=== PATIENT | female | born 1945 | race Caucasian/White ===

== ENCOUNTER → 2017-09-07 | Outpatient (CLI) | payer MEDICARE, OTHER ==
--- NOTE | 2017-09-08 14:26 | Diagnostic Imaging Report ---
Bilateral screening mammogram 2D views with tomosynthesis The current study was also evaluated with a Computer Aided Detection (CAD) system. INDICATION: Screening. No current complaints stated on the questionnaire. COMPARISON: 11/21/2015. FINDINGS: The breasts are composed of heterogeneously dense parenchyma which may decrease mammographic sensitivity. Allowing for technique and positional differences, no suspicious change is seen. IMPRESSION: Dense breasts with no definite change. ACR BI-RADS Category 2: Benign findings. Result letter will be mailed to the patient. Note: At least 10% of breast cancer is not imaged by mammography. Dictated by: Dictated on workstation # [id number]
== END ==
LOC: RAD 09:49
PROVIDERS: ATTEND Nurse Practitioner
DX: Z12.31 Encounter for screening mammogram for malignant neoplasm of breast (principal)
CPT/HCPCS: 77067

== ENCOUNTER 2018-03-25 19:20 | Emergency (ER) | payer MEDICARE, OTHER ==
[~2018-03-25] VITALS: Ht 152.4 cm; Wt 54.4 kg
[2018-03-25 20:20] LABS: BILIRUBIN,URINE NEGATIVE (NEGATIVE); CLARITY,URINE SLIGHTLY CLOUDY; COLOR,URINE YELLOW; GLUCOSE, URINE (UA) NEGATIVE (NEGATIVE); KETONES,URINE NEGATIVE (NEGATIVE); LEUKOCYTE ESTERASE ,URINE 3+ (NEGATIVE); NITRITE,URINE NEGATIVE (NEGATIVE); PH,URINE 7 (5-9); PROTEIN,URINE NEGATIVE (NEGATIVE); UROBILINOGEN,URINE NORMAL (NORMAL)
[2018-03-25 20:20] LABS: BASOPHILS % (AUTO) 0 % (0-10); EOSINOPHILS % (AUTO) 1 % (0-10); HEMATOCRIT 41 % (35-52); HEMOGLOBIN 13.9 G/DL (11.5-16.0); LYMPHOCYTES # (AUTO) 0.8 X 10^3 (1.0-4.0); LYMPHOCYTES % (AUTO) 16 % (12-44); MEAN CORPUSCULAR HEMOGLOBIN 32 PG (25-34); MEAN CORPUSCULAR HGB CONC 34 G/DL (32-36); MEAN CORPUSCULAR VOLUME 95 FL (80-99); MEAN PLATELET VOLUME 11.3 FL (7.4-10.4); MONOCYTES # (AUTO) 0.8 X 10^3 (0.0-1.0); MONOCYTES % (AUTO) 15 % (0-12); NEUTROPHILS # (AUTO) 3.5 X 10^3 (1.8-7.8); NEUTROPHILS % (AUTO) 68 % (42-75); PLATELET COUNT 167 10^3/uL (130-400); RED BLOOD COUNT 4.31 10^6/uL (4.35-5.85); RED CELL DISTRIBUTION WIDTH 12.9 % (10.0-14.5); WHITE BLOOD COUNT 5.2 10^3/uL (4.3-11.0)
--- NOTE | 2018-03-25 20:23 | ED General ---
General Chief Complaint: General Problems/Pain Stated Complaint: UTI,DIZZY,DISORIENTED Source of Information: Patient, Family Exam Limitations: No Limitations History of Present Illness Date Seen by Provider: Mar 25, 2018 Time Seen by Provider: 20:18 Initial Comments Patient is a 72-year-old female who presents to emergency room with complaints of UTI, head pressure, and confusion. She is alert and oriented on exam but feels like she is having episodes that are "foggy". She states that on 03/19/18 she was seen in emergency room in [facility] with similar symptoms and was treated for urinary tract infection and given Bactrim which she took her last dose this evening. She reports that on 03/22/13 she became dizzy and fell which caused her to hit her head. She states that she went to [place] emergency room for this and they did a CT of her head and stitches in her head. Today she reports that she is having a lot of pressure in her head and still think she has a urinary tract infection. Timing/Duration: 1 Week Associated Systoms: No Cough, No Diaphoresis, No Fever/Chills; Headaches; No Nausea/Vomiting, No Weakness Allergies and Home Medications Allergies Coded Allergies: No Known Drug Allergies (Unverified , 06/04/13) Patient Home Medication List Home Medication List Reviewed: Yes Review of Systems Constitutional: see HPI; No chills, No diaphoresis EENTM: see HPI; No no symptoms reported, No ear discharge, No hearing loss Respiratory: see HPI; No cough, No dyspnea on exertion, No hemoptysis Cardiovascular: see HPI; No chest pain, No edema Gastrointestinal: see HPI; No abdominal pain, No constipation, No diarrhea, No nausea, No vomiting Genitourinary: see HPI; No decreased output, No discharge, No dysuria Musculoskeletal: see HPI; No back pain, No gout, No joint pain Skin: see HPI; No change in color, No change in hair/nails, No dryness; other ( sutures in her scalp) Psychiatric/Neurological: See HPI; Denies Depressed, Denies Emotional Problems ; Headache Hematologic/Lymphatic: See HPI; Denies Anemia, Denies Blood Clots Immunological/Allergic: see HPI; denies food allergy, denies grass allergy All Other Systems Reviewed Negative Unless Noted: Yes Past Jxokmkx-Kghtrc-Lsumma Hx Patient Social History Alcohol Use: Denies Use Recreational Drug Use: No Smoking Status: Never a Smoker Recent Foreign Travel: No Contact w/Someone Who Travel: No Recent Hopitalizations: No Immunizations Up To Date Tetanus Booster (TDap): Unknown PED Vaccines UTD: Yes Seasonal Allergies Seasonal Allergies: No Past Medical History Surgeries: No Respiratory: No Cardiac: No Neurological: No Genitourinary: Yes Gastrointestinal: No Musculoskeletal: No Endocrine: No HEENT: No Cancer: No Psychosocial: No Integumentary: No Blood Disorders: No Physical Exam Vital Signs Vital Signs - First Documented 03/25/18 20:00 Temp 100.5 Pulse 75 Resp 20 B/P (MAP) 133/71 (91) Pulse Ox 98 O2 Delivery Room Air Capillary Refill : Height, Weight, BMI Height: '" Weight: 127lbs. oz. 57.393622hz; BMI Method: General Appearance: No Apparent Distress, WD/WN HEENT: PERRL/EOMI, TMs Normal, Normal ENT Inspection, Pharynx Normal Neck: Full Range of Motion, Normal Inspection, Non Tender, Supple Respiratory: Chest Non Tender, Lungs Clear, Normal Breath Sounds, No Accessory Muscle Use, No Respiratory Distress Cardiovascular: Regular Rate, Rhythm, No Edema, No Gallop, No JVD, No Murmur, Normal Peripheral Pulses Gastrointestinal: Normal Bowel Sounds, No Organomegaly, No Pulsatile Mass, Non Tender, Soft Back: Normal Inspection, No CVA Tenderness, No Vertebral Tenderness Extremity: Normal Capillary Refill, Normal Inspection, Normal Range of Motion, Non Tender, No Calf Tenderness Neurologic/Psychiatric: Alert, Oriented x3, No Motor/Sensory Deficits, Normal Mood/Affect Skin: Warm/Dry, Other (the patient does have 5 christopher that are intact on the left posterior aspect of the head.) Focused Exam Lactate Level Lactic Acid Level Progress/Results/Core Measures Suspected Sepsis SIRS Temperature: Pulse: Respiratory Rate: Blood Pressure / Mean: Results/Orders Lab Results My Orders Orders - JASWINDEROTSHERON Iv Infusion <= First Hr Ed (03/25/18 ) Medications Given in ED Vital Signs/I&O Capillary Refill : Progress Note : Time: 21:03 Progress Note Patient informed me that she has a pessary in place gets changed every [address] Alston. She reports that she is not due to have a change until the beginning of May. She states that she would like her bladder completely drained by a Shields catheter. I I'm going to have the patient void into a hat and then we will drain her bladder with a catheter. 2215: Patient had 300 mL of urine postvoid. Diagnostic Imaging Diagonstic Imaging: CT Plain Films/CT/US/NM/MRI: c-spine, head Comments VIA [facility]. [place], [place] NAME: YANICK CRUZ [facility] REC#: [id number] PT STATUS: REG ER : 1945 PHYSICIAN: SHERON RIOS ADMIT DATE: 03/25/18/ER Draft Date of Exam:03/25/18 CT HEAD/CERVICAL SPINE WO Clinical indication: Patient fell four days ago and has stitches in left side and is dizzy and has head pressure. Exam: Head CT without IV contrast. Axial CT scan of the cervical spine with sagittal and coronal reformations. Comparison: None. Findings: Head CT: Motion artifact obscures portions of this exam. There is no evidence of acute cerebral infarct, intracranial hemorrhage, or gross mass effect. The brain parenchymal volume appears appropriate for patient's age. There is normal bishop-white matter distinction. There is no significant midline shift or herniation. There is no evidence of hydrocephalus. The basal cisterns are unremarkable. There is a small area of extracranial soft tissue swelling involving the left posterior aspect of the head with scalp sutures seen. There is no skull fracture. Otherwise, the skull, extracranial soft tissue and orbits are unremarkable. The paranasal sinuses are unremarkable. Temporal bones show no significant abnormality. CT cervical spine: Motion artifact obscures portions of this exam. There is no gross evidence of acute cervical spine fracture or dislocation. There are multiple chronic appearing compression deformities with loss of vertebral body height involving the C3 through visualized T1 vertebra. There are hypertrophic anterior spurs with partially flowing osteophytes seen from the C3-C4 levels. There is no significant bony central canal or neural foramen narrowing. There is slight excessive lordosis of the cervical spine posture. The neck soft tissue structures show no significant abnormality. Visualized upper lung alva are clear. Impression: 1: There is no evidence of acute intracranial process. There is no intracranial hemorrhage. 2: There is a small area of extracranial soft tissue swelling involving the left posterior aspect of the head with no skull fracture seen. 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 4: There is chronic compression deformities involving multiple cervical vertebra. Dictated on workstation # [id number] Dict: 03/25/182103 Trans: 03/25/182115 [facility] [id number] Interpreted by: LEXII TREJO MD Electronically signed by: Reviewed: Reviewed by Me Departure Impression Primary Impression: Urinary tract infection Additional Impression: Urinary retention Disposition: HOME, SELF-CARE Condition: Stable/Unchanged Departure-Patient Inst. Decision time for Depature: 22:37 Referrals: CHRIS DUPONT MD (PCP/Family) Primary Care Physician SANDRA KNAPP MD Patient Instructions: Urinary Retention (DC), Urinary Tract Infection, Adult ( DC) Add. Discharge Instructions: Take medications as directed. Follow up with your doctor within 1 week for recheck. Also follow-up with Dr. Knapp the urologist in regards to the urinary retention. Call first thing Tuesday morning for appointment times . Return back to the emergency room for any change in mental status, fevers, increased pain, or any other concerns as needed. All discharge instructions reviewed with patient and/or family. Voiced understanding. SHERON RIOS Mar 25, 2018 20:23
[2018-03-25 20:27] LABS: BACTERIA,URINE FEW /HPF; SQUAMOUS EPITHELIAL CELL,UR 5+10 /HPF; WBC,URINE 25-50 /HPF
[2018-03-25 20:35] LABS: PROTHROMBIN TIME PATIENT 13.2 SEC (12.2-14.7)
[2018-03-25] MEDS ORDERED: NS IV 500 ML 500 ML IV ONE (20:41)
[2018-03-25 20:44] LABS: BILIRUBIN,TOTAL 0.5 MG/DL (0.1-1.0); CALCIUM 9.5 MG/DL (8.5-10.1); CREATININE SERUM 1.14 MG/DL (0.60-1.30); POTASSIUM 4.3 MMOL/L (3.6-5.0); TOTAL PROTEIN 7.2 GM/DL (6.4-8.2)
[2018-03-25] MEDS ORDERED: cefTRIAXone INJECTION 1,000 MG in NS (IVPB) 50 ML IV ONE (20:45)
--- NOTE | 2018-03-25 21:17 | Diagnostic Imaging Report ---
Clinical indication: Patient fell four days ago and has stitches in left side and is dizzy and has head pressure. Exam: Head CT without IV contrast. Axial CT scan of the cervical spine with sagittal and coronal reformations. Comparison: None. Findings: Head CT: Motion artifact obscures portions of this exam. There is no evidence of acute cerebral infarct, intracranial hemorrhage, or gross mass effect. The brain parenchymal volume appears appropriate for patient's age. There is normal bishop-white matter distinction. There is no significant midline shift or herniation. There is no evidence of hydrocephalus. The basal cisterns are unremarkable. There is a small area of extracranial soft tissue swelling involving the left posterior aspect of the head with scalp sutures seen. There is no skull fracture. Otherwise, the skull, extracranial soft tissue and orbits are unremarkable. The paranasal sinuses are unremarkable. Temporal bones show no significant abnormality. CT cervical spine: Motion artifact obscures portions of this exam. There is no gross evidence of acute cervical spine fracture or dislocation. There are multiple chronic appearing compression deformities with loss of vertebral body height involving the C3 through visualized T1 vertebra. There are hypertrophic anterior spurs with partially flowing osteophytes seen from the C3-C4 levels. There is no significant bony central canal or neural foramen narrowing. There is slight excessive lordosis of the cervical spine posture. The neck soft tissue structures show no significant abnormality. Visualized upper lung alva are clear. Impression: 1: There is no evidence of acute intracranial process. There is no intracranial hemorrhage. 2: There is a small area of extracranial soft tissue swelling involving the left posterior aspect of the head with no skull fracture seen. 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 4: There is chronic compression deformities involving multiple cervical vertebra. Dictated by: Dictated on workstation # [id number]
[2018-03-25 22:25] VITALS: BP 133/71
== END 2018-03-25 22:50 | disposition home or self-care (01) ==
LOC: EDUNIT# 19:20 → ER 19:22
DX: N39.0 Urinary tract infection, site not specified (principal)
CPT/HCPCS: 36415; 70450; 72125; 80053; 81000; 83605; 85025; 85610; 85730; 87040; 87088; 96361; 96365

== ENCOUNTER 2018-03-28 21:10 | Emergency (ER) | payer MEDICARE, OTHER ==
[~2018-03-28] VITALS: Ht 152.4 cm; Wt 54.4 kg
--- OUTSIDE RECORDS SUMMARY | 2018-03-28 21:13 | XMS REPORT | Continuity of Care Document ---
Author Author [facility] Organization [facility] Address Unknown Phone Unavailable Allergies Active Description Code Type Severity Reaction Onset Reported/Identified Relationship to Patient Clinical Status Yes NO KNOWN DRUG ALLERGIES UNKNOWN NO KNOWN DRUG ALLERG Yes No Known Drug Allergies [id number] Drug Allergy Unknown N/A 06/04/2013 Medications There is no data. Problems Date Dx Coded Attending Type Code Diagnosis Diagnosed By 05/29/2013 TYSHAWN SCHAFFER Ot 327.23 OBSTRUCTIVE SLEEP APNEA (ADULT) (PEDIATR 05/29/2013 TYSHAWN SCHAFFERP Ot 327.51 PERIODIC LIMB MOVEMENT DISORDER 12/12/2014 Ot V76.12 12/18/2015 LEANNE MENDOZA [facility] Ot Z12.31 06/13/2017 Farooq, Brenda-William W 280.9 IRON DEFICIENCY ANEMIA, UNSPECIFIED 06/13/2017 Farooq, Brenda-William W 780.79 OTHER MALAISE AND FATIGUE 06/13/2017 Farooq, Brenda-William W D50.9 IRON DEFICIENCY ANEMIA, UNSPECIFIED 06/13/2017 Farooq, Brenda-William W R53.83 OTHER FATIGUE 06/13/2017 Farooq, Brenda-William W 280.9 IRON DEFICIENCY ANEMIA, UNSPECIFIED 06/13/2017 Farooq, Brenda-William W 780.79 OTHER MALAISE AND FATIGUE 06/13/2017 Farooq, Brenda-William W D50.9 IRON DEFICIENCY ANEMIA, UNSPECIFIED 06/13/2017 Farooq, Brenda-William W R53.83 OTHER FATIGUE 06/13/2017 Farooq, Brenda-William W 280.9 IRON DEFICIENCY ANEMIA, UNSPECIFIED 06/13/2017 Farooq, Brenda-William W 780.79 OTHER MALAISE AND FATIGUE 06/13/2017 Farooq, Brenda-William W D50.9 IRON DEFICIENCY ANEMIA, UNSPECIFIED 06/13/2017 Farooq, Brenda-William W R53.83 OTHER FATIGUE 06/13/2017 Farooq, Brenda-William W 280.9 IRON DEFICIENCY ANEMIA, UNSPECIFIED 06/13/2017 Farooq, Maxxu W 780.79 OTHER MALAISE AND FATIGUE 06/13/2017 Farooq, Maxxu W D50.9 IRON DEFICIENCY ANEMIA, UNSPECIFIED 06/13/2017 Farooq, Maxxu W R53.83 OTHER FATIGUE 08/30/2017 QUICK, LEANNE W MARBLE CUTTER OPERATOR Ot Z12.31 ENCNTR SCREEN MAMMOGRAM FOR MALIGNANT NE 08/31/2017 QUICK, LEANNE W MARBLE CUTTER OPERATOR Ot Z12.31 ENCNTR SCREEN MAMMOGRAM FOR MALIGNANT NE 09/08/2017 QUICK, LEANNE W MARBLE CUTTER OPERATOR Ot Z12.31 ENCNTR SCREEN MAMMOGRAM FOR MALIGNANT NE 09/29/2017 QUICK, LEANNE W MARBLE CUTTER OPERATOR Ot Z12.31 ENCNTR SCREEN MAMMOGRAM FOR MALIGNANT NE 12/20/2017 Farooq, Maxxu W 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 12/20/2017 Farooq, Maxxu W 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, NOT ELSEWHERE CLASSIFIED 12/20/2017 Farooq, Maxxu W 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 12/20/2017 Farooq, Brenda-William W 783.5 POLYDIPSIA 12/20/2017 Farooq, Brenda-William W 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, NOT ELSEWHERE CLASSIFIED 12/20/2017 Farooq, Maxxu W M19.9 OSTEOARTHRITIS, UNSPECIFIED SITE 12/20/2017 Farooq, Brenda-William W R63.1 POLYDIPSIA 12/20/2017 Farooq, Brenda-William W 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 12/20/2017 Farooq, Brenda-William W 783.5 POLYDIPSIA 12/20/2017 Farooq, Brenda-William W 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, NOT ELSEWHERE CLASSIFIED 12/20/2017 Farooq, Brenda-William W M19.9 OSTEOARTHRITIS, UNSPECIFIED SITE 12/20/2017 Farooq, Brenda-William W R63.1 POLYDIPSIA 01/03/2018 Farooq, Brenda-William W 785.1 PALPITATIONS 01/03/2018 Farooq, Brenda-William W R00.2 PALPITATIONS 01/03/2018 Farooq, Brenda-William W 785.1 PALPITATIONS 01/03/2018 Farooq, Brenda-William W R00.2 PALPITATIONS 03/21/2018 Farooq, Brenda-William W 599.0 URINARY TRACT INFECTION, SITE NOT SPECIFIED 03/21/2018 Farooq, Brenda-William W N39.0 URINARY TRACT INFECTION, SITE NOT SPECIFIED 03/21/2018 Farooq, Brenda-William W 599.0 URINARY TRACT INFECTION, SITE NOT SPECIFIED 03/21/2018 Farooq, Brenda-William W N39.0 URINARY TRACT INFECTION, SITE NOT SPECIFIED 03/21/2018 Farooq, Brenda-William W 599.0 URINARY TRACT INFECTION, SITE NOT SPECIFIED 03/21/2018 Farooq, Brenda-William W N39.0 URINARY TRACT INFECTION, SITE NOT SPECIFIED 03/22/2018 Marleen Johnson A 873.0 OPEN WOUND OF SCALP, WITHOUT MENTION OF COMPLICATION 03/22/2018 Marleen Johnson S01.01XA LACERATION WITHOUT FOREIGN BODY OF SCALP, INITIAL ENCOUNTER 03/25/2018 Ot 793.82 INCONCLUSIVE MAMMOGRAM 03/25/2018 Ot V76.12 OTH SCREEN MAMMO-MALIGN NEOPLASM OF MARY 03/25/2018 GIO HERNANDEZ FACC, ALI FACP CCDS Ot 427.89 CARDIAC DYSRHYTHMIAS NEC 03/25/2018 GIO HERNANDEZ FACC, ALI FACP CCDS Ot 780.79 OTH MALAISE FATIGUE 03/25/2018 GIO HERNANDEZ FACC, ALI FACP CCDS Ot 427.89 CARDIAC DYSRHYTHMIAS NEC 03/25/2018 GIO HERNANDEZ FACC, ALI FACP CCDS Ot 780.79 OTH MALAISE FATIGUE 03/25/2018 ALICE CORONEL MD Ot V76.12 OTH SCREEN MAMMO-MALIGN NEOPLASM OF MARY 03/25/2018 Ot V76.12 OTH SCREEN MAMMO-MALIGN NEOPLASM OF MARY 03/25/2018 LEANNE MENDOZA MARBLE CUTTER OPERATOR Ot Z12.31 ENCNTR SCREEN MAMMOGRAM FOR MALIGNANT NE 03/25/2018 LEANNE MENDOZA Ot Z12.31 ENCNTR SCREEN MAMMOGRAM FOR MALIGNANT NE 03/25/2018 SHERON RIOS Ot N39.0 URINARY TRACT INFECTION, SITE NOT SPECIF 03/25/2018 SHERON RIOS Ot R42 DIZZINESS AND GIDDINESS 03/27/2018 Regina Martinez W 599.0 URINARY TRACT INFECTION, SITE NOT SPECIFIED 03/27/2018 Michelle, Regina W N39.0 URINARY TRACT INFECTION, SITE NOT SPECIFIED 03/27/2018 Michelle, Regina W 599.0 URINARY TRACT INFECTION, SITE NOT SPECIFIED 03/27/2018 Michelle, Regina Mann N39.0 URINARY TRACT INFECTION, SITE NOT SPECIFIED Procedures There is no data. Results Test Result Range CBC with Auto Diff - 06/13/17 08:10 Baso% 0.20 % 0.00-2.50 Eos 0.1 K/uL 0.0-0.7 Eos% 2.6 % 0.0-7.0 Hct 47.2 % 36.0-46.0 Hgb 14.9 g/dL 13.0-15.0 Lym 2.29 K/uL 0.60-3.40 Lym% 45.1 % 10.0-50.0 MCH 31.3 pg 27.0-31.0 MCHC 31.6 g/dL 32.0-36.0 MCV 99.2 fL 80.0-97.0 Cascade% 13.2 % 0.0-12.0 MPV 12.7 fL 7.4-10.0 Omi% 38.9 % 37.0-80.0 Plt 188 K/uL 150-400 RBC 4.76 M/uL 3.60-5.00 RDW 13.7 % 11.6-14.8 WBC 5.08 K/uL 5.00-10.00 Omi 1.98 K/uL 2.00-6.90 Cascade 0.7 K/uL 0.0-0.9 Baso 0.0 K/uL 0.0-0.2 VIT B-12 - 06/13/17 08:10 Vitamin B12 781.00 pg/mL 213.00-816.00 IFOBT Occult Blood - 06/15/17 11:44 IFOBT Occult Blood NEGATIVE Negative Hemoglobin A1C - 12/20/17 08:15 % A1C 5.10 % 5.40-6.60 AvGlu 103 mg/dL 70-110 Holter Montor 24 Hour - 01/03/18 11:30 Holter Monitor 24 Hour Complete Urine Culture - 03/21/18 13:10 PRELIM CULTURE RESULTS No Growth 24 hours MEDIA PLATED Setup at 15:09 on 03/21/2018 CULTURE SOURCE clean catch Urine Culture - 03/21/18 13:10 PRELIM CULTURE RESULTS No Growth 24 hours FINAL CULTURE RESULTS 20,000-50,000 Dipthroids Probable Skin Contaminant No Further Workup done MEDIA PLATED Setup at 15:09 on 03/21/2018 CULTURE SOURCE clean catch Complete urinalysis with reflex to culture - 03/25/18 19:28 Urine color determination YELLOW NRG Urine clarity determination SLIGHTLY CLOUDY NRG Urine pH measurement by test strip 7 5-9 Specific gravity of urine by test strip 1.005 1.016- 1.022 Urine protein assay by test strip, semi-quantitative NEGATIVE NEGATIVE Urine glucose detection by automated test strip NEGATIVE NEGATIVE Erythrocytes detection in urine sediment by light microscopy 2+ NEGATIVE Urine ketones detection by automated test strip NEGATIVE NEGATIVE Urine nitrite detection by test strip NEGATIVE NEGATIVE Urine total bilirubin detection by test strip NEGATIVE NEGATIVE Urine urobilinogen measurement by automated test strip (mass/volume) NORMAL NORMAL Urine leukocyte esterase detection by dipstick 3+ NEGATIVE Automated urine sediment erythrocyte count by microscopy (number/high power field) [HPF] NRG Automated urine sediment leukocyte count by microscopy (number/high power field ) [HPF] NRG Bacteria detection in urine sediment by light microscopy FEW NRG Squamous epithelial cells detection in urine sediment by light microscopy 5+10 NRG Crystals detection in urine sediment by light microscopy NONE NRG Casts detection in urine sediment by light microscopy NONE NRG Mucus detection in urine sediment by light microscopy NEGATIVE NRG Complete urinalysis with reflex to culture YES NRG Bacterial urine culture - 03/25/18 19:28 Bacterial urine culture SEE COMMEN NRG COLONY COUNT . NRG Complete blood count (CBC) with automated white blood cell (WBC) differential - 03/25/18 20:14 Blood leukocytes automated count (number/volume) 5.2 10*3/uL 4.3-11.0 Blood erythrocytes automated count (number/volume) 4.31 10*6/uL 4.35-5.85 Venous blood hemoglobin measurement (mass/volume) 13.9 g/dL 11.5-16.0 Blood hematocrit (volume fraction) 41 % 35-52 Automated erythrocyte mean corpuscular volume 95 [foz_us] 80-99 Automated erythrocyte mean corpuscular hemoglobin (mass per erythrocyte) 32 pg 25-34 Automated erythrocyte mean corpuscular hemoglobin concentration measurement ( mass/volume) 34 g/dL 32-36 Automated erythrocyte distribution width ratio 12.9 % 10.0-14.5 Automated blood platelet count (count/volume) 167 10*3/uL 130-400 Automated blood platelet mean volume measurement 11.3 [foz_us] 7.4-10.4 Automated blood neutrophils/100 leukocytes 68 % 42-75 Automated blood lymphocytes/100 leukocytes 16 % 12-44 Blood monocytes/100 leukocytes 15 % 0-12 Automated blood eosinophils/100 leukocytes 1 % 0-10 Automated blood basophils/100 leukocytes 0 % 0-10 Blood neutrophils automated count (number/volume) 3.5 10*3 1.8-7.8 Blood lymphocytes automated count (number/volume) 0.8 10*3 1.0-4.0 Blood monocytes automated count (number/volume) 0.8 10*3 0.0-1.0 Automated eosinophil count 0.0 10*3/uL 0.0-0.3 Automated blood basophil count (count/volume) 0.0 10*3/uL 0.0-0.1 PT panel in platelet poor plasma by coagulation assay - 03/25/18 20:14 Prothrombin time (PT) in platelet poor plasma by coagulation assay 13.2 s 12.2-14.7 INR in platelet poor plasma or blood by coagulation assay 1.0 0.8-1.4 Activated partial thromboplastin time (aPTT) in platelet poor plasma bycoagulation assay - 03/25/18 20:14 Activated partial thromboplastin time (aPTT) in platelet poor plasma bycoagulation assay 26 s 24-35 Comprehensive metabolic panel - 03/25/18 20:14 Serum or plasma sodium measurement (moles/volume) 131 mmol/L 135-145 Serum or plasma potassium measurement (moles/volume) 4.3 mmol/L 3.6-5.0 Serum or plasma chloride measurement (moles/volume) 98 mmol/L 98-107 Carbon dioxide 24 mmol/L 21-32 Serum or plasma anion gap determination (moles/volume) 9 mmol/L 5-14 Serum or plasma urea nitrogen measurement (mass/volume) 16 mg/dL 7-18 Serum or plasma creatinine measurement (mass/volume) 1.14 mg/dL 0.60-1.30 Serum or plasma urea nitrogen/creatinine mass ratio 14 NRG Serum or plasma creatinine measurement with calculation of estimated glomerular filtration rate 47 NRG Serum or plasma glucose measurement (mass/volume) 97 mg/dL 70-105 Serum or plasma calcium measurement (mass/volume) 9.5 mg/dL 8.5-10.1 Serum or plasma total bilirubin measurement (mass/volume) 0.5 mg/dL 0.1-1.0 Serum or plasma alkaline phosphatase measurement (enzymatic activity/volume) 96 U/L 40-136 Serum or plasma aspartate aminotransferase measurement (enzymatic activity/ volume) 29 U/L 5-34 Serum or plasma alanine aminotransferase measurement (enzymatic activity/volume ) 17 U/L 0-55 Serum or plasma protein measurement (mass/volume) 7.2 g/dL 6.4-8.2 Serum or plasma albumin measurement (mass/volume) 4.0 g/dL 3.2-4.5 Blood lactic acid measurement (moles/volume) - 03/25/18 20:22 Blood lactic acid measurement (moles/volume) 1.02 mmol/L 0.50-2.00 Bacterial blood culture - 03/25/18 20:22 Bacterial blood culture NG NRG Bacterial blood culture - 03/25/18 20:40 Bacterial blood culture NG NRG Encounters ACCT No. Visit Date/Time Discharge Status Pt. Type Provider Facility Loc./Unit Complaint [id number] 03/25/2018 19:22:00 03/25/2018 22:50:00 DIS Emergency SHERON RIOS [facility] ER UTI,DIZZY,DISORIENTED [id number] 09/07/2017 09:49:00 09/07/2017 23:59:59 CLS Outpatient LEANNE MENDOZA [facility] RAD Z12.31 SCREENING MAMMO [id number] 11/21/2015 11:42:00 11/21/2015 23:59:59 CLS Outpatient LEANNE MENDOZA [facility] RAD SCREENING [id number] 10/30/2013 14:52:00 10/30/2013 23:59:59 CLS Outpatient ALICE CORONEL MD [facility] RAD SCREENING [id number] 06/04/2013 11:52:00 06/04/2013 23:59:59 CLS Outpatient GIO HERNANDEZ FACC, CLAUDIA HANSON CCDS [facility] RAD ALETHA VAN [id number] 05/28/2013 20:28:00 05/29/2013 07:00:00 DIS Outpatient TYSHAWN SCHAFFER 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 [facility] SLEEP SNORING,DAYTIME SLEEPINESS [id number] 05/17/2013 13:39:00 05/17/2013 23:59:59 CLS Outpatient GIO HERNANDEZ FACC, CLAUDIA FACP CCDS [facility] CARD WEAKNESS, BRADYCARDIA [id number] 03/28/2018 21:10:00 ACT Emergency GIUSEPPE ALVAREZ MD [facility] ER UTI;LIGHT HEADED [id number] 12/12/2014 13:45:00 Document Registration [id number] 10/19/2012 09:24:00 Document Registration [id number] 03/27/2018 15:34:00 03/27/2018 23:59:00 DIS Outpatient Michelle, Regina [id number] 03/22/2018 18:58:00 03/22/2018 23:00:00 DIS Outpatient [facility] ER [id number] 03/21/2018 15:01:00 03/21/2018 23:59:00 DIS Outpatient Farooq, Brenda-William [id number] 03/20/2018 14:37:00 03/20/2018 23:59:00 DIS Outpatient Michelle, Regina [id number] 03/20/2018 14:23:00 03/20/2018 23:59:00 DIS Outpatient Michelle, Regina [id number] 01/03/2018 10:57:00 01/03/2018 23:59:00 DIS Outpatient Farooq, Brenda-William [id number] 12/20/2017 08:58:00 12/20/2017 23:59:00 DIS Outpatient Farooq, Brenda-William [id number] 06/15/2017 11:43:00 06/15/2017 23:59:00 DIS Outpatient Michelle, Regina [id number] 06/13/2017 09:13:00 06/13/2017 23:59:00 DIS Outpatient Farooq, Brenda-William [id number] 03/21/2018 15:01:00 Document Registration [id number] 06/13/2017 09:13:00 Document Registration
[2018-03-28 21:42] LABS: BILIRUBIN,URINE NEGATIVE (NEGATIVE); CLARITY,URINE CLEAR; COLOR,URINE YELLOW; GLUCOSE, URINE (UA) NEGATIVE (NEGATIVE); KETONES,URINE NEGATIVE (NEGATIVE); LEUKOCYTE ESTERASE ,URINE 3+ (NEGATIVE); NITRITE,URINE NEGATIVE (NEGATIVE); PH,URINE 7 (5-9); PROTEIN,URINE NEGATIVE (NEGATIVE); UROBILINOGEN,URINE NORMAL (NORMAL)
[2018-03-28 21:50] LABS: BACTERIA,URINE FEW /HPF; RBC,URINE 0-2 /HPF
--- NOTE | 2018-03-28 22:18 | ED General ---
General Chief Complaint: General Problems/Pain Stated Complaint: UTI;LIGHT HEADED Nursing Triage Note: PT AMBULATED TO RM 5 W/O DIFFICULTY. PT STATES SHE WAS RECENTLY TREATED FOR A UTI AND IS CURRENTLY TAKING CEFDINIR. PT DENIES URINARY SYMPTOMS AT THIS TIME. PT STATES SHE HAS HAD DIZZINESS, FEVER, CHILLS, AND DIARRHEA FOR 4 DAYS. Nursing Sepsis Screen: No Definite Risk Source of Information: Patient Exam Limitations: No Limitations History of Present Illness Date Seen by Provider: Mar 28, 2018 Time Seen by Provider: 22:13 Initial Comments Patient is a 72-year-old female who presents to the emergency room with complaints of fever, dizziness, diarrhea for 4 days. She reports that she's been seen by [facility] emergency room and treated for urinary tract infection and was seen at [facility] emergency room for a fall which she hit her head required 5 christopher to the left occipital area. They are still intact. She was also seen in this emergency room on 03/25/18 and treated for urinary tract infection with IV antibiotics and cefdinir. Timing/Duration: 1 Week, Changing Over Time Associated Systoms: Fever/Chills, Other (diarrhea) Allergies and Home Medications Allergies Coded Allergies: No Known Drug Allergies (Unverified , 06/04/13) Patient Home Medication List Home Medication List Reviewed: Yes Review of Systems Constitutional: see HPI, chills, dizziness, fever, weakness EENTM: no symptoms reported Respiratory: see HPI; No cough, No short of breath, No wheezing Cardiovascular: see HPI; No palpitations, No syncope Gastrointestinal: see HPI; No abdominal pain, No constipation; diarrhea; No nausea, No vomiting Genitourinary: see HPI; No decreased output, No discharge, No dysuria Musculoskeletal: see HPI; No back pain, No gout, No joint pain Skin: see HPI; No change in color, No change in hair/nails, No dryness; other ( 5 christopher in the head.) Psychiatric/Neurological: See HPI; Denies Anxiety, Denies Depressed Hematologic/Lymphatic: See HPI; Denies Anemia Immunological/Allergic: see HPI; denies food allergy Past Liabixi-Nrydgn-Izyvle Hx Past Med/Social Hx: Reviewed Nursing Past Med/Soc Hx Patient Social History Alcohol Use: Denies Use Recreational Drug Use: No 2nd Hand Smoke Exposure: No Recent Foreign Travel: No Contact w/Someone Who Travel: No Recent Infectious Disease Expo: No Recent Hopitalizations: No Physical Abuse: No Sexual Abuse: No Immunizations Up To Date Tetanus Booster (TDap): Unknown PED Vaccines UTD: Yes Seasonal Allergies Seasonal Allergies: No Past Medical History Surgeries: No Respiratory: No Cardiac: No Neurological: No Genitourinary: Yes Gastrointestinal: No Musculoskeletal: No Endocrine: No HEENT: No Cancer: No Psychosocial: No Nursing Suicide Risk Score: 0 Integumentary: No Blood Disorders: No Family Medical History Reviewed Nursing Family Hx Physical Exam Vital Signs Vital Signs - First Documented 03/28/18 03/28/18 21:28 23:36 Temp 97.8 Pulse 71 Resp 12 B/P (MAP) 106/62 (77) Pulse Ox 97 O2 Delivery Room Air Capillary Refill : Less Than 3 Seconds Height, Weight, BMI Height: 5'0" Weight: 120lbs. oz. 54.727863cw; BMI Method:Stated General Appearance: No Apparent Distress, WD/WN HEENT: PERRL/EOMI, TMs Normal, Normal ENT Inspection, Pharynx Normal Neck: Full Range of Motion, Normal Inspection, Non Tender, Supple Respiratory: Chest Non Tender, Lungs Clear, Normal Breath Sounds, No Accessory Muscle Use, No Respiratory Distress Cardiovascular: Regular Rate, Rhythm, No Edema, No Gallop, No JVD, No Murmur, Normal Peripheral Pulses Gastrointestinal: Normal Bowel Sounds, No Organomegaly, No Pulsatile Mass, Non Tender, Soft Back: Normal Inspection, No CVA Tenderness, No Vertebral Tenderness Extremity: Normal Capillary Refill, Normal Inspection, Normal Range of Motion, Non Tender, No Calf Tenderness Neurologic/Psychiatric: Alert, Oriented x3, Normal Mood/Affect Skin: Normal Color, Warm/Dry Lymphatic: No Adenopathy Progress/Results/Core Measures Suspected Sepsis Recent Fever Within 48 Hours: No Infection Criteria Present: None New/Unexplained Altered Menta: No Sepsis Screen: No Definite Risk SIRS Temperature:97.8 Pulse: 71 Respiratory Rate: 12 Blood Pressure 106 /62 Mean: 77 Results/Orders Lab Results My Orders Vital Signs/I&O Capillary Refill : Less Than 3 Seconds Blood Pressure Mean: 77 Progress Note : Time: 22:15 Progress Note Given the patient's microbiology report from her urine I'm going to have her stop the Cefdinir. I believe that these are the causes some of her symptoms. She is refusing the EKG at this time because she has recently had one in the [place] emergency room. She does not have an elevated white count at this visit. 1117 She was unable to provide a stool sample for us at this visit but is feeling much better and is ready to go home. She stated that she misinformed me and she has not ran a fever for 2 days. [facility]. [address] [facility] [place] [address] [address] DEPT. OF LABORATORY MEDICINE CHARLENE TOMPKINS M.D.,DIRECTOR BRITTNEY# [id number] Laboratory Inquiry Report Patient: YANICK CRUZ Birthdate: 1945 FEMALE Financial #: [id number] Loc: ER - Service: Admit Date: 03/25/18 Status: ARMANI DE LA TORRE Physician: SHERON RIOS SPEC #: [id number] JACOB: 03/25/18 STATUS: COMP REQ #: [id number] RECD: 03/25/[address]: SHERON RIOS Order Location: ER SOURCE: URINE DESCRIPTION: CLEAN CATC Procedure Result Verified URINE CULTURE Final Verified 03/27/18- 829Final [facility] Source: URINE / CLEAN CATCH Order Location: EMERGENCY ROOM Organism 1 Lactobacillus species >100,000/ML Organism 2 SEE COMMENTS . [facility] final report 03/27/18 08:05 >100,000 cfu/ml of Lactobacillus species Susceptibility testing not routinely done on Lactobacillus because it is most likely a collection contaminant rather than a true pathogen. If treated, drugs of choice may include penicillin G or ampicillin. (Clindamycin and erythromycin are alternative choices. May be resistant to vancomycin.) (Eyad Guide to Anitmicrobial Therapy, 2014) @ [facility] - [facility]FOR[facility] [place] [address] Printed: 03/27/18 0830 END OF REPORT Patient: YANICK CRUZ Laboratory Inquriy Report Departure Impression Primary Impression: Medication side effect Disposition: 01 HOME, SELF-CARE Condition: Stable/Unchanged Departure-Patient Inst. Decision time for Depature: 23:26 Referrals: CHRIS DUPONT MD (PCP/Family) Primary Care Physician Patient Instructions: MEDICATION REACTION Add. Discharge Instructions: Stop taking the Cefdinir. Keep your appointment with Dr. Dupont on 03/30/18. Return back to the emergency room for any fevers, nausea, vomiting, increased diarrhea, or dizziness. All discharge instructions reviewed with patient and/or family. Voiced understanding. SHERON RIOS Mar 28, 2018 22:18
[2018-03-28 22:26] LABS: BASOPHILS % (AUTO) 0 % (0-10); EOSINOPHILS # (AUTO) 0.1 10^3/uL (0.0-0.3); EOSINOPHILS % (AUTO) 2 % (0-10); HEMATOCRIT 39 % (35-52); HEMOGLOBIN 13.2 G/DL (11.5-16.0); LYMPHOCYTES # (AUTO) 1.1 X 10^3 (1.0-4.0); LYMPHOCYTES % (AUTO) 19 % (12-44); MEAN CORPUSCULAR HEMOGLOBIN 32 PG (25-34); MEAN CORPUSCULAR HGB CONC 34 G/DL (32-36); MEAN CORPUSCULAR VOLUME 94 FL (80-99); MEAN PLATELET VOLUME 11.5 FL (7.4-10.4); MONOCYTES # (AUTO) 0.6 X 10^3 (0.0-1.0); MONOCYTES % (AUTO) 11 % (0-12); NEUTROPHILS # (AUTO) 4.1 X 10^3 (1.8-7.8); NEUTROPHILS % (AUTO) 68 % (42-75); PLATELET COUNT 148 10^3/uL (130-400); RED BLOOD COUNT 4.18 10^6/uL (4.35-5.85); RED CELL DISTRIBUTION WIDTH 12.9 % (10.0-14.5)
[2018-03-28 22:38] LABS: ALANINE AMINOTRANSFERASE 17 U/L (0-55); ALBUMIN 3.7 GM/DL (3.2-4.5); ALKALINE PHOSPHATASE 78 U/L (40-136); BILIRUBIN,TOTAL 0.4 MG/DL (0.1-1.0); BUN/CREATININE RATIO 12; CALCIUM 9.4 MG/DL (8.5-10.1); CARBON DIOXIDE 26 MMOL/L (21-32); CHLORIDE 99 MMOL/L (98-107); CREATININE SERUM 0.69 MG/DL (0.60-1.30); GFR ESTIMATED > 60; GLUCOSE 113 MG/DL (70-105); POTASSIUM 3.7 MMOL/L (3.6-5.0); SODIUM 131 MMOL/L (135-145)
[2018-03-28] MEDS ORDERED: NS IV 1000 ML 1,000 ML IV SCH (23:00)
[2018-03-28 23:36] VITALS: BP 123/67
== END 2018-03-28 23:36 | disposition home or self-care (01) ==
LOC: ER 21:10 → EDUNIT# 21:10 → ER 23:36
DX: R42 Dizziness and giddiness (principal); T36.1X5A Adverse effect of cephalosporins and other beta-lactam antibiotics, initial encounter; Z87.440 Personal history of urinary (tract) infections
CPT/HCPCS: 36415; 80053; 81000; 85025; 96360

== ENCOUNTER 2018-05-30 20:15 | Emergency (ER) | payer MEDICARE, OTHER ==
[~2018-05-30] VITALS: Ht 149.9 cm; Wt 54.0 kg
--- OUTSIDE RECORDS SUMMARY | 2018-05-30 21:13 | XMS REPORT | Continuity of Care Document ---
Author Author [facility] Organization [facility] Address Unknown Phone Unavailable Allergies Active Description Code Type Severity Reaction Onset Reported/Identified Relationship to Patient Clinical Status Yes NO KNOWN DRUG ALLERGIES UNKNOWN NO KNOWN DRUG ALLERG Yes No Known Drug Allergies [id number] Drug Allergy Unknown N/A 06/04/2013 Medications There is no data. Problems Date Dx Coded Attending Type Code Diagnosis Diagnosed By 05/29/2013 TYSHAWN SCHAFFER Ot 327.23 OBSTRUCTIVE SLEEP APNEA (ADULT) (PEDIATR 05/29/2013 TYSHAWN SCHAFFERP Ot 327.51 PERIODIC LIMB MOVEMENT DISORDER 12/12/2014 Ot V76.12 12/18/2015 LEANNE MENDOZA [facility] Ot Z12.31 06/13/2017 Farooq, Brenda-William W [...] R53.83 OTHER FATIGUE 08/30/2017 QUICK, LEANNE W DAIRY NUTRITION CONSULTANT Ot Z12.31 ENCNTR SCREEN MAMMOGRAM FOR MALIGNANT NE 08/31/2017 QUICK, LEANNE W DAIRY NUTRITION CONSULTANT Ot Z12.31 ENCNTR SCREEN MAMMOGRAM FOR MALIGNANT NE 09/08/2017 QUICK, LEANNE W DAIRY NUTRITION CONSULTANT Ot Z12.31 ENCNTR SCREEN MAMMOGRAM FOR MALIGNANT NE 09/29/2017 QUICK, LEANNE W DAIRY NUTRITION CONSULTANT Ot Z12.31 ENCNTR SCREEN MAMMOGRAM FOR MALIGNANT [...] Farooq, Brenda-William W R63.1 POLYDIPSIA 12/20/2017 Farooq, Brenda-Willaim W 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 12/20/2017 Farooq, Brenda-William W 783.5 POLYDIPSIA 12/20/2017 Farooq, Brenda-William W 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, NOT ELSEWHERE CLASSIFIED 12/20/2017 Farooq, Brenda-William W M19.9 OSTEOARTHRITIS, UNSPECIFIED SITE 12/20/2017 Farooq, Bredna-William W R63.1 POLYDIPSIA 01/03/2018 Farooq, Brenda-William W [...] MAMMO-MALIGN NEOPLASM OF MARY 03/25/2018 LEANNE MENDOZA DAIRY NUTRITION CONSULTANT Ot Z12.31 ENCNTR SCREEN MAMMOGRAM FOR MALIGNANT [...] N39.0 URINARY TRACT INFECTION, SITE NOT SPECIFIED 03/30/2018 SHERON RIOS Ot R42 DIZZINESS AND GIDDINESS 03/30/2018 SHERON RIOS Ot T36.1X5A ADVERSE EFFECT OF CEPHALOSPOR/OTH BETA-L 03/30/2018 BLANCA SHERON Ot Z87.440 PERSONAL HISTORY OF URINARY (TRACT) INFE Procedures There is no data. Results Test Result Range CBC with Auto Diff - 06/13/17 08:10 Baso% 0.20 % 0.00-2.50 Eos 0.1 K/uL 0.0-0.7 Eos% 2.6 % 0.0-7.0 Hct 47.2 % 36.0-46.0 Hgb 14.9 g/dL 13.0-15.0 Lym 2.29 K/uL 0.60-3.40 Lym% 45.1 % 10.0-50.0 MCH 31.3 pg 27.0-31.0 MCHC 31.6 g/dL 32.0-36.0 MCV 99.2 fL 80.0-97.0 [place]% 13.2 % 0.0-12.0 MPV 12.7 fL 7.4-10.0 Omi% 38.9 % 37.0-80.0 Plt 188 K/uL 150-400 RBC 4.76 M/uL 3.60-5.00 RDW 13.7 % 11.6-14.8 WBC 5.08 K/uL 5.00-10.00 Omi 1.98 K/uL 2.00-6.90 [place] 0.7 K/uL 0.0-0.9 Baso 0.0 K/uL 0.0-0.2 [...] plasma urea nitrogen measurement (mass/volume) 16 mg/dL 18 Serum or plasma creatinine measurement (mass/volume) 1.14 [...] 03/25/18 20:40 Bacterial blood culture NG NRG Urine Culture - 03/27/18 15:35 PRELIM CULTURE RESULTS No Growth 24 hours FINAL CULTURE RESULTS No Growth 48 hours MEDIA PLATED Setup at 17:30 on 03/27/2018 CULTURE SOURCE clean [id number]\ Complete urinalysis with reflex to culture - 03/28/18 21:30 Urine color determination YELLOW NRG Urine clarity determination CLEAR NRG Urine pH measurement by test strip 7 5-9 Specific gravity of urine by test strip 1.005 1.016- 1.022 Urine protein assay by test strip, semi-quantitative NEGATIVE NEGATIVE Urine glucose detection by automated test strip NEGATIVE NEGATIVE Erythrocytes detection in urine sediment by light microscopy 3+ NEGATIVE Urine ketones detection by automated test [...] detection in urine sediment by light microscopy 2-5 NRG Crystals detection in urine sediment by light microscopy NONE NRG Casts detection in urine sediment by light microscopy NONE NRG Mucus detection in urine sediment by light microscopy NEGATIVE NRG Complete urinalysis with reflex to culture NO NRG Complete blood count (CBC) with automated white blood cell (WBC) differential - 03/28/18 22:08 Blood leukocytes automated count (number/volume) 6.0 10*3/uL 4.3-11.0 Blood erythrocytes automated count (number/volume) 4.18 10*6/uL 4.35-5.85 Venous blood hemoglobin measurement (mass/volume) 13.2 g/dL 11.5-16.0 Blood hematocrit (volume fraction) 39 % 35-52 Automated erythrocyte mean corpuscular volume 94 [foz_us] 80-99 Automated erythrocyte mean corpuscular hemoglobin (mass per erythrocyte) 32 pg 25-34 Automated erythrocyte mean corpuscular hemoglobin concentration measurement ( mass/volume) 34 g/dL 32-36 Automated erythrocyte distribution width ratio 12.9 % 10.0-14.5 Automated blood platelet count (count/volume) 148 10*3/uL 130-400 Automated blood platelet mean volume measurement 11.5 [foz_us] 7.4-10.4 Automated blood neutrophils/100 leukocytes 68 % 42-75 Automated blood lymphocytes/100 leukocytes 19 % 12-44 Blood monocytes/100 leukocytes 11 % 0-12 Automated blood eosinophils/100 leukocytes 2 % 0-10 Automated blood basophils/100 leukocytes 0 % 0-10 Blood neutrophils automated count (number/volume) 4.1 10*3 1.8-7.8 Blood lymphocytes automated count (number/volume) 1.1 10*3 1.0-4.0 Blood monocytes automated count (number/volume) 0.6 10*3 0.0-1.0 Automated eosinophil count 0.1 10*3/uL 0.0-0.3 Automated blood basophil count (count/volume) 0.0 10*3/uL 0.0-0.1 Comprehensive metabolic panel - 07/17/18 22:08 Serum or plasma sodium measurement (moles/volume) 131 mmol/L 135-145 Serum or plasma potassium measurement (moles/volume) 3.7 mmol/L 3.6-5.0 Serum or plasma chloride measurement (moles/volume) 99 mmol/L 98-107 Carbon dioxide 26 mmol/L 21-32 Serum or plasma anion gap determination (moles/volume) 6 mmol/L 5-14 Serum or plasma urea nitrogen measurement (mass/volume) 8 mg/dL 7-18 Serum or plasma creatinine measurement (mass/volume) 0.69 mg/dL 0.60-1.30 Serum or plasma urea nitrogen/creatinine mass ratio 12 NRG Serum or plasma creatinine measurement with calculation of estimated glomerular filtration rate > NRG Serum or plasma glucose measurement (mass/volume) 113 mg/dL 70-105 Serum or plasma calcium measurement (mass/volume) 9.4 mg/dL 8.5-10.1 Serum or plasma total bilirubin measurement (mass/volume) 0.4 mg/dL 0.1-1.0 Serum or plasma alkaline phosphatase measurement (enzymatic activity/volume) 78 U/L 40-136 Serum or plasma aspartate aminotransferase measurement (enzymatic activity/ volume) 23 U/L 5-34 Serum or plasma alanine aminotransferase measurement (enzymatic activity/volume ) 17 U/L 0-55 Serum or plasma protein measurement (mass/volume) 7.0 g/dL 6.4-8.2 Serum or plasma albumin measurement (mass/volume) 3.7 g/dL 3.2-4.5 Encounters ACCT No. Visit Date/Time Discharge Status Pt. Type Provider Facility Loc./Unit Complaint [id number] 03/28/2018 21:10:00 03/28/2018 23:36:00 DIS Outpatient SHERON RIOS [facility] ER UTI;LIGHT HEADED [id number] 03/25/2018 19:22:00 03/25/2018 22:50:00 DIS Emergency SHERON RIOS [facility] ER UTI,DIZZY,DISORIENTED [id number] 09/07/2017 09:49:00 09/07/2017 23:59:59 CLS Outpatient LEANNE MENDOZA [facility] RAD Z12.31 SCREENING MAMMO [id number] 11/21/2015 11:42:00 11/21/2015 23:59:59 CLS Outpatient LEANNE MENDOZA [facility] RAD SCREENING [id number] 10/30/2013 14:52:00 10/30/2013 23:59:59 CLS Outpatient ALICE CORONEL MD [facility] RAD SCREENING [id number] 06/04/2013 11:52:00 06/04/2013 23:59:59 CLS Outpatient GIO HERNANDEZ FACC, ALI FACP CCDS [facility] RAD BRAYDCARDIA, WEAKNESS [id number] 05/28/2013 20:28:00 05/29/2013 07:00:00 DIS Outpatient TYSHAWN SCHAFFER STAFFING COORDINATOR [facility] SLEEP SNORING,DAYTIME SLEEPINESS [id number] 05/17/2013 13:39:00 05/17/2013 23:59:59 CLS Outpatient GIO HERNANDEZ FACC, ALI FACP CCDS [facility] CARD WEAKNESS, BRADYCARDIA [id number] 12/12/2014 13:45:00 Document Registration [id number] 10/19/2012 09:24:00 Document Registration [id number] 03/27/2018 15:34:00 03/27/2018 23:59:00 DIS Outpatient Regina Martinez [id number] 03/22/2018 18:58:00 03/22/2018 23:00:00 [id number] 03/21/2018 15:01:00 03/21/2018 23:59:00 DIS Outpatient Seema Farooq [id number] 03/20/2018 14:37:00 03/20/2018 23:59:00 DIS Outpatient Regina Martinez [id number] 03/20/2018 14:23:00 03/20/2018 23:59:00 DIS Outpatient Regina Martinez [id number] 01/03/2018 10:57:00 01/03/2018 23:59:00 DIS Outpatient Seema Farooq [id number] 12/20/2017 08:58:00 12/20/2017 23:59:00 DIS Outpatient Seema Farooq [id number] 06/15/2017 11:43:00 06/15/2017 23:59:00 DIS Outpatient Regina Martinez [id number] 06/13/2017 09:13:00 06/13/2017 23:59:00 DIS Outpatient Seema Farooq [id number] 03/21/2018 15:01:00 Document Registration [id number] 06/13/2017 09:13:00 Document Registration
[2018-05-30 21:46] LABS: BILIRUBIN,URINE NEGATIVE (NEGATIVE); CLARITY,URINE CLEAR; COLOR,URINE YELLOW; GLUCOSE, URINE (UA) NEGATIVE (NEGATIVE); KETONES,URINE NEGATIVE (NEGATIVE); LEUKOCYTE ESTERASE ,URINE 3+ (NEGATIVE); NITRITE,URINE NEGATIVE (NEGATIVE); PH,URINE 6 (5-9); PROTEIN,URINE NEGATIVE (NEGATIVE); UROBILINOGEN,URINE NORMAL (NORMAL)
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
[2018-05-30 21:56] LABS: BACTERIA,URINE FEW /HPF; WBC,URINE 25-50 /HPF
[2018-05-30] MEDS ORDERED: ACETAMINOPHEN 500 MG TAB (TYLENOL) PO STA (22:10)
[2018-05-30] MEDS ORDERED: TETANUS,DIPTH,PERTUSS P/F (BOOSTRIX) 0.5 ML VIAL IM STA (22:49)
[2018-05-30 23:09] VITALS: BP 138/75
--- NOTE | 2018-05-31 06:58 | Diagnostic Imaging Report ---
INDICATION: Fall. PA and lateral chest. FINDINGS: The lungs are well-aerated and clear. No pneumothorax or pleural effusion. No lung contusion. There are no infiltrates. Heart is not enlarged. There is no pulmonary edema. No hilar adenopathy. Left clavicular midshaft fracture noted. No rib fractures demonstrated. IMPRESSION: Left clavicular fracture otherwise negative PA and lateral chest. Dictated by: Dictated on workstation # [id number]
--- NOTE | 2018-05-31 07:04 | Diagnostic Imaging Report ---
INDICATION: Fall with left clavicle pain. Findings: There is transverse fracture of the midshaft left clavicle. There is a mild overriding at the fracture site. The sternal clavicular joint and the AC joint appear in good alignment. Glenohumeral joint is in good alignment. IMPRESSION: Midshaft fracture left clavicle with mild overriding at the fracture site. AC joint appears normal. Dictated by: Dictated on workstation # [id number]
== END 2018-05-30 23:14 | disposition home or self-care (01) ==
LOC: EDUNIT# 20:15 → ER 20:16
DX: S09.90XA Unspecified injury of head, initial encounter (principal); S42.022A Displaced fracture of shaft of left clavicle, initial encounter for closed fracture; Z91.81 History of falling; Z87.820 Personal history of traumatic brain injury; W01.0XXA Fall on same level from slipping, tripping and stumbling without subsequent striking against object, initial encounter; Y92.22 Religious institution as the place of occurrence of the external cause
CPT/HCPCS: 70450; 71046; 72125; 73000; 81000; 82962; 87088; 90471; 90715

== ENCOUNTER 2018-11-25 03:23 | Emergency (ER) | payer MEDICARE, OTHER ==
[~2018-11-25] VITALS: Ht 149.9 cm; Wt 54.0 kg
[2018-11-25] MEDS ORDERED: ACETAMINOPHEN 500 MG TAB (TYLENOL) ONE (03:57)
[2018-11-25 03:58] LABS: BILIRUBIN,URINE NEGATIVE (NEGATIVE); CLARITY,URINE CLEAR; COLOR,URINE YELLOW; GLUCOSE, URINE (UA) NEGATIVE (NEGATIVE); KETONES,URINE NEGATIVE (NEGATIVE); LEUKOCYTE ESTERASE ,URINE 3+ (NEGATIVE); NITRITE,URINE NEGATIVE (NEGATIVE); PH,URINE 7 (5-9); PROTEIN,URINE NEGATIVE (NEGATIVE); UROBILINOGEN,URINE NORMAL (NORMAL)
--- NOTE | 2018-11-25 03:58 | ED GU-Female ---
General Chief Complaint: Fever-Adult/Adol Stated Complaint: POSS UTI Nursing Triage Note: PT REPORTS HAVING SLIGHT PAIN WITH URINATION AND CHILLS AT HOME. PT FOUND TO BE FEBRILE UPON PRESENTATION. PT REPORTS BEING SEEN IN HER PCP OFFICE FOR UTI, WAS NOT PLACED ON ANTIBIOTICS. Nursing Sepsis Screen: No Definite Risk Source: patient Exam Limitations: no limitations History of Present Illness Date Seen by Provider: Nov 25, 2018 Time Seen by Provider: 03:42 Initial Comments The patient presents to ER by private conveyance with chief complaint that for the past couple weeks she's been having some discomfort in her suprapubic region. She says she went to her doctor Dr. Farooq and he checked her urine and told her she had a bladder infection and prescribed her antibiotics. She did not pick these up. For the past 2 weeks and stated she's been using a over-the- counter detox cleanse and some probiotics as well as some sugar-free flavor Crystal packets. She says that they've not worked it but it's only been 2 weeks. She sees a practitioner in [place] who apparently peddles in these supplements. She denies that she's having any distention but she is having some chills tonight. She's not having any weakness nausea vomiting diarrhea. She denies vaginal discharge. She states she does not take any medications nor have any significant medical history. She says she has a distrust of anything that's not natural. She has the bottle of ciprofloxacin that Dr. Farooq started her on but she has not started taking any of it. Allergies and Home Medications Allergies Coded Allergies: No Known Drug Allergies (Unverified , 06/04/13) Patient Home Medication List Home Medication List Reviewed: Yes Review of Systems Review of Systems Constitutional: chills, fever; No malaise EENTM: No ear discharge, No hearing loss, No ear pain Respiratory: No cough, No short of breath Cardiovascular: No chest pain, No edema Gastrointestinal: No abdominal pain, No constipation Past Ofqqaxs-Hdpuxc-Wdcrek Hx Patient Social History Alcohol Use: Denies Use Recreational Drug Use: No Smoking Status: Never a Smoker 2nd Hand Smoke Exposure: No Recent Foreign Travel: No Contact w/Someone Who Travel: No Recent Infectious Disease Expo: No Recent Hopitalizations: No Immunizations Up To Date Tetanus Booster (TDap): Unknown PED Vaccines UTD: Yes Seasonal Allergies Seasonal Allergies: No Past Medical History Surgeries: No Respiratory: No Cardiac: No Neurological: No Traumatic Brain Injury : 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 oz. 53.918777my; 23.23 BMI Method:Stated General Appearance: WD/WN, no apparent distress HEENT: PERRL/EOMI, normal ENT inspection Neck: non-tender, full range of motion, supple, normal inspection Cardiovascular: normal peripheral pulses, regular rate, rhythm Respiratory: lungs clear, normal breath sounds, no respiratory distress, no accessory muscle use Gastrointestinal: normal bowel sounds, non tender, soft Neurologic/Psychiatric: alert, normal mood/affect, oriented x 3 Skin: normal color, warm/dry Progress/Results/Core Measures Suspected Sepsis Recent Fever Within 48 Hours: Yes Infection Criteria Present: Suspected New Infection New/Unexplained Altered Menta: No Sepsis Screen: No Definite Risk SIRS Temperature:101.2 Pulse: 79 Respiratory Rate: 20 Blood Pressure 130 /72 Mean: 91 Results/Orders Lab Results Laboratory Tests Test 11/25/18 03:40 Range/Units Urine Color YELLOW Urine Clarity CLEAR Urine pH 7 5-9 Urine Specific [place] 1.010 L 1.016-1.022 Urine Protein NEGATIVE NEGATIVE Urine Glucose (UA) NEGATIVE NEGATIVE Urine Ketones NEGATIVE NEGATIVE Urine Nitrite NEGATIVE NEGATIVE Urine Bilirubin NEGATIVE NEGATIVE Urine Urobilinogen NORMAL NORMAL MG/DL Urine Leukocyte Esterase 3+ H NEGATIVE Urine RBC (Auto) 2+ H NEGATIVE Urine RBC RARE /HPF Urine WBC 5-10 H /HPF Urine Squamous Epithelial Cells 0-2 /HPF Urine Crystals NONE /LPF Urine Bacteria FEW H /HPF Urine Casts NONE /LPF Urine Mucus NEGATIVE /LPF Urine Culture Indicated YES Micro Results Microbiology 11/25/18 Influenza Types A,B Antigen (GINETTE) - Final, Complete My Orders Orders - JENNIFER ARVIZU Ua Culture If Indicated (11/25/18 03:37) Influenza A And B Antigens (11/25/18 03:37) Acetaminophen Tablet (Tylenol Tablet) (11/25/18 04:00) Acetaminophen Tablet (Tylenol Tablet) (11/25/18 03:57) Urine Culture (11/25/18 03:40) Ceftriaxone For Im Use (Rocephin For Im (11/25/18 04:30) Lidocaine 1% Inj 20 Ml (Xylocaine 1% Inj (11/25/18 04:30) Medications Given in ED Current Medications Medications Dose Ordered Sig/Nehemias Route Start Time Stop Time Status Last Admin Dose Admin Acetaminophen 1,000 mg ONCE ONCE PO 11/25/18 04:00 11/25/18 04:01 DC 11/25/18 04:00 1,000 MG Vital Signs/I&O 11/25/18 11/25/18 11/25/18 03:31 04:00 04:13 Temp 101.2 101.2 101.2 Pulse 79 Resp 20 B/P (MAP) 130/72 (91) Pulse Ox 97 O2 Delivery Room Air Capillary Refill : Less Than 3 Seconds Blood Pressure Mean: 91 Progress Note : Time: 03:57 Progress Note Gram of Tylenol for her fever 101.2. She does not have any other evidence of sepsis. Her heart rate is in the 70s she has describing what sounds a UTI for the past 2 weeks but she has refused antibiotics. We will check her urine and again tried to impress upon her to take antibiotics if there is evidence of a UTI. We will get a nasal swab for influenza. If there is no evidence of infection in her bladder we can offer her a larger workup of her abdominal discomfort. She does not have a surgical abdomen and her vital signs remain aseptic except for the fever. Departure Impression Primary Impression: UTI (urinary tract infection) Qualified Codes: N30.00 - Acute cystitis without hematuria Disposition: HOME, SELF-CARE Condition: Stable Departure-Patient Inst. Decision time for Depature: 04:31 Referrals: CHRIS FAROOQ MD (PCP/Family) Primary Care Physician Patient Instructions: Urinary Tract Infection, Adult (DC) Add. Discharge Instructions: Drink plenty of fluids. Start your antibiotics twice a day with food. You may continue the probiotics. Follow-up with primary care next week if you're not seeing improvement. Continue use Tylenol and/or a Profen as necessary for fever or chills. All discharge instructions reviewed with patient and/or family. Voiced understanding. JENNIFER ARVIZU Nov 25, 2018 03:58
[2018-11-25] MEDS ORDERED: ACETAMINOPHEN 500 MG TAB (TYLENOL) PO ONE (04:00)
[2018-11-25 04:09] LABS: BACTERIA,URINE FEW /HPF; RBC,URINE RARE /HPF; SQUAMOUS EPITHELIAL CELL,UR 0-2 /HPF
[2018-11-25] MEDS ORDERED: LIDOCAINE 1% INJ 20 ML 20 ML VIAL INJ ONE (04:30)
[2018-11-25] MEDS ORDERED: cefTRIAXone 500 MG/1.43 ML vial (IM ONLY) IM ONE (04:30)
[2018-11-25 05:00] VITALS: BP 117/80
== END 2018-11-25 05:08 | disposition home or self-care (01) ==
LOC: EDUNIT# 03:23 → ER 03:27
DX: N39.0 Urinary tract infection, site not specified (principal); Z87.820 Personal history of traumatic brain injury; Z87.448 Personal history of other diseases of urinary system
CPT/HCPCS: 81000; 87088; 87804

== ENCOUNTER 2018-11-27 00:02 | Emergency (ER) | payer MEDICARE, OTHER ==
[~2018-11-27] VITALS: Ht 149.9 cm; Wt 54.0 kg
--- NOTE | 2018-11-27 00:42 | ED Abdominal Pain ---
General Chief Complaint: -Female Stated Complaint: UTI Source of Information: Patient Exam Limitations: No Limitations History of Present Illness Date Seen by Provider: Nov 27, 2018 Time Seen by Provider: 00:25 Initial Comments Patient resents to ER by EMS with chief complaint of sharp suprapubic abdominal pain. She started taking her ciprofloxacin yesterday that was prescribed by Dr. Farooq, Tuesday for UTI. She was seen 2 days ago in the ER and at that time she had a urinalysis consistent with UTI given half gram or Rocephin IM and encourage to take her ciprofloxacin. She says that she just feels intermittently unwell with a feeling like the entire infection is taking over and then it goes away. She said at the time she did not feel safe to drive and so she called EMS. EMS reports she had normal vital signs. She denies nausea, fever, chills, pain beyond what was happening before. She denies taking any Tylenol, ibuprofen, Naprosyn for her pain. She did take some [id number] herbal supplements for sleep, nervous and melatonin. Allergies and Home Medications Allergies Coded Allergies: No Known Drug Allergies (Unverified , 06/04/13) Patient Home Medication List Home Medication List Reviewed: Yes Review of Systems Review of Systems Constitutional: No chills, No fever; malaise EENTM: No Blurred Vision, No Double Vision Respiratory: Denies Cough, Denies Shortness of Air Cardiovascular: Denies Chest Pain, Denies Edema Gastrointestinal: See HPI; Denies Abdomen Distended; Abdominal Pain; Denies Constipated, Denies Diarrhea, Denies Nausea Genitourinary: Burning; Denies Discharge Musculoskeletal: No back pain, No joint pain Skin: No pruritus, No rash Psychiatric/Neurological: Denies Headache, Denies Numbness Past Amqouoz-Bhfwrc-Jyntvh Hx Patient Social History Alcohol Use: Denies Use Recreational Drug Use: No Smoking Status: Never a Smoker 2nd Hand Smoke Exposure: No Recent Foreign Travel: No Contact w/Someone Who Travel: No Recent Hopitalizations: No Immunizations Up To Date Tetanus Booster (TDap): Unknown PED Vaccines UTD: Yes Seasonal Allergies Seasonal Allergies: No Past Medical History Surgeries: No Respiratory: No Cardiac: No Neurological: No 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 oz. 53.873526in; 23.23 BMI Method:Stated General Appearance: WD/WN, no apparent distress HEENT: PERRL/EOMI, normal ENT inspection, TMs normal, pharynx normal Neck: non-tender, full range of motion, supple, normal inspection Respiratory: no respiratory distress, no accessory muscle use Cardiovascular: normal peripheral pulses, regular rate, rhythm Peripheral Pulses: 2+ Radial Pulses (R), 2+ Radial Pulses (L) Gastrointestinal: normal bowel sounds, soft; No rebound (negative for McBurney point tenderness or or rebound tenderness. Negative for Rovsing sign.); tenderness (suprapubic region mildly tender to palpation.), other (negative for psoas sign or mesenteric signs.) Progress/Results/Core Measures Results/Orders Lab Results Laboratory Tests Test 11/27/18 00:35 11/27/18 01:00 Range/Units Urine Color GREEN H Urine Clarity CLEAR Urine pH 6.5 5-9 Urine Specific [place] 1.005 L 1.016-1.022 Urine Protein NEGATIVE NEGATIVE Urine Glucose (UA) NEGATIVE NEGATIVE Urine Ketones NEGATIVE NEGATIVE Urine Nitrite NEGATIVE NEGATIVE Urine Bilirubin NEGATIVE NEGATIVE Urine Urobilinogen NORMAL NORMAL MG/DL Urine Leukocyte Esterase 3+ H NEGATIVE Urine RBC (Auto) 1+ H NEGATIVE Urine RBC NONE /HPF Urine WBC 5-10 H /HPF Urine Squamous Epithelial Cells 0-2 /HPF Urine Crystals NONE /LPF Urine Bacteria FEW H /HPF Urine Casts NONE /LPF Urine Mucus NEGATIVE /LPF Urine Culture Indicated YES White Blood Count 5.5 4.3-11.0 10^3/uL Red Blood Count 4.22 L 4.35-5.85 10^6/uL Hemoglobin 13.6 11.5-16.0 G/DL Hematocrit 42 35-52 % Mean Corpuscular Volume 98 80-99 FL Mean Corpuscular Hemoglobin 32 25-34 PG Mean Corpuscular Hemoglobin Concent 33 32-36 G/DL Red Cell Distribution Width 13.0 10.0-14.5 % Platelet Count 169 130-400 10^3/uL Mean Platelet Volume 11.8 H 7.4-10.4 FL Neutrophils (%) (Auto) 57 42-75 % Lymphocytes (%) (Auto) 27 12-44 % Monocytes (%) (Auto) 15 H 0-12 % Eosinophils (%) (Auto) 1 0-10 % Basophils (%) (Auto) 0 0-10 % Neutrophils # (Auto) 3.2 1.8-7.8 X 10^3 Lymphocytes # (Auto) 1.5 1.0-4.0 X 10^3 Monocytes # (Auto) 0.8 0.0-1.0 X 10^3 Eosinophils # (Auto) 0.1 0.0-0.3 10^3/uL Basophils # (Auto) 0.0 0.0-0.1 10^3/uL Sodium Level 134 L 135-145 MMOL/L Potassium Level 3.9 3.6-5.0 MMOL/L Chloride Level 99 98-107 MMOL/L Carbon Dioxide Level 25 21-32 MMOL/L Anion Gap 10 5-14 MMOL/L Blood Urea Nitrogen 7 7-18 MG/DL Creatinine 0.72 0.60-1.30 MG/DL Estimat Glomerular Filtration Rate > 60 BUN/Creatinine Ratio 10 Glucose Level 95 70-105 MG/DL Calcium Level 9.6 8.5-10.1 MG/DL Corrected Calcium 9.8 8.5-10.1 MG/DL Total Bilirubin 0.5 0.1-1.0 MG/DL Aspartate Amino Transf (AST/SGOT) 25 5-34 U/L Alanine Aminotransferase (ALT/SGPT) 15 0-55 U/L Alkaline Phosphatase 74 40-136 U/L Total Protein 6.7 6.4-8.2 GM/DL Albumin 3.8 3.2-4.5 GM/DL My Orders Orders - JENNIFER ARVIZU Ua Culture If Indicated (11/27/18 00:33) Cbc With Automated Diff (11/27/18 00:33) Comprehensive Metabolic Panel (11/27/18 00:33) Urine Culture (11/27/18 00:35) Ceftriaxone For Im Use (Rocephin For Im (11/27/18 01:53) Lidocaine 1% Inj 20 Ml (Xylocaine 1% Inj (11/27/18 02:00) Vital Signs/I&O 11/27/18 00:04 Temp 97.2 Pulse 60 Resp 16 B/P (MAP) 141/71 (94) Progress Progress Note #1: Time: 00:40 Progress Note Vital signs are aseptic but she says she feels worse. She is afebrile so we'll discuss some basic labs looking for evidence of sepsis, SIRS. She's declining anything for pain right now. Progress Note #2: Time: 01:48 Progress Note The patient is asymptomatic, afebrile and has aseptic vitals. We'll allow her to go home with a dose of Rocephin. Departure Impression Primary Impression: Urinary tract infection Qualified Codes: N30.00 - Acute cystitis without hematuria Disposition: HOME, SELF-CARE Condition: Stable Departure-Patient Inst. Decision time for Depature: 01:55 Referrals: CHRIS FAROOQ MD (PCP/Family) Primary Care Physician Patient Instructions: Urinary Tract Infection, Adult (DC) Add. Discharge Instructions: Drink plenty of fluids. Use Tylenol 1000 mg every 8 hours as necessary for pain. Continue to take the antibiotics. If we need to change antibiotics we will call you in the next 2 days and send out a prescription for the new antibiotic. All discharge instructions reviewed with patient and/or family. Voiced understanding. Copy Copies To 1: CHRIS FAROOQ MD, TITUS J Nov 27, 2018 00:42
[2018-11-27 00:44] LABS: BILIRUBIN,URINE NEGATIVE (NEGATIVE); CLARITY,URINE CLEAR; COLOR,URINE GREEN; GLUCOSE, URINE (UA) NEGATIVE (NEGATIVE); KETONES,URINE NEGATIVE (NEGATIVE); LEUKOCYTE ESTERASE ,URINE 3+ (NEGATIVE); NITRITE,URINE NEGATIVE (NEGATIVE); PH,URINE 6.5 (5-9); PROTEIN,URINE NEGATIVE (NEGATIVE); UROBILINOGEN,URINE NORMAL (NORMAL)
[2018-11-27 00:54] LABS: BACTERIA,URINE FEW /HPF; SQUAMOUS EPITHELIAL CELL,UR 0-2 /HPF
[2018-11-27 01:05] LABS: BASOPHILS % (AUTO) 0 % (0-10); EOSINOPHILS # (AUTO) 0.1 10^3/uL (0.0-0.3); EOSINOPHILS % (AUTO) 1 % (0-10); HEMATOCRIT 42 % (35-52); HEMOGLOBIN 13.6 G/DL (11.5-16.0); LYMPHOCYTES # (AUTO) 1.5 X 10^3 (1.0-4.0); LYMPHOCYTES % (AUTO) 27 % (12-44); MEAN CORPUSCULAR HEMOGLOBIN 32 PG (25-34); MEAN CORPUSCULAR HGB CONC 33 G/DL (32-36); MEAN CORPUSCULAR VOLUME 98 FL (80-99); MEAN PLATELET VOLUME 11.8 FL (7.4-10.4); MONOCYTES # (AUTO) 0.8 X 10^3 (0.0-1.0); MONOCYTES % (AUTO) 15 % (0-12); NEUTROPHILS # (AUTO) 3.2 X 10^3 (1.8-7.8); NEUTROPHILS % (AUTO) 57 % (42-75); PLATELET COUNT 169 10^3/uL (130-400); WHITE BLOOD COUNT 5.5 10^3/uL (4.3-11.0)
[2018-11-27 01:25] LABS: ALANINE AMINOTRANSFERASE 15 U/L (0-55); ALBUMIN 3.8 GM/DL (3.2-4.5); ALKALINE PHOSPHATASE 74 U/L (40-136); BILIRUBIN,TOTAL 0.5 MG/DL (0.1-1.0); BUN/CREATININE RATIO 10; CALCIUM 9.6 MG/DL (8.5-10.1); CARBON DIOXIDE 25 MMOL/L (21-32); CHLORIDE 99 MMOL/L (98-107); CREATININE SERUM 0.72 MG/DL (0.60-1.30); GFR ESTIMATED > 60; GLUCOSE 95 MG/DL (70-105); POTASSIUM 3.9 MMOL/L (3.6-5.0); SODIUM 134 MMOL/L (135-145); TOTAL PROTEIN 6.7 GM/DL (6.4-8.2)
[2018-11-27] MEDS ORDERED: cefTRIAXone 1,000 MG/2.86 ml vial (IM ONLY) IM STA (01:53)
[2018-11-27] MEDS ORDERED: cefTRIAXone 1,000 MG/2.86 ml vial (IM ONLY) ONE (01:53)
[2018-11-27] MEDS ORDERED: LIDOCAINE 1% INJ 20 ML 20 ML VIAL INJ ONE (02:00)
[2018-11-27 02:22] VITALS: BP 141/71
== END 2018-11-27 02:22 | disposition home or self-care (01) ==
LOC: EDUNIT# 00:02 → ER 00:03
DX: N39.0 Urinary tract infection, site not specified (principal); Z87.820 Personal history of traumatic brain injury; Z87.448 Personal history of other diseases of urinary system
CPT/HCPCS: 36415; 80053; 81000; 85025; 87088; 99284

== ENCOUNTER 2018-12-27 05:55 | Outpatient (CLI) | payer MEDICARE, OTHER ==
[~2018-12-27] VITALS: Ht 149.9 cm; Wt 49.4 kg
[2018-12-27] MEDS ORDERED: LACT1CAP72 PO (09:30)
[2018-12-29] MEDS ORDERED: PANT40TA2 PO (10:24)
== END 2018-12-27 09:33 | disposition home or self-care (01) ==
LOC: PREOP 05:55
PROVIDERS: ATTEND Surgery
DX: Z01.818 Encounter for other preprocedural examination (principal)

== ENCOUNTER 2018-12-29 08:43 | Day surgery (SDC) | payer MEDICARE, OTHER ==
[~2018-12-29] VITALS: Ht 149.9 cm; Wt 49.4 kg
[~2018-12-29 08:43] MED LIST: LACT1CAP72 PO
--- NOTE | 2018-12-29 10:22 | Conscious Sedation/ASA ---
Conscious Sedation Pre-Proced Time 10:00 ASA Score 2 For ASA 3 and 4: Consider anesthesia and medical clearance. Also, for patients with a history of failed moderate sedation consider anesthesia. Airway Lungs Heart ASA score ASA 1: a normal healthy patient ASA 2: a patient with a mild systemic disease (mid diabetes, controlled hypertension, obesity ASA 3: a patient with a severe systemic disease that limits activity (angina , COPD, prior Myocardial infarction) ASA 4: a patient with an incapacitating disease that is a constant threat to life (CHF, renal failure) ASA 5: a moribund patient not expected to survive 24 hrs. (ruptured aneurysm) ASA 6: a declared brain- patient whose organs are being harvested. For emergent operations, add the letter E after the classification Mallampati Classification Grade 2 Sedation Plan Analgesia, Amnesia, Plan communicated to team members, Discussed options with patient/fam, Discussed risks with patient/fam The patient is an appropriate candidate to undergo the planned procedure, sedation, and anesthesia. The patient immediately re-assessed prior to indication. CRISTINA REGAN MD Dec 29, 2018 10:22
--- NOTE | 2018-12-29 10:23 | Progress Note-Pre Operative ---
Pre-Operative Progress Note H&P Reviewed The H&P was reviewed, patient examined and no changes noted. Date Seen by Provider: Dec 29, 2018 Time Seen by Provider: 10:00 Date H&P Reviewed: Dec 29, 2018 Time H&P Reviewed: 10:00 Pre-Operative Diagnosis: GERD, screening CRISTINA REGAN MD Dec 29, 2018 10:23
[2018-12-29] MEDS ORDERED: PANT40TA2 PO (10:24)
--- NOTE | 2018-12-29 10:28 | Discharge Inst-Surgical ---
D/C Lap Instructions-KIDO New, Converted, or Re-Newed RX: RX on Chart Follow Up Activity as tolerated High Fiber Diet 25g or more per day Avoid Alcohol, Caffeine, Spicy Turney and Acid foods. Drink 64 fluid oz or more of fluids per day. Symptoms to Report: Fever over 101 degree F, Nausea/Vomiting If any problems/questions: Contact your physician or go to Emergency Room CRISTINA REGAN MD Dec 29, 2018 10:28
[2018-12-29] MEDS ORDERED: ACETAMINOPHEN 325 MG TABLET PO PRN (10:30)
[2018-12-29] MEDS ORDERED: morphine INJ 10 MG/ML 1ML (SYR OR VIAL) IV PRN (10:30)
[2018-12-29] MEDS ORDERED: HYDROcodone/APAP 5 MG/325 MG (LORTAB) TAB PO PRN (10:30)
[2018-12-29] MEDS ORDERED: ONDANSETRON 4 MG/2 ML (SDV) Z0FRAN IV PRN (10:30)
[2018-12-29 11:00] VITALS: BP 139/84
[2018-12-29] MEDS ORDERED: NS IV 500 ML 500 ML ONE (11:08)
[2018-12-29] MEDS ORDERED: MIDAZOLAM 2 MG/2 ML (VERSED) VIAL ONE ×3 (11:11)
[2018-12-29] MEDS ORDERED: HURRICAINE EXT TUBE (BENZOCAINE) ONE (11:11)
[2018-12-29] MEDS ORDERED: fentaNYL INJECTION 100 MCG/2 ML AMP ONE (11:11)
[2018-12-29] MEDS ORDERED: LIDOCAINE JELLY 2% 6 ML SYRINGE ONE (11:12)
[2018-12-29] MEDS ORDERED: NS IV 500 ML 500 ML IV PRN (11:26)
[2018-12-29] MEDS ORDERED: LIDOCAINE JELLY 2% 6 ML SYRINGE MM PRN (11:30)
[2018-12-29] MEDS ORDERED: MIDAZOLAM 2 MG/2 ML (VERSED) VIAL IVP ONE (11:30)
[2018-12-29] MEDS ORDERED: fentaNYL INJECTION 100 MCG/2 ML AMP IVP ONE (11:30)
[2018-12-29 12:15] VITALS: BP 82/51
[2018-12-29] MEDS ORDERED: HURRICAINE EXT TUBE (BENZOCAINE) XX ONE (12:15)
--- NOTE | 2018-12-29 12:19 | Progress Note-Post Operative ---
Post-Operative Progess Note Surgeon (s)/Aoc Plans Intelligence Officer (s) Surgeon CRISTINA REGAN MD Aoc Plans Intelligence Officer: none Pre-Operative Diagnosis GERD, screening Post-Operative Diagnosis reflux esophagitis(stage 2), small-moderate HH(2cm), mild gastritis. chronic stage 2 ext and int hemorrhoids, mild sigmoid diverticulosis. Procedure & Operative Findings Date of Procedure 12/29/18 Procedure Performed/Findings EGD with bx. Colonoscopy. Anesthesia Type cs Estimated Blood Loss Estimated blood loss (mL): minimal Specimens/Packing Specimens Removed ge jxn, antrum CRISTINA REGAN MD Dec 29, 2018 12:19
[2018-12-29 12:45] VITALS: BP 97/68
[2018-12-29 13:15] VITALS: BP 118/78
[2018-12-29 13:30] VITALS: BP 118/78
--- NOTE | 2018-12-29 23:30 | OPERATIVE REPORT ---
DATE OF SERVICE: 12/29/2018 ATTENDING PRIMARY CARE PHYSICIAN: Dr. Farooq. PREOPERATIVE DIAGNOSES: Gastroesophageal reflux disease, family history of colon cancer. POSTOPERATIVE DIAGNOSES: Gastroesophageal reflux disease, family history of colon cancer. PROCEDURE: EGD with biopsy, colonoscopy. SURGEON: Cristina Regan MD ANESTHESIA: Conscious sedation. ESTIMATED BLOOD LOSS: Minimal. FINDINGS: Reflux esophagitis stage II. There was a small to moderate size hiatal hernia approximately 2 cm in size, mild gastritis. Chronic stage II external and internal hemorrhoids, mild sigmoid diverticulosis. DISPOSITION: The patient tolerated the procedure well. INDICATIONS: The patient is a 73-year-old female in need of a screening colonoscopy. She has not had a colonoscopy up to this point in her life and she does have a family history of colon cancer with her father being diagnosed with the disease at age 41. She also has had issues with heartburn and reflux as well as a bloating sensation in the epigastric region after meals. DESCRIPTION OF PROCEDURE: The patient was brought to the endoscopy suite, laid in the left lateral decubitus position with the head slightly elevated. After adequate IV pain and sedative medications and conscious sedation anesthesia, the mouthpiece was applied. Endoscope was placed in the mouth, visualizing the pharynx and hypopharyngeal region. Vocal cords, epiglottis and vallecula identified and appeared to be normal. The endoscope was then gently intubated in the esophageal opening. Esophagus was insufflated. The endoscope was then advanced to the first, second and third portion of the esophagus. At the level of the GE junction, a reflux esophagitis stage II identified. There were no ulcers or strictures identified in this region. A biopsy was taken with forceps with visualization of good hemostasis. The endoscope was then advanced in the stomach and endoscope retroflexed, visualizing a small to moderate size hiatal hernia approximately 2 cm in size. There was a mild gastritis. No formal ulcerations, polyps or any neoplasms. A biopsy was taken of the antrum with forceps to rule out H. pylori with visualization of good hemostasis. Endoscope was then advanced to the pylorus and the first and second portion of the duodenum, which appeared normal with no distal obstructions. The endoscope was then slowly withdrawn while taking a second look and suctioning residual air with no additional findings. The patient tolerated this portion of the procedure well. We will recommend the necessary lifestyle and diet accommodation including small frequent meals, avoidance of eating at night as well as head elevation while lying supine. She also needs to avoid caffeinated beverages, spicy, greasy and acidic foods. We will also proceed with a trial of Protonix 40 mg daily. With this, we will recommend a calcium supplementation as well. The etiology of her symptoms may also be gallbladder related and if she does have a recurrence of symptoms despite medical therapy, we will proceed with ultrasound as well as HIDA scan to look for gallstones versus a biliary dyskinesia. Under the same anesthesia, we then proceeded with the colonoscopy portion of the procedure. A digital rectal examination was performed, which revealed chronic stage II external and internal hemorrhoids, not actively edematous nor inflamed and no bleeding. Normal sphincter tone was felt and there were no palpable masses. The endoscope was then intubated into the anus and rectum gently insufflated. The endoscope was then advanced through the valves of [place] of the rectum with no polyps or any neoplasms identified. Endoscope was then advanced to the sigmoid colon where a mild sigmoid diverticulosis identified. There were no mucosal inflammatory changes to indicate any active diverticulitis. The endoscope was then advanced to the remainder of the descending, transverse, ascending colon and the cecum. These segments were normal. There were no polyps or any neoplasms identified throughout the colon or rectum. The endoscope was then slowly withdrawn while taking a second look and suctioning of residual air with no additional findings. The patient tolerated the procedure well. We will recommend continued medical management with a high fiber diet with at least 25 grams of fiber per day as well as significant amount of water daily to promote soft stools on a daily basis. Due to her family history of colon cancer, we will recommend a followup colonoscopy in 5 years. Job ID: [id number] DocumentID: [id number] Dictated Date: 12/29/2018 12:02:23 Personnel Consultant Date: 12/29/2018 23:30:40 Dictated By: CRISTINA REGAN MD
== END 2018-12-29 13:30 | disposition home or self-care (01) ==
LOC: ENDO 08:43
PROVIDERS: ATTEND Surgery
DX: Z12.11 Encounter for screening for malignant neoplasm of colon (principal); K57.30 Diverticulosis of large intestine without perforation or abscess without bleeding; K64.1 Second degree hemorrhoids; K21.0 Gastro-esophageal reflux disease with esophagitis; K44.9 Diaphragmatic hernia without obstruction or gangrene; K29.70 Gastritis, unspecified, without bleeding; Z80.0 Family history of malignant neoplasm of digestive organs; M79.7 Fibromyalgia
CPT/HCPCS: 43239; G0105; 88305

== ENCOUNTER 2019-05-25 08:40 | Observation (INO) | payer MEDICARE, OTHER ==
[~2019-05-25] VITALS: Ht 149.9 cm; Wt 49.2 kg
[~2019-05-25 08:40] MED LIST changes: +PANT40TA2 PO
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
--- NOTE | 2019-05-25 09:29 | Diagnostic Imaging Report ---
PROCEDURE: CT head, face, and cervical spine without contrast. TECHNIQUE: Multiple contiguous axial images were obtained through the head, neck, and facial bones without the use of intravenous contrast. Sagittal and coronal reformations through the cervical spine and facial bones were also performed. Auto Exposure Controls were utilized during the CT exam to meet ALARA standards for radiation dose reduction. INDICATION: Fall, hitting left side of the face. Correlation is made with prior CT from 05/30/2018. CT head: The ventricles and sulci are within normal limits. No sulcal effacement, midline shift or hemorrhage is detected. The cisterns are patent. Visualized paranasal sinuses demonstrate a small amount of fluid in the left maxillary sinus. IMPRESSION: 1. No acute intracranial process detected. 2. Left maxillary sinus fluid. CT cervical spine: There is hyperlordotic curvature to the cervical spine. There is anterior bridging osteophyte at the C3-4 level. Prominent anterior osteophyte C4-5 level is also noted. No fractures are identified. Prevertebral tissues are within normal limits. Odontoid is intact. Minimal soft tissue gas in the right supraclavicular region is noted, indeterminate. Lung apices are clear. No pneumothorax is seen. IMPRESSION: 1. Cervical spondylosis. No acute bony abnormalities detected. 2. Minimal right supraclavicular neck soft tissue gas, indeterminate. CT face: Mandible is intact. Zygomatic arches are intact. There is a fracture involving the anterior wall of the left maxillary sinus. This appears to extend to the orbital floor. No entrapment of intraocular fat or musculature is seen. There is also probable fracture involving the lateral wall of the left maxillary sinus. Right maxillary sinus durham are intact. Nasal bones appear to be intact. Medial and lateral orbital durham are intact. Both globes appear unremarkable. IMPRESSION: Anterior and lateral wall left maxillary sinus fractures with extension to the orbital floor. There is no evidence of entrapment. There is some fluid within the left maxillary sinus, likely blood. No other significant abnormality is seen. Dictated by: Dictated on workstation # [id number]
--- NOTE | 2019-05-25 09:36 | Diagnostic Imaging Report ---
INDICATION: Fall. Time of exam: 9:18 AM Femoral acetabular alignment is normal bilaterally. Both femoral heads and necks appear to be intact. The rami appear intact. SI joints and symphysis are not widened. No fractures are seen. Pessary overlies midline of the lower pelvis. IMPRESSION: No acute bony abnormality is detected. Dictated by: Dictated on workstation # [id number]
--- NOTE | 2019-05-25 09:38 | Diagnostic Imaging Report ---
INDICATION: Fall. Time of exam: 9:17 AM Comparison is made with prior chest from 05/30/2018. The heart size is stable. There is some linear scarring or atelectasis in the left lung base. Lungs appear to be clear. No infiltrates are seen. No effusion or pneumothorax is identified. There does appear to be a fracture of the proximal left humerus. IMPRESSION: 1. Left humerus fracture. No acute cardiopulmonary process is detected. Dictated by: Dictated on workstation # [id number]
--- NOTE | 2019-05-25 09:38 | Diagnostic Imaging Report ---
Indication: Injury to left arm. AP and lateral views of the left humerus obtained at 9:20 hours a.m. There is a comminuted fracture of the left humeral head and neck and proximal shaft with mild displacement. There is no dislocation. There are calcifications at the rotator cuff insertion which may represent calcific tendinitis. The mid and distal humeral shaft are intact. Impression: Comminuted fracture of the left humeral head and neck and proximal shaft as described above. Dictated by: Dictated on workstation # [id number]
--- NOTE | 2019-05-25 09:39 | Diagnostic Imaging Report ---
Indication: Fall with left shoulder injury. Time of exam: 9:23 AM 3 views of the left shoulder were obtained. There is a fracture through the proximal left humerus in the region of the humeral neck. No significant displacement or angulation is seen. There also appears to be a fracture involving the greater tuberosity. Glenohumeral alignment is maintained. Acromioclavicular alignment is maintained. Amorphous calcific densities adjacent to the greater tuberosity are noted consistent with calcifications within the rotator cuff from calcific tendinitis. Impression: Proximal left humerus fracture. Dictated by: Dictated on workstation # [id number]
--- NOTE | 2019-05-25 09:44 | NUR ---
CALLED TRYING TO CALL PT SON, UNABLE TO CONTACT, PT FRIEND CONTACTED AND WILL COME TO SEE PT
[2019-05-25] MEDS ORDERED: fentaNYL INJECTION 100 MCG/2 ML AMP IVP STA (10:00)
--- NOTE | 2019-05-25 11:35 | NUR ---
IRF Evaluation Dr. Navas requested evaluation be completed for direct admission to ARU. Chart review completed prior to assessment in ER. Met with patient and friend to discuss details specific to rehabilitation program. Patient states she does not feel safe returning home, at this time. Patient agreeable to required therapy regimen and admission. Dr. Snyder notified of referral and findings discussed - patient accepted for admission. Anticipate admission, 05/26. Thank you for this referral.
[2019-05-25] MEDS ORDERED: fentaNYL INJECTION 100 MCG/2 ML AMP IVP ONE (12:45)
--- NOTE | 2019-05-25 13:05 | NUR ---
Pt admitted to room 429 OBS from ED with a fx to L) humerus and L) maxilla/orbit after a fall at [facility]. Pt is alert and orient, transferred to bed by standing with SBA, SL to R) AC, bruise to L) eye noted.
[2019-05-25] MEDS ORDERED: CATHETER FLUSH 10 ML SYR IV PRN (13:15)
[2019-05-25] MEDS ORDERED: fentaNYL INJECTION 100 MCG/2 ML AMP IV PRN (13:15)
[2019-05-25 13:33] VITALS: BP 123/69
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
[2019-05-25] MEDS ORDERED: ONDANSETRON 4 MG/2 ML (SDV) Z0FRAN IVP PRN (13:45)
[2019-05-25] MEDS ORDERED: CYANOCOBALAMIN INJ 1000 MCG/ML IM NR (13:45)
[2019-05-25] MEDS ORDERED: diphenhydrAMINE 25 MG TAB (BENADRYL) PO PRN (13:45)
[2019-05-25] MEDS ORDERED: ALPRAZolam 0.25 MG (XANAX) TAB PO PRN (13:45)
[2019-05-25] MEDS ORDERED: LOPERAMIDE 2 MG (IMODIUM) TABLET PO PRN (13:45)
[2019-05-25] MEDS ORDERED: RX-TRAMADOL 50 MG (ULTRAM) TAB PPK#4 PO PRN (13:45)
[2019-05-25] MEDS ORDERED: IBUPROFEN TABLET 200 MG TAB PO PRN (13:45)
[2019-05-25] MEDS ORDERED: MELATONIN 3 MG TABLET PO PRN (13:45)
[2019-05-25] MEDS ORDERED: CALCIUM CARBONATE 500 MG (TUMS) TAB.CHEW PO PRN (13:45)
[2019-05-25] MEDS ORDERED: ONDANSETRON 4 MG (ZOFRAN) ORAL DISSOLVE TAB PO PRN (13:45)
[2019-05-25] MEDS ORDERED: ACETAMINOPHEN 500 MG TAB (TYLENOL) PO PRN (13:45)
--- NOTE | 2019-05-25 14:00 | NUR ---
Talked with Dr. Lizarraga about consultation, he will be in to see her soon.
[2019-05-25] MEDS: CATHETER FLUSH 10 ML SYR IV SCH ×2 (14:03→22:00)
--- NOTE | 2019-05-25 14:23 | Physical Therapy Evaluation ---
PT Evaluation-General Medical Diagnosis Admission Date May 25, 2019 at 11:45 Medical Diagnosis: s/p fall/left humerus fracture/facial fracture Onset Date: May 25, 2019 Therapy Diagnosis Therapy Diagnosis: debility/weakness Height/Weight Height (Feet): 4 Height (Inches): 11.00 Weight (Pounds): 109 Weight (Ounces): 0.0 Precautions Precautions/Isolations: Fall Prevention, Standard Precautions Weight Bear Status Right Lower Extremity: Right Full Weight Bearing Left Lower Extremity: Left Full Weight Bearing need therapy for L upper extremity Referral Physician: Claudio Reason for Referral: Evaluation/Treatment Medical History Pertinent Medical History: GERD Additional Medical History TBI/multiple falls secondary to equilibrium issues from prior trauma Current History EMS from [facility] secondary to stubbed toe and fell. Reviewed History: Yes Social History Home: Single Level Current Living Status: Alone Entry Into Home: Stairs With Railing Prior/Core FIM Prior Level of Function Therapy Code Descriptions/Definitions Functional [place] Measure: 0=Not Assessed/NA 4=Minimal Assistance 1=Total Assistance 5=Supervision or Setup 2=Maximal Assistance 6=Modified [place] 3=Moderate Assistance 7=Complete [place] Therapy Quality Codes: 6 Independent with activity with or without an assistive device 5 Patient requires set up or clean up by helper. Patient completes activity by themselves 4 Supervision or touching assist (CGA). [place] provide cues , steadying assist 3 The helper provides less than half the effort to complete the activity 2 The helper provides more than half the effort to complete the activity 1 Dependent. The helper does all the effort to complete an activity 7 Patient refused to complete or attempt activity 9 The patient did not perform the activity before the current illness or injury 88 Not attempted due to Medical conditions or safety concerns Functional Abilities and Goals: Independent: Patient completed the activities by him/herself, with or without an assistive device, with no assistance from a helper. Needed Some Help: Patient needed partial assistance from another person to complete activities. Dependent: A helper completed the activities for the patient. Unknown: Not Applicable: Bed Mobility: 7 Transfers (B,C,W/C) (FIM): 7 Gait: 7 Stairs: 7 Indoor Mobility (Ambulation): Independent Stairs: Independent Prior Devices Use: None PT Evaluation-Current Subjective Patient agrees to PT. Pain Numeric Pain Scale: 5-Moderate Pain Location: Left Location Body Site: Shoulder Pain Description: Acute Objective Patient Orientation: Normal For Age Problem Solving: Fair ROM/Strength ROM Lower Extremities bilateral LE WFL Strength Lower Extremities 4/5 grossly bilateral LE Integumentary/Posture Integumentary facial contusions Bowel Incontinence: No Bladder Incontinence: No Posture WFL Neuromuscular (Tone, Coordination, Reflexes) grossly intact Sensory Vision: Wears Glasses Hearing: Functional Sensation Right Lower Extremit: Intact Sensation Left Lower Extremity: Intact Transfers Therapy Code Descriptions/Definitions Functional [place] Measure: 0=Not Assessed/NA 4=Minimal Assistance 1=Total Assistance 5=Supervision or Setup 2=Maximal Assistance 6=Modified [place] 3=Moderate Assistance 7=Complete [place] Transfers (B, C, W/C) (FIM): 4 Scootin Rollin Supine to/from Sit: 5 Sit to/from Stand: 4 Gait Mode of Locomotion: Walk Anticipated Mode of Locomotion: Walk Gait (FIM): 1 Distance (FIM): 1=up to 49 ft Distance: 15' Gait Level of Assist: 4 Gait Persons Needed: 1 Gait Assistive Device: None Comments/Gait Description SLOOP CAPTAIN for safety. (patient ceased ambulation due to fatigue and left shoulder pa in.) Balance Sitting Static: Normal Sitting Dynamic: Normal Standing Static: Fair Standing Dynamic: Fair Treatment Attempted to fit patient with shoulder immobilizer, however, did not have appropriate fit. PT donned shoulder sling immobilizer with waist strap . Assessment/Needs 74 y.o. female, will benefit from skilled PT to address functional strength and mobility to improve current LOF to safely return to home or AL at maximum LOF. Rehab Potential: Fair PT Fpc Goals Brass Buffer Goals PT Brass Buffer Goals Time Frame: Jun 09, 2019 Transfers (B,C,W/C) (FIM): 7 Gait (FIM): 7 Gait distance (FIM): 3=150 ft Distance: 250' Gait Level of Assist: 7 Gait Assistive Device: None Stairs (FIM): 6 # of Steps: 12 Stairs Level Of Assist: 6 PT Plan Problem List Problem List: Activity Tolerance, Functional Strength, Safety, Balance, Gait, Transfer, Bed Mobility Treatment/Plan Treatment Plan: Continue Plan of Care Treatment Plan: Bed Mobility, Education, Functional Activity Ayden, Functional Strength, Gait, Safety, Therapeutic Exercise, Transfers Treatment Duration: Jun 09, 2019 Frequency: 6 times per week Estimated Hrs Per Day: .25 hour per day Patient and/or Family Agrees t: Yes Safety Risks/Education Patient Education: Safety Issues Teaching Recipient: Patient Teaching Methods: Discussion Response to Teaching: Verbalize Understanding Time/GCodes Time In: 1335 Time Out: 1400 Total Billed Treatment Time: 25 Total Billed Treatment 1 visit [facility] 25 min CHARLENE ESPINO PT May 25, 2019 14:23
[2019-05-25] MEDS ORDERED: LACT1CAP62 PO (14:39)
--- NOTE | 2019-05-25 14:40 | NUR ---
PATIENT STATES SHE TAKES PROBIOTICS OTC, SHE TAKES 2 AT HS. SHE HAS BEEN TAKING VITAMIN D UP UNTIL THIS MORNING WHEN HER TOLD HER TO STOP. SHE STATES SHE WAS TOLD TO START GETTING VITAMIN B12 INJECTIONS BUT HAS NOT GOTTEN A SCRIPT YET.
[2019-05-25 14:41] LABS: BASOPHILS % (AUTO) 0 % (0-10); EOSINOPHILS % (AUTO) 0 % (0-10); HEMATOCRIT 45 % (35-52); HEMOGLOBIN 14.4 G/DL (11.5-16.0); LYMPHOCYTES # (AUTO) 1.2 X 10^3 (1.0-4.0); LYMPHOCYTES % (AUTO) 11 % (12-44); MEAN CORPUSCULAR HEMOGLOBIN 31 PG (25-34); MEAN CORPUSCULAR HGB CONC 32 G/DL (32-36); MEAN CORPUSCULAR VOLUME 97 FL (80-99); MEAN PLATELET VOLUME 12.1 FL (7.4-10.4); MONOCYTES # (AUTO) 0.9 X 10^3 (0.0-1.0); MONOCYTES % (AUTO) 9 % (0-12); NEUTROPHILS # (AUTO) 8.6 X 10^3 (1.8-7.8); NEUTROPHILS % (AUTO) 80 % (42-75); PLATELET COUNT 147 10^3/uL (130-400); WHITE BLOOD COUNT 10.8 10^3/uL (4.3-11.0)
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
[2019-05-25 15:00] LABS: ALANINE AMINOTRANSFERASE 18 U/L (0-55); ALBUMIN 3.9 GM/DL (3.2-4.5); ALKALINE PHOSPHATASE 75 U/L (40-136); BILIRUBIN,TOTAL 0.7 MG/DL (0.1-1.0); BUN/CREATININE RATIO 20; CALCIUM 9.6 MG/DL (8.5-10.1); CARBON DIOXIDE 23 MMOL/L (21-32); CHLORIDE 103 MMOL/L (98-107); CREATININE SERUM 0.74 MG/DL (0.60-1.30); GFR ESTIMATED > 60; GLUCOSE 98 MG/DL (70-105); POTASSIUM 4.8 MMOL/L (3.6-5.0); SODIUM 138 MMOL/L (135-145); TOTAL PROTEIN 7.3 GM/DL (6.4-8.2)
--- NOTE | 2019-05-25 15:10 | NUR ---
Dr. Lizarraga in to see patient, patient to follow up in 10 days
[2019-05-25 16:00] VITALS: BP 118/71
[2019-05-25] MEDS: HYDROcodone/APAP 5 MG/325 MG (LORTAB) TAB PO PRN ×2 (16:09→20:27)
[2019-05-25 17:39] LABS: BILIRUBIN,URINE NEGATIVE (NEGATIVE); CLARITY,URINE CLEAR; COLOR,URINE YELLOW; GLUCOSE, URINE (UA) 1+ (NEGATIVE); KETONES,URINE 1+ (NEGATIVE); LEUKOCYTE ESTERASE ,URINE 3+ (NEGATIVE); NITRITE,URINE NEGATIVE (NEGATIVE); PH,URINE 6.5 (5-9); PROTEIN,URINE NEGATIVE (NEGATIVE); UROBILINOGEN,URINE NORMAL (NORMAL)
[2019-05-25 17:51] LABS: RBC,URINE 0-2 /HPF; WBC,URINE 25-50 /HPF
[2019-05-25 17:53] LABS: BACTERIA,URINE MODERATE /HPF
[2019-05-25 20:00] VITALS: BP 116/71
[2019-05-25] MEDS: SENNA W/DOCUSATE (SENOKOT S) TABLET PO SCH (20:27)
[2019-05-25] MEDS: DOCUSATE SODIUM 100 MG (COLACE) CAP PO SCH (20:27)
[2019-05-26] VITALS: BP 102/59
[2019-05-26 04:00] VITALS: BP 108/70
[2019-05-26] MEDS: CATHETER FLUSH 10 ML SYR IV SCH (05:18)
[2019-05-26 07:43] LABS: BASOPHILS % (AUTO) 0 % (0-10); EOSINOPHILS # (AUTO) 0.1 10^3/uL (0.0-0.3); EOSINOPHILS % (AUTO) 2 % (0-10); HEMATOCRIT 41 % (35-52); LYMPHOCYTES # (AUTO) 2.4 X 10^3 (1.0-4.0); LYMPHOCYTES % (AUTO) 31 % (12-44); MEAN CORPUSCULAR HEMOGLOBIN 31 PG (25-34); MEAN CORPUSCULAR HGB CONC 32 G/DL (32-36); MEAN CORPUSCULAR VOLUME 98 FL (80-99); MEAN PLATELET VOLUME 12.5 FL (7.4-10.4); MONOCYTES # (AUTO) 1.1 X 10^3 (0.0-1.0); MONOCYTES % (AUTO) 15 % (0-12); NEUTROPHILS # (AUTO) 4.1 X 10^3 (1.8-7.8); NEUTROPHILS % (AUTO) 53 % (42-75); PLATELET COUNT 139 10^3/uL (130-400); RED CELL DISTRIBUTION WIDTH 14.2 % (10.0-14.5); WHITE BLOOD COUNT 7.8 10^3/uL (4.3-11.0)
[2019-05-26 08:00] VITALS: BP 112/63
[2019-05-26 08:02] LABS: ALANINE AMINOTRANSFERASE 13 U/L (0-55); ALBUMIN 3.5 GM/DL (3.2-4.5); ALKALINE PHOSPHATASE 82 U/L (40-136); BILIRUBIN,TOTAL 0.9 MG/DL (0.1-1.0); BUN/CREATININE RATIO 20; CALCIUM 9.2 MG/DL (8.5-10.1); CARBON DIOXIDE 23 MMOL/L (21-32); CHLORIDE 102 MMOL/L (98-107); CREATININE SERUM 0.65 MG/DL (0.60-1.30); GFR ESTIMATED > 60; GLUCOSE 82 MG/DL (70-105); POTASSIUM 4.4 MMOL/L (3.6-5.0); SODIUM 134 MMOL/L (135-145); TOTAL PROTEIN 6.2 GM/DL (6.4-8.2)
[2019-05-26] MEDS: HYDROcodone/APAP 5 MG/325 MG (LORTAB) TAB PO PRN ×3 (08:12→12:20)
[2019-05-26] MEDS: SENNA W/DOCUSATE (SENOKOT S) TABLET PO SCH (08:13)
[2019-05-26] MEDS: DOCUSATE SODIUM 100 MG (COLACE) CAP PO SCH (08:13)
--- NOTE | 2019-05-26 10:45 | NUR ---
Report called to Kavya PARKINSON on ARU, pt to go to unit with in the hour.
--- NOTE | 2019-05-26 12:28 | Discharge Summary ---
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 Faviola Sanchez, DNP Dementia? Plan: Vitamin B-12 injection Supportive care Rehabilitation today Pain control today Appreciate orthopedic surgery consult Discharge Summary Discharge Physical Examination Allergies: Coded Allergies: cefuroxime (Verified Allergy, Unknown, Hives, 12/27/18) Vitals & I&Os Vital Signs Date Time Temp Pulse Resp B/P (MAP) Pulse Ox O2 Delivery O2 Flow Rate FiO2 05/26/19 08:00 Room Air 05/26/19 08:00 36.9 64 18 112/63 98 General Appearance: Alert, Oriented X3, Cooperative Respiratory: Clear to Auscultation Cardiovascular: Regular Rate Hospital Course Was the Problem List Reviewed?: Yes Hospital course: Patient had an uneventful and short hospital course in observation after she was admitted sustained a fall at [facility] suffering facial fractures and left humeral fracture. Patient was deemed a nonsurgical injury status so she was placed in a sling provided pain medication bowel regimen and monitor closely and was sent to inpatient rehab for further evaluation and management in order to return back home versus assisted living. Labs (last 24 hrs) Laboratory Tests 05/25/19 14:35: White Blood Count 10.8, Red Blood Count 4.60, Hemoglobin 14.4, Hematocrit 45, Mean Corpuscular Volume 97, Mean Corpuscular Hemoglobin 31, Mean Corpuscular Hemoglobin Concent 32, Red Cell Distribution Width 14.0, Platelet Count 147, Mean Platelet Volume 12.1H, Neutrophils (%) (Auto) 80H, Lymphocytes (%) (Auto) 11L, Monocytes (%) (Auto) 9, Eosinophils (%) (Auto) 0, Basophils (%) (Auto) 0, Neutrophils # (Auto) 8.6H, Lymphocytes # (Auto) 1.2, Monocytes # (Auto) 0.9, Eosinophils # (Auto) 0.0, Basophils # (Auto) 0.0, Sodium Level 138, Potassium Level 4.8, Chloride Level 103, Carbon Dioxide Level 23, Anion Gap 12, Blood Urea Nitrogen 15, Creatinine 0.74, Estimat Glomerular Filtration Rate > 60, BUN/Cre atinine Ratio 20, Glucose Level 98, Calcium Level 9.6, Corrected Calcium 9.7, Total Bilirubin 0.7, Aspartate Amino Transf (AST/SGOT) 40H, Alanine Aminotransferase (ALT/SGPT) 18, Alkaline Phosphatase 75, Total Protein 7.3, Albumin 3.9 05/25/19 16:30: Urine Color YELLOW, Urine Clarity CLEAR, Urine pH 6.5, Urine Specific [place] 1.015L, Urine Protein NEGATIVE, Urine Glucose (UA) 1+H, Urine Ketones 1+H, Urine Nitrite NEGATIVE, Urine Bilirubin NEGATIVE, Urine Urobilinogen NORMAL, Urine Leukocyte Esterase 3+H, Urine RBC (Auto) 1+H, Urine RBC 0-2, Urine WBC 25-50H, Urine Crystals NONE, Urine Bacteria MODERATEH, Urine Casts NONE, Urine Mucus NEGATIVE, Urine Culture Indicated YES 05/26/19 06:28: White Blood Count 7.8, Red Blood Count 4.18L, Hemoglobin 13.0, Hematocrit 41, Mean Corpuscular Volume 98, Mean Corpuscular Hemoglobin 31, Mean Corpuscular Hemoglobin Concent 32, Red Cell Distribution Width 14.2, Platelet Count 139, Mean Platelet Volume 12.5H, Neutrophils (%) (Auto) 53, Lymphocytes (%) (Auto) 31, Monocytes (%) (Auto) 15H, Eosinophils (%) (Auto) 2, Basophils (%) (Auto) 0, Neutrophils # (Auto) 4.1, Lymphocytes # (Auto) 2.4, Monocytes # (Auto) 1.1H, Eosinophils # (Auto) 0.1, Basophils # (Auto) 0.0, Sodium Level 134L, Potassium Level 4.4, Chloride Level 102, Carbon Dioxide Level 23, Anion Gap 9, Blood Urea Nitrogen 13, Creatinine 0.65, Estimat Glomerular Filtration Rate > 60, BUN/Creatinine Ratio 20, Glucose Level 82, Calcium Level 9.2, Corrected Calcium 9.6, Total Bilirubin 0.9, Aspartate Amino Transf (AST/SGOT) 23, Alanine Aminotransferase (ALT/SGPT) 13, Alkaline Phosphatase 82, Total Protein 6.2L, Albumin 3.5 Pending Labs Laboratory Tests 05/25/19 14:35: White Blood Count 10.8, Red Blood Count 4.60, Hemoglobin 14.4, Hematocrit 45, Mean Corpuscular Volume 97, Mean Corpuscular Hemoglobin 31, Mean Corpuscular Hemoglobin Concent 32, Red Cell Distribution Width 14.0, Platelet Count 147, Mean Platelet Volume 12.1, Neutrophils (%) (Auto) 80, Lymphocytes (%) (Auto) 11, Monocytes (%) (Auto) 9, Eosinophils (%) (Auto) 0, Basophils (%) (Auto) 0, Neutrophils # (Auto) 8.6, Lymphocytes # (Auto) 1.2, Monocytes # (Auto) 0.9, Eosinophils # (Auto) 0.0, Basophils # (Auto) 0.0, Sodium Level 138, Potassium Level 4.8, Chloride Level 103, Carbon Dioxide Level 23, Anion Gap 12, Blood Urea Nitrogen 15, Creatinine 0.74, Estimat Glomerular Filtration Rate > 60, BUN/Creatinine Ratio 20, Glucose Level 98, Calcium Level 9.6, Corrected Calcium 9.7, Total Bilirubin 0.7, Aspartate Amino Transf (AST/SGOT) 40, Alanine Aminotransferase (ALT/SGPT) 18, Alkaline Phosphatase 75, Total Protein 7.3, Albumin 3.9 05/25/19 16:30: Urine Color YELLOW, Urine Clarity CLEAR, Urine pH 6.5, Urine Specific [place] 1.015, Urine Protein NEGATIVE, Urine Glucose (UA) 1+, Urine Ketones 1+, Urine Nitrite NEGATIVE, Urine Bilirubin NEGATIVE, Urine Urobilinogen NORMAL, Urine Leukocyte Esterase 3+, Urine RBC (Auto) 1+, Urine RBC 0-2, Urine WBC 25-50, Urine Crystals NONE, Urine Bacteria MODERATE, Urine Casts NONE, Urine Mucus NEGATIVE, Urine Culture Indicated YES 05/26/19 06:28: White Blood Count 7.8, Red Blood Count 4.18, Hemoglobin 13.0, Hematocrit 41, Mean Corpuscular Volume 98, Mean Corpuscular Hemoglobin 31, Mean Corpuscular Hemoglobin Concent 32, Red Cell Distribution Width 14.2, Platelet Count 139, Mean Platelet Volume 12.5, Neutrophils (%) (Auto) 53, Lymphocytes (%) (Auto) 31, Monocytes (%) (Auto) 15, Eosinophils (%) (Auto) 2, Basophils (%) (Auto) 0, Neutrophils # (Auto) 4.1, Lymphocytes # (Auto) 2.4, Monocytes # (Auto) 1.1, Eosinophils # (Auto) 0.1, Basophils # (Auto) 0.0, Sodium Level 134, Potassium Level 4.4, Chloride Level 102, Carbon Dioxide Level 23, Anion Gap 9, Blood Urea Nitrogen 13, Creatinine 0.65, Estimat Glomerular Filtration Rate > 60, BUN/Creatinine Ratio 20, Glucose Level 82, Calcium Level 9.2, Corrected Calcium 9.6, Total Bilirubin 0.9, Aspartate Amino Transf (AST/SGOT) 23, Alanine Aminotransferase (ALT/SGPT) 13, Alkaline Phosphatase 82, Total Protein 6.2, Albumin 3.5 Discharge Home Medications: Active Scripts Active Reported Probiotic (Lactobacillus Acidophilus) 1 Each Capsule 2 Cap PO HS Instructions to patient/family Please see electronic discharge instructions given to patient. Diagnosis/Problems Diagnosis/Problems (1) Left humeral fracture Status: Acute Qualifiers: (2) Fibromyalgia Status: Chronic (3) Vitamin B 12 deficiency Status: Chronic (4) Depression Status: Chronic Qualifiers: Qualified Codes: F32.9 - Major depressive disorder, single episode, unspecified (5) Chronic vertigo Status: Chronic (6) Falls frequently Status: Chronic Clinical Quality Measures DVT/VTE Risk/Contraindication: Risk Factor Score Per Nursin RFS Level Per Nursing on Admit: 4+=Very High MARLO GALAVIZ DO May 26, 2019 12:28
== END 2019-05-26 07:23 ==
LOC: EDUNIT# 08:40 → ER 08:41 → UNDOADMOB 11:45 → 4TH 11:45 → UNDODISOB 05-26 12:35
PROVIDERS: ADMIT Internal Medicine; ATTEND Internal Medicine
DX: S42.202A Unspecified fracture of upper end of left humerus, initial encounter for closed fracture (principal); S02.92XA Unspecified fracture of facial bones, initial encounter for closed fracture; K21.9 Gastro-esophageal reflux disease without esophagitis; M79.7 Fibromyalgia; E53.8 Deficiency of other specified B group vitamins; F32.9 Major depressive disorder, single episode, unspecified; R42 Dizziness and giddiness; R29.6 Repeated falls; Z88.1 Allergy status to other antibiotic agents; Z87.820 Personal history of traumatic brain injury; Z86.39 Personal history of other endocrine, nutritional and metabolic disease
CPT/HCPCS: 36415; 70450; 70486; 71045; 72125; 72170; 73030; 73060; 80053; 81000; 85025; 87088; 96374; G0378

== ENCOUNTER 2019-05-26 12:52 | Inpatient (IN) | payer MEDICARE, OTHER ==
[~2019-05-26] VITALS: Ht 149 cm; Wt 48.2 kg
[~2019-05-26 12:52] MED LIST changes: +LACT1CAP62 PO
--- NOTE | 2019-05-26 12:52 | Physical Therapy Evaluation ---
PT Evaluation-General Medical Diagnosis Admission Date 05/26/19 Medical Diagnosis: (L) humerus fracture Onset Date: May 25, 2019 Therapy Diagnosis Therapy Diagnosis: weakness/difficulty walking Height/Weight Height (Feet): 4 Height (Inches): 11.00 Weight (Pounds): 109 Weight (Ounces): 0.0 Weight Bear Status Full Weight Bearing Full Weight Bearing Unknown weightbearing status on (L) UE secondary to humerus fracture Referral Physician: Claudio Reason for Referral: Evaluation/Treatment Medical History Pertinent Medical History: GERD Social History Home: Single Level Current Living Status: Alone Prior/Core FIM Prior Level of Function Therapy Code Descriptions/Definitions Functional [place] Measure: 0=Not Assessed/NA 4=Minimal Assistance 1=Total Assistance 5=Supervision or Setup 2=Maximal Assistance 6=Modified [place] 3=Moderate Assistance 7=Complete [place] Therapy Quality Codes: 6 Independent with activity with or without an assistive device 5 Patient requires set up or clean up by helper. Patient completes activity by themselves 4 Supervision or touching assist (CGA). [place] provide cues , steadying assist 3 The helper provides less than half the effort to complete the activity 2 The helper provides more than half the effort to complete the activity 1 Dependent. The helper does all the effort to complete an activity 7 Patient refused to complete or attempt activity 9 The patient did not perform the activity before the current illness or injury 88 Not attempted due to Medical conditions or safety concerns Functional Abilities and Goals: Independent: Patient completed the activities by him/herself, with or without an assistive device, with no assistance from a helper. Needed Some Help: Patient needed partial assistance from another person to complete activities. Dependent: A helper completed the activities for the patient. Unknown: Not Applicable: Bed Mobility: 7 Transfers (B,C,W/C) (FIM): 7 Gait: 6 Stairs: 6 Indoor Mobility (Ambulation): Independent Stairs: Independent PT Evaluation-Current Subjective States that she is doing okay. Pain Numeric Pain Scale: 1 Location: Left Location Body Site: Shoulder Objective Patient Orientation: Person, Place, Time, Situation ROM/Strength ROM Lower Extremities WFL Strenght Lower Extremities 4/5 strength in (B) hips, 5/5 in (B) knees, 4+/5 in (B) ankles Neuromuscular (Tone, Coordination, Reflexes) intact Sensory Vision: Wears Glasses Hearing: Functional Hand Dominance: Right Sensation Left Upper Extremity: Intact Sensation Right Lower Extremit: Intact Transfers Therapy Code Descriptions/Definitions Functional [place] Measure: 0=Not Assessed/NA 4=Minimal Assistance 1=Total Assistance 5=Supervision or Setup 2=Maximal Assistance 6=Modified [place] 3=Moderate Assistance 7=Complete [place] Therapy Quality Codes: 6 Independent with activity with or without an assistive device 5 Patient requires set up or clean up by helper. Patient completes activity by themselves 4 Supervision or touching assist (CGA). [place] provide cues , steadying assist 3 The helper provides less than half the effort to complete the activity 2 The helper provides more than half the effort to complete the activity 1 Dependent. The helper does all the effort to complete an activity 7 Patient refused to complete or attempt activity 9 The patient did not perform the activity before the current illness or injury 88 Not attempted due to Medical conditions or safety concerns Transfers (B, C, W/C) (FIM): 4 Scootin Rollin Roll Left to Right (QC): 3 Supine to/from Sit: 4 Sit to/from Stand: 4 Sit to Lying (QC): 3 Lying to Sitting/Side of Bed(Q: 3 Sit to Stand (QC): 3 Chair/[id number]-[id number] Xfer(QC): 3 Car Transfer (QC): 4 Gait Does the Patient Walk?: Yes Mode of Locomotion: Walk Anticipated Mode of Locomotion: Walk Gait (FIM): 300 Distance (FIM): 3=150 ft (3) Walk 10 feet (QC): 4 Walk 50 ft with 2 Turns(QC): 4 Walk 150 ft (QC): 4 Walking 10ft/uneven surface-QC: 88 Distance: 300 Gait Level of Assist: 5 Gait Persons Needed: 1 Gait Assistive Device: None Wheelchair Training Does the Pt Use a Wheelchair?: No Wheelchair Distance (FIM): 0=does not occure Distance: not assessed Wheelchair Level of Assist: 1 Wheel 50 ft with 2 turns (QC): 88 Wheel 150 ft (QC): 88 Type of Wheelchair: Manual not assessed secondary to not knowing WB status of (L) UE Stairs Stairs (FIM): 6 #of Steps: 12 Level of Assist: 5 1 Step (curb) (QC): 4 4 Steps (QC): 4 12 Steps (QC): 4 Balance Sitting Static: Normal Sitting Dynamic: Good Standing Static: Fair Standing Dynamic: Fair Picking up an Object (QC): 88 Assessment/Needs 74 y.o. female s/p (L) humerus fracture with weakness and gait/balance limitations. She should do well with skilled therapy to address her limitations and be able to return to her PLOF. Rehab Potential: Good PT Short Term Goals Short Term Goals Time Frame: Jun 02, 2019 Transfers (B,C,W/C) (FIM): 5 Gait (FIM): 6 Distance (FIM): 3=150 ft Gait Distance Comment: 500' Gait Level of Assist: 6 Gait Assistive Device: Cane Single Point, Handheld Assist, Cane Small Base Quad PT Wellness Program Coordinator Goals Wellness Program Coordinator Goals PT Usp Goals Time Frame: Jun 09, 2019 Transfers (B,C,W/C) (FIM): 7 Sit to Lying (QC): 6 Lying-Sitting on Side/Bed(QC): 6 Sit to Stand (QC): 6 Rollin Roll Left to Right (QC): 6 Chair/[id number]-fw-Ngnsu Xfer(QC): 6 Car Transfer (QC): 6 Does the Patient Walk: Yes Gait (FIM): 7 Gait distance (FIM): 3=150 ft Distance: 500 Walk 10 feet (QC): 6 Walk 10ft-Uneven Surface(QC): 6 Walk 50ft with 2 Turns (QC): 6 Walk 150 ft (QC): 6 Gait Level of Assist: 7 Gait Assistive Device: Cane Single Point Does the Pt use WC or Scooter?: No Stairs (FIM): 7 # of Steps: 12 1 Step (curb) (QC): 6 4 Steps (QC): 6 12 Steps (QC): 6 Stairs Level Of Assist: 7 Picking up an Object (QC): 6 PT Plan Problem List Problem List: Activity Tolerance, Functional Strength, Safety, Balance, Gait, Transfer, Bed Mobility, ROM Treatment/Plan Treatment Plan: Continue Plan of Care Treatment Plan: Bed Mobility, Functional Activity [place], Functional Strength, Gait, Therapeutic Exercise, Transfers Frequency: 11 times per week Safety Risks/Education Patient Education: Gait Training, Transfer Techniques Teaching Methods: Discussion Discharge Recommendations Therapy Discharge Recommendati: Post Acute PT Time/GCodes Time In: 1240 Time Out: 1310 Total Billed Treatment Time: 30 Total Billed Treatment 1, EV low complexity ANDRE MICHAEL PT May 26, 2019 12:52
[2019-05-26 14:20] VITALS: BP 95/60
[2019-05-26] MEDS ORDERED: ONDANSETRON 4 MG/2 ML (SDV) Z0FRAN IVP PRN (14:45)
[2019-05-26] MEDS ORDERED: CATHETER FLUSH 10 ML SYR IV PRN (14:45)
[2019-05-26] MEDS ORDERED: fentaNYL INJECTION 100 MCG/2 ML AMP IVP PRN (14:45)
[2019-05-26] MEDS ORDERED: diphenhydrAMINE 25 MG TAB (BENADRYL) PO PRN (14:45)
[2019-05-26] MEDS ORDERED: CALCIUM CARBONATE 500 MG (TUMS) TAB.CHEW PO PRN (14:45)
[2019-05-26] MEDS ORDERED: LOPERAMIDE 2 MG (IMODIUM) TABLET PO PRN (14:45)
[2019-05-26] MEDS ORDERED: ONDANSETRON 4 MG (ZOFRAN) ORAL DISSOLVE TAB PO PRN (15:00)
[2019-05-26] MEDS ORDERED: ACETAMINOPHEN 500 MG TAB (TYLENOL) PO PRN (15:00)
[2019-05-26 16:03] VITALS: BP 103/68
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
[2019-05-26] MEDS ORDERED: LACTULOSE SYRUP 10GM/15ML (ENULOSE) 30ML UDC PO PRN (17:30)
[2019-05-26] MEDS ORDERED: LACTULOSE SYRUP 10GM/15ML (ENULOSE) 30ML UDC PO ONE (17:30)
[2019-05-26] MEDS ORDERED: POLYETHYLENE GLYCOL 17 GM (MIRALAX) PACK PO ONE (17:30)
[2019-05-26] MEDS ORDERED: POLYETHYLENE GLYCOL 17 GM (MIRALAX) PACK ONE (18:17)
[2019-05-26] MEDS ORDERED: LACTULOSE SYRUP 10GM/15ML (ENULOSE) 30ML UDC ONE (18:17)
[2019-05-26] MEDS: HYDROcodone/APAP 5 MG/325 MG (LORTAB) TAB PO PRN ×2 (18:28→22:22)
[2019-05-26] MEDS: POLYETHYLENE GLYCOL 17 GM (MIRALAX) PACK PO SCH (18:31)
--- NOTE | 2019-05-26 19:10 | NUR ---
bedside report received from NAWAF PARKINSON, assume care of pt
--- NOTE | 2019-05-26 21:00 | NUR ---
pt took shower with assist of nursing staff
[2019-05-26] MEDS: SENNA W/DOCUSATE (SENOKOT S) TABLET PO SCH (21:40)
[2019-05-26] MEDS: DOCUSATE SODIUM 100 MG (COLACE) CAP PO SCH (21:40)
--- NOTE | 2019-05-26 21:42 | NUR ---
pt took Colace & Senokot 1 tab po
--- NOTE | 2019-05-26 21:45 | NUR ---
assessments & interventions completed, see assessments & interventions
[2019-05-26] MEDS: CATHETER FLUSH 10 ML SYR IV SCH (22:22)
--- NOTE | 2019-05-26 22:22 | NUR ---
c/o pain level 9/10 on numeric scale. Lortab 5 1 tab po given
[2019-05-26] MEDS ORDERED: CYCLOBENZAPRINE 10 MG (FLEXERIL) TAB ONE (23:00)
--- NOTE | 2019-05-26 23:00 | NUR ---
pt states having muscle spasms & was taking home med cyclobenapr 10mg 1/2 tab at hs notified of pt request to take this med, orders received for med
--- NOTE | 2019-05-26 23:11 | NUR ---
cyclobenzaprine 5mg po given
[2019-05-26] MEDS: IBUPROFEN TABLET 200 MG TAB PO PRN (23:16)
--- NOTE | 2019-05-26 23:16 | NUR ---
pt states still hurt pain level 10/10 on numeric scale, Motrin 400mg po given
--- NOTE | 2019-05-27 | NUR ---
rates pain level 8/10 on numeric scale, given warm blanket to shoulder
[2019-05-27] MEDS: HYDROcodone/APAP 5 MG/325 MG (LORTAB) TAB PO PRN ×6 (02:09→22:07)
--- NOTE | 2019-05-27 02:09 | NUR ---
c/o pain level 7/10 on numeric scale, lortab 5 1 tab po given & another warm blanket for shoulder
--- NOTE | 2019-05-27 02:40 | NUR ---
resting quietly in bed, pain level 0/10 on flacc scale
[2019-05-27 05:37] VITALS: BP 121/68
[2019-05-27] MEDS: CATHETER FLUSH 10 ML SYR IV SCH ×3 (06:20→22:00)
--- NOTE | 2019-05-27 06:58 | NUR ---
resting quietly in bed, pain level 0/10 on flacc scale
--- NOTE | 2019-05-27 07:10 | NUR ---
bedside report given to NAWAF PARKINSON
[2019-05-27] MEDS: DOCUSATE SODIUM 100 MG (COLACE) CAP PO SCH ×2 (07:54→21:06)
[2019-05-27] MEDS: SENNA W/DOCUSATE (SENOKOT S) TABLET PO SCH ×2 (07:54→21:08)
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
[2019-05-27] MEDS: IBUPROFEN TABLET 200 MG TAB PO PRN ×2 (15:05→21:06)
[2019-05-27 16:14] VITALS: BP 94/58
--- NOTE | 2019-05-27 19:04 | NUR ---
bedside report received from NAWAF PARKINSON, assume care of pt
--- NOTE | 2019-05-27 20:40 | NUR ---
found pt on knees in bathroom stated i tried to get back to bed on own and went down to my knees, states no injury, this nurse examined pt & found no injuries v/s [id number]%-111/67 0/10 on numeric scale, advised pt must wait until nursing staff can get pt out of bathroom & not attempt on own, test desk supervisor notified & no new orders, bed alarm on side rails up x4.
[2019-05-27 20:45] VITALS: BP 111/67
[2019-05-27] MEDS: CYCLOBENZAPRINE 10 MG (FLEXERIL) TAB PO SCH (21:06)
--- NOTE | 2019-05-27 21:06 | NUR ---
pt took colace & only 1 senoskot, c/o shoulder pain level 7/10 on numeric scale, Motrin 400mg po given
[2019-05-27] MEDS: POLYETHYLENE GLYCOL 17 GM (MIRALAX) PACK PO SCH (21:08)
--- NOTE | 2019-05-27 21:08 | NUR ---
assessments & interventions completed, see assessments & interventions
--- NOTE | 2019-05-27 21:40 | NUR ---
rates pain at 2/10 on numeric scale
--- NOTE | 2019-05-27 22:07 | NUR ---
requesting lortab pain level 2/10 on numeric scale, lortab 5 1 tab po given
--- NOTE | 2019-05-27 22:42 | NUR ---
resting quietly in bed, pain level 0/10 on flacc scale
[2019-05-28] MEDS: HYDROcodone/APAP 5 MG/325 MG (LORTAB) TAB PO PRN ×6 (02:11→22:24)
--- NOTE | 2019-05-28 02:11 | NUR ---
c/o pain level 2/10 on numeric scale, Lortab 5 1 tab po given
--- NOTE | 2019-05-28 02:50 | NUR ---
resting quietly in bed, pain level 0/10 on flacc scale
[2019-05-28 05:25] VITALS: BP 115/75
[2019-05-28 05:36] LABS: BASOPHILS % (AUTO) 0 % (0-10); EOSINOPHILS # (AUTO) 0.1 10^3/uL (0.0-0.3); EOSINOPHILS % (AUTO) 2 % (0-10); HEMATOCRIT 35 % (35-52); HEMOGLOBIN 10.9 G/DL (11.5-16.0); LYMPHOCYTES # (AUTO) 2.1 X 10^3 (1.0-4.0); LYMPHOCYTES % (AUTO) 36 % (12-44); MEAN CORPUSCULAR HEMOGLOBIN 31 PG (25-34); MEAN CORPUSCULAR HGB CONC 31 G/DL (32-36); MEAN CORPUSCULAR VOLUME 99 FL (80-99); MEAN PLATELET VOLUME 12.4 FL (7.4-10.4); MONOCYTES % (AUTO) 18 % (0-12); NEUTROPHILS # (AUTO) 2.5 X 10^3 (1.8-7.8); NEUTROPHILS % (AUTO) 43 % (42-75); PLATELET COUNT 156 10^3/uL (130-400); RED CELL DISTRIBUTION WIDTH 13.9 % (10.0-14.5); WHITE BLOOD COUNT 5.8 10^3/uL (4.3-11.0)
[2019-05-28] MEDS: CATHETER FLUSH 10 ML SYR IV SCH ×2 (06:00→14:08)
[2019-05-28 06:10] LABS: ALANINE AMINOTRANSFERASE 12 U/L (0-55); ALBUMIN 3.1 GM/DL (3.2-4.5); ALKALINE PHOSPHATASE 64 U/L (40-136); BILIRUBIN,TOTAL 0.6 MG/DL (0.1-1.0); BUN/CREATININE RATIO 21; CALCIUM 8.8 MG/DL (8.5-10.1); CARBON DIOXIDE 26 MMOL/L (21-32); CHLORIDE 99 MMOL/L (98-107); CREATININE SERUM 0.71 MG/DL (0.60-1.30); GFR ESTIMATED > 60; GLUCOSE 85 MG/DL (70-105); SODIUM 134 MMOL/L (135-145); TOTAL PROTEIN 5.3 GM/DL (6.4-8.2)
--- NOTE | 2019-05-28 06:14 | NUR ---
c/o pain level 2/10 on numeric scale, lortab 5 1 tab po given
--- NOTE | 2019-05-28 06:55 | NUR ---
pain level 1/10 on numeric scale
--- NOTE | 2019-05-28 07:14 | NUR ---
bedside report given to NAWAF PARKINSON
[2019-05-28] MEDS: DOCUSATE SODIUM 100 MG (COLACE) CAP PO SCH ×2 (07:53→20:35)
[2019-05-28] MEDS: IBUPROFEN TABLET 200 MG TAB PO PRN ×3 (07:53→20:35)
[2019-05-28] MEDS: SENNA W/DOCUSATE (SENOKOT S) TABLET PO SCH ×2 (07:53→20:35)
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
--- NOTE | 2019-05-28 09:04 | ST Cognitive Linguistic Eval ---
Speech Evaluation-General Medical Diagnosis (L) humerus fracture Onset Date: May 25, 2019 Therapy Diagnosis Therapy Diagnosis: Cognitive-communication Precautions Precautions: Fall Precautions/Isolations: Fall Prevention, Standard Precautions Referral Referring Physician: Dr. Snyder Reason for Referral: Evaluation/Treatment Medical History Pertinent Medical History: GERD GERD Current History L humerus fracture Reviewed History: Yes Social History Home: Single Level Current Living Status: Alone Speech PLF-Current Status Prior Level of Function Patient lives alone in her own home where she was independent for her daily needs. Subjective The patient was pleasant and cooperative with the cognitive evaluation process. Language Eval: Auditory Comprehends Simple Yes/No Ques: Functional Indent/Objects Multiple Gomes: Functional Ident/Pics in Multiple Gomes: Functional Follows 1-Step Commands: Functional Follows Complex Directions: Functional Follows General Conversations: Functional Language Eval: Verbal Language Completes Spontaneous Greeting: Functional Produces Auto, Serial Info: Functional Imitates Simple Words/Phrases: Functional Word Finding: Functional Requests Basic Needs: Functional States Basic Personal Info: Functional Expresses Complex Ideas: Functional Objective Cognitive Domain Attention: WNL Memory: WNL Problem Solving: Functional Executive Functions: WNL Visuospatial Skills: WNL Composite Severity Rating: WNL Clock Drawing Severity Rating: WNL Objective Formal/Standardized Tests [facility] Mental Status ([facility]) Results 30/30, within normal range Oral Motor/Speech Production Within Functional Limits Impression Patient is a pleasant 74 year old woman who was admitted to the ARU s/p fall with injury. The patient was given the SLUMS at bedside with a perfect score of 30/30. Normal range of function based on the UMS. It was noted there is a question of dementia, however this is not indicated with the SLUMS. The patient does not require skilled ST intervention at this time. Communication/Social Cognition Comprehension: 7 Expression: 7 Social Interaction: 7 Problem Solvin Memory: 7 Speech Patient Assess Expression of Ideas/Wants: Expression (4) Understanding Verbal Content: Understands (4) Brief Interview-Mental Status: Yes Repetition of Three Words: Three (3) Temporal Orientation: Year: Correct (3) Temporal Orientation: Month: Accurate within 5 days(2) Temporal Orientation: Day: Correct (1) Recall : Wear to say "Sock": Yes, no cue required (2) Recall : Color: Yes, no cue required (2) Recall : Bed: Yes, no cue required (2) Memory/Recall Ability: Current season, That he or she is in a hsp/hsp unit Speech-Plan Patient/Family Goals Patient/Family Goals: The patient plans on returning home post rehab. Treatment Plan Speech Therapy Treatment Plan: Discontinue ST The patient does not require skilled ST services at this time. Treatment Duration: May 28, 2019 Frequency: 1 time per week Estimated Hrs Per Day: .25 hour per day Rehab Potential: Good Barriers to Learning: None identified Pt/Family Agrees to Plan: Yes Safety Risks/Education Teaching Recipient: Patient Teaching Methods: Discussion Response to Teaching: Verbalize Understanding Education Topics Provided: Safety within her room. Time Speech Therapy Time In: 08:15 Speech Therapy Time Out: 08:30 Total Billed Time: 15 Billed Treatment Time 1, ERIC Osuna May 28, 2019 09:04
--- NOTE | 2019-05-28 11:51 | Occupational Therapy Eval ---
OT Evaluation-General/PLF Medical Diagnosis Admission Date May 26, 2019 at 12:52 Medical Diagnosis: (L) humerus fracture Onset Date: May 25, 2019 Therapy Diagnosis Therapy Diagnosis: Weakness, Decreased ADL skills Height/Weight Height (Feet): 4 Height (Inches): 11.00 Weight (Pounds): 109 Weight (Ounces): 0.0 Precautions Precautions/Isolations: Fall Prevention, Standard Precautions Safety Interventions: Reorient-PRN Weight Bear Status Weight Bearing Restriction: Non Weight Bearing Location Restriction: L UE Referral Physician: Claudio Referral Reason: Activity Tolerance, Self Care, Evaluation/Treatment, Strengthening/ROM Medical History Pertinent Medical History: GERD Additional Medical History TBI Current History Pt. sustained a fall in [facility]. Reviewed History: Yes Social History Home: Single Level Current Living Status: Alone Entry Into Home: Level Entry ADL-Prior Level of Function Therapy Code Descriptions/Definitions Functional Faith Measure: 0=Not Assessed/NA 4=Minimal Assistance 1=Total Assistance 5=Supervision or Setup 2=Maximal Assistance 6=Modified Faith 3=Moderate Assistance 7=Complete Faith Therapy Quality Codes: 6 Independent with activity with or without an assistive device 5 Patient requires set up or clean up by helper. Patient completes activity by themselves 4 Supervision or touching assist (CGA). Clarence provide cues , steadying assist 3 The helper provides less than half the effort to complete the activity 2 The helper provides more than half the effort to complete the activity 1 Dependent. The helper does all the effort to complete an activity 7 Patient refused to complete or attempt activity 9 The patient did not perform the activity before the current illness or injury 88 Not attempted due to Medical conditions or safety concerns Functional Abilities and Goals: Independent: Patient completed the activities by him/herself, with or without an assistive device, with no assistance from a helper. Needed Some Help: Patient needed partial assistance from another person to c omplete activities. Dependent: A helper completed the activities for the patient. Unknown: Not Applicable: ADL PLOF Comments Pt. was independent with daily tasks. Self Care: Independent Functional Cognition: Unknown DME/Equipment: Bath Chair, Tub/Shower DME/Equipment Comments Pt. states that she has a walker but does not usually use it. Drive Self: Yes OT Current Status Subjective Pt. reports 5/10 pain in left UE. Nursing notified for pain meds. Appearance Pt. in bed when OT entered room. Agrees to treatment. Mental Status/Objective Patient Orientation: Person, Place Current Glasses/Contacts: Yes Hand Dominance: Right Upper Extremity ROM Right- WFL Left- impaired. ADL-Treatment Grooming (FIM): 5 (SBA with brushing teeth and hair seated at sink, as well as cues for processing how to do each task.) Oral Hygiene (QC): 4 Bathing (FIM): 4 (CGA in stance. Cues to sequence steps.) Shower/Bathe Self (QC): 4 Upper Body Dressing (FIM): 3 (Mod assist to don shirt and arm sling.) Upper Body Dressing (QC): 3 Lower Body Dressing (FIM): 3 (Assist to don shoes and socks. Min assist to don pants over feet. CGA to don over hips.) Lower Body Dressing (QC): 3 On/Off Footwear (QC): 2 Toileting (FIM): 4 Toileting Hygiene (QC): 4 Transfers (B, C, W/C) (FIM): 4 Toilet/Commode Transfer (FIM): 4 Toilet Transfer (QC): 4 Other Treatments Pt. requires encouraged to attempt tasks for self and to assist self. After ADLs, pt. ambulated with hand held assist to therapy gym. Sat down but would like to change shirt. Ambulated back to gym with assist and changed shirt. Education OT Patient Education: Correct positioning, Modified ADL techniques, Progress toward Goal/Update tx plan, Purpose of tx/functional activities, Reviewed precautions, Rehab process, Transfer techniques Teaching Recipient: Patient Teaching Methods: Demonstration, Discussion Response to Teaching: Verbalize Understanding, Return Demonstration OT Short Term Goals Short Term Goals Time Frame: Jun 04, 2019 Eating(FIM): 6 Grooming(FIM): 6 Bathing(FIM): 5 Upper Body Dressing(FIM): 4 Lower Body Dressing(FIM): 4 Toileting(FIM): 5 Transfers (B,C,W/C) (FIM): 5 Toilet/Commode Transfer(FIM): 5 Shower Transfer(FIM): 5 Additional Short Term Goals: 1-Demonstrate ADL Tasks, 2-Verbalize Understanding, 3-ImproveStrength/Ayden 1=Demonstrate adherence to instructed precautions during ADL tasks. 2=Patient will verbalize/demonstrate understanding of assistive devices/modifications for ADL. 3=Patient will improve strength/tolerance for activity to enable patient to perform ADL's. OT Chcf Goals Chcf Goals Time Frame: Jun 11, 2019 Eating (FIM): 6 Eating (QC): 6 Groomin Oral Hygiene (QC): 6 Bathing(FIM): 5 Shower/Bathe Self (QC): 5 Upper Body Dressing(FIM): 6 Upper Body Dressing (QC): 6 Lower Body Dressing(FIM): 6 Lower Body Dressing (QC): 6 On/Off Footwear (QC): 6 Toileting(FIM): 6 Toileting Hygiene (QC): 6 Transfers (B,C,W/C) (FIM): 6 Toilet/Commode Transfer(FIM): 6 Toilet/Commode Transfer (QC): 6 Shower Transfer(FIM): 5 Additional Goals: 1-Demonstrate ADL Tasks, 2-Verbalize Understanding, 3- ImproveStrength/Ayden 1=Demonstrate adherence to instructed precautions during ADL tasks. 2=Patient will verbalize/demonstrate understanding of assistive devices/modifications for ADL. 3=Patient will improve strength/tolerance for activity to enable patient to perform ADL's. OT Education/Plan Problem List/Assessment Assessment: Decreased Activ Tolerance, Decreased UE Strength, Dependent Transfers, Impaired Bed Mobility, Impaired Coordination, Impaired Funct Balance, Impaired I ADL's, Impaired Self-Care Skills, Restricted Funct UE ROM Discharge Recommendations Plan/Recommendations: Continue POC Therapy Discharge Recommendati: Post Acute OT Comment Equipment needs to be determined. Treatment Plan/Plan of Care Treatment,Training & Education: Yes Patient would benefit from OT for education, treatment and training to promote independence in ADL's, mobility, safety and/or upper extremity function for ADL's. Plan of Care: ADL Retraining, Functional Mobility, Group Exercise/Act as Ind, UE Funct Exercise/Act Treatment Duration: Jun 11, 2019 Frequency: At least 5 of 7 days/Wk (IRF) Estimated Hrs Per Day: 1.5 hours per day Agreement: Yes Rehab Potential: Good Time/GCodes Start Time: 09:15 Stop Time: 10:15 Total Time Billed (hr/min): 60 Billed Treatment Time 1, EVM x 15minutes, ADL x 45minutes ANNE MCCARTHY OT May 28, 2019 11:51
--- NOTE | 2019-05-28 12:15 | NUR ---
Met with patient to complete initial assessment. Patient admitted to ARU, 05/26 with L UE humerus fx and multiple facial fractures; these fractures are considered inoperable. Patient is NWB with her L UE and it is in a sling. Prior to hospitalization the patient was living alone in a handicapped accessible apartment in [place], [place]. This apartment is single level with no steps, interior nor exterior. Patient states she has a rolling walker and a bath chair; however, she states she rarely used her rolling walker, prior to hospitalization. Patient identifies her primary contact as her daughter, Rae Jamil ([phone]). Patient identified her primary physician as Faviola Sanchez DNP. Patient confirmed her primary insurance provider is [facility], with supplemental coverage provided by [employer]. Patient states her preferred pharmacy is [facility] in [place], [place]. The purpose of Weekly Team Conference was discussed and verbalized understanding. No concerns expressed at this time. Will continue to follow.
--- NOTE | 2019-05-28 12:29 | Physical Therapy Daily Note ---
PT Daily Note-Current Subjective Pt agreeable to PT session. States she really would like to walk more through the day and feels it would help her most. States right now she is most comfortable walking with staff holding their hand but is agreeable to eventually moving on to using a cane. States she didn't used to use an AD in her home but would use either a cane or walker outside of home. States she has had equilibrium problems for 50 years from an injury she sustained. Pt c/o's lightheadedness increasing with pain meds, but pain meds also are not working very well and that she doesn't really have pain in her injured shoulder, it is all over her back. States she has been diagnosed with fibromyalgia. Pain Numeric Pain Scale: 3 Location: Bone, Dorsal Location Body Site: Back Appearance Upon arrival, pt sitting up in recliner awake and alert. Assisted pt to adjust sling to decrease feeling of "pulling" and hanging. At end of session, pt in bed, per pt request, ordered lunch, call light, phone and bedside table within reach. Mental Status Patient Orientation: Person, Place, Time, Eyes Open, Situation Attachments: Other-See Comments (L shoulder sling) Transfers Therapy Code Descriptions/Definitions Functional Philipp Measure: 0=Not Assessed/NA 4=Minimal Assistance 1=Total Assistance 5=Supervision or Setup 2=Maximal Assistance 6=Modified Philipp 3=Moderate Assistance 7=Complete Philipp Therapy Quality Codes: 6 Independent with activity with or without an assistive device 5 Patient requires set up or clean up by helper. Patient completes activity by themselves 4 Supervision or touching assist (CGA). Sheldon provide cues , steadying assist 3 The helper provides less than half the effort to complete the activity 2 The helper provides more than half the effort to complete the activity 1 Dependent. The helper does all the effort to complete an activity 7 Patient refused to complete or attempt activity 9 The patient did not perform the activity before the current illness or injury 88 Not attempted due to Medical conditions or safety concerns Transfers (B, C, W/C) (FIM): 4 Scootin Rollin Supine to/from Sit: 4 Sit to/from Stand: 4 Bed to/from Chair: 4 CGA provided during most transitions due to pt c/o lightheadedness, safety, balance. Skilled verb inst provided for safety and hand placement during transitions Weight Bearing Full Weight Bearing Full Weight Bearing Unknown weightbearing status on (L) UE secondary to humerus fracture Gait Training Does the Patient Walk?: Yes Gait (FIM): 2 Distance (FIM): 3=357-08 ft Distance: 120 x4 Gait Level of Assist: 4 (INSTRUMENTATION CONTROLS ENGINEER to min A for unsteadiness/balnace, lightheaded) Gait Persons Needed: 1 Gait Assistive Device: Handheld Assist Pt relying on this LINE PREP COOK's INSTRUMENTATION CONTROLS ENGINEER for balance, unsteady gait, decreased step length and height, lightheadedness increases with gait but decreases some upon sitting, pt with some c/o fatigue Exercises Seated Reps: 5 (cervical rotation, flex/ext, lat bend L and R, eye rotations) Standing: Heel/toe raises, 3 way Ex=Flex, Abd, Ext, Marching, Mini squats, Sit to Stand Standing Reps: 10 ((+) static stance x3 in without UE support) RUE support during standing exercises unless otherwise reported NuStep Minutes: 15 NuStep Workload: 4 (LE's only, seat 7. Pt with report that she was feeling better the more she worked but did fatigue some by end) Treatments transfers, safety, gait, education, functional mobility, activity tolerance, balance, strength, bed mobility Assessment Current Status: Good Progress PT Short Term Goals Short Term Goals Time Frame: Jun 02, 2019 Transfers (B,C,W/C) (FIM): 5 Gait (FIM): 6 Distance (FIM): 3=150 ft Gait Distance Comment: 500' Gait Level of Assist: 6 Gait Assistive Device: Cane Single Point, Handheld Assist, Cane Small Base Quad Wheelchair Distance: not assessed PT Long-Term Goals Long-Term Goals PT Cyber Systems Operations Specialist Goals Time Frame: Jun 09, 2019 Transfers (B,C,W/C) (FIM): 7 Sit to Lying (QC): 6 Lying-Sitting on Side/Bed(QC): 6 Sit to Stand (QC): 6 Rollin Roll Left to Right (QC): 6 Chair/[id number] Xfer(QC): 6 Car Transfer (QC): 6 Does the Patient Walk: Yes Gait (FIM): 7 Gait distance (FIM): 3=150 ft Distance: 500 Walk 10 feet (QC): 6 Walk 10ft-Uneven Surface(QC): 6 Walk 50ft with 2 Turns (QC): 6 Walk 150 ft (QC): 6 Gait Level of Assist: 7 Gait Assistive Device: Cane Single Point Does the Pt use WC or Scooter?: No Stairs (FIM): 7 # of Steps: 12 1 Step (curb) (QC): 6 4 Steps (QC): 6 12 Steps (QC): 6 Stairs Level Of Assist: 7 Picking up an Object (QC): 6 PT Plan Treatment/Plan Treatment Plan: Continue Plan of Care Treatment Plan: Bed Mobility, Functional Activity Ayden, Functional Strength, Gait, Therapeutic Exercise, Transfers Frequency: 11 times per week Patient and/or Family Agrees t: Yes Safety Risks/Education Patient Education: Gait Training, Transfer Techniques, Safety Issues Teaching Recipient: Patient Teaching Methods: Demonstration, Discussion Response to Teaching: Verbalize Understanding, Return Demonstration, Reinforcement Needed Time/GCodes Time In: 1100 Time Out: 1210 Total Billed Treatment Time: 60 Total Billed Treatment 1 visit, GT x20min, EX x30min, FA x10min ILSA KIRKLAND LINE PREP COOK May 28, 2019 12:29
[2019-05-28 15:48] VITALS: BP 94/58
--- NOTE | 2019-05-28 15:49 | Therapy Group Daily Note ---
Therapy Daily Group Note Patient Education Topic Home Safety, Energy Cons, Exercises Exercises LE Seated Exercise, ROM, Stretching, Gross Motor, Fine Motor, UE Exercise Session Ratio (pt:therapist): 3:1 Goal of Session: Education on ARU Expectations, Energy Conservation Tech., UE/LE Strengthing, Safety with Transfers, Use of Adaptive Equipment Goal Met for this Session: Yes Pt Benefit of Group: Contributions to Others, F/U Use of Strategies @Home, Increased Functional Safety, Increased Functional Strength, Recognition of Peers, Socialization Other/Notes Pt ambulated with SBA to OT/PT group. Pt required assist adjusting sling and placing pillow under for support prior to session. Group consisted of introduction (name, place living, favorite school activity), socialization, ARU orientation, UE/LE seated exercises and transfer/bed mobility education. Pt introduced self appropriately and actively listened to peers. Pt contributed to conversations and initiated responses to educational topics. Pt demonstrated understanding of group educational topics with affirmative gestures and verbali zing understanding. Pt completed UE/LE seated exercises and tolerated well. Pt educated on bed mobility and safety during transfers. Pt taken back to room with SBA. All needs met in room, call light in reach. Start Time: 13:00 Stop Time: 14:10 Total Billed Treatment Time: 70 Total Billed Treatment 1 GRPx5 (70) HUGH PULIDO OTR May 28, 2019 15:49
[2019-05-28] MEDS: CYCLOBENZAPRINE 10 MG (FLEXERIL) TAB PO SCH (20:35)
--- NOTE | 2019-05-28 21:07 | Individualized Plan of Care ---
Individualized Plan of Care Rehab Nursing IPOC Order Admission Date May 26, 2019 at 12:52 Current Orders Orders Admission Order(Inpt,Obs,Sdc) (05/26/19 07:21) [facility]-Inpt Rehab Con (05/26/19 07:21) Rehab Nursing Orders-Ipoc (05/26/19 07:21) Physical Therapy Rehab Orders (05/26/19 07:21) Occupational Therapy Rehab Ord (05/26/19 07:21) Speech Therapy Rehab Orders (05/26/19 07:21) General/Regular (05/26/19 Lunch) Intake & Output 06,14,22 (05/26/19 07:21) Precautions (Aru) (05/26/19 07:21) Weekly Weight (Lbs) WEEK (05/26/19 07:21) Rehab-Intensity Of Therapy (05/26/19 07:21) Initiate Admission Nursing Pro .admission (05/26/19 07:21) Transfer - Bed/Room/Location (05/26/19 12:39) Hydrocodone/Apap 5/325 Tablet (Lortab 5 (05/26/19 14:45) Sodium Chloride Flush (Catheter Flush Sy (05/26/19 22:00) Ondansetron Injection (Zofran Injectio (05/26/19 14:45) Calcium Carbonate Chew Tablet (Antacid C (05/26/19 14:45) Diphenhydramine Tablet (Benadryl Tablet) (05/26/19 14:45) Docusate Sodium Capsule (Colace Capsule) (05/26/19 21:00) Loperamide Tablet (Imodium Tablet) (05/26/19 14:45) Melatonin Tablet (Melatonin Tablet) (05/26/19 14:45) Ibuprofen Tablet (Motrin Tablet) (05/26/19 15:00) Senna S Tablet (Senokot S Tablet) (05/26/19 21:00) Acetaminophen Tablet (Tylenol Tablet) (05/26/19 15:00) Alprazolam Tablet (Xanax Tablet) (05/26/19 15:00) Ondansetron Oral Dissolve Tab (Zofran (05/26/19 15:00) Polyethylene Glycol Powder Pkt (Miralax (05/26/19 17:30) Polyethylene Glycol Powder Pkt (Miralax (05/26/19 21:00) Lactulose Oral Solution (Enulose Oral So (05/26/19 17:30) Lactulose Oral Solution (Enulose Oral So (05/26/19 17:30) Ambulate 08,12,20 (05/26/19 18:11) Sequential Compression Device .once (05/26/19 18:11) Dvt/Vte Risk - Notifiy Physici .admit once (05/26/19 18:11) Polyethylene Glycol Powder Pkt (Miralax (05/26/19 18:17) Lactulose Oral Solution (Enulose Oral So (05/26/19 18:17) Cyclobenzaprine Tablet (Flexeril Tablet) (05/27/19 21:00) Cyclobenzaprine Tablet (Flexeril Tablet) (05/26/19 23:00) Cbc With Automated Diff (05/28/19 06:00) Comprehensive Metabolic Panel (05/28/19 06:00) Patient Visit (05/26/19 ) Pt Eval Low Complexity (05/26/19 ) Hydrocodone/Apap 5/325 Tablet (Lortab 5 (05/28/19 11:45) Patient Visit (05/28/19 ) Exercise Therap, Ea 15 Min (05/28/19 ) Gait Training, Ea 15 Min (05/28/19 ) Functional Activities, Ea 15 (05/28/19 ) Patient Visit (05/28/19 ) Patient Visit (05/28/19 ) Speech Sound Lang Comp (05/28/19 ) Rehab Nursing Orders: Ongoing Assess. of Cognitive Status, Ongoing Assess. of Function Status, Bladder Training, Bowel Management, Disease Management & Educaiton, DVT Prophylaxis, Fall Prevention, Fluid/Electrolyte/Nutrition Mgmt, Infection Prevention, Medication Management & Education, Management of Risks & Complications, Nutrition Management, Pain Management, Patient/Family Support, Safety Management Intensity of Therapy to be met Patient to be seen: Min.3h per day/5 of 7d PT IPOC Problem List: Activity Tolerance, Functional Strength, Safety, Balance, Gait, Transfer, Bed Mobility, ROM Treatment Plan: Continue Plan of Care Bed Mobility, Functional Activity Ayden, Functional Strength, Gait, Therapeutic Exercise, Transfers Treatment Duration: May 28, 2019 Frequency: 11 times per week Estimated Hrs Per Day: .5 hour per day OT IPOC Problems: Decreased Activ Tolerance, Decreased UE Strength, Dependent Transfers, Impaired Bed Mobility, Impaired Coordination, Impaired Funct Balance, Impaired I ADL's, Impaired Self-Care Skills, Restricted Funct UE ROM OT Treatment, Training and Edu: Yes Plan of Care: ADL Retraining, Functional Mobility, Group Exercise/Act as Ind, UE Funct Exercise/Act Treatment Duration: Jun 11, 2019 Frequency: At least 5 of 7 days/Wk (IRF) Estimated Hrs Per Day: 1.[address] IPOC Speech Therapy Treatment Plan: Discontinue ST Treatment Duration: May 28, 2019 Frequency: 1 time per week Estimated Hrs Per Day: .25 hour per day [employer] [facility] [facility]/Case Mgmt [employer]/Case Managemen: Discharge Planning Dietitian/Manager Care Dietitian/Manager Care to monitor nutritional status and make changes and/or recommendations as needed and work with speech pathology on dietary upgrades as the occur. Physician IPOC Medical Issues being managed closely and that require the 24 hour availability of a physician: Severe pain in left arm with multiple falls in the past will need close monitoring for delirium and decompensation Medical Issues: Bowel/Bladder Function, DVT Prophylaxis, Falls Precautions, Fluid/Electrolyte/Nutrition Balance, Pain Management Brief Synthesis of Preadmission Screen, Post-Admission Evaluation, and Therapy Evaluations: PT will focus on strengthening and fall risk prevention OT will focus on regaining ADL independence with 1 arm Medical Prognosis: Good Anticipated Length of Stay: 7 days MARLO AGLAVIZ DO May 28, 2019 21:07
[2019-05-28] MEDS: POLYETHYLENE GLYCOL 17 GM (MIRALAX) PACK PO SCH (21:32)
[2019-05-29] MEDS: IBUPROFEN TABLET 200 MG TAB PO PRN ×3 (03:17→22:11)
[2019-05-29] MEDS: HYDROcodone/APAP 5 MG/325 MG (LORTAB) TAB PO PRN ×3 (04:53→19:55)
[2019-05-29 05:48] VITALS: BP 133/58
[2019-05-29] MEDS: DOCUSATE SODIUM 100 MG (COLACE) CAP PO SCH ×2 (08:10→21:08)
[2019-05-29] MEDS: SENNA W/DOCUSATE (SENOKOT S) TABLET PO SCH ×2 (08:10→21:08)
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
--- NOTE | 2019-05-29 08:58 | ST Cognitive Linguistic Eval ---
Speech Evaluation-General Medical Diagnosis (L) humerus fracture Onset Date: May 25, 2019 Therapy Diagnosis Therapy Diagnosis: Cognitive-communication Precautions Precautions: Fall Precautions/Isolations: Fall Prevention, Standard Precautions Referral Referring Physician: Dr. Snyder Reason for Referral: Evaluation/Treatment Medical History Pertinent Medical History: GERD GERD Current History Left humerus fracture Reviewed History: Yes Social History Home: Single Level Current Living Status: Alone Speech PLF-Current Status Prior Level of Function Patient lives alone in her own home where she was independent for her daily needs. Subjective Patient was re-assessed per Dr. Snyder request. Physician states patient has demonstrated perseveration on the same health concerns. Patient has repeated the same story 6 times without deviation. Language Eval: Auditory Comprehends Simple Yes/No Ques: Functional Indent/Objects Multiple Gomes: Functional Ident/Pics in Multiple Gomes: Functional Follows 1-Step Commands: Functional Follows Complex Directions: Functional Follows General Conversations: Functional Language Eval: Verbal Language Completes Spontaneous Greeting: Functional Produces Auto, Serial Info: Functional Imitates Simple Words/Phrases: Functional Word Finding: Functional Requests Basic Needs: Functional States Basic Personal Info: Functional Expresses Complex Ideas: Functional Cognitive Patient Orientation Patient demonstrates orientation to all concepts. Objective Cognitive Domain Attention: WNL Memory: WNL Problem Solving: Functional Executive Functions: WNL Visuospatial Skills: WNL Composite Severity Rating: WNL ( b) Objective Formal/Standardized Tests Cognitive Screening Test Results Patient scored 100% for all presented areas including: Memory, Orientation and General Information, Counting by intervals by 3's to 40, Delayed Word Recall, Auditory Memory/Increasing Sustained Attention, Sequencing/Organization, General Reasoning Oral Motor/Speech Production Within Functional Limits Impression The patient is a pleasant 74 year old female who was admitted to the ARU for healing. The patient appears to have OCD tendencies as well as the expectation of staff waiting on her, rather than exhibit independence. The patient scored 100% on the SLUMS on 05/28. Per physician's request she was re-assessed today with the Cognitive Screening Test. Scores were at 100% as well. The patient does not require skilled cognitive therapy at this time. Communication/Social Cognition Comprehension: 7 Expression: 7 Social Interaction: 7 Problem Solvin Memory: 7 Speech Patient Assess Expression of Ideas/Wants: Expression (4) Understanding Verbal Content: Understands (4) Brief Interview-Mental Status: Yes Repetition of Three Words: Three (3) Temporal Orientation: Year: Correct (3) Temporal Orientation: Month: Accurate within 5 days(2) Temporal Orientation: Day: Correct (1) Recall : Wear to say "Sock": Yes, no cue required (2) Recall : Color: Yes, no cue required (2) Recall : Bed: Yes, no cue required (2) Memory/Recall Ability: Current season, That he or she is in a hsp/hsp unit Speech-Plan Patient/Family Goals Patient/Family Goals: The patient plans on returning home post rehab. Treatment Plan Speech Therapy Treatment Plan: Discontinue ST The patient's scores indicate she is at full functional level for all areas tested. Speech therapy is not appropriate due to no indication of dementia at this time. She is noted to have perseveration patterns related to her health concerns while speaking with Dr. Snyder. Treatment Duration: May 28, 2019 Frequency: 1 time per week Estimated Hrs Per Day: .25 hour per day Rehab Potential: Good Barriers to Learning: None identified Pt/Family Agrees to Plan: Yes Safety Risks/Education Teaching Recipient: Patient Teaching Methods: Discussion Response to Teaching: Verbalize Understanding Education Topics Provided: Safety within her room, performing tasks for herself Time Speech Therapy Time In: 08:15 Speech Therapy Time Out: 08:30 Total Billed Time: 15 Billed Treatment Time 1, ERCI [place] May 29, 2019 08:58
--- NOTE | 2019-05-29 11:40 | Physical Therapy Daily Note ---
PT Daily Note-Current Subjective Pt laying Supine in bed upon arrival. Pt agrees to PT. Pain Location: No Pain Reported Mental Status Patient Orientation: Person, Confused, Place Transfers Therapy Code Descriptions/Definitions Functional [place] Measure: 0=Not Assessed/NA 4=Minimal Assistance 1=Total Assistance 5=Supervision or Setup 2=Maximal Assistance 6=Modified [place] 3=Moderate Assistance 7=Complete [place] Therapy Quality Codes: 6 Independent with activity with or without an assistive device 5 Patient requires set up or clean up by helper. Patient completes activity by themselves 4 Supervision or touching assist (CGA). [place] provide cues , steadying assist 3 The helper provides less than half the effort to complete the activity 2 The helper provides more than half the effort to complete the activity 1 Dependent. The helper does all the effort to complete an activity 7 Patient refused to complete or attempt activity 9 The patient did not perform the activity before the current illness or injury 88 Not attempted due to Medical conditions or safety concerns Scootin Supine to/from Sit: 5 Sit to/from Stand: 5 Sit to Lying (QC): 5 Sit to Stand (QC): 5 Weight Bearing Full Weight Bearing Full Weight Bearing Unknown weightbearing status on (L) UE secondary to humerus fracture Gait Training Does the Patient Walk?: Yes Gait (FIM): 5 Distance (FIM): 3=150 ft Distance: 200' Walk 10 feet (QC): 5 Walk 50 ft with 2 Turns(QC): 5 Walk 150 ft (QC): 5 Gait Level of Assist: 5 Gait Persons Needed: 1 Gait Assistive Device: Cane Large Base Quad READING COACH gives instruction on proper way to hold and ambulate with LBQC. Pt needs VC to remind as pt will switch and hold it backwards. Wheelchair Training Does the Pt Use a Wheelchair?: No Exercises Standing: Hip Abduction, Hamstring curls, Heel/toe raises, 3 way Ex=Flex, Abd, Ext, Marching, Mini squats, Sit to Stand Standing Reps: 20 Treatments Pt transfers from bed to standing and uses restroom. Pt ambulates in hallway before completing Standing Ex at //bars. Pt works on balance activity with cones and ambulates in hallway. Pt returns to room to rest in bed and order lunch. Pt has all needs met at end of tx with call light in hand. Assessment Current Status: Good Progress Pt needs VC for safety of ambulation at times. PT Short Term Goals Short Term Goals Time Frame: Jun 02, 2019 Transfers (B,C,W/C) (FIM): 5 Gait (FIM): 6 Distance (FIM): 3=150 ft Gait Distance Comment: 500' Gait Level of Assist: 6 Gait Assistive Device: Cane Single Point, Handheld Assist, Cane Small Base Quad Wheelchair Distance: not assessed PT Chcf Goals Laundry Equipment Operator Goals PT Chcf Goals Time Frame: Jun 09, 2019 Transfers (B,C,W/C) (FIM): 7 Sit to Lying (QC): 6 Lying-Sitting on Side/Bed(QC): 6 Sit to Stand (QC): 6 Rollin Roll Left to Right (QC): 6 Chair/Drh-vs-Lzbdh Xfer(QC): 6 Car Transfer (QC): 6 Does the Patient Walk: Yes Gait (FIM): 7 Gait distance (FIM): 3=150 ft Distance: 500 Walk 10 feet (QC): 6 Walk 10ft-Uneven Surface(QC): 6 Walk 50ft with 2 Turns (QC): 6 Walk 150 ft (QC): 6 Gait Level of Assist: 7 Gait Assistive Device: Cane Single Point Does the Pt use WC or Scooter?: No Stairs (FIM): 7 # of Steps: 12 1 Step (curb) (QC): 6 4 Steps (QC): 6 12 Steps (QC): 6 Stairs Level Of Assist: 7 Picking up an Object (QC): 6 PT Plan Problem List Problem List: Activity Tolerance, Functional Strength, Safety, Gait Treatment/Plan Treatment Plan: Continue Plan of Care Treatment Plan: Bed Mobility, Functional Activity Ayden, Functional Strength, Gait, Therapeutic Exercise, Transfers Treatment Duration: May 28, 2019 Frequency: 11 times per week Estimated Hrs Per Day: .5 hour per day Patient and/or Family Agrees t: Yes Safety Risks/Education Patient Education: Gait Training, Correct Positioning, Safety Issues Teaching Recipient: Patient Teaching Methods: Discussion Response to Teaching: Verbalize Understanding Time/GCodes Time In: 1045 Time Out: 1130 Total Billed Treatment Time: 45 Total Billed Treatment 1, GT (15m), EX (20m) & FA (10m) WALKER CALDERON READING COACH May 29, 2019 11:40
--- NOTE | 2019-05-29 14:02 | Occupational Ther Daily Note ---
OT Current Status-Daily Note Subjective Pt. reports that her left UE hurts, but does not give a pain level. Pt. requests pain medication. Nursing is notified, but it is not time. OT provides gentle elbow PROM and gentle retrograde massage to comfort level. Appearance Pt. in bed. Declines showering, but agrees to work with OT. Mental Status/Objective Patient Orientation: Person, Place Therapy Code Descriptions/Definitions Functional [place] Measure: 0=Not Assessed/NA 4=Minimal Assistance 1=Total Assistance 5=Supervision or Setup 2=Maximal Assistance 6=Modified [place] 3=Moderate Assistance 7=Complete [place] ADL-Treatment Therapy Code Descriptions/Definitions Functional [place] Measure: 0=Not Assessed/NA 4=Minimal Assistance 1=Total Assistance 5=Supervision or Setup 2=Maximal Assistance 6=Modified [place] 3=Moderate Assistance 7=Complete [place] Therapy Quality Codes: 6 Independent with activity with or without an assistive device 5 Patient requires set up or clean up by helper. Patient completes activity by themselves 4 Supervision or touching assist (CGA). [place] provide cues , steadying assist 3 The helper provides less than half the effort to complete the activity 2 The helper provides more than half the effort to complete the activity 1 Dependent. The helper does all the effort to complete an activity 7 Patient refused to complete or attempt activity 9 The patient did not perform the activity before the current illness or injury 88 Not attempted due to Medical conditions or safety concerns Eating (FIM): 5 Eating (QC): 4 Grooming (FIM): 5 (SBA at sink seated and in stance to brush teeth, hair.) Oral Hygiene (QC): 4 Upper Body (FIM): 4 (Pt. is able to doff sling, don shirt, and then requires assistance to don sling.) Upper Body Dressing (QC): 4 Lower Body Dressing (FIM): 4 (Pt. requires assistance to don small socks, but is able to don slipper socks on her own. OT applies elastic laces to shoes and pt. is able to don them with SBA.) Lower Body Dressing (QC): 4 On/Off Footwear (QC): 4 Toileting (FIM): 4 (CGA) Toileting Hygiene (QC): 4 Transfers (B, C, W/C) (FIM): 4 Toilet/Commode Transfer (FIM): 4 Toilet Transfer (QC): 4 Other Treatment After ADLs in room, OT provided ema cane to assist with mobility. This was too heavy for pt., and so a quad cane is provided. She does well with this. Ambulated to dining area, and pt. practiced balancing self at sink and retrieving glass of water. Pt. then ambulated to therapy gym. Doffed sling and OT provided gentle PROM to left elbow, as well as gentle massage. OT issued therapy sponge to work on fine motor strength and edema of left hand. Tolerated this well. Ambulated back to room with CGA. Transferred to chair in room. All needs met. Education OT Patient Education: Correct positioning, Exercise program, Modified ADL techniques, Progress toward Goal/Update tx plan, Purpose of tx/functional activities, Reviewed precautions, Rehab process, Transfer techniques Teaching Recipient: Patient Teaching Methods: Demonstration, Discussion Response to Teaching: Verbalize Understanding, Return Demonstration OT Short Term Goals Short Term Goals Time Frame: Jun 04, 2019 Eating(FIM): 6 Grooming(FIM): 6 Bathing(FIM): 5 Upper Body Dressing(FIM): 4 Lower Body Dressing(FIM): 4 Toileting(FIM): 5 Transfers (B,C,W/C) (FIM): 5 Toilet/Commode Transfer(FIM): 5 Shower Transfer(FIM): 5 Additional Short Term Goals: 1-Demonstrate ADL Tasks, 2-Verbalize Understanding, 3-ImproveStrength/[place] 1=Demonstrate adherence to instructed precautions during ADL tasks. 2=Patient will verbalize/demonstrate understanding of assistive devices/modifications for ADL. 3=Patient will improve strength/tolerance for activity to enable patient to perform ADL's. OT Intermediate Goals Front Maker Goals Time Frame: Jun 11, 2019 Eating (FIM): 6 Eating (QC): 6 Groomin Oral Hygiene (QC): 6 Bathing(FIM): 5 Shower/Bathe Self (QC): 5 Upper Body Dressing(FIM): 6 Upper Body Dressing (QC): 6 Lower Body Dressing(FIM): 6 Lower Body Dressing (QC): 6 On/Off Footwear (QC): 6 Toileting(FIM): 6 Toileting Hygiene (QC): 6 Transfers (B,C,W/C) (FIM): 6 Toilet/Commode Transfer(FIM): 6 Toilet/Commode Transfer (QC): 6 Shower Transfer(FIM): 5 Additional Goals: 1-Demonstrate ADL Tasks, 2-Verbalize Understanding, 3- ImproveStrength/[place] 1=Demonstrate adherence to instructed precautions during ADL tasks. 2=Patient will verbalize/demonstrate understanding of assistive devices/modifications for ADL. 3=Patient will improve strength/tolerance for activity to enable patient to perform ADL's. OT Education/Plan Problem List/Assessment Assessment: Decreased Activ Tolerance, Decreased UE Strength, Dependent Transfers, Impaired Funct Balance, Impaired I ADL's, Impaired Self-Care Skills, Restricted Funct UE ROM Discharge Recommendations Plan/Recommendations: Continue POC Therapy Discharge Recommendati: Post Acute OT Treatment Plan/Plan of Care Treatment,Training & Education: Yes Patient would benefit from OT for education, treatment and training to promote independence in ADL's, mobility, safety and/or upper extremity function for ADL's. Plan of Care: ADL Retraining, Functional Mobility, Group Exercise/Act as Ind, UE Funct Exercise/Act Treatment Duration: Jun 11, 2019 Frequency: At least 5 of 7 days/Wk (IRF) Estimated Hrs Per Day: 1.5 hours per day Agreement: Yes Rehab Potential: Good Time/GCodes Start Time: 08:45 Stop Time: 10:15 Total Time Billed (hr/min): 90 Billed Treatment Time 1, ADL x 45minutes, Ex x 15minutes, FA x 30minutes ANNE MCCARTHY OT May 29, 2019 14:01
--- NOTE | 2019-05-29 14:04 | Physical Therapy Daily Note ---
PT Daily Note-Current Subjective Pt sitting in recliner upon arrival. Pt agrees to PT. Pain Numeric Pain Scale: 5-Moderate Pain Location: Left Location Body Site: Shoulder Pain Description: Ache Comment: Pt reports pain in L shoulder & back but does not rate. Mental Status Patient Orientation: Person, Confused, Place Transfers Therapy Code Descriptions/Definitions Functional [place] Measure: 0=Not Assessed/NA 4=Minimal Assistance 1=Total Assistance 5=Supervision or Setup 2=Maximal Assistance 6=Modified [place] 3=Moderate Assistance 7=Complete [place] Therapy Quality Codes: 6 Independent with activity with or without an assistive device 5 Patient requires set up or clean up by helper. Patient completes activity by themselves 4 Supervision or touching assist (CGA). [place] provide cues , steadying assist 3 The helper provides less than half the effort to complete the activity 2 The helper provides more than half the effort to complete the activity 1 Dependent. The helper does all the effort to complete an activity 7 Patient refused to complete or attempt activity 9 The patient did not perform the activity before the current illness or injury 88 Not attempted due to Medical conditions or safety concerns Weight Bearing Full Weight Bearing Full Weight Bearing Unknown weightbearing status on (L) UE secondary to humerus fracture Exercises Supine Ex: Ankle pumps, Quad Set, Glut sets, Heel Slides, Straight leg raise, Hip abd/add Supine Reps: 15 Treatments Pt transfers from recliner to EOB to Supine. Pt completes Supine Ex in bed with RB as needed. Pt resting in bed at end of tx with all needs met, call light in hand. Assessment Current Status: Good Progress Pt is fatigued by end of tx and wanting to rest. PT Short Term Goals Short Term Goals Time Frame: Jun 02, 2019 Transfers (B,C,W/C) (FIM): 5 Gait (FIM): 6 Distance (FIM): 3=150 ft Gait Distance Comment: 500' Gait Level of Assist: 6 Gait Assistive Device: Cane Single Point, Handheld Assist, Cane Small Base Quad Wheelchair Distance: not assessed PT Retirement Goals Cash Processor Goals PT Cash Processor Goals Time Frame: Jun 09, 2019 Transfers (B,C,W/C) (FIM): 7 Sit to Lying (QC): 6 Lying-Sitting on Side/Bed(QC): 6 Sit to Stand (QC): 6 Rollin Roll Left to Right (QC): 6 Chair/Rur-ho-Anlwz Xfer(QC): 6 Car Transfer (QC): 6 Does the Patient Walk: Yes Gait (FIM): 7 Gait distance (FIM): 3=150 ft Distance: 500 Walk 10 feet (QC): 6 Walk 10ft-Uneven Surface(QC): 6 Walk 50ft with 2 Turns (QC): 6 Walk 150 ft (QC): 6 Gait Level of Assist: 7 Gait Assistive Device: Cane Single Point Does the Pt use WC or Scooter?: No Stairs (FIM): 7 # of Steps: 12 1 Step (curb) (QC): 6 4 Steps (QC): 6 12 Steps (QC): 6 Stairs Level Of Assist: 7 Picking up an Object (QC): 6 PT Plan Problem List Problem List: Activity Tolerance, Functional Strength, Safety Treatment/Plan Treatment Plan: Continue Plan of Care Treatment Plan: Bed Mobility, Functional Activity Ayden, Functional Strength, Gait, Therapeutic Exercise, Transfers Treatment Duration: May 28, 2019 Frequency: 11 times per week Estimated Hrs Per Day: .5 hour per day Patient and/or Family Agrees t: Yes Safety Risks/Education Patient Education: Correct Positioning, Safety Issues Teaching Recipient: Patient Teaching Methods: Discussion Response to Teaching: Verbalize Understanding Time/GCodes Time In: 1330 Time Out: 1400 Total Billed Treatment Time: 30 Total Billed Treatment 1, EX x2 (30m) WALKER CALDERON MATERIAL HAULER May 29, 2019 14:04
[2019-05-29 17:01] VITALS: BP_SYST 114; BP_SYST 120; BP_DIAS 62; BP_DIAS 68
[2019-05-29] MEDS: ACETAMINOPHEN 500 MG TAB (TYLENOL) PO PRN (17:25)
[2019-05-29] MEDS: CYCLOBENZAPRINE 10 MG (FLEXERIL) TAB PO SCH (21:08)
[2019-05-29] MEDS: POLYETHYLENE GLYCOL 17 GM (MIRALAX) PACK PO SCH (21:20)
[2019-05-29] MEDS: MELATONIN 3 MG TABLET PO PRN (23:57)
[2019-05-30] MEDS: HYDROcodone/APAP 5 MG/325 MG (LORTAB) TAB PO PRN ×4 (03:00→22:31)
[2019-05-30 05:15] VITALS: BP 148/73
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
[2019-05-30] MEDS: SENNA W/DOCUSATE (SENOKOT S) TABLET PO SCH ×2 (09:30→21:22)
[2019-05-30] MEDS: DOCUSATE SODIUM 100 MG (COLACE) CAP PO SCH ×2 (09:30→21:19)
--- NOTE | 2019-05-30 10:20 | Occupational Ther Daily Note ---
OT Current Status-Daily Note Subjective Pt. reports pain in left arm upon OT entering room, but is unable to give a pain level. Pt. asks for pain medication and nursing notified. Nursing gives pain meds. Appearance Pt. up in chair finishing breakfast. Reports that she has had a shower last night. Agrees to work with OT. Mental Status/Objective Patient Orientation: Person, Place Therapy Code Descriptions/Definitions Functional [place] Measure: 0=Not Assessed/NA 4=Minimal Assistance 1=Total Assistance 5=Supervision or Setup 2=Maximal Assistance 6=Modified [place] 3=Moderate Assistance 7=Complete [place] ADL-Treatment Therapy Code Descriptions/Definitions Functional [place] Measure: 0=Not Assessed/NA 4=Minimal Assistance 1=Total Assistance 5=Supervision or Setup 2=Maximal Assistance 6=Modified [place] 3=Moderate Assistance 7=Complete [place] Therapy Quality Codes: 6 Independent with activity with or without an assistive device 5 Patient requires set up or clean up by helper. Patient completes activity by themselves 4 Supervision or touching assist (CGA). [place] provide cues , steadying assist 3 The helper provides less than half the effort to complete the activity 2 The helper provides more than half the effort to complete the activity 1 Dependent. The helper does all the effort to complete an activity 7 Patient refused to complete or attempt activity 9 The patient did not perform the activity before the current illness or injury 88 Not attempted due to Medical conditions or safety concerns Eating (FIM): 5 Eating (QC): 5 Grooming (FIM): 5 (Set up at sink to brush hair and teeth.) Oral Hygiene (QC): 5 Upper Body (FIM): 4 (Pt. able to doff sling. Able to don shirt and required min assist to don sling.) Upper Body Dressing (QC): 4 Lower Body Dressing (FIM): 4 (Pt. able to don socks, shoes, underwear, and pants. Requires CGA in stance to pull pants over hips. Assist to button pants. Encouraged to use sweat pants or elastic waist pants.) Lower Body Dressing (QC): 4 On/Off Footwear (QC): 5 Toileting (FIM): 4 (Assist to adjust pants in stance.) Toileting Hygiene (QC): 4 Transfers (B, C, W/C) (FIM): 4 (Occasionally, pt. will "catch" her toe during ambulation. Utilizes quad cane and encouraged to take her time.) Toilet/Commode Transfer (FIM): 4 Toilet Transfer (QC): 4 After ADLs in room, pt. ambulates to therapy gym. Donned 1 lb. wrist weight on right hand. Completed fine motor coordination task with therapy pegs for increased endurance. Doffed weight and completed 7 minutes on arm bike using right UE only, at min resistance. Tolerated well for increased endurance with functional tasks. Ambulated back to room and transferred to bed with SBA. Alarm set. All needs met. Education OT Patient Education: Correct positioning, Exercise program, Modified ADL techniques, Progress toward Goal/Update tx plan, Purpose of tx/functional act ivities, Reviewed precautions, Rehab process, Transfer techniques Teaching Recipient: Patient Teaching Methods: Demonstration, Discussion Response to Teaching: Verbalize Understanding, Return Demonstration OT Short Term Goals Short Term Goals Time Frame: Jun 04, 2019 Eating(FIM): 6 Grooming(FIM): 6 Bathing(FIM): 5 Upper Body Dressing(FIM): 4 Lower Body Dressing(FIM): 4 Toileting(FIM): 5 Transfers (B,C,W/C) (FIM): 5 Toilet/Commode Transfer(FIM): 5 Shower Transfer(FIM): 5 Additional Short Term Goals: 1-Demonstrate ADL Tasks, 2-Verbalize Understanding, 3-ImproveStrength/Ayden 1=Demonstrate adherence to instructed precautions during ADL tasks. 2=Patient will verbalize/demonstrate understanding of assistive devices/modifications for ADL. 3=Patient will improve strength/tolerance for activity to enable patient to p erform ADL's. OT Alf Goals Alf Goals Time Frame: Jun 11, 2019 Eating (FIM): 6 Eating (QC): 6 Groomin Oral Hygiene (QC): 6 Bathing(FIM): 5 Shower/Bathe Self (QC): 5 Upper Body Dressing(FIM): 6 Upper Body Dressing (QC): 6 Lower Body Dressing(FIM): 6 Lower Body Dressing (QC): 6 On/Off Footwear (QC): 6 Toileting(FIM): 6 Toileting Hygiene (QC): 6 Transfers (B,C,W/C) (FIM): 6 Toilet/Commode Transfer(FIM): 6 Toilet/Commode Transfer (QC): 6 Shower Transfer(FIM): 5 Additional Goals: 1-Demonstrate ADL Tasks, 2-Verbalize Understanding, 3- ImproveStrength/Ayden 1=Demonstrate adherence to instructed precautions during ADL tasks. 2=Patient will verbalize/demonstrate understanding of assistive devices /modifications for ADL. 3=Patient will improve strength/tolerance for activity to enable patient to perform ADL's. OT Education/Plan Problem List/Assessment Assessment: Decreased Activ Tolerance, Decreased UE Strength, Dependent Transfers, Impaired Coordination, Impaired Funct Balance, Impaired I ADL's, Impaired Self-Care Skills, Restricted Funct UE ROM Discharge Recommendations Plan/Recommendations: Continue POC Therapy Discharge Recommendati: Post Acute OT Treatment Plan/Plan of Care Treatment,Training & Education: Yes Patient would benefit from OT for education, treatment and training to promote independence in ADL's, mobility, safety and/or upper extremity function for ADL's. Plan of Care: ADL Retraining, Functional Mobility, Group Exercise/Act as Ind, UE Funct Exercise/Act Treatment Duration: Jun 11, 2019 Frequency: At least 5 of 7 days/Wk (IRF) Estimated Hrs Per Day: 1.5 hours per day Agreement: Yes Rehab Potential: Good Time/GCodes Start Time: 08:35 Stop Time: 10:05 Total Time Billed (hr/min): 90 Billed Treatment Time 1, ADL x 45minutes, Ex x 15minutes, FA x 30minutes ANNE MCCARTHY OT May 30, 2019 10:20
--- NOTE | 2019-05-30 11:31 | Physical Therapy Daily Note ---
PT Daily Note-Current Subjective Pt laying Supine in bed upon arrival. Pt agrees to PT. Pain Numeric Pain Scale: 10-Worst Possible Pain Location: Left Location Body Site: Shoulder Pain Description: Ache Mental Status Patient Orientation: Person, Place, Situation Attachments: Other-See Comments (Sling for L UE) Transfers Therapy Code Descriptions/Definitions Functional [place] Measure: 0=Not Assessed/NA 4=Minimal Assistance 1=Total Assistance 5=Supervision or Setup 2=Maximal Assistance 6=Modified [place] 3=Moderate Assistance 7=Complete [place] Therapy Quality Codes: 6 Independent with activity with or without an assistive device 5 Patient requires set up or clean up by helper. Patient completes activity by themselves 4 Supervision or touching assist (CGA). [place] provide cues , steadying assist 3 The helper provides less than half the effort to complete the activity 2 The helper provides more than half the effort to complete the activity 1 Dependent. The helper does all the effort to complete an activity 7 Patient refused to complete or attempt activity 9 The patient did not perform the activity before the current illness or in jury 88 Not attempted due to Medical conditions or safety concerns Scootin Supine to/from Sit: 6 Sit to/from Stand: 6 Sit to Lying (QC): 6 Sit to Stand (QC): 6 Weight Bearing Full Weight Bearing Full Weight Bearing Unknown weightbearing status on (L) UE secondary to humerus fracture Gait Training Does the Patient Walk?: Yes Gait (FIM): 6 Distance (FIM): 3=150 ft Distance: 300' Walk 10 feet (QC): 6 Walk 50 ft with 2 Turns(QC): 6 Walk 150 ft (QC): 6 Gait Level of Assist: 6 Gait Persons Needed: 1 Gait Assistive Device: Cane Large Base Quad Pt using her personal LBQC from home. Pt needs VC occasionally for safety. Wheelchair Training Does the Pt Use a Wheelchair?: No Exercises Supine Ex: Ankle pumps, Quad Set, Glut sets, Heel Slides, Straight leg raise, Hip abd/add Supine Reps: 15 Seated Therapy Exercises: Ankle pumps, Long arc quads, Hip flexion, Kicking activity, Glut set Seated Reps: 15 Treatments Pt transfers from Supine to standing. Pt ambulates in hallway using LBQC. Pt takes RB then completes Seated EX. Pt again ambulates in hallway before returning to room, resting EOB. Pt asks for assistance to order lunch. Pt then transfers to Supine and completes Supine EX in bed. Pt returns to EOB to rest at end of tx. Pt has all needs met, call light in hand. Assessment Current Status: Good Progress Pt is improving with transfers and mobility although still needing occasional VC for safety using LBQC. PT Short Term Goals Short Term Goals Time Frame: Jun 02, 2019 Transfers (B,C,W/C) (FIM): 5 Gait (FIM): 6 Distance (FIM): 3=150 ft Gait Distance Comment: 500' Gait Level of Assist: 6 Gait Assistive Device: Cane Single Point, Handheld Assist, Cane Small Base Quad Wheelchair Distance: not assessed PT Intermediate Goals Acoustical Tile Drill Press Operator Goals PT Acoustical Tile Drill Press Operator Goals Time Frame: Jun 09, 2019 Transfers (B,C,W/C) (FIM): 7 Sit to Lying (QC): 6 Lying-Sitting on Side/Bed(QC): 6 Sit to Stand (QC): 6 Rollin Roll Left to Right (QC): 6 Chair/Zms-ta-Gmsrz Xfer(QC): 6 Car Transfer (QC): 6 Does the Patient Walk: Yes Gait (FIM): 7 Gait distance (FIM): 3=150 ft Distance: 500 Walk 10 feet (QC): 6 Walk 10ft-Uneven Surface(QC): 6 Walk 50ft with 2 Turns (QC): 6 Walk 150 ft (QC): 6 Gait Level of Assist: 7 Gait Assistive Device: Cane Single Point Does the Pt use WC or Scooter?: No Stairs (FIM): 7 # of Steps: 12 1 Step (curb) (QC): 6 4 Steps (QC): 6 12 Steps (QC): 6 Stairs Level Of Assist: 7 Picking up an Object (QC): 6 PT Plan Problem List Problem List: Activity Tolerance, Safety, Gait Treatment/Plan Treatment Plan: Continue Plan of Care Treatment Plan: Bed Mobility, Functional Activity Ayden, Functional Strength, Gait, Therapeutic Exercise, Transfers Treatment Duration: May 28, 2019 Frequency: 11 times per week Estimated Hrs Per Day: .5 hour per day Patient and/or Family Agrees t: Yes Safety Risks/Education Patient Education: Gait Training, Transfer Techniques, Correct Positioning, Safety Issues Teaching Recipient: Patient Teaching Methods: Discussion Response to Teaching: Verbalize Understanding Time/GCodes Time In: 1030 Time Out: 1130 Total Billed Treatment Time: 60 Total Billed Treatment 1, GT (20m), EX x2 (25m) & FA (15m) WALKER CALDERON GERM DRIER May 30, 2019 11:30
[2019-05-30] MEDS: IBUPROFEN TABLET 200 MG TAB PO PRN (12:43)
--- NOTE | 2019-05-30 14:13 | Physical Therapy Daily Note ---
PT Daily Note-Current Subjective Pt laying Supine in bed upon arrival. Pt agrees to PT. Pain Numeric Pain Scale: 5-Moderate Pain Location: Left Location Body Site: Shoulder Pain Description: Ache, Tightness Mental Status Patient Orientation: Person, Place, Situation Transfers Therapy Code Descriptions/Definitions Functional [place] Measure: 0=Not Assessed/NA 4=Minimal Assistance 1=Total Assistance 5=Supervision or Setup 2=Maximal Assistance 6=Modified [place] 3=Moderate Assistance 7=Complete [place] Therapy Quality Codes: 6 Independent with activity with or without an assistive device 5 Patient requires set up or clean up by helper. Patient completes activity by themselves 4 Supervision or touching assist (CGA). [place] provide cues , steadying assist 3 The helper provides less than half the effort to complete the activity 2 The helper provides more than half the effort to complete the activity 1 Dependent. The helper does all the effort to complete an activity 7 Patient refused to complete or attempt activity 9 The patient did not perform the activity before the current illness or injury 88 Not attempted due to Medical conditions or safety concerns Supine to/from Sit: 6 Sit to/from Stand: 6 Sit to Stand (QC): 6 Weight Bearing Full Weight Bearing Full Weight Bearing Unknown weightbearing status on (L) UE secondary to humerus fracture Gait Training Does the Patient Walk?: Yes Gait (FIM): 6 Distance (FIM): 3=150 ft Distance: 400' Walk 10 feet (QC): 6 Walk 50 ft with 2 Turns(QC): 6 Walk 150 ft (QC): 6 Gait Level of Assist: 6 Gait Persons Needed: 1 Gait Assistive Device: Cane Large Base Quad Pt's walking improved this afternoon. Wheelchair Training Does the Pt Use a Wheelchair?: No Exercises Seated Therapy Exercises: Ankle pumps, Long arc quads, Hip flexion, Kicking activity, Glut set Seated Reps: 15 Treatments Pt transfers from Supine to standing and ambulates in hallway using LBQC. Pt ambulates then takes RB as needed. Pt returns to room to rest in recliner then completes Seated EX. Pt resting with all needs met, call light in hand. Pt is awaiting company at end of tx. Assessment Current Status: Good Progress Pt tolerates tx well, occasionally needing VC for safety reminders with LBQC. PT Short Term Goals Short Term Goals Time Frame: Jun 02, 2019 Transfers (B,C,W/C) (FIM): 5 Gait (FIM): 6 Distance (FIM): 3=150 ft Gait Distance Comment: 500' Gait Level of Assist: 6 Gait Assistive Device: Cane Single Point, Handheld Assist, Cane Small Base Quad Wheelchair Distance: not assessed PT Senior Living Goals Sculpture Conservator Goals PT Sculpture Conservator Goals Time Frame: Jun 09, 2019 Transfers (B,C,W/C) (FIM): 7 Sit to Lying (QC): 6 Lying-Sitting on Side/Bed(QC): 6 Sit to Stand (QC): 6 Rollin Roll Left to Right (QC): 6 Chair/Ddq-ye-Zhkdy Xfer(QC): 6 Car Transfer (QC): 6 Does the Patient Walk: Yes Gait (FIM): 7 Gait distance (FIM): 3=150 ft Distance: 500 Walk 10 feet (QC): 6 Walk 10ft-Uneven Surface(QC): 6 Walk 50ft with 2 Turns (QC): 6 Walk 150 ft (QC): 6 Gait Level of Assist: 7 Gait Assistive Device: Cane Single Point Does the Pt use WC or Scooter?: No Stairs (FIM): 7 # of Steps: 12 1 Step (curb) (QC): 6 4 Steps (QC): 6 12 Steps (QC): 6 Stairs Level Of Assist: 7 Picking up an Object (QC): 6 PT Plan Problem List Problem List: Activity Tolerance, Safety Treatment/Plan Treatment Plan: Continue Plan of Care Treatment Plan: Bed Mobility, Functional Activity Ayden, Functional Strength, Gait, Therapeutic Exercise, Transfers Treatment Duration: May 28, 2019 Frequency: 11 times per week Estimated Hrs Per Day: .5 hour per day Patient and/or Family Agrees t: Yes Safety Risks/Education Patient Education: Gait Training, Transfer Techniques, Correct Positioning, Safety Issues Teaching Recipient: Patient Teaching Methods: Discussion Response to Teaching: Verbalize Understanding Time/GCodes Time In: 1330 Time Out: 1400 Total Billed Treatment Time: 30 Total Billed Treatment 1, GT (15m) & EX (15m) WALKER CALDERON READERS' ADVISORY SERVICE LIBRARIAN May 30, 2019 14:13
[2019-05-30 17:20] VITALS: BP 128/73
[2019-05-30] MEDS: MELATONIN 3 MG TABLET PO PRN (21:08)
[2019-05-30] MEDS: CYCLOBENZAPRINE 10 MG (FLEXERIL) TAB PO SCH (21:08)
[2019-05-30] MEDS: POLYETHYLENE GLYCOL 17 GM (MIRALAX) PACK PO SCH (21:22)
[2019-05-31 05:17] VITALS: BP 129/71
[2019-05-31] MEDS: IBUPROFEN TABLET 200 MG TAB PO PRN ×2 (07:46→17:00)
[2019-05-31] MEDS: DOCUSATE SODIUM 100 MG (COLACE) CAP PO SCH ×2 (09:43→21:57)
[2019-05-31] MEDS: SENNA W/DOCUSATE (SENOKOT S) TABLET PO SCH ×2 (09:43→21:57)
[2019-05-31] MEDS: HYDROcodone/APAP 5 MG/325 MG (LORTAB) TAB PO PRN ×2 (09:44→18:58)
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
--- NOTE | 2019-05-31 15:18 | Physical Therapy Daily Note ---
PT Daily Note-Current Subjective Pt laying Supine in bed upon arrival. Pt agrees PT. Pain Numeric Pain Scale: 4 Location: Left Location Body Site: Shoulder Pain Description: Ache, Tightness Mental Status Patient Orientation: Person, Confused, Place Attachments: Other-See Comments (Sling for L UE) Transfers Therapy Code Descriptions/Definitions Functional [place] Measure: 0=Not Assessed/NA 4=Minimal Assistance 1=Total Assistance 5=Supervision or Setup 2=Maximal Assistance 6=Modified [place] 3=Moderate Assistance 7=Complete [place] Therapy Quality Codes: 6 Independent with activity with or without an assistive device 5 Patient requires set up or clean up by helper. Patient completes activity by themselves 4 Supervision or touching assist (CGA). [place] provide cues , steadying assist 3 The helper provides less than half the effort to complete the activity 2 The helper provides more than half the effort to complete the activity 1 Dependent. The helper does all the effort to complete an activity 7 Patient refused to complete or attempt activity 9 The patient did not perform the activity before the current illness or injury 88 Not attempted due to Medical conditions or safety concerns Scootin Supine to/from Sit: 5 Sit to/from Stand: 5 Sit to Lying (QC): 5 Sit to Stand (QC): 5 Weight Bearing Full Weight Bearing Full Weight Bearing Unknown weightbearing status on (L) UE secondary to humerus fracture Gait Training Does the Patient Walk?: Yes Gait (FIM): 5 Distance: 1000+' Walk 10 feet (QC): 5 Walk 50 ft with 2 Turns(QC): 5 Walk 150 ft (QC): 5 Gait Level of Assist: 5 Gait Persons Needed: 1 Gait Assistive Device: Cane Large Base Quad Pt is capable of walking SBA but insists on CGA due to anxiety at this time. Wheelchair Training Does the Pt Use a Wheelchair?: No Exercises Supine Ex: Ankle pumps, Quad Set, Glut sets, Heel Slides, Straight leg raise, Hip abd/add Supine Reps: 15 Seated Therapy Exercises: Ankle pumps, Long arc quads, Hip flexion, Kicking activity, Hamstring Curls, Glut set Seated Reps: 15 Standing: Hip Abduction, Hamstring curls, Heel/toe raises, 3 way Ex=Flex, Abd, Ext, Marching, Mini squats, Weight shifts Standing Reps: 15 Treatments Pt completes Supine EX in bed before transferring to standing. Pt ambulates in hallway before taking a RB. Pt asks to walk extended distances off unit in outside garden area. After pt returns with BUTTON INSPECTOR to ARU, pt completes Seated EX then rests at EOB with all needs met, call light in hand. BUTTON INSPECTOR returns for second half of PT tx. Pt is resting in bed. Pt again ambulates in hallway before completing Standing EX in Therapy Gym at //bars. Pt takes RB as needed then returns to room at end of tx to rest in recliner. Pt has all needs met, call light in hand. Assessment Current Status: Good Progress Pt demonstrates anxiety in both tx, asking BUTTON INSPECTOR to be at [facility] with ambulation for fear of falling. Pt did not demonstrate balance deficit but felt as though she was falling. BUTTON INSPECTOR ask SW to visit with pt about MARLA, etc. PT Short Term Goals Short Term Goals Time Frame: Jun 02, 2019 Transfers (B,C,W/C) (FIM): 5 Gait (FIM): 6 Distance (FIM): 3=150 ft Gait Distance Comment: 500' Gait Level of Assist: 6 Gait Assistive Device: Cane Single Point, Handheld Assist, Cane Small Base Quad Wheelchair Distance: not assessed PT Manager Small Business Goals Halfway Goals PT Manager Small Business Goals Time Frame: Jun 09, 2019 Transfers (B,C,W/C) (FIM): 7 Sit to Lying (QC): 6 Lying-Sitting on Side/Bed(QC): 6 Sit to Stand (QC): 6 Rollin Roll Left to Right (QC): 6 Chair/Gcy-vg-Dohqa Xfer(QC): 6 Car Transfer (QC): 6 Does the Patient Walk: Yes Gait (FIM): 7 Gait distance (FIM): 3=150 ft Distance: 500 Walk 10 feet (QC): 6 Walk 10ft-Uneven Surface(QC): 6 Walk 50ft with 2 Turns (QC): 6 Walk 150 ft (QC): 6 Gait Level of Assist: 7 Gait Assistive Device: Cane Single Point Does the Pt use WC or Scooter?: No Stairs (FIM): 7 # of Steps: 12 1 Step (curb) (QC): 6 4 Steps (QC): 6 12 Steps (QC): 6 Stairs Level Of Assist: 7 Picking up an Object (QC): 6 PT Plan Problem List Problem List: Activity Tolerance, Functional Strength, Safety, Gait Treatment/Plan Treatment Plan: Continue Plan of Care Treatment Plan: Bed Mobility, Functional Activity Ayden, Functional Strength, Gait, Therapeutic Exercise, Transfers Treatment Duration: May 28, 2019 Frequency: 11 times per week Estimated Hrs Per Day: .5 hour per day Patient and/or Family Agrees t: Yes Safety Risks/Education Patient Education: Gait Training, Transfer Techniques, Correct Positioning, Safety Issues Teaching Recipient: Patient Teaching Methods: Discussion Response to Teaching: Reinforcement Needed Time/GCodes Time In: 1300 Time Out: 1400 Total Billed Treatment Time: 60 Total Billed Treatment 1st visit: 5138-0319 for 60m 1,GT x2 (30m) & EX x2 (30m) 2nd visit: [id number] for 30m 1, GT (10m) & EX (20m) WALKER CALDERON BUTTON INSPECTOR May 31, 2019 15:18
--- NOTE | 2019-05-31 15:21 | Occupational Ther Daily Note ---
OT Current Status-Daily Note Subjective Pt. reports 5/10 pain in left shoulder. Requested pain medication. Nursing notified. Appearance Pt. in bed. Agrees to work with OT. Mental Status/Objective Patient Orientation: Person, Place Therapy Code Descriptions/Definitions Functional [place] Measure: 0=Not Assessed/NA 4=Minimal Assistance 1=Total Assistance 5=Supervision or Setup 2=Maximal Assistance 6=Modified [place] 3=Moderate Assistance 7=Complete [place] ADL-Treatment Therapy Code Descriptions/Definitions Functional [place] Measure: 0=Not Assessed/NA 4=Minimal Assistance 1=Total Assistance 5=Supervision or Setup 2=Maximal Assistance 6=Modified [place] 3=Moderate Assistance 7=Complete [place] Therapy Quality Codes: 6 Independent with activity with or without an assistive device 5 Patient requires set up or clean up by helper. Patient completes activity by themselves 4 Supervision or touching assist (CGA). [place] provide cues , steadying assist 3 The helper provides less than half the effort to complete the activity 2 The helper provides more than half the effort to complete the activity 1 Dependent. The helper does all the effort to complete an activity 7 Patient refused to complete or attempt activity 9 The patient did not perform the activity before the current illness or injury 88 Not attempted due to Medical conditions or safety concerns Grooming (FIM): 5 (Set up at sink) Oral Hygiene (QC): 5 Bathing (FIM): 4 (CGA in stance.) Shower/Bathe Self (QC): 4 Upper Body (FIM): 4 (Pt. is able to don shirt and doff sling, but requires assistance to don sling.) Upper Body Dressing (QC): 4 Lower Body Dressing (FIM): 4 (CGA in stance.) Lower Body Dressing (QC): 4 On/Off Footwear (QC): 4 Toileting (FIM): 4 Toileting Hygiene (QC): 4 Transfers (B, C, W/C) (FIM): 4 Toilet/Commode Transfer (FIM): 4 Toilet Transfer (QC): 4 Shower Transfer(FIM): 4 Other Treatment Pt. in bed. Agrees to work with OT. Transferred to shower with CGA. Able to shower and dress, with CGA in stance and min assist for arm sling. After grooming at sink, pt. ambulated to kitchen area with CGA and quad cane. OT and pt. talked in depth regarding kitchen set up at home, and how she was going to prepare food at home. Pt. does not use microwave, but uses stove. Due to her current situation, OT and pt. talked about easy things that she could make or eat at home that did not require transporting hot or heavy pans. Pt. demonstrates some confusion and anxiety. Demonstrates difficulty processing how she is going to do tasks. Pt. practices using countertop to steady self, and safe ways to retrieve items from refridgerator, cabinets. Pt. and OT talked about meals on wheels, and pt. is anxious about this as she follows a gluten free diet. weigh and charge worker aware of this anxiety. Upon returning to room pt. verbalizes that she is having an "off" day and has some fears about taking care of herself. Pt. is encouraged and supported. Ambulated to therapy gym. OT doffed sling and completed gentle massage to left UE, as well as AAROM to left elbow and wrist. Returned to bed with CGA to ambulate. All needs met. Education OT Patient Education: Correct positioning, Exercise program, Modified ADL techniques, Progress toward Goal/Update tx plan, Purpose of tx/functional activities, Reviewed precautions, Rehab process, Transfer techniques Teaching Recipient: Patient Teaching Methods: Demonstration, Discussion Response to Teaching: Verbalize Understanding, Return Demonstration OT Short Term Goals Short Term Goals Time Frame: Jun 04, 2019 Eating(FIM): 6 Grooming(FIM): 6 Bathing(FIM): 5 Upper Body Dressing(FIM): 4 Lower Body Dressing(FIM): 4 Toileting(FIM): 5 Transfers (B,C,W/C) (FIM): 5 Toilet/Commode Transfer(FIM): 5 Shower Transfer(FIM): 5 Additional Short Term Goals: 1-Demonstrate ADL Tasks, 2-Verbalize Understanding, 3-ImproveStrength/Ayden 1=Demonstrate adherence to instructed precautions during ADL tasks. 2=Patient will verbalize/demonstrate understanding of assistive devices/modifications for ADL. 3=Patient will improve strength/tolerance for activity to enable patient to perform ADL's. OT Residential Goals Roll Off Driver Goals Time Frame: Jun 11, 2019 Eating (FIM): 6 Eating (QC): 6 Groomin Oral Hygiene (QC): 6 Bathing(FIM): 5 Shower/Bathe Self (QC): 5 Upper Body Dressing(FIM): 6 Upper Body Dressing (QC): 6 Lower Body Dressing(FIM): 6 Lower Body Dressing (QC): 6 On/Off Footwear (QC): 6 Toileting(FIM): 6 Toileting Hygiene (QC): 6 Transfers (B,C,W/C) (FIM): 6 Toilet/Commode Transfer(FIM): 6 Toilet/Commode Transfer (QC): 6 Shower Transfer(FIM): 5 Additional Goals: 1-Demonstrate ADL Tasks, 2-Verbalize Understanding, 3- ImproveStrength/Ayden 1=Demonstrate adherence to instructed precautions during ADL tasks. 2=Patient will verbalize/demonstrate understanding of assistive devices/modifications for ADL. 3=Patient will improve strength/tolerance for activity to enable patient to perform ADL's. OT Education/Plan Problem List/Assessment Assessment: Decreased Activ Tolerance, Decreased UE Strength, Dependent Transfers, Impaired Coordination, Impaired Funct Balance, Impaired I ADL's, Impaired Self-Care Skills, Restricted Funct UE ROM Discharge Recommendations Plan/Recommendations: Continue POC Therapy Discharge Recommendati: Post Acute OT Treatment Plan/Plan of Care Treatment,Training & Education: Yes Patient would benefit from OT for education, treatment and training to promote independence in ADL's, mobility, safety and/or upper extremity function for ADL's. Plan of Care: ADL Retraining, Functional Mobility, Group Exercise/Act as Ind, UE Funct Exercise/Act Treatment Duration: Jun 11, 2019 Frequency: At least 5 of 7 days/Wk (IRF) Estimated Hrs Per Day: 1.5 hours per day Agreement: Yes Rehab Potential: Fair Time/GCodes Start Time: 08:15 Stop Time: 09:45 Total Time Billed (hr/min): 90 Billed Treatment Time 1, ADL x 75minutes, Ex x 15minutes ANNE MCCARTHY OT May 31, 2019 15:21
--- NOTE | 2019-05-31 16:10 | NUR ---
Met with patient to review Weekly Team Conference Summary; patient agreeable to information discussed as well as a continued stay with review at the next Team Conference, 06/06. Patient states she is apprehensive in regards to returning home. Upon further exploration, it was discovered she is concerned about becoming reacclimated to her home environment, (i.e., someone to modify her home consistent with her limitations), grocery shopping, and her diet as it relates to her recent dx of fibromyalgia. Patient has agreed ordering her groceries, via phone, from [employer], for delivery is a good plan. This fiction writer to assist patient in placing her initial order, prior to discharge. Patient agreeable to hr operations advisor consult for recommendations. Patient states she has a niece and four nephews in the area; however, they are not available to assist her. Her friend, Rae is not in good health and would not be able to assist, either. This fiction writer to further explore in home care providers to assist in modifying her home and helping, as needed. It was explained to patient that in home provider services would more than likely be an [id number] expense. Will continue to follow for ongoing discharge planning.
[2019-05-31 16:42] VITALS: BP 120/74
[2019-05-31 18:32] VITALS: BP 120/74
[2019-05-31] MEDS: metroNIDAZOLE 500 MG (FLAGYL) TAB PO SCH (21:01)
[2019-05-31] MEDS: ALPRAZolam 0.25 MG (XANAX) TAB PO PRN (21:01)
[2019-05-31] MEDS: CYCLOBENZAPRINE 10 MG (FLEXERIL) TAB PO SCH (21:01)
[2019-05-31] MEDS: MELATONIN 3 MG TABLET PO PRN (21:01)
[2019-05-31] MEDS: POLYETHYLENE GLYCOL 17 GM (MIRALAX) PACK PO SCH (21:57)
[2019-06-01] MEDS: HYDROcodone/APAP 5 MG/325 MG (LORTAB) TAB PO PRN ×4 (00:57→20:37)
--- NOTE | 2019-06-01 02:00 | NUR ---
Pt met with RD to discuss diet options for patients with fibromyalgia. RD discussed that there are no "inappropriate foods" that could exacerbate fibromyalgia symptoms. Pt stated adding salt to foods for flavoring. Discussed with pt sodium content in foods and frozen foods, and provided sodium-free options for seasoning food. Tere Shelley MS, RD [phone]
[2019-06-01 06:00] VITALS: BP 119/73
[2019-06-01] MEDS: IBUPROFEN TABLET 200 MG TAB PO PRN ×2 (06:31→18:08)
[2019-06-01] MEDS: DOCUSATE SODIUM 100 MG (COLACE) CAP PO SCH ×2 (09:01→20:36)
[2019-06-01] MEDS: metroNIDAZOLE 500 MG (FLAGYL) TAB PO SCH ×2 (09:01→20:36)
[2019-06-01] MEDS: SENNA W/DOCUSATE (SENOKOT S) TABLET PO SCH ×2 (09:01→20:37)
--- NOTE | 2019-06-01 09:51 | Physical Therapy Daily Note ---
PT Daily Note-Current Subjective Pt. in recliner c/o pain in upper back 5/10, in left shoulder at 3/10, asks for Lortab. Agrees to try MHP to upper back for pain relief and ice to shoulder. Pain Numeric Pain Scale: 5-Moderate Pain Location: Medial Location Body Site: Back Pain Description: Ache Mental Status Patient Orientation: Normal For Age Attachments: Other-See Comments (sling L shoulder) Transfers Therapy Code Descriptions/Definitions Functional [place] Measure: 0=Not Assessed/NA 4=Minimal Assistance 1=Total Assistance 5=Supervision or Setup 2=Maximal Assistance 6=Modified [place] 3=Moderate Assistance 7=Complete [place] Therapy Quality Codes: 6 Independent with activity with or without an assistive device 5 Patient requires set up or clean up by helper. Patient completes activity by themselves 4 Supervision or touching assist (CGA). [place] provide cues , steadying assist 3 The helper provides less than half the effort to complete the activity 2 The helper provides more than half the effort to complete the activity 1 Dependent. The helper does all the effort to complete an activity 7 Patient refused to complete or attempt activity 9 The patient did not perform the activity before the current illness or injury 88 Not attempted due to Medical conditions or safety concerns Transfers (B, C, W/C) (FIM): 5 Scootin Rollin Supine to/from Sit: 5 Sit to/from Stand: 5 Weight Bearing Full Weight Bearing Full Weight Bearing Unknown weightbearing status on (L) UE secondary to humerus fracture Gait Training Does the Patient Walk?: Yes Gait (FIM): 5 Distance (FIM): 3=150 ft (175x2) Gait Level of Assist: 5 Gait Persons Needed: 1 Gait Assistive Device: Cane Large Base Quad good sequence no LOB, Exercises Supine Ex: Bridging, Ankle pumps, Quad Set, Rolling, Glut sets, Heel Slides, Short Arc Quads, Scooting, Straight leg raise, Hip abd/add Supine Reps: 20 Seated Therapy Exercises: Ankle pumps, Sit to stand, Long arc quads, Hip flexion Seated Reps: 15 Treatments toileted SBA , MHP x 20 m to upper back at cervical junction with one on one monitoring while pt. did seated LE ex, this did help relieve spasms and pain decreased to 2/10. Assessment Current Status: Good Progress PT Short Term Goals Short Term Goals Time Frame: Jun 02, 2019 Transfers (B,C,W/C) (FIM): 5 Gait (FIM): 6 Distance (FIM): 3=150 ft Gait Distance Comment: 500' Gait Level of Assist: 6 Gait Assistive Device: Cane Single Point, Handheld Assist, Cane Small Base Quad Wheelchair Distance: not assessed PT Funds Transfer Clerk Goals Funds Transfer Clerk Goals PT Funds Transfer Clerk Goals Time Frame: Jun 09, 2019 Transfers (B,C,W/C) (FIM): 7 Sit to Lying (QC): 6 Lying-Sitting on Side/Bed(QC): 6 Sit to Stand (QC): 6 Rollin Roll Left to Right (QC): 6 Chair/Lez-bw-Gnikd Xfer(QC): 6 Car Transfer (QC): 6 Does the Patient Walk: Yes Gait (FIM): 7 Gait distance (FIM): 3=150 ft Distance: 500 Walk 10 feet (QC): 6 Walk 10ft-Uneven Surface(QC): 6 Walk 50ft with 2 Turns (QC): 6 Walk 150 ft (QC): 6 Gait Level of Assist: 7 Gait Assistive Device: Cane Single Point Does the Pt use WC or Scooter?: No Stairs (FIM): 7 # of Steps: 12 1 Step (curb) (QC): 6 4 Steps (QC): 6 12 Steps (QC): 6 Stairs Level Of Assist: 7 Picking up an Object (QC): 6 PT Plan Treatment/Plan Treatment Plan: Continue Plan of Care Treatment Plan: Bed Mobility, Functional Activity [place], Functional Strength, Gait, Therapeutic Exercise, Transfers Treatment Duration: May 28, 2019 Frequency: 11 times per week Estimated Hrs Per Day: .5 hour per day Patient and/or Family Agrees t: Yes Safety Risks/Education Patient Education: Gait Training, Transfer Techniques, Correct Positioning, Disease Process, Safety Issues Teaching Recipient: Patient Teaching Methods: Demonstration, Discussion Response to Teaching: Verbalize Understanding, Return Demonstration Time/GCodes Time In: 800 Time Out: 900 Total Billed Treatment Time: 60 Total Billed Treatment 1,GT20m,FA15m,EX25m KORTNEY COLMENARES REMOTE OPERATIONS PRODUCER Jun 01, 2019 09:51
--- NOTE | 2019-06-01 11:41 | Occupational Ther Daily Note ---
OT Current Status-Daily Note Subjective Pt seen in recliner chair, pt agreeable to OT tx session with c/o pain in mid- back. Pt states she was dx with fibromyalgia after breaking L clavicle and has experienced back pain since. Pt states "a thousand needles" from back. Mental Status/Objective Patient Orientation: Normal For Age Therapy Code Descriptions/Definitions Functional [place] Measure: 0=Not Assessed/NA 4=Minimal Assistance 1=Total Assistance 5=Supervision or Setup 2=Maximal Assistance 6=Modified [place] 3=Moderate Assistance 7=Complete [place] ADL-Treatment Therapy Code Descriptions/Definitions Functional [place] Measure: 0=Not Assessed/NA 4=Minimal Assistance 1=Total Assistance 5=Supervision or Setup 2=Maximal Assistance 6=Modified [place] 3=Moderate Assistance 7=Complete [place] Therapy Quality Codes: 6 Independent with activity with or without an assistive device 5 Patient requires set up or clean up by helper. Patient completes activity by themselves 4 Supervision or touching assist (CGA). [place] provide cues , steadying assist 3 The helper provides less than half the effort to complete the activity 2 The helper provides more than half the effort to complete the activity 1 Dependent. The helper does all the effort to complete an activity 7 Patient refused to complete or attempt activity 9 The patient did not perform the activity before the current illness or injury 88 Not attempted due to Medical conditions or safety concerns Eating (FIM): 6 (mod I due to dentures.) Eating (QC): 6 Grooming (FIM): 5 (SUP, standing at sink completes washing face, namita area, and dentures. ) Oral Hygiene (QC): 4 (SBA for stance at sink to complete cleaning dentures. ) Upper Body (FIM): 5 (Pt completes with SBA due to safety and L arm restrictions, pt completes while seated in chair. Pt able to don/ doff L sling with SBA and min cues for adjustment. Pt declines help as she "will need to do it at home." ) Upper Body Dressing (QC): 4 (cues for sling) Lower Body Dressing (FIM): 5 (SBA while in stance. Cues for energy conservation. Pt states she is "worn out" post-LB dressing.) Lower Body Dressing (QC): 4 (SBA) On/Off Footwear (QC): 5 (SBA while seated in chair. Pt demonstrates good balance and safety awareness during tasks.) Toileting (FIM): 5 (SBA in stance for namita hygiene for safety. Pt states she does not have grab bars by toilet at home, but will begin practicing with cane while she has support.) Toileting Hygiene (QC): 4 (SBA) Transfers (B, C, W/C) (FIM): 5 (SBA) Toilet/Commode Transfer (FIM): 5 (SBA) Toilet Transfer (QC): 4 (SBA) Other Treatment Pt completes ADL tasks in bathroom, self-initiates and completes with minimal cues for sling adjustment. Pt able to complete items with safety. Pt states decreased swelling in L hand, OT completes skilled retrograde massage and educate pt on lymph system and desire to continue movement of hand for decreased swelling. Pt completes hand squeezes with hand sponge and wrist exercises while elbow and shoulder are stabilized. Pt ambulates with cane and SBA to therapy kitchen. pt given modified techniques for oven use, pt demonstrates understanding and completion of placing sheet in oven on both the top and middle rack without support. Pt demonstrates good safety awareness and states she may plan on eating "sandwiches and other pre-made items" until she can use her L arm. Pt completes arm arch exercises in standing, completing with good balance without support. Pt stands for 5 minutes during activity, desiring to sit. pt sits and completes R arm exercises with 1#-2# weights in all planes. Pt begins shutting eyes while completing exercises, pt states she is getting tired. Pt completes 2 more sets of exercises and ambulates with SBA/ cane to bed. Pt bed mobility with SUP. Pt requires assist to adjust pillow under L arm. Pt left in bed with call light in reach, all needs met. Education OT Patient Education: Correct positioning, Disease process, Energy conservation, Exercise program, Instructions don/doff splint/brace (sling= min cues), Modified ADL techniques, Reviewed precautions, Rehab process, Safety issues, Transfer techniques Teaching Recipient: Patient Teaching Methods: Demonstration, Discussion Response to Teaching: Verbalize Understanding, Return Demonstration OT Short Term Goals Short Term Goals Time Frame: Jun 04, 2019 Eating(FIM): 6 Grooming(FIM): 6 Bathing(FIM): 5 Upper Body Dressing(FIM): 4 Lower Body Dressing(FIM): 4 Toileting(FIM): 5 Transfers (B,C,W/C) (FIM): 5 Toilet/Commode Transfer(FIM): 5 Shower Transfer(FIM): 5 Additional Short Term Goals: 1-Demonstrate ADL Tasks, 2-Verbalize Understanding, 3-ImproveStrength/[place] 1=Demonstrate adherence to instructed precautions during ADL tasks. 2=Patient will verbalize/demonstrate understanding of assistive devices/modifications for ADL. 3=Patient will improve strength/tolerance for activity to enable patient to perform ADL's. OT Minute Clerk For Basic Traffic Goals Correction Goals Time Frame: Jun 11, 2019 Eating (FIM): 6 (met) Eating (QC): 6 (met) Groomin Oral Hygiene (QC): 6 Bathing(FIM): 5 Shower/Bathe Self (QC): 5 Upper Body Dressing(FIM): 6 Upper Body Dressing (QC): 6 Lower Body Dressing(FIM): 6 Lower Body Dressing (QC): 6 On/Off Footwear (QC): 6 Toileting(FIM): 6 Toileting Hygiene (QC): 6 Transfers (B,C,W/C) (FIM): 6 Toilet/Commode Transfer(FIM): 6 Toilet/Commode Transfer (QC): 6 Shower Transfer(FIM): 5 Additional Goals: 1-Demonstrate ADL Tasks, 2-Verbalize Understanding, 3- ImproveStrength/Ayden 1=Demonstrate adherence to instructed precautions during ADL tasks. 2=Patient will verbalize/demonstrate understanding of assistive devices/modifications for ADL. 3=Patient will improve strength/tolerance for activity to enable patient to perform ADL's. OT Education/Plan Problem List/Assessment Assessment: Decreased Activ Tolerance, Decreased UE Strength, Impaired I ADL's, Impaired Self-Care Skills, Restricted Funct UE ROM Discharge Recommendations Plan/Recommendations: Continue POC Treatment Plan/Plan of Care Treatment,Training & Education: Yes Patient would benefit from OT for education, treatment and training to promote independence in ADL's, mobility, safety and/or upper extremity function for ADL's. Plan of Care: ADL Retraining, Functional Mobility, Group Exercise/Act as Ind, UE Funct Exercise/Act Treatment Duration: Jun 11, 2019 Frequency: At least 5 of 7 days/Wk (IRF) Estimated Hrs Per Day: 1.5 hours per day Agreement: Yes Rehab Potential: Fair Time/GCodes Start Time: 09:00 Stop Time: 10:30 Total Time Billed (hr/min): 90 Billed Treatment Time 1 ADLx4 (60), EXx2 (30)= 90 HUGH PULIDO OTR Jun 01, 2019 11:41
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
--- NOTE | 2019-06-01 13:54 | Physical Therapy Daily Note ---
PT Daily Note-Current Subjective Pt. already requesting her 3pm pain meds. Agrees to Rx. Wants to go to bed after Rx but wants to get up to walk with someone later. Nursing agrees Pain Location: No Pain Reported Mental Status Patient Orientation: Normal For Age Attachments: Other-See Comments (sling Left arm) Transfers Therapy Code Descriptions/Definitions Functional [place] Measure: 0=Not Assessed/NA 4=Minimal Assistance 1=Total Assistance 5=Supervision or Setup 2=Maximal Assistance 6=Modified [place] 3=Moderate Assistance 7=Complete [place] Therapy Quality Codes: 6 Independent with activity with or without an assistive device 5 Patient requires set up or clean up by helper. Patient completes activity by themselves 4 Supervision or touching assist (CGA). [place] provide cues , steadying assist 3 The helper provides less than half the effort to complete the activity 2 The helper provides more than half the effort to complete the activity 1 Dependent. The helper does all the effort to complete an activity 7 Patient refused to complete or attempt activity 9 The patient did not perform the activity before the current illness or injury 88 Not attempted due to Medical conditions or safety concerns Transfers (B, C, W/C) (FIM): 6 Scootin Rollin Supine to/from Sit: 6 Sit to/from Stand: 6 Weight Bearing Full Weight Bearing Full Weight Bearing Unknown weightbearing status on (L) UE secondary to humerus fracture Gait Training Gait Assistive Device: Cane Large Base Quad 150x2 SBA to CGA , no LOB Stair Training Stair Training: Handrails/: 1 handrail Stairs (FIM): 2 #of Steps: 4 Stairs: Pattern: Reciprocal Level of Assist: 4 sequence instruction and hand placement Treatments alternating U&L extremity seated exercises x 10 m, toileted SBA, Assessment Current Status: Good Progress PT Short Term Goals Short Term Goals Time Frame: Jun 02, 2019 Transfers (B,C,W/C) (FIM): 5 Gait (FIM): 6 Distance (FIM): 3=150 ft Gait Distance Comment: 500' Gait Level of Assist: 6 Gait Assistive Device: Cane Single Point, Handheld Assist, Cane Small Base Quad Wheelchair Distance: not assessed PT Senior Care Goals Primary Care Coordinator Goals PT Primary Care Coordinator Goals Time Frame: Jun 09, 2019 Transfers (B,C,W/C) (FIM): 7 Sit to Lying (QC): 6 Lying-Sitting on Side/Bed(QC): 6 Sit to Stand (QC): 6 Rollin Roll Left to Right (QC): 6 Chair/Mid-rf-Nkjiz Xfer(QC): 6 Car Transfer (QC): 6 Does the Patient Walk: Yes Gait (FIM): 7 Gait distance (FIM): 3=150 ft Distance: 500 Walk 10 feet (QC): 6 Walk 10ft-Uneven Surface(QC): 6 Walk 50ft with 2 Turns (QC): 6 Walk 150 ft (QC): 6 Gait Level of Assist: 7 Gait Assistive Device: Cane Single Point Does the Pt use WC or Scooter?: No Stairs (FIM): 7 # of Steps: 12 1 Step (curb) (QC): 6 4 Steps (QC): 6 12 Steps (QC): 6 Stairs Level Of Assist: 7 Picking up an Object (QC): 6 PT Plan Treatment/Plan Treatment Plan: Continue Plan of Care Treatment Plan: Bed Mobility, Functional Activity [place], Functional Strength, Gait, Therapeutic Exercise, Transfers Treatment Duration: May 28, 2019 Frequency: 11 times per week Estimated Hrs Per Day: .5 hour per day Patient and/or Family Agrees t: Yes Safety Risks/Education Patient Education: Gait Training, Transfer Techniques, Disease Process, Safety Issues Teaching Recipient: Patient Teaching Methods: Demonstration, Discussion Response to Teaching: Verbalize Understanding, Return Demonstration, Reinforcement Needed Time/GCodes Time In: 1320 Time Out: 1350 Total Billed Treatment Time: 30 Total Billed Treatment 1,EX10m,GT20m KORTNEY COLMENARES INDUCTION BRAZER Jun 01, 2019 13:54
[2019-06-01 17:07] VITALS: BP 131/76
--- NOTE | 2019-06-01 20:00 | NUR ---
Pt denied having a BM today. Date of last BM 06/01/19. The pt was advised to take Miralax; she stated "I would like to take the stool softeners only, If I don't have a BM tonight or tomorrow I'll take the Miralax".
[2019-06-01] MEDS: POLYETHYLENE GLYCOL 17 GM (MIRALAX) PACK PO SCH (20:02)
[2019-06-01] MEDS: CYCLOBENZAPRINE 10 MG (FLEXERIL) TAB PO SCH (20:36)
[2019-06-01] MEDS: OXYQUINOLINE VG SCH (20:38)
[2019-06-01] MEDS: [UNRECOGNIZED DRUG - OTHER] VG SCH (20:38)
[2019-06-02] MEDS: IBUPROFEN TABLET 200 MG TAB PO PRN ×2 (00:36→12:04)
[2019-06-02] MEDS: HYDROcodone/APAP 5 MG/325 MG (LORTAB) TAB PO PRN ×4 (02:38→21:18)
[2019-06-02 06:00] VITALS: BP 134/70
[2019-06-02] MEDS ORDERED: BISACODYL 10 MG SUPP (DULCOLAX) PR PRN (07:00)
--- NOTE | 2019-06-02 08:36 | NUR ---
PATIENT UP IN CHAIR. PATIENT IS ALERT AND ORIENTED X 4. ABLE TO RECALL THERAPY TECHNIQUES TO HELP DECREASE HAND SWELLING AND HAND MOVEMENT. RECALLS PRECAUTIONS OF MAINTAINING SHOULDER IMMOBILITY AND DEMONSTRATED RECALL TECHNIQUES OF ELBOW, LOWER ARM , HAND EXERCISES. RATES PAIN 1/10. VOICED CONCERN OVER BP 134 THIS A.M., DURING THIS READING PATIENT RATED PAIN 6/10. EDUCATION PROVIDED REGARDING PAIN EFFECTS ON BP. WILL RECHECK. PATIENT'S LUNGS CTA, ATELECTASIS EDUCATION PROVIDED. DENIES NEEDS OR C/O. CONT TO MONITOR.
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
[2019-06-02] MEDS: DOCUSATE SODIUM 100 MG (COLACE) CAP PO SCH ×2 (09:25→21:18)
[2019-06-02] MEDS: SENNA W/DOCUSATE (SENOKOT S) TABLET PO SCH ×2 (09:25→21:18)
[2019-06-02] MEDS: metroNIDAZOLE 500 MG (FLAGYL) TAB PO SCH ×2 (09:25→21:17)
--- NOTE | 2019-06-02 10:18 | Physical Therapy Daily Note ---
PT Daily Note-Current Subjective Patient very agreeable to participate with PT. Patient dons socks and shoes with set up only Mental Status Patient Orientation: Normal For Age Transfers Therapy Code Descriptions/Definitions Functional [place] Measure: 0=Not Assessed/NA 4=Minimal Assistance 1=Total Assistance 5=Supervision or Setup 2=Maximal Assistance 6=Modified [place] 3=Moderate Assistance 7=Complete [place] Therapy Quality Codes: 6 Independent with activity with or without an assistive device 5 Patient requires set up or clean up by helper. Patient completes activity by themselves 4 Supervision or touching assist (CGA). [place] provide cues , steadying assi st 3 The helper provides less than half the effort to complete the activity 2 The helper provides more than half the effort to complete the activity 1 Dependent. The helper does all the effort to complete an activity 7 Patient refused to complete or attempt activity 9 The patient did not perform the activity before the current illness or injury 88 Not attempted due to Medical conditions or safety concerns Transfers (B, C, W/C) (FIM): 6 Scootin Rollin Roll Left to Right (QC): 6 Supine to/from Sit: 6 Sit to/from Stand: 6 Sit to Lying (QC): 6 Sit to Stand (QC): 6 Weight Bearing Full Weight Bearing Full Weight Bearing Unknown weightbearing status on (L) UE secondary to humerus fracture Gait Training Does the Patient Walk?: Yes Gait (FIM): 6 Distance (FIM): 3=150 ft Distance: >500' Walk 10 feet (QC): 6 Walk 50 ft with 2 Turns(QC): 6 Walk 150 ft (QC): 6 Gait Level of Assist: 6 Gait Assistive Device: Cane Small Base Quad steady, with no deviation Assessment Current Status: Excellent Progress PT Short Term Goals Short Term Goals Time Frame: Jun 02, 2019 Transfers (B,C,W/C) (FIM): 5 Gait (FIM): 6 Distance (FIM): 3=150 ft Gait Distance Comment: 500' Gait Level of Assist: 6 Gait Assistive Device: Cane Single Point, Handheld Assist, Cane Small Base Quad Wheelchair Distance: not assessed PT Photographic Colorist Goals Photographic Colorist Goals PT Photographic Colorist Goals Time Frame: Jun 09, 2019 Transfers (B,C,W/C) (FIM): 7 Sit to Lying (QC): 6 Lying-Sitting on Side/Bed(QC): 6 Sit to Stand (QC): 6 Rollin Roll Left to Right (QC): 6 Chair/Com-gr-Vnrgj Xfer(QC): 6 Car Transfer (QC): 6 Does the Patient Walk: Yes Gait (FIM): 7 Gait distance (FIM): 3=150 ft Distance: 500 Walk 10 feet (QC): 6 Walk 10ft-Uneven Surface(QC): 6 Walk 50ft with 2 Turns (QC): 6 Walk 150 ft (QC): 6 Gait Level of Assist: 7 Gait Assistive Device: Cane Single Point Does the Pt use WC or Scooter?: No Stairs (FIM): 7 # of Steps: 12 1 Step (curb) (QC): 6 4 Steps (QC): 6 12 Steps (QC): 6 Stairs Level Of Assist: 7 Picking up an Object (QC): 6 PT Plan Treatment/Plan Treatment Plan: Continue Plan of Care Treatment Plan: Bed Mobility, Functional Activity [place], Functional Strength, Gait, Therapeutic Exercise, Transfers Treatment Duration: May 28, 2019 Frequency: 11 times per week Estimated Hrs Per Day: .5 hour per day Patient and/or Family Agrees t: Yes Time/GCodes Time In: 935 Time Out: 950 Total Billed Treatment Time: 15 Total Billed Treatment 1 visit GT 15 min CHARLENE ESPINO PT Jun 02, 2019 10:17
--- NOTE | 2019-06-02 12:09 | NUR ---
PATIENT AGREEABLE TO DINE WITH OTHER PATIENTS AND SOCIALIZE. PATIENT AMBULATED TO DINING AREA WITH CONTACT GUARD, GAIT BELT FOR SAFETY AND CANE. PATIENT DONNED OWN SHOES , DEMONSTRATED EVEN , STEADY GAIT . NO SHORTNESS OF BREATH. APPEARS TO BE INTERACTING APPROPRIATELY WITH OTHER PATIENTS. MOTRIN FOR C/O PAIN 02/19 IN ARM. CONT TO MONITOR. DENIES FURTHER NEEDS.
[2019-06-02] MEDS: ACETAMINOPHEN 500 MG TAB (TYLENOL) PO PRN (14:50)
[2019-06-02 18:25] VITALS: BP 136/72
[2019-06-02] MEDS: CYCLOBENZAPRINE 10 MG (FLEXERIL) TAB PO SCH (21:18)
[2019-06-02] MEDS: [UNRECOGNIZED DRUG - OTHER] VG SCH (21:20)
[2019-06-02] MEDS: OXYQUINOLINE VG SCH (21:20)
[2019-06-02] MEDS: POLYETHYLENE GLYCOL 17 GM (MIRALAX) PACK PO SCH (21:20)
[2019-06-03] MEDS: HYDROcodone/APAP 5 MG/325 MG (LORTAB) TAB PO PRN ×4 (03:40→21:37)
[2019-06-03 06:00] VITALS: BP 143/73
[2019-06-03] MEDS: IBUPROFEN TABLET 200 MG TAB PO PRN ×2 (07:33→13:38)
[2019-06-03] MEDS: metroNIDAZOLE 500 MG (FLAGYL) TAB PO SCH ×2 (09:41→19:51)
[2019-06-03] MEDS: SENNA W/DOCUSATE (SENOKOT S) TABLET PO SCH ×2 (09:41→19:52)
[2019-06-03] MEDS: DOCUSATE SODIUM 100 MG (COLACE) CAP PO SCH ×2 (09:41→19:50)
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
--- NOTE | 2019-06-03 16:18 | NUR ---
Walked multiple laps in the halls with this RN. CGA and cane/gait belt used for safety. Denies much pain in left arm. States most of pain is chronic Fibromyalgia pain.
--- NOTE | 2019-06-03 16:35 | NUR ---
K-pad to back per patient's request.
[2019-06-03] MEDS: ALPRAZolam 0.25 MG (XANAX) TAB PO PRN (17:31)
[2019-06-03 17:32] VITALS: BP 132/71
[2019-06-03] MEDS: POLYETHYLENE GLYCOL 17 GM (MIRALAX) PACK PO SCH (19:51)
[2019-06-03] MEDS: CYCLOBENZAPRINE 10 MG (FLEXERIL) TAB PO SCH (19:51)
[2019-06-03] MEDS: [UNRECOGNIZED DRUG - OTHER] VG SCH (19:54)
[2019-06-03] MEDS: OXYQUINOLINE VG SCH (19:54)
[2019-06-04] MEDS: IBUPROFEN TABLET 200 MG TAB PO PRN ×3 (00:11→18:18)
[2019-06-04] MEDS: HYDROcodone/APAP 5 MG/325 MG (LORTAB) TAB PO PRN ×3 (03:49→20:43)
[2019-06-04 05:20] VITALS: BP 149/81
[2019-06-04 05:22] LABS: BASOPHILS % (AUTO) 0 % (0-10); EOSINOPHILS # (AUTO) 0.2 10^3/uL (0.0-0.3); EOSINOPHILS % (AUTO) 3 % (0-10); HEMATOCRIT 36 % (35-52); HEMOGLOBIN 11.4 G/DL (11.5-16.0); LYMPHOCYTES # (AUTO) 1.3 X 10^3 (1.0-4.0); LYMPHOCYTES % (AUTO) 28 % (12-44); MEAN CORPUSCULAR HEMOGLOBIN 31 PG (25-34); MEAN CORPUSCULAR HGB CONC 32 G/DL (32-36); MEAN CORPUSCULAR VOLUME 97 FL (80-99); MEAN PLATELET VOLUME 11.2 FL (7.4-10.4); MONOCYTES # (AUTO) 0.7 X 10^3 (0.0-1.0); MONOCYTES % (AUTO) 14 % (0-12); NEUTROPHILS # (AUTO) 2.6 X 10^3 (1.8-7.8); NEUTROPHILS % (AUTO) 54 % (42-75); PLATELET COUNT 245 10^3/uL (130-400); RED CELL DISTRIBUTION WIDTH 13.8 % (10.0-14.5); WHITE BLOOD COUNT 4.7 10^3/uL (4.3-11.0)
[2019-06-04 05:51] LABS: ALANINE AMINOTRANSFERASE 29 U/L (0-55); ALBUMIN 3.3 GM/DL (3.2-4.5); ALKALINE PHOSPHATASE 72 U/L (40-136); BILIRUBIN,TOTAL 0.7 MG/DL (0.1-1.0); BUN/CREATININE RATIO 20; CARBON DIOXIDE 25 MMOL/L (21-32); CHLORIDE 102 MMOL/L (98-107); CREATININE SERUM 0.66 MG/DL (0.60-1.30); GFR ESTIMATED > 60; GLUCOSE 97 MG/DL (70-105); POTASSIUM 4.3 MMOL/L (3.6-5.0); SODIUM 136 MMOL/L (135-145); TOTAL PROTEIN 5.7 GM/DL (6.4-8.2)
--- NOTE | 2019-06-04 08:57 | Physical Therapy Daily Note ---
PT Daily Note-Current Subjective Pt. agrees to Rx, inquires again about getting some assistance at home. After visiting it might meets pts needs to have PT HC come for a couple weeks to educate pt. and assist in arranging living area for safety and convenience etc. No c/o pain. Pt. shares she is still not use to rehab schedule and looks forward to being home where she can do what she wants Pain Location: No Pain Reported Mental Status Patient Orientation: Normal For Age Attachments: Other-See Comments (BOOM pritchard) Transfers Therapy Code Descriptions/Definitions Functional [facility] Measure: 0=Not Assessed/NA 4=Minimal Assistance 1=Total Assistance 5=Supervision or Setup 2=Maximal Assistance 6=Modified [facility] 3=Moderate Assistance 7=Complete [facility] Therapy Quality Codes: 6 Independent with activity with or without an assistive device 5 Patient requires set up or clean up by helper. Patient completes activity by themselves 4 Supervision or touching assist (CGA). [place] provide cues , steadying assist 3 The helper provides less than half the effort to complete the activity 2 The helper provides more than half the effort to complete the activity 1 Dependent. The helper does all the effort to complete an activity 7 Patient refused to complete or attempt activity 9 The patient did not perform the activity before the current illness or injury 88 Not attempted due to Medical conditions or safety concerns Transfers (B, C, W/C) (FIM): 6 Scootin Rollin Roll Left to Right (QC): 6 Supine to/from Sit: 6 Sit to/from Stand: 6 Sit to Lying (QC): 6 Sit to Stand (QC): 6 Chair/Jku-zc-Pbtpn Xfer(QC): 6 Bed to/from Chair: 6 Car Transfer (QC): 6 Weight Bearing Full Weight Bearing Full Weight Bearing Unknown weightbearing status on (L) UE secondary to humerus fracture Gait Training Does the Patient Walk?: Yes Gait (FIM): 6 Distance (FIM): 3=150 ft (200x3) Walk 10 feet (QC): 6 Walk 50 ft with 2 Turns(QC): 6 Walk 150 ft (QC): 6 Gait Level of Assist: 6 Gait Persons Needed: 0 Gait Assistive Device: Cane Large Base Quad good sequence, no LOB, kyphotic Stair Training Stair Training: Handrails/: 1 handrail Stairs (FIM): 5 #of Steps: 8 1 Step (curb) (QC): 5 4 Steps (QC): 5 Stairs: Pattern: Reciprocal Level of Assist: 5 household exception Exercises Supine Ex: Bridging, Ankle pumps, Quad Set, Rolling, Glut sets, Heel Slides, Short Arc Quads, Scooting, Straight leg raise, Hip abd/add Supine Reps: 15 Standing: Hip Abduction, Heel/toe raises, Marching Standing Reps: 12 NuStep Minutes: 10 NuStep Workload: 5 Neuromuscular cardio and reciprocal U&L ext ex Assessment Current Status: Good Progress meets goals, pursuing arrangements for HC PT or household services PT Short Term Goals Short Term Goals Time Frame: Jun 02, 2019 Transfers (B,C,W/C) (FIM): 5 Gait (FIM): 6 Distance (FIM): 3=150 ft Gait Distance Comment: 500' Gait Level of Assist: 6 Gait Assistive Device: Cane Single Point, Handheld Assist, Cane Small Base Quad Wheelchair Distance: not assessed PT Usp Goals Internet Marketer Goals PT Usp Goals Time Frame: Jun 09, 2019 Transfers (B,C,W/C) (FIM): 7 Sit to Lying (QC): 6 Lying-Sitting on Side/Bed(QC): 6 Sit to Stand (QC): 6 Rollin Roll Left to Right (QC): 6 Chair/Jjk-pz-Ckisp Xfer(QC): 6 Car Transfer (QC): 6 Does the Patient Walk: Yes Gait (FIM): 7 Gait distance (FIM): 3=150 ft Distance: 500 Walk 10 feet (QC): 6 Walk 10ft-Uneven Surface(QC): 6 Walk 50ft with 2 Turns (QC): 6 Walk 150 ft (QC): 6 Gait Level of Assist: 7 Gait Assistive Device: Cane Single Point Does the Pt use WC or Scooter?: No Stairs (FIM): 7 # of Steps: 12 1 Step (curb) (QC): 6 4 Steps (QC): 6 12 Steps (QC): 6 Stairs Level Of Assist: 7 Picking up an Object (QC): 6 PT Plan Treatment/Plan Treatment Plan: Continue Plan of Care Treatment Plan: Bed Mobility, Functional Activity Ayden, Functional Strength, Gait, Therapeutic Exercise, Transfers Treatment Duration: May 28, 2019 Frequency: 11 times per week Estimated Hrs Per Day: .5 hour per day Patient and/or Family Agrees t: Yes Safety Risks/Education Patient Education: Gait Training, Transfer Techniques, Steps, Correct Positioning, Disease Process, Safety Issues Teaching Recipient: Patient Teaching Methods: Demonstration, Discussion Response to Teaching: Verbalize Understanding, Return Demonstration, Reinforcement Needed Time/GCodes Time In: 800 Time Out: 900 Total Billed Treatment Time: 60 Total Billed Treatment 1,FA25m,EX20m,GT15m KORTNEY COLMENARES OBJECT ORIENTED PROGRAMMER Jun 04, 2019 08:57
[2019-06-04] MEDS: SENNA W/DOCUSATE (SENOKOT S) TABLET PO SCH ×2 (09:37→21:35)
[2019-06-04] MEDS: DOCUSATE SODIUM 100 MG (COLACE) CAP PO SCH ×2 (09:37→21:35)
[2019-06-04] MEDS: metroNIDAZOLE 500 MG (FLAGYL) TAB PO SCH ×2 (09:37→20:42)
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
--- NOTE | 2019-06-04 11:56 | NUR ---
Met with patient to further discuss discharge planning and resources for assistance provided within the home. Upon reviewing the differences of services provided by home health care versus home care, patient chose to proceed with home health care, provided by [facility]. Patient agreeable to an appointment being scheduled for an [facility] [employer] sales representative to visit, prior to dismissal. An appointment has been arranged for tomorrow, 06/05/19 at 1400. According to RN, payroll lead consult to be placed, today. Patient has elected not to proceed with Meals on Wheels, at this time. She attributes this decision to ordering her groceries from [employer], for delivery. Will continue to follow for discharge planning.
--- NOTE | 2019-06-04 12:49 | Occupational Ther Daily Note ---
OT Current Status-Daily Note Subjective Pt. reports pain in her left shoulder, but unable to give a pain level. Pt. receives pain medication. Appearance Pt. in bed. Agrees to work with OT. Mental Status/Objective Patient Orientation: Person, Place Therapy Code Descriptions/Definitions Functional [place] Measure: 0=Not Assessed/NA 4=Minimal Assistance 1=Total Assistance 5=Supervision or Setup 2=Maximal Assistance 6=Modified [place] 3=Moderate Assistance 7=Complete [place] ADL-Treatment Therapy Code Descriptions/Definitions Functional [place] Measure: 0=Not Assessed/NA 4=Minimal Assistance 1=Total Assistance 5=Supervision or Setup 2=Maximal Assistance 6=Modified [place] 3=Moderate Assistance 7=Complete [place] Therapy Quality Codes: 6 Independent with activity with or without an assistive device 5 Patient requires set up or clean up by helper. Patient completes activity by themselves 4 Supervision or touching assist (CGA). [place] provide cues , steadying assist 3 The helper provides less than half the effort to complete the activity 2 The helper provides more than half the effort to complete the activity 1 Dependent. The helper does all the effort to complete an activity 7 Patient refused to complete or attempt activity 9 The patient did not perform the activity before the current illness or injury 88 Not attempted due to Medical conditions or safety concerns Eating (FIM): 5 (Set up to open packages to eat crackers and peanut butter.) Eating (QC): 5 Grooming (FIM): 5 Oral Hygiene (QC): 4 Bathing (FIM): 5 Shower/Bathe Self (QC): 4 Upper Body (FIM): 4 (Min assist to don sling.) Upper Body Dressing (QC): 4 Lower Body Dressing (FIM): 4 (CGA to pull pants over hips.) Lower Body Dressing (QC): 4 On/Off Footwear (QC): 4 Toileting (FIM): 5 Toileting Hygiene (QC): 4 Transfers (B, C, W/C) (FIM): 5 Toilet/Commode Transfer (FIM): 5 Toilet Transfer (QC): 4 Shower Transfer(FIM): 5 Other Treatment Pt.completed ADLs with SBA/CGA. Pt. reports anxiety at going home and states that she is unsure of who will help her at home. Pt. is able to verbalize knowing some friends that can help, but has not reached out to them. Pt. seems very distracted and requires cues and encouragement to do for self. Pt. verbalizes that she is in pain and would like medication. Begins to state that she feels weak and would like a snack. Nursing comes in to give pt. pain medication and pt. verbalizes that she should probably eat first. After eating snack, pt. reports that she feels much better. Ambulated to therapy gym with SBA. Completed gentle PROM with pt. with left UE for elbow and wrist. Donned 1 lb. wrist weight on right wrist and pt. completed fine motor coordination tasks to increase overall strength. Ambulated back to room. All needs met in room. Education OT Patient Education: Correct positioning, Exercise program, Modified ADL techniques, Progress toward Goal/Update tx plan, Purpose of tx/functional activities, Reviewed precautions, Rehab process, Transfer techniques Teaching Recipient: Patient Teaching Methods: Demonstration, Discussion Response to Teaching: Verbalize Understanding, Return Demonstration OT Short Term Goals Short Term Goals Time Frame: Jun 04, 2019 Eating(FIM): 6 Grooming(FIM): 6 Bathing(FIM): 5 Upper Body Dressing(FIM): 4 Lower Body Dressing(FIM): 4 Toileting(FIM): 5 Transfers (B,C,W/C) (FIM): 5 Toilet/Commode Transfer(FIM): 5 Shower Transfer(FIM): 5 Additional Short Term Goals: 1-Demonstrate ADL Tasks, 2-Verbalize Understan ding, 3-ImproveStrength/Ayden 1=Demonstrate adherence to instructed precautions during ADL tasks. 2=Patient will verbalize/demonstrate understanding of assistive devices/modifications for ADL. 3=Patient will improve strength/tolerance for activity to enable patient to perform ADL's. OT Public Health Goals Public Health Goals Time Frame: Jun 11, 2019 Eating (FIM): 6 (met) Eating (QC): 6 (met) Groomin Oral Hygiene (QC): 6 Bathing(FIM): 5 Shower/Bathe Self (QC): 5 Upper Body Dressing(FIM): 6 Upper Body Dressing (QC): 6 Lower Body Dressing(FIM): 6 Lower Body Dressing (QC): 6 On/Off Footwear (QC): 6 Toileting(FIM): 6 Toileting Hygiene (QC): 6 Transfers (B,C,W/C) (FIM): 6 Toilet/Commode Transfer(FIM): 6 Toilet/Commode Transfer (QC): 6 Shower Transfer(FIM): 5 Additional Goals: 1-Demonstrate ADL Tasks, 2-Verbalize Understanding, 3-Improve Strength/Ayden 1=Demonstrate adherence to instructed precautions during ADL tasks. 2=Patient will verbalize/demonstrate understanding of assistive devices/modifications for ADL. 3=Patient will improve strength/tolerance for activity to enable patient to pe rform ADL's. OT Education/Plan Problem List/Assessment Assessment: Decreased Activ Tolerance, Decreased UE Strength, Impaired Cognition, Impaired I ADL's, Impaired Self-Care Skills, Restricted Funct UE ROM Discharge Recommendations Plan/Recommendations: Continue POC Therapy Discharge Recommendati: Post Acute OT Treatment Plan/Plan of Care Treatment,Training & Education: Yes Patient would benefit from OT for education, treatment and training to promote independence in ADL's, mobility, safety and/or upper extremity function for ADL's. Plan of Care: ADL Retraining, Functional Mobility, Group Exercise/Act as Ind, UE Funct Exercise/Act Treatment Duration: Jun 11, 2019 Frequency: At least 5 of 7 days/Wk (IRF) Estimated Hrs Per Day: 1.5 hours per day Agreement: Yes Rehab Potential: Fair Time/GCodes Start Time: 10:00 Stop Time: 11:30 Total Time Billed (hr/min): 90 Billed Treatment Time 1, ADL x 60minutes, FA x 30minutes ANNE MCCARTHY OT Jun 04, 2019 12:49
--- NOTE | 2019-06-04 13:33 | Physical Therapy Daily Note ---
PT Daily Note-Current Subjective Feels like she might have more done toward arrangements for home, " but I would sure like to stay here longer for this good care" Pain Location: No Pain Reported Mental Status Patient Orientation: Normal For Age Transfers Therapy Code Descriptions/Definitions Functional [place] Measure: 0=Not Assessed/NA 4=Minimal Assistance 1=Total Assistance 5=Supervision or Setup 2=Maximal Assistance 6=Modified [place] 3=Moderate Assistance 7=Complete [place] Therapy Quality Codes: 6 Independent with activity with or without an assistive device 5 Patient requires set up or clean up by helper. Patient completes activity by themselves 4 Supervision or touching assist (CGA). [place] provide cues , steadying assist 3 The helper provides less than half the effort to complete the activity 2 The helper provides more than half the effort to complete the activity 1 Dependent. The helper does all the effort to complete an activity 7 Patient refused to complete or attempt activity 9 The patient did not perform the activity before the current illness or injury 88 Not attempted due to Medical conditions or safety concerns all TRFs mod I Weight Bearing Full Weight Bearing Full Weight Bearing Unknown weightbearing status on (L) UE secondary to humerus fracture Gait Training Gait Assistive Device: Cane Large Base Quad 250,200, SBA QC no LOB, slow, careful Exercises Supine Ex: Bridging, Ankle pumps, Quad Set, Glut sets, Heel Slides, Short Arc Quads, Scooting, Straight leg raise, Hip abd/add Supine Reps: 12 Assessment Current Status: Good Progress PT Short Term Goals Short Term Goals Time Frame: Jun 02, 2019 Transfers (B,C,W/C) (FIM): 5 Gait (FIM): 6 Distance (FIM): 3=150 ft Gait Distance Comment: 500' Gait Level of Assist: 6 Gait Assistive Device: Cane Single Point, Handheld Assist, Cane Small Base Quad Wheelchair Distance: not assessed PT Patient Ombudsperson Goals Patient Ombudsperson Goals PT Patient Ombudsperson Goals Time Frame: Jun 09, 2019 Transfers (B,C,W/C) (FIM): 7 Sit to Lying (QC): 6 Lying-Sitting on Side/Bed(QC): 6 Sit to Stand (QC): 6 Rollin Roll Left to Right (QC): 6 Chair/Tne-mu-Xigdj Xfer(QC): 6 Car Transfer (QC): 6 Does the Patient Walk: Yes Gait (FIM): 7 Gait distance (FIM): 3=150 ft Distance: 500 Walk 10 feet (QC): 6 Walk 10ft-Uneven Surface(QC): 6 Walk 50ft with 2 Turns (QC): 6 Walk 150 ft (QC): 6 Gait Level of Assist: 7 Gait Assistive Device: Cane Single Point Does the Pt use WC or Scooter?: No Stairs (FIM): 7 # of Steps: 12 1 Step (curb) (QC): 6 4 Steps (QC): 6 12 Steps (QC): 6 Stairs Level Of Assist: 7 Picking up an Object (QC): 6 PT Plan Treatment/Plan Treatment Plan: Continue Plan of Care Treatment Plan: Bed Mobility, Functional Activity Ayden, Functional Strength, Gait, Therapeutic Exercise, Transfers Treatment Duration: May 28, 2019 Frequency: 11 times per week Estimated Hrs Per Day: .5 hour per day Patient and/or Family Agrees t: Yes Safety Risks/Education Patient Education: Gait Training, Transfer Techniques, Disease Process, Safety Issues Teaching Recipient: Patient Teaching Methods: Demonstration, Discussion Response to Teaching: Verbalize Understanding, Return Demonstration, Reinforcement Needed Time/GCodes Time In: 1230 Time Out: 1300 Total Billed Treatment Time: 30 Total Billed Treatment 1,EX15m,GT15m KORTNEY COLMENARES ASSOCIATE DIRECTOR QA Jun 04, 2019 13:33
[2019-06-04 15:46] VITALS: BP 137/83
[2019-06-04] MEDS: ALPRAZolam 0.25 MG (XANAX) TAB PO PRN (20:42)
[2019-06-04] MEDS: CYCLOBENZAPRINE 10 MG (FLEXERIL) TAB PO SCH (20:42)
[2019-06-04] MEDS: [UNRECOGNIZED DRUG - OTHER] VG SCH (20:44)
[2019-06-04] MEDS: OXYQUINOLINE VG SCH (20:44)
[2019-06-04] MEDS: POLYETHYLENE GLYCOL 17 GM (MIRALAX) PACK PO SCH (21:35)
[2019-06-05 06:56] VITALS: BP 149/79
[2019-06-05] MEDS: DOCUSATE SODIUM 100 MG (COLACE) CAP PO SCH ×2 (09:31→20:52)
[2019-06-05] MEDS: SENNA W/DOCUSATE (SENOKOT S) TABLET PO SCH ×2 (09:32→20:49)
[2019-06-05] MEDS: metroNIDAZOLE 500 MG (FLAGYL) TAB PO SCH ×2 (09:34→20:48)
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
--- NOTE | 2019-06-05 10:56 | Physical Therapy Daily Note ---
PT Daily Note-Current Subjective Pt. states she is excited that she has sold her home but not sure now where she will have her sister in law and nephew move to and is nervous to tell them as she cannot have them live with her. She wishes she could as her sister in law could help her but her nephew is an alcoholic and has caused them to be evicted from previous homes and she cannot have that in her household. Pt. inquires as to when Home care services will come visit her today Pain Location: No Pain Reported Mental Status Patient Orientation: Person, Place, Time, Situation Attachments: Other-See Comments (sling left UE) Transfers Therapy Code Descriptions/Definitions Functional [place] Measure: 0=Not Assessed/NA 4=Minimal Assistance 1=Total Assistance 5=Supervision or Setup 2=Maximal Assistance 6=Modified [place] 3=Moderate Assistance 7=Complete [place] Therapy Quality Codes: 6 Independent with activity with or without an assistive device 5 Patient requires set up or clean up by helper. Patient completes activity by themselves 4 Supervision or touching assist (CGA). [place] provide cues , steadying assist 3 The helper provides less than half the effort to complete the activity 2 The helper provides more than half the effort to complete the activity 1 Dependent. The helper does all the effort to complete an activity 7 Patient refused to complete or attempt activity 9 The patient did not perform the activity before the current illness or injury 88 Not attempted due to Medical conditions or safety concerns Transfers (B, C, W/C) (FIM): 6 Scootin Rollin Roll Left to Right (QC): 6 Supine to/from Sit: 6 Sit to/from Stand: 6 Sit to Lying (QC): 6 Sit to Stand (QC): 6 Chair/Pnd-yd-Npnyb Xfer(QC): 6 Bed to/from Chair: 6 Car Transfer (QC): 6 Weight Bearing Full Weight Bearing Full Weight Bearing Unknown weightbearing status on (L) UE secondary to humerus fracture Gait Training Does the Patient Walk?: Yes Gait (FIM): 6 Distance (FIM): 3=150 ft (200x2) Walk 10 feet (QC): 6 Walk 50 ft with 2 Turns(QC): 6 Walk 150 ft (QC): 6 Walking 10ft/uneven surface-QC: 6 Gait Level of Assist: 6 Gait Persons Needed: 0 Gait Assistive Device: Cane Large Base Quad needs direction as to where to go on unit only Stair Training Stair Training: Handrails/: 1 handrail Stairs (FIM): 6 #of Steps: 12 1 Step (curb) (QC): 6 4 Steps (QC): 6 12 Steps (QC): 6 Stairs: Pattern: Reciprocal Level of Assist: 6 Balance Special Test Comments pt. c/o pain in left shoulder with attempt to bend over, unsafe to trial Exercises Supine Ex: Bridging, Ankle pumps, Quad Set, Rolling, Glut sets, Heel Slides, Short Arc Quads, Scooting, Straight leg raise, Hip abd/add Supine Reps: 15 NuStep Minutes: 10 NuStep Workload: 5 Assessment Current Status: Good Progress PT Short Term Goals Short Term Goals Time Frame: Jun 02, 2019 Transfers (B,C,W/C) (FIM): 5 Gait (FIM): 6 Distance (FIM): 3=150 ft Gait Distance Comment: 500' Gait Level of Assist: 6 Gait Assistive Device: Cane Single Point, Handheld Assist, Cane Small Base Quad Wheelchair Distance: not assessed PT Assisted Goals Staple Side Laster Goals PT Assisted Goals Time Frame: Jun 09, 2019 Transfers (B,C,W/C) (FIM): 7 Sit to Lying (QC): 6 Lying-Sitting on Side/Bed(QC): 6 Sit to Stand (QC): 6 Rollin Roll Left to Right (QC): 6 Chair/Wns-ts-Dnecw Xfer(QC): 6 Car Transfer (QC): 6 Does the Patient Walk: Yes Gait (FIM): 7 Gait distance (FIM): 3=150 ft Distance: 500 Walk 10 feet (QC): 6 Walk 10ft-Uneven Surface(QC): 6 Walk 50ft with 2 Turns (QC): 6 Walk 150 ft (QC): 6 Gait Level of Assist: 7 Gait Assistive Device: Cane Single Point Does the Pt use WC or Scooter?: No Stairs (FIM): 7 # of Steps: 12 1 Step (curb) (QC): 6 4 Steps (QC): 6 12 Steps (QC): 6 Stairs Level Of Assist: 7 Picking up an Object (QC): 6 PT Plan Treatment/Plan Treatment Plan: Continue Plan of Care Treatment Plan: Bed Mobility, Functional Activity Ayden, Functional Strength, Gait, Therapeutic Exercise, Transfers Treatment Duration: May 28, 2019 Frequency: 11 times per week Estimated Hrs Per Day: .5 hour per day Patient and/or Family Agrees t: Yes Safety Risks/Education Patient Education: Gait Training, Transfer Techniques, Steps, Correct Positioning, Disease Process, Safety Issues Teaching Recipient: Patient Teaching Methods: Demonstration, Discussion Response to Teaching: Verbalize Understanding, Return Demonstration, Reinforcement Needed Time/GCodes Time In: 800 Time Out: 900 Total Billed Treatment Time: 60 Total Billed Treatment 1,FA30m,GT15m,EX15m KORTNEY COLMENARES CLOUD SYSTEMS ARCHITECT Jun 05, 2019 10:56
[2019-06-05] MEDS: HYDROcodone/APAP 5 MG/325 MG (LORTAB) TAB PO PRN ×2 (11:26→20:49)
--- NOTE | 2019-06-05 12:02 | Occupational Ther Daily Note ---
OT Current Status-Daily Note Subjective Pt. reports that she is having no pain at beginning of treatment. After shower, pt. reports pain in left UE. Does not report pain level. States that she would like pain medication. Nursing notified. Appearance Pt. up in chair when OT entered room. Agrees to treatment. Mental Status/Objective Patient Orientation: Person, Place Therapy Code Descriptions/Definitions Functional [place] Measure: 0=Not Assessed/NA 4=Minimal Assistance 1=Total Assistance 5=Supervision or Setup 2=Maximal Assistance 6=Modified [place] 3=Moderate Assistance 7=Complete [place] Pt. reports being anxious and will often ask the same question multiple times. ADL-Treatment Therapy Code Descriptions/Definitions Functional [place] Measure: 0=Not Assessed/NA 4=Minimal Assistance 1=Total Assistance 5=Supervision or Setup 2=Maximal Assistance 6=Modified [place] 3=Moderate Assistance 7=Complete [place] Therapy Quality Codes: 6 Independent with activity with or without an assistive device 5 Patient requires set up or clean up by helper. Patient completes activity by themselves 4 Supervision or touching assist (CGA). [place] provide cues , steadying assist 3 The helper provides less than half the effort to complete the activity 2 The helper provides more than half the effort to complete the activity 1 Dependent. The helper does all the effort to complete an activity 7 Patient refused to complete or attempt activity 9 The patient did not perform the activity before the current illness or injury 88 Not attempted due to Medical conditions or safety concerns Eating (FIM): 6 (Pt. is able to open peanut butter package and crackers and eat with no difficulty.) Eating (QC): 6 Grooming (FIM): 5 (Set up at sink to brush hair and teeth.) Oral Hygiene (QC): 5 Bathing (FIM): 5 (SBA in shower with LH sponge.) Shower/Bathe Self (QC): 4 Upper Body (FIM): 5 (SBA to don sling and shirt. Increased time needed.) Upper Body Dressing (QC): 4 Lower Body Dressing (FIM): 5 (SBA to don underwear and pants while standing. Pt. able to don socks and shoes while seated.) Lower Body Dressing (QC): 4 On/Off Footwear (QC): 4 Toileting (FIM): 5 Toileting Hygiene (QC): 4 Transfers (B, C, W/C) (FIM): 5 Toilet/Commode Transfer (FIM): 5 Toilet Transfer (QC): 4 Shower Transfer(FIM): 5 Other Treatment Pt. is able to complete most ADL tasks with SBA. Pt. is educated about wearing dresses possibly at home to make toileting easier. Pt. requires cues to complete and sequence ADL tasks, as she seems anxious while performing certain tasks. After ADLs in room, pt. ambulated to laundry area and completed laundry task with SBA. Pt. is encouraged to ask a friend to assist her at home, as the washing machine/dryer is in the office of her apartment building. Pt. verbalizes understanding. Pt. ambulates to therapy gym and completes arm bike for right UE x 10 minutes at mod resistance for overall strengthening. Tolerated well. All needs met. Ambulated back to room and transferred to bed. Education OT Patient Education: Correct positioning, Exercise program, Modified ADL techniques, Progress toward Goal/Update tx plan, Purpose of tx/functional activities, Reviewed precautions, Rehab process, Transfer techniques Teaching Recipient: Patient Teaching Methods: Demonstration, Discussion Response to Teaching: Verbalize Understanding, Return Demonstration OT Short Term Goals Short Term Goals Time Frame: Jun 04, 2019 Eating(FIM): 6 Grooming(FIM): 6 Bathing(FIM): 5 Upper Body Dressing(FIM): 4 Lower Body Dressing(FIM): 4 Toileting(FIM): 5 Transfers (B,C,W/C) (FIM): 5 Toilet/Commode Transfer(FIM): 5 Shower Transfer(FIM): 5 Additional Short Term Goals: 1-Demonstrate ADL Tasks, 2-Verbalize Understanding, 3-ImproveStrength/Ayden 1=Demonstrate adherence to instructed precautions during ADL tasks. 2=Patient will verbalize/demonstrate understanding of assistive devices/modifications for ADL. 3=Patient will improve strength/tolerance for activity to enable patient to perform ADL's. OT Java Developer Analyst Goals Java Developer Analyst Goals Time Frame: Jun 11, 2019 Eating (FIM): 6 (met) Eating (QC): 6 (met) Groomin Oral Hygiene (QC): 6 Bathing(FIM): 5 Shower/Bathe Self (QC): 5 Upper Body Dressing(FIM): 6 Upper Body Dressing (QC): 6 Lower Body Dressing(FIM): 6 Lower Body Dressing (QC): 6 On/Off Footwear (QC): 6 Toileting(FIM): 6 Toileting Hygiene (QC): 6 Transfers (B,C,W/C) (FIM): 6 Toilet/Commode Transfer(FIM): 6 Toilet/Commode Transfer (QC): 6 Shower Transfer(FIM): 5 Additional Goals: 1-Demonstrate ADL Tasks, 2-Verbalize Understanding, 3- ImproveStrength/Ayden 1=Demonstrate adherence to instructed precautions during ADL tasks. 2=Patient will verbalize/demonstrate understanding of assistive devices/modifications for ADL. 3=Patient will improve strength/tolerance for activity to enable patient to perform ADL's. OT Education/Plan Problem List/Assessment Assessment: Decreased Activ Tolerance, Decreased UE Strength, Impaired I ADL's Discharge Recommendations Plan/Recommendations: Continue POC Therapy Discharge Recommendati: Post Acute OT Equpiment Recommendations-D/C: Extended Bath Bench Treatment Plan/Plan of Care Treatment,Training & Education: Yes Patient would benefit from OT for education, treatment and training to promote independence in ADL's, mobility, safety and/or upper extremity function for ADL's. Plan of Care: ADL Retraining, Functional Mobility, Group Exercise/Act as Ind, UE Funct Exercise/Act Treatment Duration: Jun 11, 2019 Frequency: At least 5 of 7 days/Wk (IRF) Estimated Hrs Per Day: 1.5 hours per day Agreement: Yes Rehab Potential: Fair Time/GCodes Start Time: 10:00 Stop Time: 11:30 Total Time Billed (hr/min): 90 Billed Treatment Time 1, ADL x 75minutes, FA x 15minutes ANNE MCCARTHY OT Jun 05, 2019 12:02
--- NOTE | 2019-06-05 13:03 | Physical Therapy Daily Note ---
PT Daily Note-Current Subjective Pt. agrees to Rx. Anxious for lunch and her aftn appts. Would like to speak to a manager assurance Pain Location: No Pain Reported Transfers Therapy Code Descriptions/Definitions Functional [place] Measure: 0=Not Assessed/NA 4=Minimal Assistance 1=Total Assistance 5=Supervision or Setup 2=Maximal Assistance 6=Modified [place] 3=Moderate Assistance 7=Complete [place] Therapy Quality Codes: 6 Independent with activity with or without an assistive device 5 Patient requires set up or clean up by helper. Patient completes activity by themselves 4 Supervision or touching assist (CGA). [place] provide cues , steadying assist 3 The helper provides less than half the effort to complete the activity 2 The helper provides more than half the effort to complete the activity 1 Dependent. The helper does all the effort to complete an activity 7 Patient refused to complete or attempt activity 9 The patient did not perform the activity before the current illness or injury 88 Not attempted due to Medical conditions or safety concerns all TRFs Mod I, pt. does need reminders occas to use UEs on arms of chairs Weight Bearing Full Weight Bearing Full Weight Bearing Unknown weightbearing status on (L) UE secondary to humerus fracture Gait Training Does the Patient Walk?: Yes Gait Assistive Device: FWW QC 150,100 SBA to Mod I no LOB Exercises Seated Therapy Exercises: Ankle pumps, Sit to stand, Long arc quads, Hip flexion, Hip abd/add Seated Reps: 12 Treatments starts and stops and safety in chair approaches and sit to stand, stand to sit Assessment Current Status: Good Progress PT Short Term Goals Short Term Goals Time Frame: Jun 02, 2019 Transfers (B,C,W/C) (FIM): 5 Gait (FIM): 6 Distance (FIM): 3=150 ft Gait Distance Comment: 500' Gait Level of Assist: 6 Gait Assistive Device: Cane Single Point, Handheld Assist, Cane Small Base Quad Wheelchair Distance: not assessed PT Member Of Technical Staff Goals Member Of Technical Staff Goals PT Care Home Goals Time Frame: Jun 09, 2019 Transfers (B,C,W/C) (FIM): 7 Sit to Lying (QC): 6 Lying-Sitting on Side/Bed(QC): 6 Sit to Stand (QC): 6 Rollin Roll Left to Right (QC): 6 Chair/Nwc-vr-[place] Xfer(QC): 6 Car Transfer (QC): 6 Does the Patient Walk: Yes Gait (FIM): 7 Gait distance (FIM): 3=150 ft Distance: 500 Walk 10 feet (QC): 6 Walk 10ft-Uneven Surface(QC): 6 Walk 50ft with 2 Turns (QC): 6 Walk 150 ft (QC): 6 Gait Level of Assist: 7 Gait Assistive Device: Cane Single Point Does the Pt use WC or Scooter?: No Stairs (FIM): 7 # of Steps: 12 1 Step (curb) (QC): 6 4 Steps (QC): 6 12 Steps (QC): 6 Stairs Level Of Assist: 7 Picking up an Object (QC): 6 PT Plan Treatment/Plan Treatment Plan: Continue Plan of Care Treatment Plan: Bed Mobility, Functional Activity Ayden, Functional Strength, Gait, Therapeutic Exercise, Transfers Treatment Duration: May 28, 2019 Frequency: 11 times per week Estimated Hrs Per Day: .5 hour per day Patient and/or Family Agrees t: Yes Safety Risks/Education Patient Education: Gait Training, Transfer Techniques, Correct Positioning, W/C Management, Disease Process, Safety Issues Teaching Recipient: Patient Teaching Methods: Demonstration, Discussion Response to Teaching: Verbalize Understanding, Return Demonstration, Reinforcement Needed Time/GCodes Time In: 1230 Time Out: 1300 Total Billed Treatment Time: 30 Total Billed Treatment 1,GT20m,FA10m KORTNEY COLMENARES PTA Jun 05, 2019 13:03
--- NOTE | 2019-06-05 13:48 | Physical Therapy Daily Note ---
PT Daily Note-Current Subjective Pt. agrees to Rx. Pain Numeric Pain Scale: 7 Location: Right Location Body Site: Hip Pain Description: Ache Mental Status Patient Orientation: Normal For Age Transfers Therapy Code Descriptions/Definitions Functional [place] Measure: 0=Not Assessed/NA 4=Minimal Assistance 1=Total Assistance 5=Supervision or Setup 2=Maximal Assistance 6=Modified [place] 3=Moderate Assistance 7=Complete [place] Therapy Quality Codes: 6 Independent with activity with or without an assistive device 5 Patient requires set up or clean up by helper. Patient completes activity by themselves 4 Supervision or touching assist (CGA). [place] provide cues , steadying assist 3 The helper provides less than half the effort to complete the activity 2 The helper provides more than half the effort to complete the activity 1 Dependent. The helper does all the effort to complete an activity 7 Patient refused to complete or attempt activity 9 The patient did not perform the activity before the current illness or injury 88 Not attempted due to Medical conditions or safety concerns emphasis on sup to sit and sit to sup with pt. completing this x 2 using only a rail and came up from flat bed surface. Weight Bearing Full Weight Bearing Full Weight Bearing Unknown weightbearing status on (L) UE secondary to humerus fracture Gait Training Gait Assistive Device: FWW 160x2 no LOB FWW slow, careful, emphasis on even step length and heel strike Exercises Supine Ex: Quad Set, Heel Slides, Hip abd/add Supine Reps: 10 Assessment Current Status: Good Progress PT Short Term Goals Short Term Goals Time Frame: Jun 02, 2019 Transfers (B,C,W/C) (FIM): 5 Gait (FIM): 6 Distance (FIM): 3=150 ft Gait Distance Comment: 500' Gait Level of Assist: 6 Gait Assistive Device: Cane Single Point, Handheld Assist, Cane Small Base Quad Wheelchair Distance: not assessed PT Correction Goals Straight Cutter Machine Goals PT Correction Goals Time Frame: Jun 09, 2019 Transfers (B,C,W/C) (FIM): 7 Sit to Lying (QC): 6 Lying-Sitting on Side/Bed(QC): 6 Sit to Stand (QC): 6 Rollin Roll Left to Right (QC): 6 Chair/Gtr-iu-Tweff Xfer(QC): 6 Car Transfer (QC): 6 Does the Patient Walk: Yes Gait (FIM): 7 Gait distance (FIM): 3=150 ft Distance: 500 Walk 10 feet (QC): 6 Walk 10ft-Uneven Surface(QC): 6 Walk 50ft with 2 Turns (QC): 6 Walk 150 ft (QC): 6 Gait Level of Assist: 7 Gait Assistive Device: Cane Single Point Does the Pt use WC or Scooter?: No Stairs (FIM): 7 # of Steps: 12 1 Step (curb) (QC): 6 4 Steps (QC): 6 12 Steps (QC): 6 Stairs Level Of Assist: 7 Picking up an Object (QC): 6 PT Plan Treatment/Plan Treatment Plan: Continue Plan of Care Treatment Plan: Bed Mobility, Functional Activity Ayden, Functional Strength, Gait, Therapeutic Exercise, Transfers Treatment Duration: May 28, 2019 Frequency: 11 times per week Estimated Hrs Per Day: .5 hour per day Patient and/or Family Agrees t: Yes Safety Risks/Education Patient Education: Gait Training, Transfer Techniques Teaching Recipient: Patient Teaching Methods: Demonstration, Discussion Response to Teaching: Verbalize Understanding, Return Demonstration, Reinforcement Needed Time/GCodes Time In: 1410 Time Out: 1440 Total Billed Treatment Time: 30 Total Billed Treatment 1,Gt10m,FA20m KORTNEY COLMENARES FINANCE CONSULTANT Jun 05, 2019 13:48
[2019-06-05] MEDS: IBUPROFEN TABLET 200 MG TAB PO PRN (15:47)
[2019-06-05 17:18] VITALS: BP 126/73
[2019-06-05] MEDS: CYCLOBENZAPRINE 10 MG (FLEXERIL) TAB PO SCH (20:49)
[2019-06-05] MEDS: OXYQUINOLINE VG SCH (20:50)
[2019-06-05] MEDS: [UNRECOGNIZED DRUG - OTHER] VG SCH (20:50)
[2019-06-05] MEDS: POLYETHYLENE GLYCOL 17 GM (MIRALAX) PACK PO SCH (20:52)
[2019-06-05] MEDS: ALPRAZolam 0.25 MG (XANAX) TAB PO PRN (22:31)
[2019-06-06 05:14] VITALS: BP 145/79
[2019-06-06] MEDS: DOCUSATE SODIUM 100 MG (COLACE) CAP PO SCH ×2 (08:17→19:16)
[2019-06-06] MEDS: SENNA W/DOCUSATE (SENOKOT S) TABLET PO SCH ×2 (08:17→19:16)
[2019-06-06] MEDS: HYDROcodone/APAP 5 MG/325 MG (LORTAB) TAB PO PRN ×2 (08:47→20:03)
[2019-06-06] MEDS: metroNIDAZOLE 500 MG (FLAGYL) TAB PO SCH ×2 (08:48→20:02)
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
--- NOTE | 2019-06-06 10:07 | Physical Therapy Daily Note ---
PT Daily Note-Current Subjective Pt. speaks of DC and states she hopes they can help her with bed making and cooking and laundry etc. Pain Location: No Pain Reported Mental Status Patient Orientation: Person, Place, Time, Situation Attachments: Other-See Comments (L arm sling) Transfers Therapy Code Descriptions/Definitions Functional [place] Measure: 0=Not Assessed/NA 4=Minimal Assistance 1=Total Assistance 5=Supervision or Setup 2=Maximal Assistance 6=Modified [place] 3=Moderate Assistance 7=Complete [place] Therapy Quality Codes: 6 Independent with activity with or without an assistive device 5 Patient requires set up or clean up by helper. Patient completes activity by themselves 4 Supervision or touching assist (CGA). [place] provide cues , steadying assist 3 The helper provides less than half the effort to complete the activity 2 The helper provides more than half the effort to complete the activity 1 Dependent. The helper does all the effort to complete an activity 7 Patient refused to complete or attempt activity 9 The patient did not perform the activity before the current illness or injury 88 Not attempted due to Medical conditions or safety concerns Transfers (B, C, W/C) (FIM): 6 Scootin Rollin Roll Left to Right (QC): 6 Supine to/from Sit: 6 Sit to/from Stand: 6 Sit to Lying (QC): 6 Sit to Stand (QC): 6 Chair/Nkw-yc-Geuro Xfer(QC): 6 Bed to/from Chair: 6 Car Transfer (QC): 6 Weight Bearing Full Weight Bearing Full Weight Bearing Unknown weightbearing status on (L) UE secondary to humerus fracture Gait Training Does the Patient Walk?: Yes Gait (FIM): 6 Distance (FIM): 3=150 ft (200x3) Walk 10 feet (QC): 6 Walk 50 ft with 2 Turns(QC): 6 Walk 150 ft (QC): 6 Gait Level of Assist: 6 Gait Persons Needed: 0 Gait Assistive Device: Cane Large Base Quad side stepping left and right, retro all without LOB Stair Training Stair Training: Handrails/: 1 handrail Stairs (FIM): 5 #of Steps: 12 1 Step (curb) (QC): 5 4 Steps (QC): 5 12 Steps (QC): 5 Stairs: Pattern: Reciprocal Level of Assist: 5 SBA only Balance Special Test Comments uncomfortable to bend over Exercises Supine Ex: Bridging, Ankle pumps, Quad Set, Rolling, Glut sets, Heel Slides, Short Arc Quads, Scooting, Straight leg raise, Hip abd/add Supine Reps: 15 Seated Therapy Exercises: Ankle pumps, Sit to stand, Long arc quads, Hip flexion, Hip abd/add Seated Reps: 15 NuStep Minutes: 8 NuStep Workload: 10 Assessment Current Status: Good Progress functional progress, no LOB, stairs, gait, TRFs including car TRF all SBA to Mod I. Pt. would be perfect candidate for Asst Living, plans to return home with what she hopes will be home care assistance PT Short Term Goals Short Term Goals Time Frame: Jun 02, 2019 Transfers (B,C,W/C) (FIM): 5 Gait (FIM): 6 Distance (FIM): 3=150 ft Gait Distance Comment: 500' Gait Level of Assist: 6 Gait Assistive Device: Cane Single Point, Handheld Assist, Cane Small Base Quad Wheelchair Distance: not assessed PT Teller Vault Goals Teller Vault Goals PT Longterm Goals Time Frame: Jun 09, 2019 Transfers (B,C,W/C) (FIM): 7 Sit to Lying (QC): 6 Lying-Sitting on Side/Bed(QC): 6 Sit to Stand (QC): 6 Rollin Roll Left to Right (QC): 6 Chair/[place] Xfer(QC): 6 Car Transfer (QC): 6 Does the Patient Walk: Yes Gait (FIM): 7 Gait distance (FIM): 3=150 ft Distance: 500 Walk 10 feet (QC): 6 Walk 10ft-Uneven Surface(QC): 6 Walk 50ft with 2 Turns (QC): 6 Walk 150 ft (QC): 6 Gait Level of Assist: 7 Gait Assistive Device: Cane Single Point Does the Pt use WC or Scooter?: No Stairs (FIM): 7 # of Steps: 12 1 Step (curb) (QC): 6 4 Steps (QC): 6 12 Steps (QC): 6 Stairs Level Of Assist: 7 Picking up an Object (QC): 6 PT Plan Treatment/Plan Treatment Plan: Continue Plan of Care Treatment Plan: Bed Mobility, Functional Activity Ayden, Functional Strength, Gait, Therapeutic Exercise, Transfers Treatment Duration: May 28, 2019 Frequency: 11 times per week Estimated Hrs Per Day: .5 hour per day Patient and/or Family Agrees t: Yes Safety Risks/Education Patient Education: Gait Training, Transfer Techniques, Steps, Correct Positioning, Disease Process, Safety Issues Teaching Recipient: Patient Teaching Methods: Demonstration, Discussion Response to Teaching: Verbalize Understanding, Return Demonstration, Reinforcement Needed Time/GCodes Time In: 900 Time Out: 1000 Total Billed Treatment Time: 60 Total Billed Treatment 1,GT25m,FA20m,EX15m KORTNEY COLMENARES HUMAN RESOURCES OPERATIONS DIRECTOR Jun 06, 2019 10:07
--- NOTE | 2019-06-06 10:13 | NUR ---
Notified by therapy staff that patient is interested in in-home assistance for several hours each day once she is discharged home. Met with patient to discuss this. Patient reports she would like someone in the home to assist her with setting up meals, cleaning and self care. Reviewed options with patient and she would like a referral made to [facility]. [facility] notified of referral. They will call patient for initial assessment this afternoon, after patient is finished with therapies.
--- NOTE | 2019-06-06 10:26 | NUR ---
Patient's friend and caregiver, Yvette Aponte, is visiting patient. Yvette is expressing concern regarding patient's discharge home. Yvette states that she and another friend have been providing assistance to patient; however, one caregiver has had recent cardiac surgery and Yvette will be traveling out of town and will not be able to provide assistance to patient. Discussed HHC and in-home assistance with the patient and Yvette at patient's bedside. Informed both that a referral has been made to [facility] and that someone will be reaching out to the patient to discuss her needs. Both verbalize understanding.
[2019-06-06] MEDS: IBUPROFEN TABLET 200 MG TAB PO PRN ×2 (12:13→18:45)
--- NOTE | 2019-06-06 12:14 | Physical Therapy Daily Note ---
PT Daily Note-Current Subjective Pt. is agreeable to Rx, c/o pain in left shoulder at 6/10, requests pain meds of nurse Pain Numeric Pain Scale: 6 Location: Left Location Body Site: Shoulder Pain Description: Ache Mental Status Patient Orientation: Normal For Age Transfers Therapy Code Descriptions/Definitions Functional [place] Measure: 0=Not Assessed/NA 4=Minimal Assistance 1=Total Assistance 5=Supervision or Setup 2=Maximal Assistance 6=Modified [place] 3=Moderate Assistance 7=Complete [place] Therapy Quality Codes: 6 Independent with activity with or without an assistive device 5 Patient requires set up or clean up by helper. Patient completes activity by themselves 4 Supervision or touching assist (CGA). [place] provide cues , steadying assist 3 The helper provides less than half the effort to complete the activity 2 The helper provides more than half the effort to complete the activity 1 Dependent. The helper does all the effort to complete an activity 7 Patient refused to complete or attempt activity 9 The patient did not perform the activity before the current illness or injury 88 Not attempted due to Medical conditions or safety concerns sit to stands with emphasis on safe use of UEs on chair arms etc. all done well Weight Bearing Full Weight Bearing Full Weight Bearing Unknown weightbearing status on (L) UE secondary to humerus fracture Gait Training Gait Assistive Device: Cane Large Base Quad gait in small spaces no LOB around her room Exercises Supine Ex: Ankle pumps, Quad Set, Heel Slides, Short Arc Quads, Scooting, Straight leg raise, Hip abd/add Supine Reps: 15 Treatments MHP 15m in sup for c/o back/shoulder pain with good results Assessment Current Status: Good Progress PT Short Term Goals Short Term Goals Time Frame: Jun 02, 2019 Transfers (B,C,W/C) (FIM): 5 Gait (FIM): 6 Distance (FIM): 3=150 ft Gait Distance Comment: 500' Gait Level of Assist: 6 Gait Assistive Device: Cane Single Point, Handheld Assist, Cane Small Base Quad PT [place]erman/Woman Goals [place]/Woman Goals PT Fdc Goals Time Frame: Jun 09, 2019 Transfers (B,C,W/C) (FIM): 7 Sit to Lying (QC): 6 Lying-Sitting on Side/Bed(QC): 6 Sit to Stand (QC): 6 Rollin Roll Left to Right (QC): 6 Chair/Frs-tg-Drwrc Xfer(QC): 6 Car Transfer (QC): 6 Does the Patient Walk: Yes Gait (FIM): 7 Gait distance (FIM): 3=150 ft Distance: 500 Walk 10 feet (QC): 6 Walk 10ft-Uneven Surface(QC): 6 Walk 50ft with 2 Turns (QC): 6 Walk 150 ft (QC): 6 Gait Level of Assist: 7 Gait Assistive Device: Cane Single Point Does the Pt use WC or Scooter?: No Stairs (FIM): 7 # of Steps: 12 1 Step (curb) (QC): 6 4 Steps (QC): 6 12 Steps (QC): 6 Stairs Level Of Assist: 7 Picking up an Object (QC): 6 PT Plan Treatment/Plan Treatment Plan: Continue Plan of Care Treatment Plan: Bed Mobility, Functional Activity Ayden, Functional Strength, Gait, Therapeutic Exercise, Transfers Treatment Duration: May 28, 2019 Frequency: 11 times per week Estimated Hrs Per Day: .5 hour per day Patient and/or Family Agrees t: Yes Safety Risks/Education Patient Education: Gait Training, Transfer Techniques, Correct Positioning, Disease Process, Safety Issues Teaching Recipient: Patient Teaching Methods: Demonstration, Discussion Response to Teaching: Verbalize Understanding, Return Demonstration, R einforcement Needed Time/GCodes Time In: 1135 Time Out: 1205 Total Billed Treatment Time: 30 Total Billed Treatment 1,FA20m,EX10m KORTNEY COLMENARES PTA Jun 06, 2019 12:14
--- NOTE | 2019-06-06 13:09 | Occupational Ther Daily Note ---
OT Current Status-Daily Note Subjective Pt alert sitting in chair upon OT arrival. Pt agrees to therapy. Discussed with [facility], pt up ad jose ramon in room daytime hours only. Mental Status/Objective Patient Orientation: Person, Place, Time, Situation Therapy Code Descriptions/Definitions Functional [place] Measure: 0=Not Assessed/NA 4=Minimal Assistance 1=Total Assistance 5=Supervision or Setup 2=Maximal Assistance 6=Modified [place] 3=Moderate Assistance 7=Complete [place] ADL-Treatment Pt declined taking a shower today because she took one last night with nrsg. Pt elected to sponge bathe. Pt was concerned about not being able to use a chair in bathroom once returning home because lack of space. Pt agreed to practice performing sponge bath at sink while standing. Pt completed sponge bath activity with SBA due to safety concerns. Pt stated she normally get dressed in her bathroom at home sitting on toilet. Therapy Code Descriptions/Definitions Functional [place] Measure: 0=Not Assessed/NA 4=Minimal Assistance 1=Total Assistance 5=Supervision or Setup 2=Maximal Assistance 6=Modified [place] 3=Moderate Assistance 7=Complete [place] Therapy Quality Codes: 6 Independent with activity with or without an assistive device 5 Patient requires set up or clean up by helper. Patient completes activity by themselves 4 Supervision or touching assist (CGA). [place] provide cues , steadying assist 3 The helper provides less than half the effort to complete the activity 2 The helper provides more than half the effort to complete the activity 1 Dependent. The helper does all the effort to complete an activity 7 Patient refused to complete or attempt activity 9 The patient did not perform the activity before the current illness or injury 88 Not attempted due to Medical conditions or safety concerns Eating (FIM): 6 (Pt demo ability to doff/don dentures before and after eating. Pt demo ability to use utensils properly and open containers. ) Eating (QC): 6 Grooming (FIM): 6 (Pt able to stand at sink to brush hair and teeth by self. Pt stabilized self using counter top. SBA due to safety conerns. ) Oral Hygiene (QC): 6 Bathing (FIM): 6 (Pt able to stand at sink to perform sponge bath. Pt able to wash, rinse, and dry UE, face, namita area, and buttoucks while standing at sink. Pt stabalized self at counter. ) Bathing Location: L Arm, R Arm, Chest, Abdomen, Buttocks, Perineal Area Shower/Bathe Self (QC): 6 (safety concerns. ) Upper Body (FIM): 6 (Pt able to retrieve clothes from closet using cane. Pt able to don/doff shoulder sling by self. Pt able to doff/don shirt by self while sitting. ) Upper Body Dressing (QC): 6 Lower Body Dressing (FIM): 6 (Pt requires cane. Pt able to doff/don underwear and pants while sitting and hike above waist when standing. ) Lower Body Dressing (QC): 6 On/Off Footwear (QC): 6 Toileting (FIM): 6 (Pt able to manage clothing properly before and after voiding and cleanse self properly. ) Toileting Hygiene (QC): 6 (Pt requires cane and grab bar. ) Transfers (B, C, W/C) (FIM): 6 (Pt requires arm rests on chair and cane. ) Toilet/Commode Transfer (FIM): 6 (Pt requires cane and grab bar. ) Shower Transfer(FIM): 6 (Pt requires cane, grab bar, and shower bench. ) Other Treatment Pt educated on proper one arm techniques to make bed. Pt participated in IADL activity by making own bed. Pt was able to complete activity safely but required rest breaks due to decreased activity tolerance. Pt ambulated using cane to therapy gym. Pt participated in fine motor exercise by taking off different resistance clothes pins and placing back on brittaney 2x each. Pt ambulated to room. Pt sitting in chair. PT in room. Education OT Patient Education: Modified ADL techniques, Safety issues Teaching Recipient: Patient OT Short Term Goals Short Term Goals Time Frame: Jun 04, 2019 Eating(FIM): 6 Grooming(FIM): 6 Bathing(FIM): 5 Upper Body Dressing(FIM): 4 Lower Body Dressing(FIM): 4 Toileting(FIM): 5 Transfers (B,C,W/C) (FIM): 5 Toilet/Commode Transfer(FIM): 5 Shower Transfer(FIM): 5 Additional Short Term Goals: 1-Demonstrate ADL Tasks, 2-Verbalize Understanding, 3-ImproveStrength/Ayden 1=Demonstrate adherence to instructed precautions during ADL tasks. 2=Patient will verbalize/demonstrate understanding of assistive devices/modifications for ADL. 3=Patient will improve strength/tolerance for activity to enable patient to perform ADL's. OT Biomedical Analytical Scientist Goals Biomedical Analytical Scientist Goals Time Frame: Jun 11, 2019 Eating (FIM): 6 (met) Eating (QC): 6 (met) Groomin Oral Hygiene (QC): 6 Bathing(FIM): 5 Shower/Bathe Self (QC): 5 Upper Body Dressing(FIM): 6 Upper Body Dressing (QC): 6 Lower Body Dressing(FIM): 6 Lower Body Dressing (QC): 6 On/Off Footwear (QC): 6 Toileting(FIM): 6 Toileting Hygiene (QC): 6 Transfers (B,C,W/C) (FIM): 6 Toilet/Commode Transfer(FIM): 6 Toilet/Commode Transfer (QC): 6 Shower Transfer(FIM): 5 Additional Goals: 1-Demonstrate ADL Tasks, 2-Verbalize Understanding, 3- ImproveStrength/Ayden 1=Demonstrate adherence to instructed precautions during ADL tasks. 2=Patient will verbalize/demonstrate understanding of assistive devices/modifications for ADL. 3=Patient will improve strength/tolerance for activity to enable patient to perform ADL's. OT Education/Plan Problem List/Assessment Assessment: Decreased Activ Tolerance, Decreased UE Strength Discharge Recommendations Plan/Recommendations: Continue POC Treatment Plan/Plan of Care Patient would benefit from OT for education, treatment and training to promote independence in ADL's, mobility, safety and/or upper extremity function for ADL's. Plan of Care: ADL Retraining, Functional Mobility, Group Exercise/Act as Ind, UE Funct Exercise/Act Treatment Duration: Jun 11, 2019 Frequency: At least 5 of 7 days/Wk (IRF) Estimated Hrs Per Day: 1.5 hours per day Agreement: Yes Rehab Potential: Fair Time/GCodes Start Time: 10:00 Stop Time: 11:30 Total Time Billed (hr/min): 90 Billed Treatment Time 1 visit- ADL 4 (60 min) FA 1 (15 min) EX 1 (15 min) FRANCISCO CAT Jun 06, 2019 13:09
--- NOTE | 2019-06-06 14:05 | NUR ---
Weekly Team Conference Met with patient and patient's friend/caregiver, Yvette Aponte, regarding weekly team conference. Patient reports she spoke with a technical sales representatives from [facility] and she was told the cost would be $50 for 2 hours of in-home assistance. Patient reports she is not able to afford this service. After further discussion with the patient, she requests a referral be made to [facility]. Patient requests, that if accepted to [facility], she would like to discharge tomorrow as Yvette will be traveling out of town on Tuesday. Referral faxed to [facility] at [phone] with the request that someone from the facility come talk with the patient prior to discharge (as requested by the patient). If accepted to [facility] will plan to discharge on 06/07/19. Patient is agreeable to this plan.
[2019-06-06 17:26] VITALS: BP 143/79
--- NOTE | 2019-06-06 18:58 | Diagnostic Imaging Report ---
INDICATION: Fall, pelvic injury. COMPARISON: None. FINDINGS: Three views of the sacrum and coccyx demonstrate no obvious fracture or traumatic malalignment. The SI joints are symmetric. No osseous lesion. IMPRESSION: No traumatic malalignment or fracture. Dictated by: Dictated on workstation # [id number]
[2019-06-06] MEDS: POLYETHYLENE GLYCOL 17 GM (MIRALAX) PACK PO SCH (19:16)
[2019-06-06] MEDS: CYCLOBENZAPRINE 10 MG (FLEXERIL) TAB PO SCH (20:02)
[2019-06-06] MEDS: OXYQUINOLINE VG SCH (20:03)
[2019-06-06] MEDS: [UNRECOGNIZED DRUG - OTHER] VG SCH (20:03)
[2019-06-06] MEDS: ALPRAZolam 0.25 MG (XANAX) TAB PO PRN (20:03)
[2019-06-07] MEDS: IBUPROFEN TABLET 200 MG TAB PO PRN (02:43)
[2019-06-07 05:55] VITALS: BP 126/73
[2019-06-07] MEDS ORDERED: OXYQ113.2 VG (06:25)
[2019-06-07] MEDS ORDERED: DOCU100C37 PO (06:25)
[2019-06-07] MEDS ORDERED: ACET-77 PO (06:25)
[2019-06-07] MEDS ORDERED: CYCL10TA9 PO (06:25)
[2019-06-07] MEDS ORDERED: IBUP-2055 PO (06:25)
[2019-06-07] MEDS ORDERED: ACHD5005 PO (06:25)
--- NOTE | 2019-06-07 06:27 | Discharge Summary ---
Discharge Summary Reconcile Patient Problems Problems Reviewed?: Yes Hospital Course Hospital Course Date of Admission: May 26, 2019 at 12:52 Admission Diagnosis : Family Physician/Provider: Seema Farooq MD Date of Discharge: 06/07/19 Discharge Diagnosis: left humerus fracture, fibromyalgia, frequent falls Labs and Pending Lab Test: Home Meds Active Reported Probiotic (Lactobacillus Acidophilus) 1 Each Capsule 2 Cap PO HS Follow Up Appt.: Dr Sanchez in 1 week Skilled NF Admit to: Via [facility] Certification ([facility]) I certify that [facility] services are required to be given on an inpatient basis because of the above named patient's need for long term care on a continuing basis for the conditions(s) for which he/she was receiving inpatient hospital services prior to his/her transfer to the SNF. Longterm Facility Order: Nursing Services, Real Estate Underwriter-Evaluate & Treat, Physical Therapy-Evaluate & Treat Oxygen Delivery Method: Room Air Discharge Diet: No Restrictions Daily Activity as Tolerated: Yes Resuscitation Status: Full Code Karena Snyder Jun 07, 2019 06:25 Pneu Vac Indicated: Yes Discharge Physical Exam General: Alert, Oriented X3, Cooperative Lungs: Clear to Auscultation Heart: Regular Rate Neuro: Normal Gait, Normal Speech, Strength at 5/5 X4 Ext Psych/Mental Status: Mental Status NL KARENA SNYDER DO Jun 07, 2019 06:27
--- NOTE | 2019-06-07 06:28 | Discharge Summary ---
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 Faviola Sanchez, DNP Dementia Pessary causing vaginal irritation and vaginosis Plan: Vitamin B-12 injection Supportive care Rehabilitation protocol Pain control but decrease Lortab to Q6hrs BM regimen Appreciate orthopedic surgery consult [facility] evaluation was appreciated Gynecology appreciated Recommend assisted living at discharge due to decrease isolation at home and to provide support for somatic complaints Labs reviewed Spoke to Dr Box personally and he will see her in the office in 3-4 weeks from injury NHP at [facility] (1) Left humeral fracture Status: Acute (2) Fibromyalgia Status: Chronic (3) Vitamin B 12 deficiency Status: Chronic (4) Falls frequently Status: Chronic (5) Chronic vertigo Status: Chronic (6) Constipation Status: Acute Qualifiers: Constipation type: slow transit constipation Qualified Codes: K59.01 - Slow transit constipation (7) Depression Status: Chronic Qualifiers: Depression Type: unspecified Qualified Codes: F32.9 - Major depressive disorder, single episode, unspecified (8) Reflux esophagitis Status: Chronic (9) Cognitive decline Status: Acute Discharge Summary Discharge Physical Examination Allergies: Coded Allergies: cefuroxime (Verified Allergy, Unknown, Hives, 12/27/18) Vitals & I&Os Vital Signs Date Time Temp Pulse Resp B/P (MAP) Pulse Ox O2 Delivery O2 Flow Rate FiO2 06/07/19 09:00 Room Air 06/07/19 05:55 36.0 63 18 126/73 (90) 96 General Appearance: Alert, Oriented X3, Cooperative Respiratory: Clear to Auscultation Cardiovascular: Regular Rate Neuro: Normal Gait, Normal Speech, Strength at 5/5 X4 Ext Psych/Mental Status: Mental Status NL Hospital Course Was the Problem List Reviewed?: Yes Hospital course: Pt had an uneventful hospital course for 13 days, she parti cipated in all therapy, pain control of the left humorous fracture was managed with Lortab, Motrin, and Tylenol wth good results. Bowel regimen resolved the constipation and overall she responded to intensive treatment throughout her hospital stay in inpatient rehab. She continued to be a fall risk, that was managed best we could and arrangements were being made for discharge at he end of the week on Tuesday but then after our team meeting she had a fall and immediately changed her plans to go to [facility]. She was deemed stable for discharge at the time and we did talk about her pain regimen and she will have close follow-up with her PCP Dr. Sanchez for her Fibromyalgia. Labs (last 24 hrs) Laboratory Tests 05/28/19 04:24: White Blood Count 5.8, Red Blood Count 3.54L, Hemoglobin 10.9L, Hematocrit 35, Mean Corpuscular Volume 99, Mean Corpuscular Hemoglobin 31, Mean Corpuscular Hemoglobin Concent 31L, Red Cell Distribution Width 13.9, Platelet Count 156, Mean Platelet Volume 12.4H, Neutrophils (%) (Auto) 43, Lymphocytes (%) (Auto) 36, Monocytes (%) (Auto) 18H, Eosinophils (%) (Auto) 2, Basophils (%) (Auto) 0, Neutrophils # (Auto) 2.5, Lymphocytes # (Auto) 2.1, Monocytes # (Auto) 1.0, Eosinophils # (Auto) 0.1, Basophils # (Auto) 0.0, Sodium Level 134L, Potassium Level 5.0, Chloride Level 99, Carbon Dioxide Level 26, Anion Gap 9, Blood Urea Nitrogen 15, Creatinine 0.71, Estimat Glomerular Filtration Rate > 60, BUN/Creatinine Ratio 21, Glucose Level 85, Calcium Level 8.8, Corrected Calcium 9.5, Total Bilirubin 0.6, Aspartate Amino Transf (AST/SGOT) 19, Alanine Aminotransferase (ALT/SGPT) 12, Alkaline Phosphatase 64, Total Protein 5.3L, Albumin 3.1L 06/04/19 04:34: White Blood Count 4.7, Red Blood Count 3.66L, Hemoglobin 11.4L, Hematocrit 36, Mean Corpuscular Volume 97, Mean Corpuscular Hemoglobin 31, Mean Corpuscular Hemoglobin Concent 32, Red Cell Distribution Width 13.8, Platelet Count 245, Mean Platelet Volume 11.2H, Neutrophils (%) (Auto) 54, Lymphocytes (%) (Auto) 28, Monocytes (%) (Auto) 14H, Eosinophils (%) (Auto) 3, Basophils (%) (Auto) 0, Neutrophils # (Auto) 2.6, Lymphocytes # (Auto) 1.3, Monocytes # (Auto) 0.7, Eosinophils # (Auto) 0.2, Basophils # (Auto) 0.0, Sodium Level 136, Potassium Level 4.3, Chloride Level 102, Carbon Dioxide Level 25, Anion Gap 9, Blood Urea Nitrogen 13, Creatinine 0.66, Estimat Glomerular Filtration Rate > 60, BUN/Creatinine Ratio 20, Glucose Level 97, Calcium Level 9.0, Corrected Calcium 9.6, Total Bilirubin 0.7, Aspartate Amino Transf (AST/SGOT) 32, Alanine Aminotransferase (ALT/SGPT) 29, Alkaline Phosphatase 72, Total Protein 5.7L, Albumin 3.3 Pending Labs Laboratory Tests 05/28/19 04:24: White Blood Count 5.8, Red Blood Count 3.54, Hemoglobin 10.9, Hematocrit 35, Mean Corpuscular Volume 99, Mean Corpuscular Hemoglobin 31, Mean Corpuscular Hemoglobin Concent 31, Red Cell Distribution Width 13.9, Platelet Count 156, Mean Platelet Volume 12.4, Neutrophils (%) (Auto) 43, Lymphocytes (%) (Auto) 36, Monocytes (%) (Auto) 18, Eosinophils (%) (Auto) 2, Basophils (%) (Auto) 0, Neutrophils # (Auto) 2.5, Lymphocytes # (Auto) 2.1, Monocytes # (Auto) 1.0, Eosinophils # (Auto) 0.1, Basophils # (Auto) 0.0, Sodium Level 134, Potassium Level 5.0, Chloride Level 99, Carbon Dioxide Level 26, Anion Gap 9, Blood Urea Nitrogen 15, Creatinine 0.71, Estimat Glomerular Filtration Rate > 60, BUN/ Creatinine Ratio 21, Glucose Level 85, Calcium Level 8.8, Corrected Calcium 9.5, Total Bilirubin 0.6, Aspartate Amino Transf (AST/SGOT) 19, Alanine Aminotransferase (ALT/SGPT) 12, Alkaline Phosphatase 64, Total Protein 5.3, Albumin 3.1 06/04/19 04:34: White Blood Count 4.7, Red Blood Count 3.66, Hemoglobin 11.4, Hematocrit 36, Mean Corpuscular Volume 97, Mean Corpuscular Hemoglobin 31, Mean Corpuscular Hemoglobin Concent 32, Red Cell Distribution Width 13.8, Platelet Count 245, Mean Platelet Volume 11.2, Neutrophils (%) (Auto) 54, Lymphocytes (%) (Auto) 28, Monocytes (%) (Auto) 14, Eosinophils (%) (Auto) 3, Basophils (%) (Auto) 0, Neutrophils # (Auto) 2.6, Lymphocytes # (Auto) 1.3, Monocytes # (Auto) 0.7, Eosinophils # (Auto) 0.2, Basophils # (Auto) 0.0, Sodium Level 136, Potassium Level 4.3, Chloride Level 102, Carbon Dioxide Level 25, Anion Gap 9, Blood Urea Nitrogen 13, Creatinine 0.66, Estimat Glomerular Filtration Rate > 60, BUN/Creatinine Ratio 20, Glucose Level 97, Calcium Level 9.0, Corrected Calcium 9.6, Total Bilirubin 0.7, Aspartate Amino Transf (AST/SGOT) 32, Alanine Aminotransferase (ALT/SGPT) 29, Alkaline Phosphatase 72, Total Protein 5.7, Albumin 3.3 Discharge Home Medications: Active Scripts Active Trimo-Crisostomo Jelly (Oxyquinoline/Sod.lauryl Sulfat) 113.4 Gm Jelly.appl 0 Gm VG HS 30 Days Docusate Sodium 100 Mg Capsule 100 Mg PO BID 30 Days Acetaminophen 500 Mg Tablet 500 Mg PO Q6H PRN 30 Days Hydrocodone/Acetaminophen 5/325mg Tablet (Acetaminophen/Hydrocodone Bitart) 1 Tab Tab 1 Tab PO Q6HR PRN Ibuprofen 200 Mg Tablet 400 Mg PO Q6H PRN 30 Days Cyclobenzaprine HCl 10 Mg Tablet 5 Mg PO HS 30 Days Reported Probiotic (Lactobacillus Acidophilus) 1 Each Capsule 2 Cap PO HS Instructions to patient/family Please see electronic discharge instructions given to patient. Diagnosis/Problems Diagnosis/Problems (1) Left humeral fracture Status: Acute (2) Fibromyalgia Status: Chronic (3) Vitamin B 12 deficiency Status: Chronic (4) Falls frequently Status: Chronic (5) Chronic vertigo Status: Chronic (6) Constipation Status: Acute Qualifiers: Qualified Codes: K59.01 - Slow transit constipation (7) Depression Status: Chronic Qualifiers: Qualified Codes: F32.9 - Major depressive disorder, single episode, un specified (8) Reflux esophagitis Status: Chronic (9) Cognitive decline Status: Acute Clinical Quality Measures DVT/VTE Risk/Contraindication: Risk Factor Score Per Nursin RFS Level Per Nursing on Admit: 2=Moderate GALAVIZ,MARLO DO Jun 07, 2019 06:28
--- NOTE | 2019-06-07 08:22 | Physical Therapy Daily Note ---
PT Daily Note-Current Subjective Patient sitting EOB pre tx, agrees to PT, voices no complaints of pain. Patient is leaving this facility today and will be FIM'ed now. Patient needs to use the restroom and does so without any assist other than SBA to get her on and off the toilet. Appearance Patient sitting EOB post tx with nurse call, phone, tray, all needs met. Mental Status Patient Orientation: Person, Place, Situation left arm sling Transfers Therapy Code Descriptions/Definitions Functional [place] Measure: 0=Not Assessed/NA 4=Minimal Assistance 1=Total Assistance 5=Supervision or Setup 2=Maximal Assistance 6=Modified [place] 3=Moderate Assistance 7=Complete [place] Therapy Quality Codes: 6 Independent with activity with or without an assistive device 5 Patient requires set up or clean up by helper. Patient completes activity by themselves 4 Supervision or touching assist (CGA). [place] provide cues , steadying assist 3 The helper provides less than half the effort to complete the activity 2 The helper provides more than half the effort to complete the activity 1 Dependent. The helper does all the effort to complete an activity 7 Patient refused to complete or attempt activity 9 The patient did not perform the activity before the current illness or injury 88 Not attempted due to Medical conditions or safety concerns Transfers (B, C, W/C) (FIM): 5 Scootin Rollin Roll Left to Right (QC): 6 Supine to/from Sit: 6 Sit to/from Stand: 5 Sit to Lying (QC): 6 Sit to Stand (QC): 4 Chair/Ggu-lc-Phjyp Xfer(QC): 4 Bed to/from Chair: 5 Car Transfer (QC): 4 Patient performs bed mobility with mod I, supine <-> sit with mod I, sit <-> stand with SBA, transfers with SBA, car transfer SBA. Patient was retropulsive immediately upon standing and had to lean back against the bed before correcting herself. Weight Bearing Full Weight Bearing Full Weight Bearing Unknown weightbearing status on (L) UE secondary to humerus fracture Gait Training Gait (FIM): 5 Distance: 200'x2 Walk 10 feet (QC): 4 Walk 50 ft with 2 Turns(QC): 4 Walk 150 ft (QC): 4 Walking 10ft/uneven surface-QC: 4 Gait Level of Assist: 5 Gait Persons Needed: 1 Gait Assistive Device: Cane Small Base Quad Patient can ambulate 200' with a quad cane with SBA (including 50' with at least 2 turns of 90 degrees and 10' over an uneven surface). Slow but steady ambulation. Stair Training Stair Training: Handrails/: 1 handrail Stairs (FIM): 5 #of Steps: 12 1 Step (curb) (QC): 4 4 Steps (QC): 4 12 Steps (QC): 4 Stairs: Pattern: Step to Level of Assist: 5 Patient can go up and down 12 steps using 1 handrail with SBA. Close supervision. Unsteady when descending steps. Treatments bed mobility and transfers, ambulation, car transfer, stairs Assessment Current Status: Fair Progress Patient does have some unsteadiness after sit to stand and descending steps. PT Short Term Goals Short Term Goals Time Frame: Jun 02, 2019 Transfers (B,C,W/C) (FIM): 5 Gait (FIM): 6 Distance (FIM): 3=150 ft Gait Distance Comment: 500' Gait Level of Assist: 6 Gait Assistive Device: Cane Single Point, Handheld Assist, Cane Small Base Quad PT Word Processing Specialist Goals Word Processing Specialist Goals PT Word Processing Specialist Goals Time Frame: Jun 09, 2019 Transfers (B,C,W/C) (FIM): 7 Sit to Lying (QC): 6 Lying-Sitting on Side/Bed(QC): 6 Sit to Stand (QC): 6 Rollin Roll Left to Right (QC): 6 Chair/Zwe-zd-Lafog Xfer(QC): 6 Car Transfer (QC): 6 Does the Patient Walk: Yes Gait (FIM): 7 Gait distance (FIM): 3=150 ft Distance: 500 Walk 10 feet (QC): 6 Walk 10ft-Uneven Surface(QC): 6 Walk 50ft with 2 Turns (QC): 6 Walk 150 ft (QC): 6 Gait Level of Assist: 7 Gait Assistive Device: Cane Single Point Does the Pt use WC or Scooter?: No Stairs (FIM): 7 # of Steps: 12 1 Step (curb) (QC): 6 4 Steps (QC): 6 12 Steps (QC): 6 Stairs Level Of Assist: 7 Picking up an Object (QC): 6 PT Plan Problem List Problem List: Activity Tolerance, Functional Strength, Safety, Balance, Gait, Transfer Treatment/Plan Treatment Plan: Continue Plan of Care Treatment Plan: Bed Mobility, Functional Activity Ayden, Functional Strength, Gait, Therapeutic Exercise, Transfers Treatment Duration: May 28, 2019 Frequency: 11 times per week Estimated Hrs Per Day: .5 hour per day Patient and/or Family Agrees t: Yes Safety Risks/Education Patient Education: Gait Training, Transfer Techniques, Steps, Correct Positioning, Safety Issues Teaching Recipient: Patient Teaching Methods: Demonstration, Discussion Response to Teaching: Reinforcement Needed Time/GCodes Time In: 0800 Time Out: 0815 Total Billed Treatment Time: 15 Total Billed Treatment 1 visit FA 15' ARIELLA CROCKER PT Jun 07, 2019 08:22
[2019-06-07] MEDS: metroNIDAZOLE 500 MG (FLAGYL) TAB PO SCH (08:33)
[2019-06-07] MEDS: SENNA W/DOCUSATE (SENOKOT S) TABLET PO SCH (08:33)
[2019-06-07] MEDS: DOCUSATE SODIUM 100 MG (COLACE) CAP PO SCH (08:33)
[2019-06-07] MEDS: HYDROcodone/APAP 5 MG/325 MG (LORTAB) TAB PO PRN (08:33)
--- NOTE | 2019-06-07 09:06 | Therapy Team Discharge Summary ---
Therapy Discharge Summary Discharge Recommendations Date of Discharge Physical Therapy Patient came to rehab with a left humerus fx. Upon evaluation patient performed bed mobility and transfers with min assist, ambulated 300' with SBA without an assistive device, and went up and down 12 steps with SBA. Patient has been performing bed mobility and transfer training, balance and endurance training, functional strengthening, stair training, gait training, and education. Patient has made little progress and has not met any of her superintendent terminal goals. Now, patient performs bed mobility with mod I, supine <-> sit with mod I, sit <-> stand with SBA, transfers with SBA, car transfer SBA, ambulates 200' with a quad cane with SBA (including 50' with at least 2 turns of 90 degrees and 10' over an uneven surface), and can go up and down 12 steps using 1 handrail with SBA. Patient is discharging from this facility today and will be discharged from PT at this time. Occupational Therapy Decreased Activ Tolerance, Decreased UE Strength PT Mcc Goals Mcc Goals PT Mcc Goals Time Frame: Jun 09, 2019 Transfers (B,C,W/C) (FIM): 7 Roll Left to Right (QC): 6 Sit to Lying (QC): 6 Lying-Sitting on Side/Bed(QC): 6 Sit to Stand (QC): 6 Chair/Fyi-eu-Qydkf Xfer(QC): 6 Car Transfer (QC): 6 Does the Patient Walk: Yes Gait (FIM): 7 Gait distance (FIM): 3=150 ft Distance: 500 Walk 10 feet (QC): 6 Walk 10ft-Uneven Surface(QC): 6 Walk 50ft with 2 Turns (QC): 6 Walk 150 ft (QC): 6 Gait Level of Assist: 7 Gait Assistive Device: Cane Single Point Does the Pt use WC or Scooter?: No Stairs (FIM): 7 # of Steps: 12 1 Step (curb) (QC): 6 4 Steps (QC): 6 12 Steps (QC): 6 Stairs Level Of Assist: 7 Picking up an Object (QC): 6 OT Mcc Goals Mcc Goals Time Frame: Jun 11, 2019 Eating (FIM): 6 (met) Eating (QC): 6 (met) Oral Hygiene (QC): 6 Grooming(FIM): 6 Bathing(FIM): 5 Shower/Bathe Self (QC): 5 Upper Body Dressing(FIM): 6 Upper Body Dressing (QC): 6 Lower Body Dressing(FIM): 6 Lower Body Dressing (QC): 6 On/Off Footwear (QC): 6 Toileting(FIM): 6 Toileting Hygiene (QC): 6 Transfers (B,C,W/C) (FIM): 6 Toilet/Commode Transfer(FIM): 6 Toilet/Commode Transfer (QC): 6 Shower Transfer(FIM): 5 Additional Goals: 1-Demonstrate ADL Tasks, 2-Verbalize Understanding, 3- ImproveStrength/Ayden 1=Demonstrate adherence to instructed precautions during ADL tasks. 2=Patient will verbalize/demonstrate understanding of assistive devices/modifications for ADL. 3=Patient will improve strength/tolerance for activity to enable patient to perform ADL's. ARIELLA CROCKER PT Jun 07, 2019 09:06
--- NOTE | 2019-06-07 09:45 | Occupational Ther Daily Note ---
OT Current Status-Daily Note Subjective Pt alert sitting in bed upon OT arrival. Pt agrees to therapy. Pt to discharge to [facility] today. Mental Status/Objective Patient Orientation: Person, Place, Time, Situation Therapy Code Descriptions/Definitions Functional [place] Measure: 0=Not Assessed/NA 4=Minimal Assistance 1=Total Assistance 5=Supervision or Setup 2=Maximal Assistance 6=Modified [place] 3=Moderate Assistance 7=Complete [place] ADL-Treatment Therapy Code Descriptions/Definitions Functional [place] Measure: 0=Not Assessed/NA 4=Minimal Assistance 1=Total Assistance 5=Supervision or Setup 2=Maximal Assistance 6=Modified [place] 3=Moderate Assistance 7=Complete [place] Therapy Quality Codes: 6 Independent with activity with or without an assistive device 5 Patient requires set up or clean up by helper. Patient completes activity by themselves 4 Supervision or touching assist (CGA). Tangent provide cues , steadying assist 3 The helper provides less than half the effort to complete the activity 2 The helper provides more than half the effort to complete the activity 1 Dependent. The helper does all the effort to complete an activity 7 Patient refused to complete or attempt activity 9 The patient did not perform the activity before the current illness or injury 88 Not attempted due to Medical conditions or safety concerns Eating (FIM): 6 (Dentures. Pt able to open containers and use utensils properly. ) Eating (QC): 6 Grooming (FIM): 7 (Pt to able to brush hair and teeth by self. Pt uses counter to stablize self. ) Oral Hygiene (QC): 6 Bathing (FIM): 6 (Pt requires cane, grab bar, shower bench, hand held shower head, and AE to wash back. Pt able to rinse and dry self. Safety concerns when pt is standing to wash buttocks and namita area. ) Bathing Location: L Arm, R Arm, L Upper Leg, R Upper Leg, L Lower Leg (including foot), R Lower Leg (including foot), Chest, Abdomen, Buttocks, Perineal Area Shower/Bathe Self (QC): 6 (safety concerns) Upper Body (FIM): 6 (Pt able to retrieve clothing from closet using cane. Pt able to don/doff sling by self. Pt able to don/doff shirt by self. ) Upper Body Dressing (QC): 6 Lower Body Dressing (FIM): 6 (Using wide base cane, pt able to retrieve own clothing. Pt able to don/doff underwear and pants by self. Pt able to don/doff socks and shoes by self.) Lower Body Dressing (QC): 6 (safety concerns when pt is standing. ) On/Off Footwear (QC): 6 Toileting (FIM): 6 (Per PT report, pt is Mod I for toileting. ) Toileting Hygiene (QC): 6 Transfers (B, C, W/C) (FIM): 6 (Pt requires arm rests on chairs and cane. ) Toilet/Commode Transfer (FIM): 6 (Pt requires cane and grab bar. ) Toilet Transfer (QC): 6 Shower Transfer(FIM): 6 (Pt requires grab bar, shower bench and cane. ) After therapy, pt lying in bed with call light/phone in reach. All needs met in room. OT Short Term Goals Short Term Goals Time Frame: Jun 04, 2019 Eating(FIM): 6 Grooming(FIM): 6 Bathing(FIM): 5 Upper Body Dressing(FIM): 4 Lower Body Dressing(FIM): 4 Toileting(FIM): 5 Transfers (B,C,W/C) (FIM): 5 Toilet/Commode Transfer(FIM): 5 Shower Transfer(FIM): 5 Additional Short Term Goals: 1-Demonstrate ADL Tasks, 2-Verbalize Understanding, 3-ImproveStrength/Ayden 1=Demonstrate adherence to instructed precautions during ADL tasks. 2=Patient will verbalize/demonstrate understanding of assistive devices/jamie fications for ADL. 3=Patient will improve strength/tolerance for activity to enable patient to perform ADL's. OT Halfway Goals Halfway Goals Time Frame: Jun 11, 2019 Eating (FIM): 6 (met) Eating (QC): 6 (met) Groomin (met-06/07/19) Oral Hygiene (QC): 6 (met-06/07/19) Bathing(FIM): 5 (met-06/07/19) Shower/Bathe Self (QC): 5 (met-06/07/19) Upper Body Dressing(FIM): 6 (met-06/07/19) Upper Body Dressing (QC): 6 (met-06/07/19) Lower Body Dressing(FIM): 6 (met-06/07/19) Lower Body Dressing (QC): 6 (met-06/07/19) On/Off Footwear (QC): 6 (met-06/07/19) Toileting(FIM): 6 (met-06/07/19) Toileting Hygiene (QC): 6 (met-06/07/19) Transfers (B,C,W/C) (FIM): 6 (met-06/07/19) Toilet/Commode Transfer(FIM): 6 Toilet/Commode Transfer (QC): 6 (met-06/07/19) Shower Transfer(FIM): 5 (met-06/07/19) Additional Goals: 1-Demonstrate ADL Tasks, 2-Verbalize Understanding, 3- ImproveStrength/Ayden 1=Demonstrate adherence to instructed precautions during ADL tasks. 2=Patient will verbalize/demonstrate understanding of assistive devices/modifications for ADL. 3=Patient will improve strength/tolerance for activity to enable patient to perform ADL's. OT Education/Plan Discharge Recommendations Plan/Recommendations: Discharge/Goals Met (Pt to discharge to [facility] today) Therapy Discharge Recommendati: Other, See Comments (NH), Post Acute OT Treatment Plan/Plan of Care Patient would benefit from OT for education, treatment and training to promote independence in ADL's, mobility, safety and/or upper extremity function for ADL's. Plan of Care: ADL Retraining, Functional Mobility, Group Exercise/Act as Ind, UE Funct Exercise/Act Treatment Duration: Jun 11, 2019 Frequency: At least 5 of 7 days/Wk (IRF) Estimated Hrs Per Day: 1.5 hours per day Agreement: Yes Rehab Potential: Fair Time/GCodes Start Time: 08:15 Stop Time: 09:20 Total Time Billed (hr/min): 65 Billed Treatment Time 1 visit- ADL 4 (65 min) FRANCISCO CAT Jun 07, 2019 09:45
--- NOTE | 2019-06-07 10:46 | NUR ---
Met with pt this AM to discuss appropriate foods for fibromyalgia pts. Discussed that there are no inappropriate foods that could exacerbate symptoms. Reassured her that a healthy diet with fresh fruits and vegetables, low-fat and lean meats like fish and chicken would be beneficial for overall health. Tere Shelley MS, RD [phone]
--- NOTE | 2019-06-11 12:13 | Therapy Team Discharge Summary ---
Therapy Discharge Summary Discharge Recommendations Date of Discharge Jun 07, 2019 at 14:10 Therapy D/C Recommendations: Home w/ Family Support Occupational Therapy Pt. seen by occupational therapy to increase overall strength and independence with daily tasks. Pt. is able to complete all ADLs with Mod I and use of AE as needed. Pt. has discharged home. Pt. has met goals of Mod I with bathing/dressing/toileting/grooming, as well as other functional goals. Decreased Activ Tolerance PT Skilled Nursing Goals Skilled Nursing Goals PT Skilled Nursing Goals Time Frame: Jun 09, 2019 Transfers (B,C,W/C) (FIM): 7 Roll Left to Right (QC): 6 Sit to Lying (QC): 6 Lying-Sitting on Side/Bed(QC): 6 Sit to Stand (QC): 6 Chair/Trm-ij-Xgcfv Xfer(QC): 6 Car Transfer (QC): 6 Does the Patient Walk: Yes Gait (FIM): 7 Gait distance (FIM): 3=150 ft Distance: 500 Walk 10 feet (QC): 6 Walk 10ft-Uneven Surface(QC): 6 Walk 50ft with 2 Turns (QC): 6 Walk 150 ft (QC): 6 Gait Level of Assist: 7 Gait Assistive Device: Cane Single Point Does the Pt use WC or Scooter?: No Stairs (FIM): 7 # of Steps: 12 1 Step (curb) (QC): 6 4 Steps (QC): 6 12 Steps (QC): 6 Stairs Level Of Assist: 7 Picking up an Object (QC): 6 OT Well Logging Mud Analysis Captain Goals Well Logging Mud Analysis Captain Goals Time Frame: Jun 11, 2019 Eating (FIM): 6 (met) Eating (QC): 6 (met) Oral Hygiene (QC): 6 (met-06/07/19) Grooming(FIM): 6 (met-06/07/19) Bathing(FIM): 5 (met-06/07/19) Shower/Bathe Self (QC): 5 (met-06/07/19) Upper Body Dressing(FIM): 6 (met-06/07/19) Upper Body Dressing (QC): 6 (met-06/07/19) Lower Body Dressing(FIM): 6 (met-06/07/19) Lower Body Dressing (QC): 6 (met-06/07/19) On/Off Footwear (QC): 6 (met-06/07/19) Toileting(FIM): 6 (met-06/07/19) Toileting Hygiene (QC): 6 (met-06/07/19) Transfers (B,C,W/C) (FIM): 6 (met-06/07/19) Toilet/Commode Transfer(FIM): 6 Toilet/Commode Transfer (QC): 6 (met-06/07/19) Shower Transfer(FIM): 5 (met-06/07/19) Additional Goals: 1-Demonstrate ADL Tasks, 2-Verbalize Understanding, 3-ImproveStrength/Ayden 1=Demonstrate adherence to instructed precautions during ADL tasks. 2=Patient will verbalize/demonstrate understanding of assistive devices/modifications for ADL. 3=Patient will improve strength/tolerance for activity to enable patient to perform ADL's. ANNE MCCARTHY OT Jun 11, 2019 12:13
== END 2019-06-07 14:10 | disposition home health service (06) | DRG 561 ==
PROVIDERS: ADMIT Internal Medicine; ATTEND Internal Medicine
DX: S42.302D Unspecified fracture of shaft of humerus, left arm, subsequent encounter for fracture with routine healing (principal); S02.92XD Unspecified fracture of facial bones, subsequent encounter for fracture with routine healing; M79.7 Fibromyalgia; S06.9X9S Unspecified intracranial injury with loss of consciousness of unspecified duration, sequela; R42 Dizziness and giddiness; K21.9 Gastro-esophageal reflux disease without esophagitis; K59.01 Slow transit constipation; F03.90 Unspecified dementia, unspecified severity, without behavioral disturbance, psychotic disturbance, mood disturbance, and anxiety; R29.6 Repeated falls; F32.9 Major depressive disorder, single episode, unspecified; E53.8 Deficiency of other specified B group vitamins; N76.0 Acute vaginitis
CPT/HCPCS: 36415; 70450; 70486; 71045; 72125; 72170; 72220; 73030; 73060; 80053; 81000; 85025; 87088; 96374; G0378

== ENCOUNTER 2019-06-24 21:46 | Emergency (ER) | payer MEDICARE, OTHER ==
[~2019-06-24] VITALS: Ht 149.8 cm; Wt 48.2 kg
[~2019-06-24 21:46] MED LIST changes: +ACET-77 PO; +ACHD5005 PO; +CYCL10TA9 PO; +DOCU100C37 PO; +IBUP-2055 PO; +OXYQ113.2 VG
--- NOTE | 2019-06-24 23:14 | ED Fall/Injury ---
General Chief Complaint: Trauma-Non Activation Stated Complaint: FALL Nursing Triage Note: ARRIVES VIA EMS FROM [facility] TO TRAUMA ROOM 1, PATIENT IS ALERT AND ORIENTED X4, AND ABLE TO RECALL EVENTS OF THE FALL. C/O RIGHT ARM PAIN AND HAS A DIME SIZED SUPERFICIAL LACERATION TO LEFT POSTERIOR HEAD, BLEEDING CONTROLLED SPONTANIOUSLY. History of Present Illness Location Injury Occurred: LONG TERM [facility] (REHAB) Allergies and Home Medications Allergies Coded Allergies: cefuroxime (Verified Allergy, Unknown, Hives, 12/27/18) Home Medications Acetaminophen 500 Mg Tablet, 500 MG PO Q6H PRN for PAIN-MILD Prescribed by: MARLO GALAVIZ on 06/07/19624 Cyclobenzaprine HCl 10 Mg Tablet, 5 MG PO HS Prescribed by: MARLO GALAVIZ on 06/07/19624 Docusate Sodium 100 Mg Capsule, 100 MG PO BID Prescribed by: MARLO GALAVIZ on 06/07/19624 Hydrocodone Bit/Acetaminophen 1 Tab Tab, 1 TAB PO Q6HR PRN for PAIN-MODERATE Prescribed by: MARLO GALAVIZ on 06/07/19624 Ibuprofen 200 Mg Tablet, 400 MG PO Q6H PRN for PAIN-MILD Prescribed by: MARLO GALAVIZ on 06/07/19624 Lactobacillus Acidophilus 1 Each Capsule, 2 CAP PO HS, (Reported) Oxyquinoline/Sod.lauryl Sulfat 113.4 Gm Jelly.appl, 0 GM VG HS Prescribed by: MARLO GALAVIZ on 06/07/19624 Past Hovyuyw-Zqituc-Zxzcba Hx Patient Social History Alcohol Use: Denies Use Recreational Drug Use: No 2nd Hand Smoke Exposure: No Recent Foreign Travel: No Contact w/Someone Who Travel: No Recent Infectious Disease Expo: No Recent Hopitalizations: No Physical Abuse: No Sexual Abuse: No Mistreated: No Fear: No Immunizations Up To Date Tetanus Booster (TDap): Less than 5yrs PED Vaccines UTD: Yes Seasonal Allergies Seasonal Allergies: No Past Medical History Surgeries: No Respiratory: No Cardiac: No Neurological: Yes Traumatic Brain Injury 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 0.0oz. 49.144777et; 21.00 BMI Method:Stated Progress/Results/Core Measures Results/Orders My Orders Orders - FERNANDO OLIVEROS DO Ct Head/Cervical Spine Wo (06/24/19 21:53) Ct Thoracic/Lumbar Spine Wo (06/24/19 21:53) Chest 1 View, Ap/Pa Only (06/24/19 21:53) Humerus, Right, 2 Views (06/24/19 21:53) Pelvis (06/24/19 21:53) Ekg Tracing (06/24/19 22:19) Continuous Ekg Monitoring (06/24/19 22:19) Vital Signs/I&O 06/24/19 21:47 Temp 37.5 Pulse 66 Resp 20 B/P (MAP) 147/76 (99) Pulse Ox 96 Blood Pressure Mean: 99 Departure Impression Primary Impression: Fall from standing Additional Impressions: Minor head injury without loss of consciousness Scalp abrasion Contusion of right upper arm Frequent falls MULTIPLE OLD COMPRESSION FRACTURES S/P RECENT LEFT HUMERUS FRACTURE Disposition: 03 XFER SNF Condition: Stable Departure-Patient Inst. Referrals: CHRIS DUPONT MD (PCP/Family) Primary Care Physician Patient Instructions: Contusion (DC), Minor Head Injury (DC), Neck Sprain (DC), Preventing Falls in the Older Adult, Skin Abrasions (DC), Vertebral Compression Fracture (DC) Add. Discharge Instructions: CLEAN WOUND TWICE A DAY WITH ANTIBACTERIAL SOAP AND WATER CONTINUE YOUR REGULAR MEDICATIONS PRESCRIBED FOLLOW UP WITH YOUR DR NEEDED All discharge instructions reviewed with patient and/or family. Voiced understanding. FERNANDO OLIVEROS DO Jun 24, 2019 23:14
[2019-06-24 23:25] VITALS: BP 141/76
--- NOTE | 2019-06-24 23:25 | NUR ---
DISCHARGE INSTRUCTIONS REVIEWED WITH PATIENT. PATIENT IS RESTING QUIETLY IN ROOM TALKING WITH DAUGHTER. ARRANGEMENTS IN PROCESS FOR [facility] TO PICK PATIENT UP AND RETURN HER TO THE [facility]
[2019-06-24] MEDS ORDERED: HYDROcodone/APAP 5 MG/325 MG (LORTAB) TAB PO ONE (23:30)
--- NOTE | 2019-06-25 00:26 | NUR ---
RESIDENTIAL HAS ARRIVED TO TAKE RESIDENT BACK TO [facility].
--- NOTE | 2019-06-25 06:23 | Diagnostic Imaging Report ---
INDICATION: Left arm injury. COMPARISON: 05/25/2019. FINDINGS: Single view of the chest demonstrates known comminuted left humeral fracture. The heart remains prominent without pulmonary edema. Chronic scarring is seen at both bases. Otherwise, lungs are clear. There is no pneumothorax. IMPRESSION: No acute cardiopulmonary findings. Dictated by: Dictated on workstation # [id number]
--- NOTE | 2019-06-25 06:34 | Diagnostic Imaging Report ---
PROCEDURE: CT thoracic and lumbar spine without contrast. TECHNIQUE: Multiple contiguous axial images were obtained through the thoracic and lumbar spine without the use of intravenous contrast. Sagittal and coronal reformations were then performed. INDICATION: Back pain, fall. COMPARISON: Cervical spine 05/25/2019. FINDINGS: There is a chronic compression deformity involving T3. There is age indeterminate compression fractures of T6 and T9. There is a mild compression deformity involving L2. No retropulsion of fragments is seen in the central canal. There is no malalignment. No osseous lesion is seen. IMPRESSION: 1. Chronic T3 compression fracture. 2. Age indeterminate T6, T9 and L2 compression fractures. Consider MRI for further evaluation. Dictated by: Dictated on workstation # [id number]
--- NOTE | 2019-06-25 06:41 | Diagnostic Imaging Report ---
PROCEDURE: CT head and CT cervical spine without contrast. TECHNIQUE: Multiple contiguous axial images were obtained through the brain and cervical spine without the use of intravenous contrast. Sagittal and coronal reformations through the cervical spine were then performed. Auto Exposure Controls were utilized during the CT exam to meet ALARA standards for radiation dose reduction. INDICATION: Fall head and neck injury. COMPARISON: 05/25/2019 CT HEAD: Age-related cerebral volume loss and microvascular changes are again seen. There is no midline shift or mass effect. There is no hemorrhage or evidence of acute ischemia. No extra axial fluid collection is seen. There is no skull fracture. Visualized paranasal sinuses and mastoids are clear. There is chronic deviation of the nasal septum. IMPRESSION: No acute intracranial abnormalities. CT CERVICAL SPINE: Chronic-appearing T3 compression fracture is again noted. There is some height loss involving T7 likely chronic as well. There is no traumatic malalignment or distinct fracture line. Mild degenerative changes are again noted. Craniocervical junction anatomy is intact. There is no soft tissue edema. IMPRESSION: No traumatic malalignment or acute fracture identified. Dictated by: Dictated on workstation # [id number]
--- NOTE | 2019-06-25 06:49 | Diagnostic Imaging Report ---
INDICATION: Right arm injury COMPARISON: None. FINDINGS: 2 views right humerus demonstrate no fracture or dislocation. Articular surfaces are age-appropriate. No osseous lesion seen. IMPRESSION: No fracture or dislocation. Dictated by: Dictated on workstation # [id number]
--- NOTE | 2019-06-25 06:53 | Diagnostic Imaging Report ---
INDICATION: Follow-up pelvic pain COMPARISON: None. FINDINGS: Single view of the pelvis demonstrates no fracture or dislocation. Articular surfaces are age appropriate. No osseous lesion. IMPRESSION: No fracture or dislocation. Dictated by: Dictated on workstation # [id number]
== END 2019-06-25 00:26 ==
LOC: EDUNIT# 21:46 → ER 21:47
DX: S09.90XA Unspecified injury of head, initial encounter (principal); S40.021A Contusion of right upper arm, initial encounter; S00.01XA Abrasion of scalp, initial encounter; R29.6 Repeated falls; K21.9 Gastro-esophageal reflux disease without esophagitis; M79.7 Fibromyalgia; Z87.81 Personal history of (healed) traumatic fracture; Z88.1 Allergy status to other antibiotic agents; Z87.820 Personal history of traumatic brain injury; W18.39XA Other fall on same level, initial encounter
CPT/HCPCS: 70450; 71045; 72125; 72128; 72131; 72170; 73060

== ENCOUNTER 2019-09-28 14:32 | Emergency (ER) | payer MEDICARE, OTHER ==
[~2019-09-28] VITALS: Ht 149.8 cm; Wt 50.9 kg
[~2019-09-28 14:32] MED LIST changes: -ACET-77 PO; +ACET-78 PO; -IBUP-2055 PO; +IBUP-2473 PO
--- NOTE | 2019-09-28 14:33 | ED Fall/Injury ---
General Stated Complaint: FALL Source: patient History of Present Illness Date Seen by Provider: Sep 28, 2019 Time Seen by Provider: 14:33 Initial Comments 74-year-old female brought in following a fall. Patient reports she's had recurrent falls. She is very tearful and states that she "can't take care of herself" patient complains of a little bit of pain in her right upper arm and her buttock patient was recently in assisted living and went home on her own. Patient is tearful and thinks that she would like to go back to the [facility]p side. She is very indecisive and tearful. Patient does report she is on trazodone and Flexeril which may be contributing to it. Allergies and Home Medications Allergies Coded Allergies: cefuroxime (Verified Allergy, Unknown, Hives, 12/27/18) Home Medications Acetaminophen 500 Mg Tablet, 500 MG PO Q6H PRN for PAIN-MILD Prescribed by: MARLO GALAVIZ on 06/07/19624 Cyclobenzaprine HCl 10 Mg Tablet, 5 MG PO HS Prescribed by: MARLO GALAVIZ on 06/07/19624 Docusate Sodium 100 Mg Capsule, 100 MG PO BID Prescribed by: MARLO GALAVIZ on 06/07/19624 Hydrocodone Bit/Acetaminophen 1 Tab Tab, 1 TAB PO Q6HR PRN for PAIN-MODERATE Prescribed by: MARLO GALAVIZ on 06/07/19624 Ibuprofen 200 Mg Tablet, 400 MG PO Q6H PRN for PAIN-MILD Prescribed by: MARLO GALAVIZ on 06/07/19624 Lactobacillus Acidophilus 1 Each Capsule, 2 CAP PO HS, (Reported) Oxyquinoline/Sod.lauryl Sulfat 113.4 Gm Jelly.appl, 0 GM VG HS Prescribed by: MARLO GALAVIZ on 06/07/19624 Patient Home Medication List Home Medication List Reviewed: Yes Review of Systems Review of Systems Constitutional: No chills, No fever Eyes: No Symptoms Reported Ears, Nose, Mouth, Throat: no symptoms reported Respiratory: no symptoms reported Gastrointestinal: no symptoms reported Musculoskeletal: see HPI Skin: no symptoms reported Psychiatric/Neurological: No Symptoms Reported Past Hhnkozl-Bdtqep-Gafejz Hx Past Med/Social Hx: Reviewed Nursing Past Med/Soc Hx Physical Exam Vital Signs Vital Signs - First Documented 09/28/19 14:32 Temp 36.0 Pulse 71 Resp 20 B/P (MAP) 141/79 (99) Pulse Ox 97 O2 Delivery Room Air Capillary Refill : Height, Weight, BMI Height: '" Weight: lbs. oz. kg; BMI Method: General Appearance: WD/WN, no apparent distress HEENT: normal ENT inspection, TMs normal Neck: full range of motion, supple Cardiovascular: normal peripheral pulses, regular rate, rhythm Gastrointestinal: non tender, soft Extremities: normal range of motion, other (mild tenderness right forearm but tolerates the blood pressure cuff. Patient laying comfortable on her buttock with no obvious signs of pain or pelvic injury) Neurologic/Psychiatric: child and youth program assistant II-XII nml as tested, no motor/sensory deficits, oriented x 3, depressed affect Skin: normal color, warm/dry Progress/Results/Core Measures Results/Orders My Orders Orders - JACQUI SAMUELS DO Humerus, Right, 2 Views (09/28/19 14:33) Pelvis (09/28/19 14:33) Sacrum And Coccyx (09/28/19 14:33) Vital Signs/I&O 09/28/19 14:32 Temp 36.0 Pulse 71 Resp 20 B/P (MAP) 141/79 (99) Pulse Ox 97 O2 Delivery Room Air Progress Progress Note : Time: 17:08 Progress Note We had patient evaluated by IR you she does not meet criteria. He also had some social service since with her for a couple hours to help her try to find placement. Due to that leg nature of the day in the weekend there is nothing that we could find help her get placed this weekend. She does have home health care. shipping services sales representative talked with her home health care and they're to check on her over the weekend. She will be discharged with a frontwheel walker since her for a walker is too fast for her. She was ambulated without difficulty by physical therapy here in the ER. She has thatwith the social workers on Tuesday and they will attempt to help her find a suitable usp next week. Patient will be discharged home in stable condition. Patient initially stated that she cannot urinate. I had along discussion with her that if she is having urinary retention with her pes aserine that our treatment is a Shields catheter and discharged home with a leg bag.. She declined that at this time and thinks that she can urinate. Departure Impression Primary Impression: Falls frequently Additional Impression: Physical deconditioning Disposition: HOME, SELF-CARE Condition: Stable Departure-Patient Inst. Patient Instructions: Preventing Falls in the Older Adult, Getting Up From a Fall Add. Discharge Instructions: Please call social services technician on Tuesday with information they provided you Emergency department focuses on treating and ruling out life-threatening diseases. Whenever possible, a diagnosis is given. However, most patients are given an impression based on their history, physical exam, and workup during your brief time in the ER. Information about probable diagnosis and other educational material has been provided. Please take the time to read and understand this information. It is very important that you follow up with a physician as discussed during the visit today. Failure to adhere to your follow-up instructions may lead to severe disability, injury, or so please make sure to keep your appointments or obtain one as requested. Please keep in mind the emergency department is not designed to your primary care or "family doctor" and nonurgent issues are best evaluated by an outpatient physician JACQUI SAMUELS DO Sep 28, 2019 14:33
--- NOTE | 2019-09-28 15:33 | Diagnostic Imaging Report ---
INDICATION: Fall. TIME OF EXAM: 3:24 PM FINDINGS: Single AP view of the pelvis was obtained. Femoroacetabular alignment is normal bilaterally. Both femoral heads and necks appear to be intact. The rami appear intact. SI joints and symphysis are not widened. IMPRESSION: No acute bony abnormality is detected. Dictated by: Dictated on workstation # [id number]
--- NOTE | 2019-09-28 15:34 | Diagnostic Imaging Report ---
INDICATION: Fall, pain COMPARISON: 06/24/2019 TECHNIQUE: 2 radiographs of the right humerus dated 09/28/2019 FINDINGS: No acute fracture or dislocation. No destructive osseous process. Mild scattered degenerative changes. No suspicious radiopaque foreign body. IMPRESSION: No acute osseous abnormality with mild degenerative changes. Dictated by: Dictated on workstation # [id number]
--- NOTE | 2019-09-28 15:34 | Diagnostic Imaging Report ---
INDICATION: Fall. TIME OF EXAM: 3:25 PM FINDINGS: Sacral arcuate lines appear to be intact. SI joints are not widened. Sacrococcygeal alignment is normal. No definite fracture is seen. A pessary is identified in the midline of the pelvis. IMPRESSION: No acute abnormality is detected. Dictated by: Dictated on workstation # [id number]
--- NOTE | 2019-09-28 15:36 | NUR ---
LUIS/AL was contacted via phone and needed in the ER. The patient is from home who had fallen and hurt her tailbone. She states that she was living at [facility] and on skill nursing then patient moved to the assisted living side for a month. The patient has medicare only and no medicaid. The patient is planning on applying for medicaid when she has exhausted all her funds and gets to 2000 dollars. She is willing to look into private caregivers to stay in the home. A caregiver list was provided to the patient. The patient and her friend verbalized understanding.She states they will call and set some up. [facility] states she could be reassessed for the assisted living side on Tuesday. It would be private pay at 95 dollars a day. The patient verbalized understanding and would rather stay at home with caregivers. LUIS/AL contacted December for IRF evaluation. December came down to assess patient. waiting for outcome. The patient and her friend are calling her catholic to find someone to stay the night and help her out with meals and other needs the next few days. The patient and friend verbalized agreement with different options and plans.
[2019-09-28 17:20] VITALS: BP 136/75
--- NOTE | 2019-10-01 07:54 | NUR ---
CM/SS: Visited with pt, and developed a plan for discharge from the ER as she was not admitted to hospital as per consult. Plan: Pt to return home with [facility] and follow up plan for placement on Tuesday. Summary: Pt recently left [facility] and went home. She seems to have had more difficulty with managing at home. [facility] contacted, and reports that pt would only qualify for a skilled stay if she had three midnights. Pt was assessed for In patient rehab, and did not meet criteria to return there. Also she could not be assessed by the [facility] on this date to return as the person that does that is out till Tuesday. Pt reports she can not return home. At this time per physician there is nothing that pt can be admitted to hospital for. Pt does not want to hear that from this worker and begins to say she has other things going on. All of which are passed along to IGGY Ayers and to physician. Physician speaks with pt again and readdresses the things pt reports she has going on. There is still no criteria for admittance. Pt shared that she has had [facility]. Melissa contacted [phone]. They are willing to have the weekend RN see pt on tomorrow, and requested that information from ER visit be faxed to them. Fax number [phone]. PT and friend reminded about the caregivers list and agencies to help with situations like this. Pt has a friend (Rae Jamil [phone]) with her and they are willing to try and get some lutheran people to check in on pt as well through the weekend. Friend Rae is given this workers contact information should she have questions or need additional information. She verbalizes understanding.
== END 2019-09-28 17:20 | disposition home or self-care (01) ==
LOC: EDUNIT# 14:32 → ER 14:33
DX: R53.81 Other malaise (principal); R29.6 Repeated falls; Z88.1 Allergy status to other antibiotic agents
CPT/HCPCS: 72170; 72220; 73060

== ENCOUNTER 2019-10-01 14:41 | Inpatient (IN) | payer MEDICARE, OTHER ==
[~2019-10-01] VITALS: Ht 149.9 cm; Wt 54.9 kg
[2019-10-01 14:00] VITALS: BP 145/64
[2019-10-01] MEDS ORDERED: KETOROLAC 15 MG/ML VIAL ONE (15:07)
[2019-10-01] MEDS ORDERED: fentaNYL INJECTION 100 MCG/2 ML AMP IVP PRN (15:15)
[2019-10-01] MEDS ORDERED: KETOROLAC 15 MG/ML VIAL IVP ONE (15:15)
[2019-10-01] MEDS: LACTATED RINGERS 1,000 ML IV SCH (15:18)
[2019-10-01 15:49] LABS: BUN/CREATININE RATIO 15; CARBON DIOXIDE 25 MMOL/L (21-32); CHLORIDE 103 MMOL/L (98-107); CREATININE SERUM 0.59 MG/DL (0.60-1.30); POTASSIUM 3.5 MMOL/L (3.6-5.0); SODIUM 137 MMOL/L (135-145)
[2019-10-01 15:50] LABS: GFR ESTIMATED > 60; GLUCOSE 103 MG/DL (70-105)
--- NOTE | 2019-10-01 16:04 | Diagnostic Imaging Report ---
EXAMINATION: CT abdomen and pelvis without contrast. TECHNIQUE: Multiple contiguous axial images were obtained through the abdomen and pelvis without the use of intravenous contrast. All CT scans use one or more of the following dose optimizing techniques: Automated exposure control, MA and/or KvP adjustment based on a patient size and exam type, or iterative reconstruction. HISTORY: Fall. COMPARISON: None available. FINDINGS: There is mild bibasilar atelectasis. The liver is normal without focal lesion. There is no biliary ductal dilation. Gallbladder is normal. Pancreas is normal. There are calcified granulomas in the spleen. Adrenal glands are normal. The kidneys are normal. There is no hydronephrosis. Shields catheter is present within the urinary bladder. A pessary is present in the vagina. There are no dilated loops of large or small bowel. No obstruction or inflammation. No free fluid or air. No abdominal or pelvic lymphadenopathy. Aorta is normal in caliber without aneurysm. There are no suspicious osseous lesions. There are subacute to chronic left 10th and 11th rib fractures. There is a mild indeterminate L2 compression fracture. There are acute-appearing bilateral sacral alar fractures with compression of the anterior aspect of S2. IMPRESSION: 1. Bilateral sacral alar fractures with compression of the anterior aspect of S2. 2. Age-indeterminate mild compression fracture of L2. 3. Subacute chronic left 10th and 11th rib fractures. Dictated by: Dictated on workstation # [id number]
[2019-10-01] MEDS ORDERED: ONDANSETRON 4 MG (ZOFRAN) ORAL DISSOLVE TAB PO PRN (16:30)
[2019-10-01] MEDS ORDERED: KCL 20 MEQ TAB (K-DUR) PO NR (16:30)
[2019-10-01] MEDS ORDERED: POLYETHYLENE GLYCOL 17 GM (MIRALAX) PACK PO PRN (16:30)
[2019-10-01] MEDS ORDERED: BISACODYL 10 MG SUPP (DULCOLAX) PR PRN (16:30)
[2019-10-01] MEDS ORDERED: ONDANSETRON 4 MG/2 ML (SDV) Z0FRAN IV PRN (16:30)
[2019-10-01] MEDS ORDERED: ACETAMINOPHEN 325 MG TABLET PO PRN (16:30)
[2019-10-01] MEDS ORDERED: ANTACID SUSP 30 ML UDC (MYLANTA) PO PRN (16:30)
[2019-10-01 16:31] LABS: BASOPHILS % (AUTO) 0 % (0-10); EOSINOPHILS % (AUTO) 1 % (0-10); HEMATOCRIT 37 % (35-52); HEMOGLOBIN 11.9 G/DL (11.5-16.0); LYMPHOCYTES # (AUTO) 1.3 X 10^3 (1.0-4.0); LYMPHOCYTES % (AUTO) 17 % (12-44); MEAN CORPUSCULAR HEMOGLOBIN 31 PG (25-34); MEAN CORPUSCULAR HGB CONC 32 G/DL (32-36); MEAN CORPUSCULAR VOLUME 97 FL (80-99); MEAN PLATELET VOLUME 11.6 FL (7.4-10.4); MONOCYTES # (AUTO) 0.8 X 10^3 (0.0-1.0); MONOCYTES % (AUTO) 11 % (0-12); NEUTROPHILS # (AUTO) 5.4 X 10^3 (1.8-7.8); NEUTROPHILS % (AUTO) 72 % (42-75); PLATELET COUNT 141 10^3/uL (130-400); WHITE BLOOD COUNT 7.5 10^3/uL (4.3-11.0)
--- NOTE | 2019-10-01 16:49 | Diagnostic Imaging Report ---
PROCEDURE: CT lumbar spine without contrast. TECHNIQUE: Multiple contiguous axial images were obtained through the lumbar spine without the use of intravenous contrast. Sagittal and coronal reformations were then performed. Auto Exposure Controls were utilized during the CT exam to meet ALARA standards for radiation dose reduction. INDICATION: Fall with persistent back and pelvic pain. COMPARISON: Comparison with 06/24/2019 CT scan of the lumbosacral spine. FINDINGS: Mild wedge type deformity of the superior endplate of L2 is again noted unchanged. No acute compression fractures are present. Alignment is good. Mild stenosis present from hypertrophic endplate changes at L3-L4. The SI joints are symmetrical with moderate degenerative change. There is fracture noted along the S2 vertebral body with the bony fragment noted off the anterior aspect of S2. There is also cortical fracture nondisplaced through the sacral ala bilaterally. IMPRESSION: 1. S2 fracture with bilateral sacral alar fractures. 2. Old compression fracture at L2. Dictated by: Dictated on workstation # [id number]
[2019-10-01 17:00] VITALS: BP 136/74
[2019-10-01 18:30] LABS: BILIRUBIN,URINE NEGATIVE (NEGATIVE); CLARITY,URINE CLEAR; COLOR,URINE YELLOW; GLUCOSE, URINE (UA) NEGATIVE (NEGATIVE); KETONES,URINE NEGATIVE (NEGATIVE); LEUKOCYTE ESTERASE ,URINE TRACE (NEGATIVE); NITRITE,URINE NEGATIVE (NEGATIVE); PH,URINE 6.5 (5-9); PROTEIN,URINE NEGATIVE (NEGATIVE)
[2019-10-01 18:55] LABS: BACTERIA,URINE NEGATIVE /HPF; WBC,URINE RARE /HPF
--- NOTE | 2019-10-01 19:39 | Consultation - Hospitalist ---
HPI History of Present Illness: Date Seen 10/01/19 Attending Physician Tere Alston DO PCP Seema Farooq MD Referring Physician Date of Admission Oct 01, 2019 at 14:41 Home Medications & Allergies Home Medications Reviewed patient Home Medication Reconciliation performed by pharmacy medication reconciliations install and repair technician and/or nursing. Patients Allergies have been reviewed. Allergies Allergies Coded Allergies cefuroxime (Verified Allergy, Unknown, Hives, 12/27/18) Past Ttmlzuc-Nioglf-Buqxka Hx Patient Social History Alcohol Use: Denies Use Recreational Drug Use: No Smoking Status: Never a Smoker 2nd Hand Smoke Exposure: No Physical Abuse Screen: No Sexual Abuse: No Recent Foreign Travel: No Contact w/other who traveled: No Recent Hopitalizations: No Recent Infectious Disease Expo: No Immunizations Up To Date Tetanus Booster (TDap): Less than 5yrs Pediatric: Yes Seasonal Allergies Seasonal Allergies: No Past Medical History Neurological: Dementia, Traumatic Brain Injury, Vertigo Menopausal Genitourinary: Bladder Infection Gastrointestinal: Gastroesophageal Reflux Musculoskeletal: Fibromyalgia, Fractures History of Blood Disorders: No Family History CHF son ( 38 YR) Cardiovascular disease 19 FATHER Colon cancer 19 FATHER ( AGE 40) Diabetes mellitus 19 MOTHER FH: CHF (congestive heart failure) FH: colon cancer Myocardial infarction 19 MOTHER Neoplasm G8 BROTHER ( AGE 68) No Pertinent Family Hx Physical Exam Physical Exam Vital Signs Vital Signs - First Documented Capillary Refill : Height, Weight, BMI Height: 4'11.00" Weight: 109lbs. 0.0oz. 49.290364bc; 22.00 BMI Method:Stated Results Results/Procedures Labs Laboratory Tests 10/01/19 15:25 Patient resulted labs reviewed. AIDAN SINGER MD Oct 01, 2019 19:39
[2019-10-01 19:50] VITALS: BP 126/80
[2019-10-01] MEDS: SENNOSIDES 8.6 MG (SENOKOT) TAB PO SCH (19:57)
[2019-10-01] MEDS: DOCUSATE SODIUM 100 MG (COLACE) CAP PO SCH (19:57)
[2019-10-01] MEDS: GABAPENTIN 300 MG (NEURONTIN) CAP PO SCH (19:58)
[2019-10-01 23:30] VITALS: BP 129/78
[2019-10-02 05:00] VITALS: BP 149/83
--- NOTE | 2019-10-02 08:11 | Progress Note ---
Standard Progress Note Progress Notes/Assess & Plan Date Seen by a Provider: Oct 02, 2019 Time Seen by a Provider: 08:15 Progress/Assessment & Plan Patient states pain is controlled as long as she does not move. She received Toradol x 1. She has had CT and there is a sacral fracture. Ortho consult pending There is also probable old lumbar fracture and rib fractures. Care by hospitalists. Goal is to achieve pain control and movement and get her to a care facility. i do not believe that discharging this patient to home is feasible for this patient due to lack of safety. she has had frequent falls with frequent fractures. Laboratory Tests Test 10/01/19 15:25 10/01/19 18:20 Range/Units White Blood Count 7.5 4.3-11.0 10^3/uL Red Blood Count 3.84 L 4.35-5.85 10^6/uL Hemoglobin 11.9 11.5-16.0 G/DL Hematocrit 37 35-52 % Mean Corpuscular Volume 97 80-99 FL Mean Corpuscular Hemoglobin 31 25-34 PG Mean Corpuscular Hemoglobin Concent 32 32-36 G/DL Red Cell Distribution Width 13.0 10.0-14.5 % Platelet Count 141 130-400 10^3/uL Mean Platelet Volume 11.6 H 7.4-10.4 FL Neutrophils (%) (Auto) 72 42-75 % Lymphocytes (%) (Auto) 17 12-44 % Monocytes (%) (Auto) 11 0-12 % Eosinophils (%) (Auto) 1 0-10 % Basophils (%) (Auto) 0 0-10 % Neutrophils # (Auto) 5.4 1.8-7.8 X 10^3 Lymphocytes # (Auto) 1.3 1.0-4.0 X 10^3 Monocytes # (Auto) 0.8 0.0-1.0 X 10^3 Eosinophils # (Auto) 0.0 0.0-0.3 10^3/uL Basophils # (Auto) 0.0 0.0-0.1 10^3/uL Sodium Level 137 135-145 MMOL/L Potassium Level 3.5 L 3.6-5.0 MMOL/L Chloride Level 103 98-107 MMOL/L Carbon Dioxide Level 25 21-32 MMOL/L Anion Gap 9 5-14 MMOL/L Blood Urea Nitrogen 9 7-18 MG/DL Creatinine 0.59 L 0.60-1.30 MG/DL Estimat Glomerular Filtration Rate > 60 BUN/Creatinine Ratio 15 Glucose Level 103 70-105 MG/DL Calcium Level 9.0 8.5-10.1 MG/DL Magnesium Level 1.9 1.6-2.4 MG/DL Urine Color YELLOW Urine Clarity CLEAR Urine pH 6.5 5-9 Urine Specific [place] 1.020 1.016-1.022 Urine Protein NEGATIVE NEGATIVE Urine Glucose (UA) NEGATIVE NEGATIVE Urine Ketones NEGATIVE NEGATIVE Urine Nitrite NEGATIVE NEGATIVE Urine Bilirubin NEGATIVE NEGATIVE Urine Urobilinogen 0.2 < = 1.0 MG/DL Urine Leukocyte Esterase TRACE NEGATIVE Urine RBC (Auto) 1+ H NEGATIVE Urine RBC NONE /HPF Urine WBC RARE /HPF Urine Crystals NONE /LPF Urine Bacteria NEGATIVE /HPF Urine Casts NONE /LPF Urine Mucus NEGATIVE /LPF Urine Culture Indicated NO Vital Signs 10/02/19 05:00 Temp 37.0 Pulse 78 Resp 18 B/P (MAP) 149/83 (105) Pulse Ox 98 O2 Delivery Room Air Intake and Output 10/02/19 00:00 Intake Total 240 ml Output Total 300 ml Balance -60 ml Intake Oral 240 ml Output Urine Total 300 ml Daily Weight Change Unsure No JOSE ANGEL LOMBARDI DO Oct 02, 2019 08:11
[2019-10-02 09:26] VITALS: BP 138/69
[2019-10-02] MEDS: GABAPENTIN 300 MG (NEURONTIN) CAP PO SCH ×3 (09:28→20:32)
[2019-10-02] MEDS: SENNOSIDES 8.6 MG (SENOKOT) TAB PO SCH ×2 (09:28→20:32)
[2019-10-02] MEDS: DOCUSATE SODIUM 100 MG (COLACE) CAP PO SCH ×2 (09:28→20:32)
--- NOTE | 2019-10-02 11:04 | Consultation - Ortho ---
Consult - Ortho Subjective Date of Exam 10/02/19 Chief Complaint Sacral fracture HPI/Events since last exam Mrs. Richardson is a 74-year-old white female who fell on September 28 at home. She stated she was opening a container of all labs and somehow fell and landed sitting. She was seen in the emergency room and x-rays of the pelvis showed no fractures. She was discharged. She continued with pain and was having some difficulty with urinary retention as well. She was admitted yesterday and CT scan was ordered of the pelvis which showed a sacral fracture. She states she is in a lot of pain although she has been ambulating with a walker since her fall on . States she has a little bit of funny feeling in her legs but nothing significant. Prior to the fall and the she had had no pelvic pain. She's had multiple falls in the past its resultant clavicle and proximal humerus fracture. Medical, Surgical History Reviewed and no additions or changes Social History Radiation and no additions or changes Family History Reviewed and no additions or changes Review of Systems Reviewed and no additions or changes Allergies: Coded Allergies: cefuroxime (Verified Allergy, Unknown, Hives, 12/27/18) Home Meds Active Scripts Oxyquinoline/Sod.lauryl Sulfat (Trimo-Crisostomo Jelly) 113.4 Gm Jelly.appl, 0 GM VG HS for 30 Days, TUBE Prov:MARLO GALAVIZ DO 06/07/19 Docusate Sodium (Docusate Sodium) 100 Mg Capsule, 100 MG PO BID for 30 Days, CAP Prov:MARLO GALAVIZ DO 06/07/19 Acetaminophen (ACETAMINOPHEN) 500 Mg Tablet, 500 MG PO Q6H PRN for PAIN-MILD for 30 Days, TAB Prov:MARLO GALAVIZ DO 06/07/19 Hydrocodone Bit/Acetaminophen (Hydrocodone/Acetaminophen 5/325mg Tablet) 1 Tab Tab, 1 TAB PO Q6HR PRN for PAIN-MODERATE, #30 TAB Prov:MARLO GALAVIZ DO 06/07/19 Ibuprofen (Ibuprofen) 200 Mg Tablet, 400 MG PO Q6H PRN for PAIN-MILD for 30 Days, TAB Prov:MARLO GALAVIZ DO 06/07/19 Cyclobenzaprine HCl (Cyclobenzaprine HCl) 10 Mg Tablet, 5 MG PO HS for 30 Days, TAB Prov:MARLO GALAVIZ DO 06/07/19 Reported Medications Lactobacillus Acidophilus (Probiotic) 1 Each Capsule, 2 CAP PO HS, CAP 05/25/19 Objective Exam Constitutional: [] HEENT: [] Neck: [] No pain with palpation or range of motion Cardiovascular: [] Respiratory: [] Gastrointestinal: [] Genitourinary: [] Skin: [] Back/Spine: [] No pain in the thoracic spine. She has a little bit of pain in the lower lumbar region. Does have pain over the sacrum with palpation. Extremities: [] Limited motion left shoulder secondary to previous fracture. No crepitation or deformity. Normal sensation with good cap refill and equal pulses. Equal strength. Lower extremitiesminimal posterior pelvic pain with range of motion of the hips . No hip pain with palpation or range of motion. No pain either knee with palpation or range of motion. No pain other ankle with palpation or range of motion. She has equal strength of the lower extremities. Equal pulses and has normal sensation with good capillary refill Neurologic: [] Psychiatric: [] Hematologic/lymphatic/immunologic: [] Vital Signs Vital Signs Date Time Temp Pulse Resp B/P (MAP) Pulse Ox O2 Delivery O2 Flow Rate FiO2 10/02/19 09:35 97 Room Air 10/02/19 09:26 36.6 87 18 138/69 (92) 97 Room Air 10/02/19 05:00 37.0 78 18 149/83 (105) 98 Room Air 10/01/19 23:30 37.1 83 18 129/78 (95) 96 10/01/19 20:00 100 Room Air 10/01/19 19:50 37.5 71 18 126/80 (95) 100 10/01/19 18:45 Room Air 10/01/19 17:00 37.3 86 17 136/74 (94) 100 Room Air 10/01/19 14:15 97 Room Air 10/01/19 14:00 37.0 69 16 145/64 (91) 97 Room Air 10/01/19 14:00 37.0 69 16 145/64 97 Room Air I & O 10/02/19 07:00 Intake Total 740 ml Output Total 2000 ml Balance -1260 ml Lab Results Laboratory Tests 10/01/19 15:25: White Blood Count 7.5, Red Blood Count 3.84L, Hemoglobin 11.9, Hematocrit 37, Mean Corpuscular Volume 97, Mean Corpuscular Hemoglobin 31, Mean Corpuscular Hemoglobin Concent 32, Red Cell Distribution Width 13.0, Platelet Count 141, Mean Platelet Volume 11.6H, Neutrophils (%) (Auto) 72, Lymphocytes (%) (Auto) 17, Monocytes (%) (Auto) 11, Eosinophils (%) (Auto) 1, Basophils (%) (Auto) 0, Neutrophils # (Auto) 5.4, Lymphocytes # (Auto) 1.3, Monocytes # (Auto) 0.8, Eosinophils # (Auto) 0.0, Basophils # (Auto) 0.0, Sodium Level 137, Potassium Level 3.5L, Chloride Level 103, Carbon Dioxide Level 25, Anion Gap 9, Blood Urea Nitrogen 9, Creatinine 0.59L, Estimat Glomerular Filtration Rate > 60, BUN/Creatinine Ratio 15, Glucose Level 103, Calcium Level 9.0, Magnesium Level 1.9 10/01/19 18:20: Urine Color YELLOW, Urine Clarity CLEAR, Urine pH 6.5, Urine Specific [place] 1.020, Urine Protein NEGATIVE, Urine Glucose (UA) NEGATIVE, Urine Ketones NEGATIVE, Urine Nitrite NEGATIVE, Urine Bilirubin NEGATIVE, Urine Urobilinogen 0.2, Urine Leukocyte Esterase TRACE, Urine RBC (Auto) 1+H, Urine RBC NONE, Urine WBC RARE, Urine Crystals NONE, Urine Bacteria NEGATIVE, Urine Casts NONE, Urine Mucus NEGATIVE, Urine Culture Indicated NO Imaging I reviewed her previous x-rays from 09/28/2019 which shows no obvious fracture of the pelvis, hips or sacrum I reviewed the CT scan of the pelvis and lumbosacral spine from 10/01/2019 which shows a minimally displaced sacral fracture at S2 and bilateral alar fracture is nondisplaced Assessment and Plan Assessment Sacral fracture status post fall Problem List Reviewed and no additions or changes Plan PlanI discussed the above with the patient. I talked her about her sacral fracture. I think she is fine getting up bed to chair and also walker ambulation weightbearing as tolerated both lower extremities. She may have pain in that area for several weeks but with time the pain should gradually decrease with fracture healing. She is a bit concerned about getting up with the pain but I think with therapy gradual activity she should do fine. Final Diagonsis Minimally displaced sacral fracture Level of the visit: Level 3 ALDEN VELA MD Oct 02, 2019 11:04
--- NOTE | 2019-10-02 11:26 | History & Physical-Hospitalist ---
History of Present Illness HPI/Chief Complaint Kasia Richardson is a 74-year-old female with past medical history of hypertension who presented with pain following a fall. She reports that she had been doing well prior to Tuesday. At that time she had a fall in her home. She reports that she was trying to open a jar and the was using both hands and lost her balance and fell to the floor. She says that she did not hit her head. She has had issues with balance in the past. She denies feeling lightheaded or dizzy prior to the fall. She denies loss of consciousness. She has had pain with ambulation since that time. She went to the emergency room and had x-rays which were normal and she was discharged back home. She reports that she has had decreased urine output. She had been urinating but was having some incontinence at home. She was seen in the clinic by Dr. Alston and was directly admitted for further evaluation and pain control. She denies any fevers or chills. She denies any chest pain or shortness of breath. She denies any abdominal pain, nausea, vomiting, or diarrhea. Source: patient Exam Limitations: no limitations Date Seen 10/02/19 Time Seen by a Provider: 17:00 Attending Physician Tere Alston Wen-Chou MD Referring Physician Date of Admission Oct 01, 2019 at 14:41 Home Medications & Allergies Home Medications Reviewed patient Home Medication Reconciliation performed by pharmacy medication reconciliations service desk technician and/or nursing. Patients Allergies have been reviewed. Allergies Allergies Coded Allergies cefuroxime (Verified Allergy, Unknown, Hives, 12/27/18) Past Ouywkmz-Qhprgv-Rgeigr Hx Past Med/Social Hx: Reviewed Nursing Past Med/Soc Hx Patient Social History Alcohol Use: Denies Use Recreational Drug Use: No Smoking Status: Never a Smoker 2nd Hand Smoke Exposure: No Physical Abuse Screen: No Sexual Abuse: No Recent Foreign Travel: No Contact w/other who traveled: No Recent Hopitalizations: No Recent Infectious Disease Expo: No Immunizations Up To Date Tetanus Booster (TDap): Less than 5yrs Pediatric: Yes Seasonal Allergies Seasonal Allergies: No Past Medical History Neurological: Dementia, Traumatic Brain Injury, Vertigo Menopausal Genitourinary: Bladder Infection Gastrointestinal: Gastroesophageal Reflux Musculoskeletal: Fibromyalgia, Fractures History of Blood Disorders: No Family History CHF son ( 38 YR) Cardiovascular disease 19 FATHER Colon cancer 19 FATHER ( AGE 40) Diabetes mellitus 19 MOTHER FH: CHF (congestive heart failure) FH: colon cancer Myocardial infarction 19 MOTHER Neoplasm G8 BROTHER ( AGE 68) No Pertinent Family Hx Review of Systems Constitutional: no symptoms reported EENTM: no symptoms reported Respiratory: no symptoms reported Cardiovascular: no symptoms reported Gastrointestinal: no symptoms reported Genitourinary: decreased output Musculoskeletal: other (Pelvic pain) Skin: no symptoms reported Psychiatric/Neurological: No Symptoms Reported Physical Exam Physical Exam Vital Signs Vital Signs - First Documented Capillary Refill : Less Than 3 SecondsLess Than 3 Seconds Height, Weight, BMI Height: 4'11.00" Weight: 109lbs. 0.0oz. 49.015025mm; 22.65 BMI Method:Stated General Appearance: No Apparent Distress, Thin HEENT: PERRL/EOMI, Pharynx Normal, Other (Wearing dentures) Neck: Normal Inspection, Supple Respiratory: Lungs Clear, Normal Breath Sounds, No Respiratory Distress Cardiovascular: Regular Rate, Rhythm, No Edema, No Murmur Gastrointestinal: Normal Bowel Sounds, Non Tender, Soft Extremity: Normal Inspection, Non Tender, No Pedal Edema Neurologic/Psychiatric: Alert, Oriented x3, No Motor/Sensory Deficits, Normal Mood/Affect Skin: Normal Color, Warm/Dry Results Results/Procedures Labs Laboratory Tests 10/01/19 15:25 Patient resulted labs reviewed. Imaging: Reviewed Imaging Report Assessment/Plan Admission Diagnosis Intractable pain Admission Status: Observation Assessment and Plan Intractable pain Ground-level fall Pelvic fracture X-rays unrevealing CT pelvis revealed bilateral alar fractures and S2 compression Pain regimen ordered Bowel regimen ordered Consult orthopedic surgery, discussed case with Dr. Odom Urinary retention Shields catheter in place DVT prophylaxis: Lovenox Diagnosis/Problems Diagnosis/Problems (1) Pelvic fracture Status: Acute Qualifiers: Encounter type: initial encounter (2) Fall from ground level Status: Acute (3) Urinary retention Status: Acute Clinical Quality Measures DVT/VTE Risk/Contraindication: Risk Factor Score Per Nursin RFS Level Per Nursing on Admit: 4+=Very High AIDAN SINGER MD Oct 02, 2019 11:26
--- NOTE | 2019-10-02 11:42 | Progress Note - Hospitalist ---
Subjective HPI/CC On Admission Date Seen by Provider: Oct 02, 2019 Time Seen by Provider: 09:30 Kasia Richardson is a 74-year-old female with past medical history of hypertension who presented with pain following a fall. She reports that she had been doing well prior to Tuesday. At that time she had a fall in her home. She reports that she was trying to open a jar and the was using both hands and lost her balance and fell to the floor. She says that she did not hit her head. She has had issues with balance in the past. She denies feeling lightheaded or dizzy prior to the fall. She denies loss of consciousness. She has had pain with ambulation since that time. She went to the emergency room and had x-rays which were normal and she was discharged back home. She reports that she has had decreased urine output. She had been urinating but was having some incontinence at home. She was seen in the clinic by Dr. Alston and was directly admitted for further evaluation and pain control. She denies any fevers or chills. She denies any chest pain or shortness of breath. She denies any abdominal pain, nausea, vomiting, or diarrhea. Subjective/Events-last exam She reports that her pain is well-controlled whenever she is not moving. She continues to have pain with movement. She denies any fevers or chills. She denies any chest pain or shortness of breath. She denies any abdominal pain, nausea, vomiting, or diarrhea. She says that she feels a lot better with the Shields in place with her bladder drained. Objective Exam Vital Signs Vital Signs Date Time Temp Pulse Resp B/P (MAP) Pulse Ox O2 Delivery O2 Flow Rate FiO2 10/02/19 09:35 97 Room Air 10/02/19 09:26 36.6 87 18 138/69 (92) Capillary Refill : Less Than 3 SecondsLess Than 3 Seconds General Appearance: No Apparent Distress, Thin HEENT: PERRL/EOMI, Pharynx Normal Neck: Normal Inspection, Supple Respiratory: Lungs Clear, Normal Breath Sounds, No Respiratory Distress Cardiovascular: Regular Rate, Rhythm, No Edema, No Murmur Gastrointestinal: Normal Bowel Sounds, Non Tender, Soft Extremity: Normal Inspection, Non Tender, No Pedal Edema Neurologic/Psychiatric: Alert, Oriented x3, No Motor/Sensory Deficits, Normal Mood/Affect Skin: Normal Color, Warm/Dry Results/Procedures Lab Laboratory Tests 10/01/19 15:25 Patient resulted labs reviewed. Imaging: Reviewed Imaging Report Assessment/Plan Assessment and Plan Assess & Plan/Chief Complaint Ground-level fall Pelvic fracture CT pelvis revealed bilateral alar fractures and S2 compression Continue pain regimen Dr. Odom, orthopedic surgery consulted No surgical intervention planned Recommend weightbearing as tolerated Consult PT/OT Urinary retention Shields catheter in place DVT prophylaxis: Lovenox Diagnosis/Problems Diagnosis/Problems (1) Pelvic fracture Status: Acute Qualifiers: Encounter type: initial encounter (2) Fall from ground level Status: Acute (3) Urinary retention Status: Acute Clinical Quality Measures DVT/VTE Risk/Contraindication: Risk Factor Score Per Nursin RFS Level Per Nursing on Admit: 4+=Very High AIDAN SINGER MD Oct 02, 2019 11:42
[2019-10-02] MEDS: ENOXAPARIN 40 MG/0.4 ML (LOVENOX) SYR SQ SCH (13:25)
[2019-10-02 13:48] VITALS: BP 146/68
[2019-10-02] MEDS: LACTATED RINGERS 1,000 ML IV SCH (14:47)
--- NOTE | 2019-10-02 14:50 | Occupational Therapy Eval ---
OT Evaluation-General/PLF Medical Diagnosis Admission Date Oct 02, 2019 at 11:41 Medical Diagnosis: Pelvis fx Onset Date: Sep 28, 2019 Therapy Diagnosis Therapy Diagnosis: Weakness Height/Weight Height (Feet): 4 Height (Inches): 11.00 Weight (Pounds): 109 Weight (Ounces): 0.0 Precautions Precautions/Isolations: Standard Precautions Safety Interventions: None Weight Bear Status Weight Bearing Restriction: Weight Bearing/Tolerated Referral Physician: Dr. Lopez Referral Reason: Activity Tolerance, Self Care, Evaluation/Treatment, Strengthening/ROM Medical History Pertinent Medical History: Dementia, GERD Additional Medical History TBI, vertigo, rehab stay for fx arm Current History Pt. fell at home. Came to ER. x-rays negative for pelvic fx. Continued to have pain. Came back and CT performed. Sacral/pelvic fx noted. Reviewed History: Yes Social History Home: Single Level Current Living Status: Alone Entry Into Home: Level Entry ADL-Prior Level of Function SCALE: Activities may be completed with or without assistive devices. 5-Hyduzlkdqk-vnsmlty completes the activity by him/herself with no assistance from a helper. 5-Set-up or Clean-up Assistance-helper sets up or cleans up; patient completes activity. [place] assists only prior to or following the activity. 4-Supervision or Touching Assistance-helper provides verbal cues and/or touching/steadying and/or contact guard assistance as patient completes activity. Assistance may be provided throughout the activity or intermittently. 3-Partial/Moderate Assistance-helper does LESS THAN HALF the effort. [place] lift s, holds or supports trunk or limbs, but provides less than half the effort. 2-Substantial/Maximal Assistance-helper does MORE THAN HALF the effort. [place] lifts or holds trunk or limbs and provides more than half the effort. 0-Ugjflkmss-bmsdlm does ALL the effort. Patient does none of the effort to complete the activity. Or, the assistance of 2 or more helpers is required for the patient to complete the activity. If activity was not attempted, code reason: 7-Patient Refused. 9-Not Applicable-not attempted and the patient did not perform the activity before the current illness, exacerbation or injury. 10-Not Attempted due to Environmental Limitations-(lack of equipment, weather restraints, etc.). 88-Not Attempted due to Medical Conditions or Safety Concerns. ADL PLOF Comments Pt. states that she was completing ADLs on her own, including cooking/cleaning. States that she has some protestant friends that help her out from time to time. Self Care: Unknown Functional Cognition: Unknown DME/Equipment: Bath Chair, Tub/Shower DME/Equipment Comments Pt. uses walker. OT Current Status Subjective Pt. reports 5/10 pain while in bed. Then reports that her pain is a 12 with movement. Nursing gives pt. pain medication. Appearance OT attempts evaluation twice. At first attempt, pt. very apprehensive and anxious. Nursing gave pain medication and OT came back at later time. Mental Status/Objective Patient Orientation: Person, Place Attachments: IV Current Glasses/Contacts: Yes Hand Dominance: Right Upper Extremity ROM Pt. is able to flex left shoulder to approximately 90 degrees from previous reported fx. Right WFL. ADL-Treatment Eating (QC): 5 (Set up) On/Off Footwear (QC): 1 Toileting Hygiene (QC): 1 (Dependent for OT to cleanse rear namita area.) Other Treatments At first attempt, pt. became very anxious. OT encouraged pt. and explained importance of moving. OT attempts to raise HOB slightly, and pt. yells out that this hurts. Nursing gives pt. pain medication. OT comes back at later time. Pt. has finished lunch at this time. Still apprehensive to move, but does agree. Pt. able to bring bilateral LE to side of bed. Max assist for supine- sit. Pt. is encouraged and praised for efforts. Pt. sits on side of bed and encouraged to deep breath. Stands with mod assist. Noted pt. pt. slightly incontinent of stool. Back extension noted and pt. unable to take steps. Pt. sits back down, and stands again with max encouragement. Stands with mod assist and OT cleanses rear [place] area. Pt. sits back down. Encouraged to start to bring legs into bed. Pt. throws self back into bed and is encouraged to not do this, as she almost hits head on railing. Max assist x 2 for bed positioning. All needs met. Education OT Patient Education: Correct positioning, Modified ADL techniques, Progress toward Goal/Update tx plan, Purpose of tx/functional activities, Reviewed precautions, Rehab process, Transfer techniques Teaching Recipient: Patient Teaching Methods: Demonstration, Discussion Response to Teaching: Verbalize Understanding, Return Demonstration OT Short Term Goals Short Term Goals Time Frame: Oct 16, 2019 Eatin Oral hygiene: 4 Toileting hygiene: 3 Shower/bathe self: 3 Upper body dressin Lower body dressin Putting on/taking off footwear: 3 OT [facility] Goals Camera Storage Clerk Goals Time Frame: Oct 30, 2019 Eating (QC): 6 Oral Hygiene (QC): 5 Toileting Hygiene (QC): 5 Shower/Bathe Self (QC): 4 Upper Body Dressing (QC): 5 Lower Body Dressing (QC): 4 On/Off Footwear (QC): 4 Additional Goals: 1-Demonstrate ADL Tasks, 2-Verbalize Understanding, 3- ImproveStrength/Ayden 1=Demonstrate adherence to instructed precautions during ADL tasks. 2=Patient will verbalize/demonstrate understanding of assistive devices/modifications for ADL. 3=Patient will improve strength/tolerance for activity to enable patient to perform ADL's. OT Education/Plan Problem List/Assessment Assessment: Decreased Activ Tolerance, Decreased Safety Aware, Decreased UE Strength, Dependent Transfers, Impaired Bed Mobility, Impaired Cognition, Impaired Funct Balance, Impaired I ADL's, Impaired Self-Care Skills Discharge Recommendations Plan/Recommendations: Continue POC Therapy Discharge Recommendati: 24 Hour Supervision Treatment Plan/Plan of Care Treatment,Training & Education: Yes Patient would benefit from OT for education, treatment and training to promote independence in ADL's, mobility, safety and/or upper extremity function for ADL's. Plan of Care: ADL Retraining, Functional Mobility, UE Funct Exercise/Act Treatment Duration: Oct 30, 2019 Frequency: 5 times per week Estimated Hrs Per Day: .5 hour per day Agreement: Yes Rehab Potential: Fair Time/GCodes Start Time: 12:55 Stop Time: 14:15 Total Time Billed (hr/min): 25 Billed Treatment Time [id number] 1, visit x 15minutes [id number] 1, EVH x 10minutes ANNE MCCARTHY OT Oct 02, 2019 14:50
--- NOTE | 2019-10-02 14:55 | Physical Therapy Evaluation ---
PT Evaluation-General Medical Diagnosis Admission Date Oct 02, 2019 at 11:41 Medical Diagnosis: weakness/falls Onset Date: Sep 28, 2019 Therapy Diagnosis Therapy Diagnosis: impaired mobility, strength, pain Height/Weight Height (Feet): 4 Height (Inches): 11.00 Weight (Pounds): 109 Weight (Ounces): 0.0 Precautions Precautions/Isolations: Standard Precautions Weight Bear Status Right Lower Extremity: Right Weight Bearing/Tolerated Left Lower Extremity: Left Weight Bearing/Tolerated Referral Physician: Ilene Reason for Referral: Evaluation/Treatment Medical History Pertinent Medical History: GERD Additional Medical History Past Medical History Neurological: Dementia, Traumatic Brain Injury, Vertigo Menopausal Genitourinary: Bladder Infection Gastrointestinal: Gastroesophageal Reflux Musculoskeletal: Fibromyalgia, Fractures History of Blood Disorders: No Current History sacral fx Reviewed History: Yes Social History Home: Single Level Current Living Status: Alone Entry Into Home: Level Entry Prior Prior Level of Function SCALE: Activities may be completed with or without assistive devices. 9-Iatamslkuz-qplowsf completes the activity by him/herself with no assistance from a helper. 5-Set-up or Clean-up Assistance-helper sets up or cleans up; patient completes activity. [place] assists only prior to or following the activity. 4-Supervision or Touching Assistance-helper provides verbal cues and/or touching/steadying and/or contact guard assistance as patient completes activity. Assistance may be provided throughout the activity or intermittently. 3-Partial/Moderate Assistance-helper does LESS THAN HALF the effort. [place] lifts, holds or supports trunk or limbs, but provides less than half the effort. 2-Substantial/Maximal Assistance-helper does MORE THAN HALF the effort. [place] lifts or holds trunk or limbs and provides more than half the effort. 4-Bketqkjlu-hxjbkm does ALL the effort. Patient does none of the effort to complete the activity. Or, the assistance of 2 or more helpers is required for the patient to complete the activity. If activity was not attempted, code reason: 7-Patient Refused. 9-Not Applicable-not attempted and the patient did not perform the activity before the current illness, exacerbation or injury. 10-Not Attempted due to Environmental Limitations-(lack of equipment, weather restraints, etc.). 88-Not Attempted due to Medical Conditions or Safety Concerns. Bed Mobility: 6 Transfers (B,C,W/C): 6 Gait: 6 Indoor Mobility (Ambulation): Independent Patient states she used a 4-wheeled walker previously. PT Evaluation-Current Subjective Patient in bed pre tx, agrees to PT, has 3/10 pain in her low back/sacral area. Patient pleads to not get out of bed or sit again, apparently she did this with OT and doesn't want to do it again due to pain. She says her pain is 10/10 with movement. Pt/Family Goals to be independent at home Objective Patient Orientation: Person, Place, Situation Attachments: Shields Catheter, IV ROM/Strength ROM Lower Extremities limited some bilaterally due to pain Strength Lower Extremities RLE 4/5 gross, LLE 4+/5 gross Sensory Vision: Wears Glasses Hearing: Functional Sensation Right Lower Extremit: Impaired Sensation Left Lower Extremity: Impaired Sensation Lower Extremities Patient has some numbness/decreased light touch sensation mostly around the great toe on both sides. She denies any numbness in her groin or buttock area. Treatment BLE exercises x15 (AP, GS, QS, HS). Advised patient to perform HS and AP every 30 min. Assessment/Needs Patient has impaired mobility, strength, and increased pain. Patient has severe pain with movement. Rehab Potential: Guarded PT Electrical Journeyman Goals Electrical Journeyman Goals PT Electrical Journeyman Goals Time Frame: Oct 09, 2019 Roll Left & Right (QC): 4 Sit to Lying (QC): 4 Lying-Sitting on Side/Bed(QC): 4 Sit to Stand (QC): 3 Chair/Cwr-dz-Nkmwz Xfer(QC): 3 Walk 10 feet (QC): 3 PT Plan Problem List Problem List: Activity Tolerance, Functional Strength, Safety, Balance, Gait, Transfer, Bed Mobility, ROM Treatment/Plan Treatment Plan: Continue Plan of Care Treatment Plan: Bed Mobility, Education, Functional Activity Ayden, Functional Strength, Gait, Safety, Therapeutic Exercise, Transfers Treatment Duration: Oct 09, 2019 Frequency: 6 times per week Estimated Hrs Per Day: .25 hour per day Patient and/or Family Agrees t: Yes Safety Risks/Education Patient Education: Correct Positioning, Safety Issues Teaching Recipient: Patient Teaching Methods: Demonstration, Discussion Response to Teaching: Reinforcement Needed Discharge Recommendations Plan Patient will perform bed mobility and transfer training, balance and endurance training, functional strengthening, stair training, gait training, and education, to improve functional mobility and independence at home. Therapy Discharge Recommendati: Home & Family Time/GCodes Time In: 1415 Time Out: 1430 Total Billed Treatment Time: 15 Total Billed Treatment 1 visit DAMIEN 15' ARIELLA CROCKER PT Oct 02, 2019 14:55
[2019-10-02 16:03] VITALS: BP 153/68
[2019-10-02 20:18] VITALS: BP 133/63
[2019-10-02] MEDS: MELATONIN 3 MG TABLET PO PRN (21:10)
[2019-10-03] VITALS: BP 164/72
[2019-10-03 04:00] VITALS: BP 154/70
[2019-10-03] MEDS: GABAPENTIN 300 MG (NEURONTIN) CAP PO SCH ×3 (07:53→20:15)
[2019-10-03] MEDS: DOCUSATE SODIUM 100 MG (COLACE) CAP PO SCH ×2 (07:54→20:17)
[2019-10-03] MEDS: SENNOSIDES 8.6 MG (SENOKOT) TAB PO SCH ×2 (07:54→20:17)
[2019-10-03 08:00] VITALS: BP 156/73
[2019-10-03 08:18] LABS: BUN/CREATININE RATIO 16; CALCIUM 9.4 MG/DL (8.5-10.1); CARBON DIOXIDE 24 MMOL/L (21-32); CHLORIDE 106 MMOL/L (98-107); GFR ESTIMATED > 60; GLUCOSE 101 MG/DL (70-105); POTASSIUM 4.4 MMOL/L (3.6-5.0); SODIUM 140 MMOL/L (135-145)
--- NOTE | 2019-10-03 10:40 | Physical Therapy Daily Note ---
PT Daily Note-Current Subjective Pt in bed, expresses that she does not have pain in stance and gait but the TRFs between are the Problem. Pt. wants to go to bathroom for BM and walk. Pt. shares that she realizes now she should have stayed in [facility] , " I loved it and they are so nice, I had everything I needed I just thought I couldnt really afford it very long " Pain Numeric Pain Scale: 5-Moderate Pain Location: Medial Location Body Site: Pelvic Pain Description: Ache Comment: during sup to sit and sit to sup Mental Status Patient Orientation: Normal For Age Attachments: Shields Catheter, IV Transfers SCALE: Activities may be completed with or without assistive devices. 7-Ovjeeomwkv-vixiryb completes the activity by him/herself with no assistance from a helper. 5-Set-up or Clean-up Assistance-helper sets up or cleans up; patient completes activity. [place] assists only prior to or following the activity. 4-Supervision or Touching Assistance-helper provides verbal cues and/or touchin g/steadying and/or contact guard assistance as patient completes activity. Assistance may be provided throughout the activity or intermittently. 3-Partial/Moderate Assistance-helper does LESS THAN HALF the effort. [place] lifts, holds or supports trunk or limbs, but provides less than half the effort. 2-Substantial/Maximal Assistance-helper does MORE THAN HALF the effort. [place] lifts or holds trunk or limbs and provides more than half the effort. 1-Jbffohgbf-oibqxb does ALL the effort. Patient does none of the effort to complete the activity. Or, the assistance of 2 or more helpers is required for the patient to complete the activity. If activity was not attempted, code reason: 7-Patient Refused. 9-Not Applicable-not attempted and the patient did not perform the activity before the current illness, exacerbation or injury. 10-Not Attempted due to Environmental Limitations-(lack of equipment, weather restraints, etc.). 88-Not Attempted due to Medical Conditions or Safety Concerns. Roll Left & Right (QC): 3 Sit to Lying (QC): 3 Lying to Sitting/Side of Bed(Q: 3 Sit to Stand (QC): 4 Chair/Wna-or-Madhp Xfer(QC): 4 Toilet Transfer (QC): 4 pt. needed assist for LEs in to bed with instruction for sidelying to supine to avoid pressure on coccyx and sacrum, Pt. gets anxious and reaches to pull on therapist but is reminded and instructed to use rails and try to manage her self with some instruction to facilitate indep and progress Weight Bearing Right Lower Extremity: Right Weight Bearing/Tolerated Left Lower Extremity: Left Weight Bearing/Tolerated Gait Training Does the Patient Walk?: Yes Walk 10 feet (QC): 4 Walk 50 ft with 2 Turns(QC): 4 Walk 150 ft (QC): 4 Gait Persons Needed: 1 Gait Assistive Device: FWW slow, antalgic, assist for IV and CGA, small steps , heavy wt bearing on FWW Exercises Supine Ex: Ankle pumps, Quad Set, Rolling, Heel Slides, Hip abd/add Supine Reps: 12 Seated Therapy Exercises: Long arc quads Seated Reps: 10 Treatments toileted for BM in bathrm with blanket on back hard edge of toilet seat for comfort. pt. with some difficulty evacuating bowels states she hopes to get more tto help her have easier BMs, nurse informed Assessment Current Status: Good Progress anxious, fearful of pain, unsure of future plans PT Rodeo Rider Goals [facility] Goals PT [facility] Goals Time Frame: Oct 09, 2019 Roll Left & Right (QC): 4 Sit to Lying (QC): 4 Lying-Sitting on Side/Bed(QC): 4 Sit to Stand (QC): 3 Chair/Sfb-ro-Wdebu Xfer(QC): 3 Walk 10 feet (QC): 3 PT Plan Treatment/Plan Treatment Plan: Continue Plan of Care Treatment Plan: Bed Mobility, Education, Functional Activity Ayden, Functional Strength, Gait, Safety, Therapeutic Exercise, Transfers Treatment Duration: Oct 09, 2019 Frequency: 6 times per week Estimated Hrs Per Day: .25 hour per day Patient and/or Family Agrees t: Yes Safety Risks/Education Patient Education: Gait Training, Transfer Techniques, Correct Positioning, Disease Process, Safety Issues Teaching Recipient: Patient Teaching Methods: Demonstration, Discussion Response to Teaching: Verbalize Understanding, Return Demonstration, Reinforcement Needed Time/GCodes Time In: 950 Time Out: 1030 Total Billed Treatment Time: 40 Total Billed Treatment 1,FA20m,EX10m,GT10m KORTNEY COLMENARES PROGRAM ADMIN Oct 03, 2019 10:40
[2019-10-03 11:53] VITALS: BP 148/72
--- NOTE | 2019-10-03 12:00 | Occupational Ther Daily Note ---
OT Current Status-Daily Note Subjective Pt in bed, agrees to therapy, but states she is not going to get up again as she recently worked with PT. Pt reports minimal pain at rest, but has discomfort with movement. ADL-Treatment Pt would like to complete bathing, but wants to complete while in supine. Pt able to doff gown and wash upper body with set up. Pt washed [place] area, but required assist for LE. Pt donned clean gown with assist secondary to IV. Pt combed hair with SBA. Pt declined further activity. Resting in bed with needs met after session. Therapy Code Descriptions/Definitions Functional [place] Measure: 0=Not Assessed/NA 4=Minimal Assistance 1=Total Assistance 5=Supervision or Setup 2=Maximal Assistance 6=Modified [place] 3=Moderate Assistance 7=Complete IndependenceSCALE: Activities may be completed with or without assistive devices. 2-Bzbuendcpf-hexawrz completes the activity by him/herself with no assistance from a helper. 5-Set-up or Clean-up Assistance-helper sets up or cleans up; patient completes activity. [place] assists only prior to or following the activity. 4-Supervision or Touching Assistance-helper provides verbal cues and/or touching/steadying and/or contact guard assistance as patient completes activity. Assistance may be provided throughout the activity or intermittently. 3-Partial/Moderate Assistance-helper does LESS THAN HALF the effort. [place] lifts, holds or supports trunk or limbs, but provides less than half the effort. 2-Substantial/Maximal Assistance-helper does MORE THAN HALF the effort. [place] lifts or holds trunk or limbs and provides more than half the effort. 8-Ghugjcbgy-fvnmwb does ALL the effort. Patient does none of the effort to complete the activity. Or, the assistance of 2 or more helpers is required for the patient to complete the activity. If activity was not attempted, code reason: 7-Patient Refused. 9-Not Applicable-not attempted and the patient did not perform the activity before the current illness, exacerbation or injury. 10-Not Attempted due to Environmental Limitations-(lack of equipment, weather restraints, etc.). 88-Not Attempted due to Medical Conditions or Safety Concerns. Shower/Bathe Self (QC): 3 OT Short Term Goals Short Term Goals Time Frame: Oct 16, 2019 Eatin Oral hygiene: 4 Toileting hygiene: 3 Shower/bathe self: 3 Upper body dressin Lower body dressin Putting on/taking off footwear: 3 OT Shelter Goals Reptile Farmer Goals Time Frame: Oct 30, 2019 Eating (QC): 6 Oral Hygiene (QC): 5 Toileting Hygiene (QC): 5 Shower/Bathe Self (QC): 4 Upper Body Dressing (QC): 5 Lower Body Dressing (QC): 4 On/Off Footwear (QC): 4 Additional Goals: 1-Demonstrate ADL Tasks, 2-Verbalize Understanding, 3- ImproveStrength/Ayden 1=Demonstrate adherence to instructed precautions during ADL tasks. 2=Patient will verbalize/demonstrate understanding of assistive devices/modifications for ADL. 3=Patient will improve strength/tolerance for activity to enable patient to perform ADL's. OT Education/Plan Discharge Recommendations Plan/Recommendations: Continue POC Treatment Plan/Plan of Care Patient would benefit from OT for education, treatment and training to promote independence in ADL's, mobility, safety and/or upper extremity function for ADL's. Plan of Care: ADL Retraining, Functional Mobility, UE Funct Exercise/Act Treatment Duration: Oct 30, 2019 Frequency: 5 times per week Estimated Hrs Per Day: .5 hour per day Agreement: Yes Rehab Potential: Guarded Time/GCodes Start Time: 11:08 Stop Time: 11:28 Total Time Billed (hr/min): 20 Billed Treatment Time 1 visit, ADL(20minutes) NATALI PINK OT Oct 03, 2019 12:00
--- NOTE | 2019-10-03 14:27 | Progress Note - Hospitalist ---
Subjective HPI/CC On Admission Date Seen by Provider: Oct 03, 2019 Time Seen by Provider: 10:05 Kasia Richardson is a 74-year-old female with past medical history of hypertension who presented with pain following a fall. She reports that she had been doing well prior to Tuesday. At that time she had a fall in her home. She reports that she was trying to open a jar and the was using both hands and lost her balance and fell to the floor. She says that she did not hit her head. She has had issues with balance in the past. She denies feeling lightheaded or dizzy prior to the fall. She denies loss of consciousness. She has had pain with ambulation since that time. She went to the emergency room and had x-rays which were normal and she was discharged back home. She reports that she has had decreased urine output. She had been urinating but was having some incontinence at home. She was seen in the clinic by Dr. Alston and was directly admitted for further evaluation and pain control. She denies any fevers or chills. She denies any chest pain or shortness of breath. She denies any abdominal pain, nausea, vomiting, or diarrhea. Subjective/Events-last exam She reports that her pain is getting better. She is going to work with the therapist today. She is going to sit in the bedside chair. She has been eating and drinking well. She denies any fevers, chills, shortness of breath, chest pain, abdominal pain, nausea, vomiting, or diarrhea. Objective Exam Vital Signs Vital Signs Date Time Temp Pulse Resp B/P (MAP) Pulse Ox O2 Delivery O2 Flow Rate FiO2 10/03/19 11:53 36.3 69 18 148/72 (97) 97 Room Air Capillary Refill : Less Than 3 SecondsLess Than 3 Seconds General Appearance: No Apparent Distress, WD/WN HEENT: PERRL/EOMI, Pharynx Normal Neck: Normal Inspection, Supple Respiratory: Lungs Clear, Normal Breath Sounds, No Respiratory Distress Cardiovascular: Regular Rate, Rhythm, No Edema, No Murmur Gastrointestinal: Normal Bowel Sounds, Non Tender, Soft Extremity: Normal Inspection, Non Tender, No Pedal Edema Neurologic/Psychiatric: Alert, Normal Mood/Affect; No Disoriented Skin: Normal Color, Warm/Dry Results/Procedures Lab Laboratory Tests 10/03/19 07:50 Patient resulted labs reviewed. Imaging: Reviewed Imaging Report Assessment/Plan Assessment and Plan Assess & Plan/Chief Complaint Ground-level fall Pelvic fracture CT pelvis revealed bilateral alar fractures and S2 compression Continue pain regimen Dr. Odom, orthopedic surgery consulted No surgical intervention planned Recommend weightbearing as tolerated Continue PT/OT Social work consulted for usp placement Urinary retention Remove Shields catheter Bladder scan and straight catheter as needed DVT prophylaxis: Lovenox Diagnosis/Problems Diagnosis/Problems (1) Pelvic fracture Status: Acute Qualifiers: Encounter type: initial encounter (2) Fall from ground level Status: Acute (3) Urinary retention Status: Acute Clinical Quality Measures DVT/VTE Risk/Contraindication: Risk Factor Score Per Nursin RFS Level Per Nursing on Admit: 4+=Very High AIDAN SINGER MD Oct 03, 2019 14:27
[2019-10-03] MEDS: ENOXAPARIN 40 MG/0.4 ML (LOVENOX) SYR SQ SCH (15:01)
[2019-10-03 16:00] VITALS: BP 132/78
[2019-10-03] MEDS: MELATONIN 3 MG TABLET PO PRN (20:15)
[2019-10-03 20:30] VITALS: BP 146/70
[2019-10-04 00:30] VITALS: BP 143/76
[2019-10-04 04:20] VITALS: BP 154/86
[2019-10-04 08:37] LABS: BUN/CREATININE RATIO 18; CALCIUM 9.4 MG/DL (8.5-10.1); CARBON DIOXIDE 22 MMOL/L (21-32); CHLORIDE 102 MMOL/L (98-107); CREATININE SERUM 0.74 MG/DL (0.60-1.30); GFR ESTIMATED > 60; GLUCOSE 166 MG/DL (70-105); POTASSIUM 3.6 MMOL/L (3.6-5.0); SODIUM 137 MMOL/L (135-145)
[2019-10-04] MEDS: SENNOSIDES 8.6 MG (SENOKOT) TAB PO SCH ×2 (08:39→21:02)
[2019-10-04] MEDS: DOCUSATE SODIUM 100 MG (COLACE) CAP PO SCH ×2 (08:39→21:02)
[2019-10-04] MEDS: GABAPENTIN 300 MG (NEURONTIN) CAP PO SCH ×3 (08:39→21:02)
[2019-10-04 08:48] VITALS: BP 154/74
--- NOTE | 2019-10-04 09:10 | Physical Therapy Daily Note ---
PT Daily Note-Current Subjective Patient in bed pre tx, agrees to PT, has no pain at rest but significant pain with supine <-> sit. Nurse takes out gamble catheter before tx. Appearance Patient in bed post tx with nurse call, phone, tray, all needs met. Mental Status Patient Orientation: Person, Situation Attachments: SCD's, IV Transfers SCALE: Activities may be completed with or without assistive devices. 9-Snunhpluet-klezwfk completes the activity by him/herself with no assistance from a helper. 5-Set-up or Clean-up Assistance-helper sets up or cleans up; patient completes activity. [place] assists only prior to or following the activity. 4-Supervision or Touching Assistance-helper provides verbal cues and/or touching/steadying and/or contact guard assistance as patient completes activity. Assistance may be provided throughout the activity or intermittently. 3-Partial/Moderate Assistance-helper does LESS THAN HALF the effort. [place] lifts, holds or supports trunk or limbs, but provides less than half the effort. 2-Substantial/Maximal Assistance-helper does MORE THAN HALF the effort. [place] lifts or holds trunk or limbs and provides more than half the effort. 8-Sacikdyhc-horyrs does ALL the effort. Patient does none of the effort to complete the activity. Or, the assistance of 2 or more helpers is required for the patient to complete the activity. If activity was not attempted, code reason: 7-Patient Refused. 9-Not Applicable-not attempted and the patient did not perform the activity before the current illness, exacerbation or injury. 10-Not Attempted due to Environmental Limitations-(lack of equipment, weather restraints, etc.). 88-Not Attempted due to Medical Conditions or Safety Concerns. Roll Left & Right (QC): 2 Sit to Lying (QC): 2 Lying to Sitting/Side of Bed(Q: 2 Sit to Stand (QC): 3 Chair/Kiu-rd-Lsnqs Xfer(QC): 4 Min assist for sit <-> stand, patient extends hips and flexes knees to help relieve pain. Weight Bearing Right Lower Extremity: Right Weight Bearing/Tolerated Left Lower Extremity: Left Weight Bearing/Tolerated Gait Training Distance: 100' Walk 10 feet (QC): 4 Walk 50 ft with 2 Turns(QC): 4 Gait Persons Needed: 1 Gait Assistive Device: FWW CGA, slow ambulation, antalgic Exercises Supine Ex: Ankle pumps, Quad Set, Glut sets, Heel Slides Supine Reps: 15 Treatments bed mobility and transfers, ambulation, LE exercise Assessment Current Status: Fair Progress Patient is disappointed that she didn't ambulate as far, but she also says she didn't have any pain medication yet. Patient is very anxious about pain, has trouble following directions for positioning that would help with her pain and instead insists that therapist just lift her. PT Senior Living Goals Senior Living Goals PT Card Puncher Goals Time Frame: Oct 09, 2019 Roll Left & Right (QC): 4 Sit to Lying (QC): 4 Lying-Sitting on Side/Bed(QC): 4 Sit to Stand (QC): 3 Chair/Piq-of-Hbwvg Xfer(QC): 3 Walk 10 feet (QC): 3 PT Plan Problem List Problem List: Activity Tolerance, Functional Strength, Safety, Balance, Gait, Transfer, Bed Mobility, ROM Treatment/Plan Treatment Plan: Continue Plan of Care Treatment Plan: Bed Mobility, Education, Functional Activity Ayden, Functional Strength, Gait, Safety, Therapeutic Exercise, Transfers Treatment Duration: Oct 09, 2019 Frequency: 6 times per week Estimated Hrs Per Day: .25 hour per day Patient and/or Family Agrees t: Yes Safety Risks/Education Patient Education: Gait Training, Transfer Techniques, Correct Positioning, Safety Issues Teaching Recipient: Patient Teaching Methods: Demonstration, Discussion Response to Teaching: Reinforcement Needed Time/GCodes Time In: 838 Time Out: 904 Total Billed Treatment Time: 26 Total Billed Treatment 1 visit GT 10' EX 16' ARIELLA CROCKER PT Oct 04, 2019 09:10
--- NOTE | 2019-10-04 09:43 | Progress Note - Ortho ---
Progress Note Subjective Date of Exam 10/04/19 Chief Complaint Sacral fracture HPI/Events since last exam Mrs. Richardson is doing a little bit better. She states the pain is increased with sitting and also with walking with a walker but she has less pain with just standing. Discomfort lying in bed. She has been getting up with physical therapy Review of Systems Reviewed and no additions or changes Allergies: Coded Allergies: cefuroxime (Verified Allergy, Unknown, Hives, 12/27/18) Home Meds Active Scripts Oxyquinoline/Sod.lauryl Sulfat (Trimo-Crisostomo Jelly) 113.4 Gm Jelly.appl, 0 GM VG HS for 30 Days, TUBE Prov:MARLO GALAVIZ DO 06/07/19 Docusate Sodium (Docusate Sodium) 100 Mg Capsule, 100 MG PO BID for 30 Days, CAP Prov:MARLO GALAVIZ DO 06/07/19 Acetaminophen (ACETAMINOPHEN) 500 Mg Tablet, 500 MG PO Q6H PRN for PAIN-MILD for 30 Days, TAB Prov:MARLO GALAVIZ DO 06/07/19 Hydrocodone Bit/Acetaminophen (Hydrocodone/Acetaminophen 5/325mg Tablet) 1 Tab Tab, 1 TAB PO Q6HR PRN for PAIN-MODERATE, #30 TAB Prov:MARLO GALAVIZ DO 06/07/19 Ibuprofen (Ibuprofen) 200 Mg Tablet, 400 MG PO Q6H PRN for PAIN-MILD for 30 Days, TAB Prov:MARLO GALAVIZ DO 06/07/19 Cyclobenzaprine HCl (Cyclobenzaprine HCl) 10 Mg Tablet, 5 MG PO HS for 30 Days, TAB Prov:MARLO GALAVIZ DO 06/07/19 Reported Medications Lactobacillus Acidophilus (Probiotic) 1 Each Capsule, 2 CAP PO HS, CAP 05/25/19 Objective Exam Constitutional: [] HEENT: [] Neck: [] Cardiovascular: [] Respiratory: [] Gastrointestinal: [] Genitourinary: [] Skin: [] Back/Spine: [Pain with palpation over the lower lumbar region and sacrum] Extremities: [] No pain either hip and she has equal strength and symmetrical sensation and pulses in the lower extremities Neurologic: [] Psychiatric: [] Hematologic/lymphatic/immunologic: [] Vital Signs Vital Signs Date Time Temp Pulse Resp B/P (MAP) Pulse Ox O2 Delivery O2 Flow Rate FiO2 1/23/20 08:48 36.5 91 20 154/74 (100) 98 Room Air 10/04/19 08:00 97 Room Air 10/04/19 04:20 37.1 72 14 154/86 (108) 95 Room Air 10/04/19 00:30 36.4 86 16 143/76 (98) 95 Room Air 10/03/19 20:30 37.1 75 18 146/70 (95) 95 Room Air 10/03/19 19:30 Room Air 10/03/19 16:00 36.9 81 20 132/78 (96) 95 Room Air 10/03/19 11:53 36.3 69 18 148/72 (97) 97 Room Air I & O 10/04/19 07:00 Intake Total 2140 ml Output Total 3725 ml Balance -1585 ml Lab Results Laboratory Tests 10/04/19 08:00: Sodium Level 137, Potassium Level 3.6, Chloride Level 102, Carbon Dioxide Level 22, Anion Gap 13, Blood Urea Nitrogen 13, Creatinine 0.74, Estimat Glomerular Filtration Rate > 60, BUN/Creatinine Ratio 18, Glucose Level 166H, Calcium Level 9.4 Assessment and Plan Assessment Gradual improvement in pain from sacral fracture Problem List Unchanged Plan Continue with walker ambulation and activities as tolerated Final Diagonsis Sacral fracture Level of the visit: Level 3 Clinical Quality Measures DVT/VTE Risk/Contraindication: Risk Factor Score Per Nursin RFS Level Per Nursing on Admit: 4+=Very High ALDEN VELA MD Oct 04, 2019 09:43
--- NOTE | 2019-10-04 10:55 | Occupational Ther Daily Note ---
OT Current Status-Daily Note Subjective Pt alert, lying in bed. Pt anxious about moving due to pain. Pt agrees to therapy. Nrsg present in room. Mental Status/Objective Patient Orientation: Person, Place, Time, Situation Attachments: IV ADL-Treatment Pt requested to use toilet. Pt anxious about going from supine <--> sit due to pain. Education on safe rolling in bed and how to go from supine <--> sit with decreased pain. Pt ambulated to bathroom with CGA and assist to manipulate tubing and IV pole. Pt cleansed self though inefficiently, assist to cleanse thoroughly. Assist to don/doff gown due to IV tubing. Mod A for supine <-> sit and assist x2 for bed mobility. After therapy, pt lying in bed with call light/phone in reach. All needs met in room. Therapy Code Descriptions/Definitions Functional [place] Measure: 0=Not Assessed/NA 4=Minimal Assistance 1=Total Assistance 5=Supervision or Setup 2=Maximal Assistance 6=Modified [place] 3=Moderate Assistance 7=Complete IndependenceSCALE: Activities may be completed with or without assistive devices. 0-Qmapkvvtok-megdlna completes the activity by him/herself with no assistance from a helper. 5-Set-up or Clean-up Assistance-helper sets up or cleans up; patient completes activity. [place] assists only prior to or following the activity. 4-Supervision or Touching Assistance-helper provides verbal cues and/or touching/steadying and/or contact guard assistance as patient completes activity. Assistance may be provided throughout the activity or intermittently. 3-Partial/Moderate Assistance-helper does LESS THAN HALF the effort. [place] lifts, holds or supports trunk or limbs, but provides less than half the effort. 2-Substantial/Maximal Assistance-helper does MORE THAN HALF the effort. [place] lifts or holds trunk or limbs and provides more than half the effort. 7-Naxkehxgn-qumkzz does ALL the effort. Patient does none of the effort to complete the activity. Or, the assistance of 2 or more helpers is required for the patient to complete the activity. If activity was not attempted, code reason: 7-Patient Refused. 9-Not Applicable-not attempted and the patient did not perform the activity before the current illness, exacerbation or injury. 10-Not Attempted due to Environmental Limitations-(lack of equipment, weather restraints, etc.). 88-Not Attempted due to Medical Conditions or Safety Concerns. Toileting Hygiene (QC): 3 Toilet Transfer (QC): 4 OT Short Term Goals Short Term Goals Time Frame: Oct 16, 2019 Eatin Oral hygiene: 4 Toileting hygiene: 3 Shower/bathe self: 3 Upper body dressin Lower body dressin Putting on/taking off footwear: 3 OT Doll Wig Hackler Goals Halfway Goals Time Frame: Oct 30, 2019 Eating (QC): 6 Oral Hygiene (QC): 5 Toileting Hygiene (QC): 5 Shower/Bathe Self (QC): 4 Upper Body Dressing (QC): 5 Lower Body Dressing (QC): 4 On/Off Footwear (QC): 4 Additional Goals: 1-Demonstrate ADL Tasks, 2-Verbalize Understanding, 3- ImproveStrength/Ayden 1=Demonstrate adherence to instructed precautions during ADL tasks. 2=Patient will verbalize/demonstrate understanding of assistive devices/modifications for ADL. 3=Patient will improve strength/tolerance for activity to enable patient to perform ADL's. OT Education/Plan Problem List/Assessment Assessment: Decreased Activ Tolerance, Impaired Funct Balance, Impaired I ADL's Discharge Recommendations Plan/Recommendations: Continue POC Treatment Plan/Plan of Care Patient would benefit from OT for education, treatment and training to promote independence in ADL's, mobility, safety and/or upper extremity function for ADL's. Plan of Care: ADL Retraining, Functional Mobility, UE Funct Exercise/Act Treatment Duration: Oct 30, 2019 Frequency: 5 times per week Estimated Hrs Per Day: .5 hour per day Agreement: Yes Rehab Potential: Guarded Time/GCodes Start Time: 10:18 Stop Time: 10:41 Total Time Billed (hr/min): 23 Billed Treatment Time 1 visit-ADL 2 (23 min) FRANCISCO CAT Oct 04, 2019 10:55
--- NOTE | 2019-10-04 11:45 | Progress Note - Hospitalist ---
Subjective HPI/CC On Admission Date Seen by Provider: Oct 04, 2019 Time Seen by Provider: 09:30 Kasia Richardson is a 74-year-old female with past medical history of hypertension who presented with pain following a fall. She reports that she had been doing well prior to Tuesday. At that time she had a fall in her home. She reports that she was trying to open a jar and the was using both hands and lost her balance and fell to the floor. She says that she did not hit her head. She has had issues with balance in the past. She denies feeling lightheaded or dizzy prior to the fall. She denies loss of consciousness. She has had pain with ambulation since that time. She went to the emergency room and had x-rays which were normal and she was discharged back home. She reports that she has had decreased urine output. She had been urinating but was having some incontinence at home. She was seen in the clinic by Dr. Alston and was directly admitted for further evaluation and pain control. She denies any fevers or chills. She denies any chest pain or shortness of breath. She denies any abdominal pain, nausea, vomiting, or diarrhea. Subjective/Events-last exam She reports continued pain with movement. She thinks that is improving though. She denies any fevers or chills. She denies any chest pain or shortness of breath. She denies any abdominal pain, nausea, vomiting, or diarrhea. She has been up walking but does not like sitting in the chair because it worsens her pain. She has been eating and drinking. Her Shields has been removed and she is going to do a voiding trial today. Objective Exam Vital Signs Vital Signs Date Time Temp Pulse Resp B/P (MAP) Pulse Ox O2 Delivery O2 Flow Rate FiO2 10/04/19 08:48 36.5 91 20 154/74 (100) 98 Room Air Capillary Refill : Less Than 3 SecondsLess Than 3 Seconds General Appearance: No Apparent Distress, Chronically ill HEENT: PERRL/EOMI, Pharynx Normal Neck: Normal Inspection, Supple Respiratory: Lungs Clear, Normal Breath Sounds, No Respiratory Distress Cardiovascular: Regular Rate, Rhythm, No Edema, No Murmur Gastrointestinal: Normal Bowel Sounds, Non Tender, Soft Extremity: Normal Inspection, Non Tender, No Pedal Edema Neurologic/Psychiatric: Alert, Oriented x3, No Motor/Sensory Deficits, Normal Mood/Affect Skin: Normal Color, Warm/Dry Results/Procedures Lab Laboratory Tests 10/04/19 08:00 Patient resulted labs reviewed. Imaging: Reviewed Imaging Report Assessment/Plan Assessment and Plan Assess & Plan/Chief Complaint Ground-level fall Pelvic fracture CT pelvis revealed bilateral alar fractures and S2 compression Continue pain regimen Dr. Odom, orthopedic surgery consulted No surgical intervention planned Recommend weightbearing as tolerated Continue PT/OT Social work consulted for residential placement Urinary retention Remove Shields catheter Voiding trial DVT prophylaxis: Lovenox Diagnosis/Problems Diagnosis/Problems (1) Pelvic fracture Status: Acute Qualifiers: Encounter type: initial encounter (2) Fall from ground level Status: Acute (3) Urinary retention Status: Acute Clinical Quality Measures DVT/VTE Risk/Contraindication: Risk Factor Score Per Nursin RFS Level Per Nursing on Admit: 4+=Very High AIDAN SINGER MD Oct 04, 2019 11:45
[2019-10-04 12:00] VITALS: BP 152/73
[2019-10-04] MEDS: ENOXAPARIN 40 MG/0.4 ML (LOVENOX) SYR SQ SCH (12:08)
[2019-10-04 15:28] VITALS: BP 145/80
[2019-10-04 19:09] VITALS: BP 135/79
[2019-10-04] MEDS ORDERED: MELATONIN 3 MG TABLET PO PRN (21:45)
[2019-10-05 00:32] VITALS: BP 144/78
[2019-10-05 05:00] VITALS: BP 152/80
[2019-10-05 08:00] VITALS: BP 138/69
[2019-10-05] MEDS ORDERED: NYSTATIN CREAM (MYCOSTATIN) 30 GM TUBE TP SCH (09:00)
--- NOTE | 2019-10-05 09:08 | Physical Therapy Daily Note ---
PT Daily Note-Current Subjective Patient in bed pre tx, agrees to PT reluctantly, has no complaints of pain at rest but has significant pain with supine <-> sit and with activity. Appearance Patient in bed post tx with nurse call, phone, tray, all needs met. Mental Status Patient Orientation: Person, Place, Situation Attachments: Shields Catheter Transfers SCALE: Activities may be completed with or without assistive devices. 4-Buyybmfunq-ddrfatu completes the activity by him/herself with no assistance from a helper. 5-Set-up or Clean-up Assistance-helper sets up or cleans up; patient completes activity. [place] assists only prior to or following the activity. 4-Supervision or Touching Assistance-helper provides verbal cues and/or touching /steadying and/or contact guard assistance as patient completes activity. Assistance may be provided throughout the activity or intermittently. 3-Partial/Moderate Assistance-helper does LESS THAN HALF the effort. [place] lifts, holds or supports trunk or limbs, but provides less than half the effort. 2-Substantial/Maximal Assistance-helper does MORE THAN HALF the effort. [place] lifts or holds trunk or limbs and provides more than half the effort. 2-Ruahtmwrp-pgldun does ALL the effort. Patient does none of the effort to complete the activity. Or, the assistance of 2 or more helpers is required for the patient to complete the activity. If activity was not attempted, code reason: 7-Patient Refused. 9-Not Applicable-not attempted and the patient did not perform the activity before the current illness, exacerbation or injury. 10-Not Attempted due to Environmental Limitations-(lack of equipment, weather restraints, etc.). 88-Not Attempted due to Medical Conditions or Safety Concerns. Roll Left & Right (QC): 3 Sit to Lying (QC): 3 Lying to Sitting/Side of Bed(Q: 3 Sit to Stand (QC): 3 Chair/Pim-gk-Glofz Xfer(QC): 4 Weight Bearing Right Lower Extremity: Right Weight Bearing/Tolerated Left Lower Extremity: Left Weight Bearing/Tolerated Gait Training Distance: 150' Walk 10 feet (QC): 4 Walk 50 ft with 2 Turns(QC): 4 Walk 150 ft (QC): 4 Gait Assistive Device: Walker 4 Wheeled Slow ambulation, patient tends to lean backward and flex knees during standing and ambulation, she says it helps her pain. Exercises Supine Ex: Ankle pumps, Quad Set, Glut sets Supine Reps: 15 Treatments bed mobility and transfers, ambulation, LE exercise Assessment Current Status: Poor Progress Patient has poor motivation, she constantly asks therapist to lift her and move her legs or just pick her up using the gait belt instead of doing the movement on her own. Patient educated on performing movement on her own to improve strength and promote healing. PT Senior Care Goals Senior Care Goals PT Financial Assistance Specialist Goals Time Frame: Oct 09, 2019 Roll Left & Right (QC): 4 Sit to Lying (QC): 4 Lying-Sitting on Side/Bed(QC): 4 Sit to Stand (QC): 3 Chair/Bhs-od-Kqinl Xfer(QC): 3 Walk 10 feet (QC): 3 PT Plan Problem List Problem List: Activity Tolerance, Functional Strength, Safety, Balance, Gait, Transfer, Bed Mobility, ROM Treatment/Plan Treatment Plan: Continue Plan of Care Treatment Plan: Bed Mobility, Education, Functional Activity Ayden, Functional Strength, Gait, Safety, Therapeutic Exercise, Transfers Treatment Duration: Oct 09, 2019 Frequency: 6 times per week Estimated Hrs Per Day: .25 hour per day Patient and/or Family Agrees t: Yes Safety Risks/Education Patient Education: Gait Training, Transfer Techniques, Correct Positioning, Safety Issues Teaching Recipient: Patient Teaching Methods: Demonstration, Discussion Response to Teaching: Reinforcement Needed Time/GCodes Time In: 829 Time Out: 902 Total Billed Treatment Time: 33 Total Billed Treatment 1 visit FA 33' ARIELLA CROCKER PT Oct 05, 2019 09:08
[2019-10-05] MEDS: DOCUSATE SODIUM 100 MG (COLACE) CAP PO SCH (09:32)
[2019-10-05] MEDS: GABAPENTIN 300 MG (NEURONTIN) CAP PO SCH ×2 (09:33→12:58)
[2019-10-05] MEDS: SENNOSIDES 8.6 MG (SENOKOT) TAB PO SCH (09:33)
[2019-10-05] MEDS ORDERED: ACHD5005 PO (09:57)
[2019-10-05] MEDS ORDERED: BETH25TA11 PO (09:57)
[2019-10-05] MEDS ORDERED: TMSL.4C PO (09:57)
[2019-10-05] MEDS ORDERED: SNN187T PO (09:57)
[2019-10-05] MEDS ORDERED: POLY17PO31 PO (09:57)
[2019-10-05] MEDS ORDERED: MELA3TAB65 PO (09:57)
[2019-10-05] MEDS ORDERED: GABA-488 PO (09:57)
--- NOTE | 2019-10-05 09:59 | Discharge Inst-Skilled Nursing ---
Discharge Inst-Skilled NF Reconcile Patient Problems Problems Reviewed?: Yes Consult/Follow Up/Orders Follow Up Appt.: next intermediate rounds Skilled NF Admit to: [facility] [place] Certification (SNF) I certify that SNF services are required to be given on an inpatient basis because of the above named patient's need for intermediate care on a continuing basis for the conditions(s) for which he/she was receiving inpatient hospital services prior to his/her transfer to the SNF. Halfway Facility Order: Nursing Services, Bead Stringer-Evaluate & Treat, Physical Therapy-Evaluate & Treat Oxygen Delivery Method: Room Air Discharge Diet: No Restrictions Daily Activity as Tolerated: Yes New & Resume Previous Orders Toña Singer Oct 05, 2019 09:58 Pneu Vac Indicated: Yes TOÑA SINGER MD Oct 05, 2019 09:59
[2019-10-05] MEDS ORDERED: BETHANECHOL 25 MG (URECHOLINE) TAB PO SCH (11:00)
[2019-10-05] MEDS: ENOXAPARIN 40 MG/0.4 ML (LOVENOX) SYR SQ SCH (11:46)
--- NOTE | 2019-10-05 11:54 | CONSULTATION REPORT ---
DATE OF SERVICE: 10/05/2019 ATTENDING PHYSICIAN: Dr. Parada. SUMMARY: A 74-year-old lady known to me, seen before about a year ago because of UTI, just one time. She fell and apparently had some fracture in the sacrum and could not urinate. She has a Shields catheter in. She denies any previous similar episodes. IMPRESSION: Urinary retention secondary to neurogenic bladder. PLAN: 1. Flomax 0.4 mg daily. 2. Urecholine 25 mg before meals and at bedtime. 3. We will keep the catheter over the weekend, get her physical therapy and on Tuesday, we will attempt trial of voiding. Plan was fully explained to the patient. Job ID: [id number] DocumentID: [id number] Dictated Date: 10/05/2019 09:19:31 Door Person Date: 10/05/2019 11:53:18 Dictated By: SANDRA KNAPP MD
[2019-10-05 12:00] VITALS: BP 152/72
[2019-10-05 12:12] VITALS: BP 152/72
--- NOTE | 2019-10-05 14:19 | Discharge Summary ---
Discharge Summary Hospital Course Was the Problem List Reviewed?: Yes Problems/Dx: (1) Pelvic fracture Status: Acute Qualifiers: (2) Fall from ground level Status: Acute (3) Urinary retention Status: Acute Hospital Course Date of Admission: Oct 02, 2019 at 11:41 Admission Diagnosis : pelvic fracture Family Physician/Provider: Seema Farooq MD Date of Discharge: 10/05/19 Discharge Diagnosis: pelvic fracture, urinary retention Hospital Course: Kasia Richardson is a 74-year-old female who presented after a ground-level fall and was admitted with a pelvic fracture. She was evaluated by orthopedic surgery and no surgical intervention was required. She was started on a pain regimen. She underwent physical and occupational therapy while in the hospital. She had a Shields placed for urinary retention. A voiding trial was attempted and she was unable to urinate. Urology was consulted and she was started on Flomax and bethanechol. She should follow-up with Dr. Garcia for her urinary retention. She should have follow-up on the next fpc rounds. Labs and Pending Lab Test: Home Meds Active Urecholine (Bethanechol Chloride) 25 Mg Tablet 25 Mg PO ACHS 30 Days Melatonin 3 Mg Tablet 6-9 Mg PO HS PRN 30 Days Senna Lax (Sennosides) 8.6 Mg Tablet 8.6 Mg PO BID 30 Days Polyethylene Glycol 3350 17 Gm Powd.pack 17 Gm PO BID PRN 30 Days Gabapentin 300 Mg Capsule 300 Mg PO TID 30 Days Flomax (Tamsulosin HCl) 0.4 Mg Cap 0.4 Mg PO DAILY@1800 30 Days Hydrocodone/Acetaminophen 5/325mg Tablet (Acetaminophen/Hydrocodone Bitart) 1 Tab Tab 1 Tab PO Q6HR PRN 30 Days Trimo-Crisostomo Jelly (Oxyquinoline/Sod.lauryl Sulfat) 113.4 Gm Jelly.appl 0 Gm VG HS 30 Days Docusate Sodium 100 Mg Capsule 100 Mg PO BID 30 Days Acetaminophen 500 Mg Tablet 500 Mg PO Q6H PRN 30 Days Cyclobenzaprine HCl 10 Mg Tablet 5 Mg PO HS 30 Days Reported Probiotic (Lactobacillus Acidophilus) 1 Each Capsule 2 Cap PO HS Assessment/Pt Instructions Take medications as prescribed. Participate in therapies. Follow up on next fpc rounds. Follow-up with Dr. Garcia for urinary retention. Discharge Planning: <30 minutes discharge planning Discharge Instructions Discharge Diet: No Restrictions Pneumonia Vaccine Order Indica: Yes Discharge Physical Examination Vital Signs Vital Signs Date Time Temp Pulse Resp B/P (MAP) Pulse Ox O2 Delivery O2 Flow Rate FiO2 10/05/19 12:12 36.0 75 18 152/72 95 Room Air General Appearance: No Apparent Distress, WD/WN HEENT: PERRL/EOMI, Pharynx Normal Respiratory: Lungs Clear, Normal Breath Sounds, No Respiratory Distress Cardiovascular: Regular Rate, Rhythm, No Edema, No Murmur Gastrointestinal: Normal Bowel Sounds, Non Tender, Soft Extremity: Normal Inspection, Non Tender, No Pedal Edema Skin: Normal Color, Warm/Dry Neurologic/Psychiatric: Alert, Oriented x3, No Motor/Sensory Deficits, Normal Mood/Affect Allergies: Coded Allergies: cefuroxime (Verified Allergy, Unknown, Hives, 12/27/18) Discharge Summary Date of Admission Oct 02, 2019 at 11:41 Date of Discharge Oct 05, 2019 at 14:03 Discharge Date: Oct 05, 2019 Discharge Time: 14:03 Admission Diagnosis Intractable pain Consults/Procedures Consulations orthopedic surgery, urology Discharge Diagnosis Pelvic fracture, Urinary retention (1) Pelvic fracture Status: Acute Qualifiers: (2) Fall from ground level Status: Acute (3) Urinary retention Status: Acute Clinical Quality Measures DVT/VTE Risk/Contraindication: Risk Factor Score Per Nursin RFS Level Per Nursing on Admit: 4+=Very High AIDAN SINGER MD Oct 05, 2019 14:19
[2019-10-05] MEDS ORDERED: TAMSULOSIN 0.4 MG (FLOMAX) CAP PO SCH (18:00)
[2019-10-05] MEDS ORDERED: MELATONIN 3 MG TABLET PO SCH (21:00)
== END 2019-10-05 14:03 | DRG 552 ==
LOC: WS 14:41 → OBSVTOIN 10-02 11:41 → 4TH 10-02 14:38
PROVIDERS: ADMIT Obstetrics & Gynecology; ATTEND Obstetrics & Gynecology
DX: S32.111A Minimally displaced Zone I fracture of sacrum, initial encounter for closed fracture (principal); R33.9 Retention of urine, unspecified; R32 Unspecified urinary incontinence; I10 Essential (primary) hypertension; K21.9 Gastro-esophageal reflux disease without esophagitis; N31.9 Neuromuscular dysfunction of bladder, unspecified; M79.7 Fibromyalgia; F03.90 Unspecified dementia, unspecified severity, without behavioral disturbance, psychotic disturbance, mood disturbance, and anxiety; Z87.820 Personal history of traumatic brain injury; W18.39XA Other fall on same level, initial encounter; Y92.009 Unspecified place in unspecified non-institutional (private) residence as the place of occurrence of the external cause
CPT/HCPCS: 36415; 72131; 74176; 80048; 81000; 83735; 85025; 94664; G0378

== ENCOUNTER 2019-10-23 15:32 | Emergency (ER) | payer MEDICARE, OTHER ==
[~2019-10-23] VITALS: Ht 149.2 cm; Wt 49.2 kg
[~2019-10-23 15:32] MED LIST changes: +BETH25TA11 PO; +GABA-488 PO; +MELA3TAB65 PO; +POLY17PO31 PO; +SNN187T PO; +TMSL.4C PO
[2019-10-23 15:59] LABS: BILIRUBIN,URINE NEGATIVE (NEGATIVE); CLARITY,URINE CLEAR; COLOR,URINE YELLOW; GLUCOSE, URINE (UA) NEGATIVE (NEGATIVE); KETONES,URINE NEGATIVE (NEGATIVE); LEUKOCYTE ESTERASE ,URINE 3+ (NEGATIVE); NITRITE,URINE NEGATIVE (NEGATIVE); PH,URINE 6.5 (5-9); PROTEIN,URINE NEGATIVE (NEGATIVE)
--- NOTE | 2019-10-23 15:59 | ED Back Pain ---
General Stated Complaint: TREMORS,LETHARGIC Source of Information: Patient, EMS Exam Limitations: No Limitations History of Present Illness Date Seen by Provider: Oct 23, 2019 Time Seen by Provider: 15:39 Initial Comments The patient presents to ER by EMS from via [facility] with chief complaint of poor sleep for the past couple days. She had a fall 3-4 weeks ago and cracked her sacrum. She is improving significantly however she has ran out of her hydrocodone 2 days ago and has had increasingly poor sleep. She says this is made it harder for her to walk and she feels tired and she associates this with the poor sleep caused by poor pain control. She does not take NSAIDs however she has no history of kidney dysfunction, heart dysfunction or NSAID allergy. She's not on blood thinners. She follows with Dr. Sanchez for primary care. Recently they increased her melatonin to 6 mg from 3 mg and she would like to go up again. She also says she's had some dysuria but she associates that with asking to get up to go the bathroom and having to wait inordinate amounts of time and so she says she frequently has a UTI. She says the culture usually grows out as a contamination. She has not had a straight catheter before. She denies any fevers chills nausea vomiting sweats shortness of breath. She is having some numbness and tingling in her right lower extremity worsening left which has been improving slowly ever since the fall and fracture. No significant urinary incontinence. Presently she rates her pain as a 2 out of 10. Allergies and Home Medications Allergies Coded Allergies: cefuroxime (Verified Allergy, Unknown, Hives, 12/27/18) Home Medications Acetaminophen 500 Mg Tablet, 500 MG PO Q6H PRN for PAIN-MILD Prescribed by: MARLO GALAVIZ on 06/07/19624 Bethanechol Chloride 25 Mg Tablet, 25 MG PO ACHS Prescribed by: AIDAN SINGER on 10/05/19956 Cyclobenzaprine HCl 10 Mg Tablet, 5 MG PO HS Prescribed by: MARLO GALAVIZ on 06/07/19624 Docusate Sodium 100 Mg Capsule, 100 MG PO BID Prescribed by: MARLO GALAVIZ on 06/07/19624 Gabapentin 300 Mg Capsule, 300 MG PO TID Prescribed by: AIDAN SINGER on 10/05/19956 Hydrocodone Bit/Acetaminophen 1 Tab Tab, 1 TAB PO Q6HR PRN for PAIN-MODERATE Prescribed by: AIDAN SINGER on 10/05/19956 Lactobacillus Acidophilus 1 Each Capsule, 2 CAP PO HS, (Reported) Melatonin 3 Mg Tablet, 6-9 MG PO HS PRN for SLEEP Prescribed by: AIDAN SINGER on 10/05/19956 Oxyquinoline/Sod.lauryl Sulfat 113.4 Gm Jelly.appl, 0 GM VG HS Prescribed by: MARLO GALAVIZ on 06/07/19624 Polyethylene Glycol 3350 17 Gm Powd.pack, 17 GM PO BID PRN for CONSTIPATION-1ST LINE Prescribed by: AIDAN SINGER on 10/05/19956 Sennosides 8.6 Mg Tablet, 8.6 MG PO BID Prescribed by: AIDAN SINGER on 10/05/19956 Tamsulosin HCl 0.4 Mg Cap, 0.4 MG PO DAILY@1800 Prescribed by: AIDAN SINGER on 10/05/19956 Patient Home Medication List Home Medication List Reviewed: Yes Review of Systems Constitutional: No chills, No fever EENTM: No ear discharge, No ear pain Respiratory: No cough, No short of breath Cardiovascular: No chest pain, No edema Gastrointestinal: No abdominal pain, No constipation, No nausea, No vomiting Genitourinary: No discharge; dysuria Musculoskeletal: see HPI, back pain; No gout, No joint pain Skin: No pruritus, No rash Psychiatric/Neurological: Denies Anxiety, Denies Depressed Past Jjujtgd-Wgbycz-Nzepsx Hx Patient Social History Alcohol Use: Denies Use Recreational Drug Use: No Smoking Status: Never a Smoker 2nd Hand Smoke Exposure: No Recent Foreign Travel: No Contact w/Someone Who Travel: No Recent Hopitalizations: No Immunizations Up To Date Tetanus Booster (TDap): Less than 5yrs PED Vaccines UTD: Yes Seasonal Allergies Seasonal Allergies: No Past Medical History Surgeries: No Respiratory: No Cardiac: No Neurological: Yes (CHRONIC VERTIGO--REPORTEDLY FROM AN ASPHYXIATION ATTEMPT 50 YEARS AGO. 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 Genitourinary: Yes (urinary retention) Bladder Infection Gastrointestinal: Yes Gastroesophageal Reflux Musculoskeletal: Yes (clavicle fx 2018 humerus 2019) Fibromyalgia, Fractures Endocrine: No HEENT: Yes (FACIAL FRACTURES FROM FALL 05/25/19--TREATED NON SURGICALLY) Cancer: No Psychosocial: No Integumentary: No Blood Disorders: No Family Medical History CHF son ( 38 YR) Cardiovascular disease 19 FATHER Colon cancer 19 FATHER ( AGE 40) Diabetes mellitus 19 MOTHER FH: CHF (congestive heart failure) FH: colon cancer Myocardial infarction 19 MOTHER Neoplasm G8 BROTHER ( AGE 68) No Pertinent Family Hx Physical Exam Vital Signs Vital Signs - First Documented 10/23/19 15:32 Temp 36.2 Pulse 80 Resp 18 B/P (MAP) 146/76 (99) Pulse Ox 98 Capillary Refill : Height, Weight, BMI Height: 4'11.00" Weight: 109lbs. 0.0oz. 49.941862oe; 22.65 BMI Method:Stated General Appearance: No Apparent Distress, WD/WN HEENT: PERRL/EOMI, Pharynx Normal, Moist Mucous Membranes Neck: Full Range of Motion, Normal Inspection Cardiovascular: Regular Rate, Rhythm, No Edema, No Murmur, Normal Peripheral Pulses Respiratory: Chest Non Tender, Lungs Clear, Normal Breath Sounds, No Accessory Muscle Use, No Respiratory Distress Gastrointestinal: Normal Bowel Sounds, Non Tender, Soft Back: Normal Inspection, No Vertebral Tenderness Extremity: Normal Capillary Refill, Normal Inspection, Normal Range of Motion Neurologic/Psychiatric: Alert, Oriented x3, No Motor/Sensory Deficits, Normal Mood/Affect, recreation attendant II-XII Norm as Tested Skin: Normal Color, Warm/Dry Progress/Results/Core Measures Results/Orders Lab Results Laboratory Tests Test 10/23/19 15:50 Range/Units Urine Color YELLOW Urine Clarity CLEAR Urine pH 6.5 5-9 Urine Specific Girard <=1.005 1.016-1.022 Urine Protein NEGATIVE NEGATIVE Urine Glucose (UA) NEGATIVE NEGATIVE Urine Ketones NEGATIVE NEGATIVE Urine Nitrite NEGATIVE NEGATIVE Urine Bilirubin NEGATIVE NEGATIVE Urine Urobilinogen 0.2 < = 1.0 MG/DL Urine Leukocyte Esterase 3+ H NEGATIVE Urine RBC (Auto) 1+ H NEGATIVE Urine RBC 0-2 /HPF Urine WBC 50-100 H /HPF Urine Crystals NONE /LPF Urine Bacteria MODERATE H /HPF Urine Casts NONE /LPF Urine Mucus NEGATIVE /LPF Urine Culture Indicated YES My Orders Orders - JENNIFER ARVIZU Ua Culture If Indicated (10/23/19 15:50) Straight Cath For Spec.-Adult (10/23/19 15:50) Urine Culture (10/23/19 15:50) Vital Signs/I&O 10/23/19 15:32 Temp 36.2 Pulse 80 Resp 18 B/P (MAP) 146/76 (99) Pulse Ox 98 Progress Progress Note : Time: 15:56 Progress Note Plan to obtain a urine specimen by straight catheter and then up her melatonin to 10 mg. Plan to give her naproxen 1 tablet when necessary twice a day for the next 2 weeks to trial it. Plan to give her some more hydrocodone and have her follow-up with primary care. Patient has aseptic vital signs and unremarkable exam except for some tenderness over her sacrum which is expected. Neurologic exam is intact. Departure Impression Primary Impression: Urinary tract infection Qualified Codes: N30.00 - Acute cystitis without hematuria Additional Impressions: Sacral back pain Sacral fracture, closed Qualified Codes: S32.10XA - Unspecified fracture of sacrum, initial encounter for closed fracture Disposition: HOME, SELF-CARE Condition: Stable Departure-Patient Inst. Decision time for Depature: 16:58 Referrals: BRAULIO SANCHEZ WEN-CHOU MD (PCP/Family) Primary Care Physician Patient Instructions: Urinary Tract Infection, Adult (DC) Add. Discharge Instructions: It is important that you get to the bathroom and not hold your urine. Drink plenty of fluids. Bactrim one tablet twice a day for the next 7 days. Hydrocodone one tablet every 6 hours as needed for breakthrough pain. Naproxen 1 tablet 220 mg twice a day as needed for back pain. Continue taking your Tylenol as prescribed. Melatonin 10 mg every night for sleep. Follow-up with primary care as necessary. Scripts Sulfamethoxazole/Trimethoprim (Bactrim Ds Tablet) 1 Each Tablet 1 EACH PO BID for 7 Days, #14 TAB 0 Refills Prov: JENNIFER ARVIZU 10/23/19 Naproxen Sodium (Naproxen Sodium) 220 Mg Tablet 220 MG PO BID PRN for PAIN-BREAKTHROUGH for 14 Days, #30 TAB 0 Refills Prov: JENNIFER ARVIZU 10/23/19 Hydrocodone Bit/Acetaminophen (Hydrocodone/Acetaminophen 5/325mg Tablet) 1 Tab Tab 1 EACH PO Q6H PRN for PAIN-MODERATE MDD 10 for 3 Days, #20 TAB 0 Refills Prov: JENNIFER ARVIZU 10/23/19 Melatonin (Melatonin) 10 Mg Tablet 10 MG PO HS, #30 TAB 0 Refills Prov: JENNIFER ARVIZU 10/23/19 Copy Copies To 1: BRAULIO SANCHEZ TITUS J Oct 23, 2019 15:59
[2019-10-23 16:08] LABS: BACTERIA,URINE MODERATE /HPF; RBC,URINE 0-2 /HPF; WBC,URINE 50-100 /HPF
[2019-10-23] MEDS ORDERED: MELA10TA2 PO (17:06)
[2019-10-23] MEDS ORDERED: SULF1TAB35 PO (17:06)
[2019-10-23] MEDS ORDERED: NAPR-1033 PO (17:06)
[2019-10-23] MEDS ORDERED: ACHD5005 PO (17:06)
--- NOTE | 2019-10-23 17:12 | NUR ---
CALLED REPORT GIVEN TO RESIDENTIAL INFORMED THEY NEED TO COME GET HER.
[2019-10-23 17:55] VITALS: BP 146/76
== END 2019-10-23 17:55 | disposition home or self-care (01) ==
LOC: EDUNIT# 15:32 → ER 15:33
DX: S32.10XA Unspecified fracture of sacrum, initial encounter for closed fracture (principal); N39.0 Urinary tract infection, site not specified; Z88.1 Allergy status to other antibiotic agents; Z82.49 Family history of ischemic heart disease and other diseases of the circulatory system; Z80.0 Family history of malignant neoplasm of digestive organs; W19.XXXA Unspecified fall, initial encounter
CPT/HCPCS: 51701; 81000; 87088

== ENCOUNTER → 2019-11-08 | Outpatient (CLI) | payer MEDICARE, OTHER ==
[~2019-11-08] MED LIST changes: +MELA10TA2 PO; +NAPR-1033 PO; +SULF1TAB35 PO
--- NOTE | 2019-11-08 14:32 | Diagnostic Imaging Report ---
INDICATION: Pelvic pain AP view of the pelvis shows a pessary in place. Pelvic ring is intact. SI joints appear normal. Hips are unremarkable. IMPRESSION: No acute abnormality seen in the pelvis. Dictated by: Dictated on workstation # [id number]
== END ==
LOC: RAD 13:44
PROVIDERS: ATTEND Internal Medicine
DX: R10.2 Pelvic and perineal pain (principal)
CPT/HCPCS: 72170

== ENCOUNTER 2020-10-22 08:19 | Emergency (ER) | payer OTHER ==
[~2020-10-22] VITALS: Ht 149 cm; Wt 50.0 kg
[~2020-10-22 08:19] MED LIST changes: +MELA3TAB39 PO; -MELA3TAB65 PO
--- NOTE | 2020-10-22 08:28 | ED Fall/Injury ---
General Stated Complaint: FALL History of Present Illness Date Seen by Provider: Oct 22, 2020 Time Seen by Provider: 08:25 Initial Comments 75-year-old female presents following a fall. Patient has a longstanding equilibrium issues with frequent falls. Patient lost her balance at home fell struck the right side of her face and forehead. She has mild swelling in the right forehead into the right cheek. She denies any loss of consciousness. She denies any other injuries. She does not have any vision changes. No difficulty opening her mouth or swallowing. The fall happened just prior to arrival. Allergies and Home Medications Allergies Coded Allergies: cefuroxime (Verified Allergy, Unknown, Hives, 12/27/18) Home Medications Acetaminophen 500 Mg Tablet, 500 MG PO Q6H PRN for PAIN-MILD Prescribed by: MARLO GALAVIZ on 06/07/19624 Bethanechol Chloride 25 Mg Tablet, 25 MG PO ACHS Prescribed by: AIDAN SINGER on 10/05/19956 Cyclobenzaprine HCl 10 Mg Tablet, 5 MG PO HS Prescribed by: MARLO GALAVIZ on 06/07/19624 Docusate Sodium 100 Mg Capsule, 100 MG PO BID Prescribed by: MARLO GALAVIZ on 06/07/19624 Gabapentin 300 Mg Capsule, 300 MG PO TID Prescribed by: AIDAN SINGER on 10/05/19956 Hydrocodone Bit/Acetaminophen 1 Tab Tab, 1 TAB PO Q6HR PRN for PAIN-MODERATE Prescribed by: AIDAN SINGER on 10/05/19956 Hydrocodone Bit/Acetaminophen 1 Tab Tab, 1 EACH PO Q6H PRN for PAIN-MODERATE Prescribed by: JENNIFER ARVIZU on 10/23/191705 Lactobacillus Acidophilus 1 Each Capsule, 2 CAP PO HS, (Reported) Melatonin 3 Mg Tablet, 6-9 MG PO HS PRN for SLEEP Prescribed by: AIDAN SINGER on 10/05/19956 Melatonin 10 Mg Tablet, 10 MG PO HS Prescribed by: JENNIFER ARVIZU on 10/23/191705 Naproxen Sodium 220 Mg Tablet, 220 MG PO BID PRN for PAIN-BREAKTHROUGH Prescribed by: JENNIFER ARVIZU on 10/23/191705 Oxyquinoline/Sod.lauryl Sulfat 113.4 Gm Jelly.appl, 0 GM VG HS Prescribed by: MARLO GALAVIZ on 06/07/19 0625 Polyethylene Glycol 3350 17 Gm Powd.pack, 17 GM PO BID PRN for CONSTIPATION-1ST LINE Prescribed by: AIDAN SINGER on 10/05/1957 Sennosides 8.6 Mg Tablet, 8.6 MG PO BID Prescribed by: AIDAN SINGER on 10/05/19 0957 Sulfamethoxazole/Trimethoprim 1 Each Tablet, 1 EACH PO BID Prescribed by: JENNIFER ARVIZU on 10/23/19 170 Tamsulosin HCl 0.4 Mg Cap, 0.4 MG PO DAILY@1800 Prescribed by: AIDAN SINGER on 10/05/19 0957 Patient Home Medication List Home Medication List Reviewed: Yes Review of Systems Review of Systems Constitutional: see HPI; No chills, No fever Eyes: No Symptoms Reported Ears, Nose, Mouth, Throat: see HPI Respiratory: no symptoms reported Cardiovascular: no symptoms reported Gastrointestinal: no symptoms reported Genitourinary: no symptoms reported Musculoskeletal: no symptoms reported Skin: see HPI, other (Contusion right forehead, periorbital and right cheek) Psychiatric/Neurological: No Symptoms Reported Past Fflwoit-Vdhqlt-Jhfsuq Hx Past Med/Social Hx: Reviewed Nursing Past Med/Soc Hx Patient Social History 2nd Hand Smoke Exposure: No Recent Hopitalizations: No Immunizations Up To Date Tetanus Booster (TDap): Less than 5yrs PED Vaccines UTD: Yes Seasonal Allergies Seasonal Allergies: No Past Medical History Surgeries: No Respiratory: No Cardiac: No Neurological: Yes (CHRONIC VERTIGO--REPORTEDLY FROM AN ASPHYXIATION ATTEMPT 50 YEARS AGO. 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 Genitourinary: Yes (urinary retention) Bladder Infection Gastrointestinal: Yes Gastroesophageal Reflux Musculoskeletal: Yes (clavicle fx 2018 humerus 2019) Fibromyalgia, Fractures Endocrine: No HEENT: Yes (FACIAL FRACTURES FROM FALL 05/25/19--TREATED NON SURGICALLY) Cancer: No Psychosocial: No Integumentary: No Blood Disorders: No Family Medical History CHF son ( 38 YR) Cardiovascular disease 19 FATHER Colon cancer 19 FATHER ( AGE 40) Diabetes mellitus 19 MOTHER FH: CHF (congestive heart failure) FH: colon cancer Myocardial infarction 19 MOTHER Neoplasm G8 BROTHER ( AGE 68) No Pertinent Family Hx Physical Exam Vital Signs Vital Signs - First Documented 10/22/20 08:19 Temp 36.9 Pulse 59 Resp 16 B/P (MAP) 167/75 (105) Pulse Ox 96 O2 Delivery Room Air Capillary Refill : Height, Weight, BMI Height: 4'11.00" Weight: 109lbs. 0.0oz. 49.647451na; 22.00 BMI Method:Stated General Appearance: no apparent distress, thin HEENT: PERRL/EOMI, other (Swelling and contusion right side of her face and forehead) Neck: full range of motion, supple, normal inspection Cardiovascular: normal peripheral pulses, regular rate, rhythm Gastrointestinal: non tender Extremities: normal range of motion, non-tender Neurologic/Psychiatric: alert, normal mood/affect, oriented x 3 Skin: ecchymosis (Right lateral face cheek and mild forehead) Progress/Results/Core Measures Results/Orders My Orders Orders - JACQUI SAMUELS DO Ct Head/Maxillofacial Wo (10/22/20 08:28) Vital Signs/I&O 10/22/20 08:19 Temp 36.9 Pulse 59 Resp 16 B/P (MAP) 167/75 (105) Pulse Ox 96 O2 Delivery Room Air Progress Progress Note : Time: 09:33 Progress Note Viewed case with Dr. Franco at [facility]. No need for immediate transfer to treatment. We made an appointment for her at his office on October 24 at 1245. She is stable and will be discharged back home Diagnostic Imaging Diagonstic Imaging: CT Plain Films/CT/US/NM/MRI: facial bones, head Comments [facility], [place] NAME: YANICK CRUZ [facility] REC#: [id number] PT STATUS: REG ER : 1945 PHYSICIAN: JACQUI SAMUELS DO ADMIT DATE: 10/22/20/ER Draft Date of Exam:10/22/20 CT HEAD/MAXILLOFACIAL WO PROCEDURE: CT head and maxillofacial without contrast. TECHNIQUE: Multiple contiguous axial images were obtained through the head and facial bones without the use of intravenous contrast. Auto Exposure Controls were utilized during the CT exam to meet ALARA standards for radiation dose reduction. INDICATION: Trauma, fall. COMPARISON: None available. FINDINGS: HEAD: No intracranial hyperdense hemorrhage or space-occupying mass. No hydrocephalus or midline shift. [place]bando-white matter differentiation is well-preserved. Mild global atrophy is present. Basilar cisterns remain widely patent. Minimal periventricular white matter hypoattenuation is most compatible with chronic microvascular ischemic disease. No acute skull fracture. FACE: Multiple fractures in the face are as follows: 1. Acute segmental type fracture of the right zygomatic arch is nondisplaced. 2. Fracture in the lateral and anterior wall of the maxillary sinus. There is less than 1 mm of depression of the anterior and lateral maxillary sinus durham. 3. Simple fracture in the floor of the right orbit is nondepressed and has no herniation of the extraconal fat or inferior rectus muscle. 4. Fracture in the lateral wall of the right orbit has minimal displacement of less than 2 mm with slight overlap of the fracture fragments. No exophthalmos of the right orbit. 5. Nondisplaced hairline fracture extends along the nasomaxillary buttress on the right and across the midline in the alveolar ridge of the maxilla. No fracture in the nasal bones. Left orbit is intact. No fracture of the pterygoid plates. Temporomandibular joints are in normal alignment. No fracture in the mandible. Frontal sinuses are clear. No globe rupture. Bilateral cataract surgery has been performed. IMPRESSION: 1. No acute intracranial hemorrhage or skull fracture. 2. Right-sided ZMC fracture has minimal displacement of the fractures involving the lateral orbital wall, maxillary sinus durham, and zygomatic arch. 3. Nondisplaced hairline fracture along the right nasomaxillary buttress. 4. Fracture in the floor the right orbit is nondepressed and there is no herniation of the extraocular fat or inferior rectus muscle. Dictated on workstation # [id number] Dict: 10/22/20901 Trans: 10/22/20 0916 [id number] Interpreted by: LORNE BRAVO MD Departure Impression Primary Impression: Facial bones, closed fracture Qualified Codes: S02.81XA - Fracture of other specified skull and facial bones, right side, initial encounter for closed fracture Disposition: 01 HOME, SELF-CARE Condition: Stable Departure-Patient Inst. Referrals: BRAULIO PUGH DO (PCP/Family) Primary Care Physician Patient Instructions: Facial Fracture (DC), Preventing Falls Add. Discharge Instructions: You have an appointment with Dr. Franco October 24 at [address]45 [address] [place] [address] [phone] Ice to affected area, Tylenol or ibuprofen as needed for pain. JACQUI SAMUELS DO Oct 22, 2020 08:28
--- NOTE | 2020-10-22 08:39 | NUR ---
AZEEM FROM [facility] HERE TO SEE PT PER PT REQUEST.
--- NOTE | 2020-10-22 09:04 | NUR ---
Pt requested to see this Pit Furnace Operator after hearing the overhead prayer. The Pt is Episcopalian and has developed a trusting relationship with this Pit Furnace Operator over the past 2 years while living at [facility]. The resident currently lives in assisted living and participated is leading songs for weekly bible study led by this machinist first class. The pt states she was disappointed that she had to come to the hospital because she dislikes being quarantined. The pt's relationships contribute to her sense of wellbeing and coping. Pit Furnace Operator affirmed pt's decision to tell [facility] staff about her double vision, and offered prayer for peace before going to her CT.
--- NOTE | 2020-10-22 09:17 | Diagnostic Imaging Report ---
PROCEDURE: CT head and maxillofacial without contrast. TECHNIQUE: Multiple contiguous axial images were obtained through the head and facial bones without the use of intravenous contrast. Auto Exposure Controls were utilized during the CT exam to meet ALARA standards for radiation dose reduction. INDICATION: Trauma, fall. COMPARISON: None available. FINDINGS: HEAD: No intracranial hyperdense hemorrhage or space-occupying mass. No hydrocephalus or midline shift. [place]-white matter differentiation is well-preserved. Mild global atrophy is present. Basilar cisterns remain widely patent. Minimal periventricular white matter hypoattenuation is most compatible with chronic microvascular ischemic disease. No acute skull fracture. FACE: Multiple fractures in the face are as follows: 1. Acute segmental type fracture of the right zygomatic arch is nondisplaced. 2. Fracture in the lateral and anterior wall of the maxillary sinus. There is less than 1 mm of depression of the anterior and lateral maxillary sinus durham. 3. Simple fracture in the floor of the right orbit is nondepressed and has no herniation of the extraconal fat or inferior rectus muscle. 4. Fracture in the lateral wall of the right orbit has minimal displacement of less than 2 mm with slight overlap of the fracture fragments. No exophthalmos of the right orbit. 5. Nondisplaced hairline fracture extends along the nasomaxillary buttress on the right and across the midline in the alveolar ridge of the maxilla. No fracture in the nasal bones. Left orbit is intact. No fracture of the pterygoid plates. Temporomandibular joints are in normal alignment. No fracture in the mandible. Frontal sinuses are clear. No globe rupture. Bilateral cataract surgery has been performed. IMPRESSION: 1. No acute intracranial hemorrhage or skull fracture. 2. Right-sided ZMC fracture has minimal displacement of the fractures involving the lateral orbital wall, maxillary sinus druham, and zygomatic arch. 3. Nondisplaced hairline fracture along the right nasomaxillary buttress. 4. Fracture in the floor the right orbit is nondepressed and there is no herniation of the extraocular fat or inferior rectus muscle. Dictated by: Dictated on workstation # [id number]
[2020-10-22 09:54] VITALS: BP 146/84
== END 2020-10-22 09:54 | disposition home or self-care (01) ==
LOC: EDUNIT# 08:19 → ER 08:21
DX: S02.69XA Fracture of mandible of other specified site, initial encounter for closed fracture (principal); Z88.1 Allergy status to other antibiotic agents; Z87.820 Personal history of traumatic brain injury; Z82.49 Family history of ischemic heart disease and other diseases of the circulatory system; Z80.0 Family history of malignant neoplasm of digestive organs; Z83.3 Family history of diabetes mellitus; W01.198A Fall on same level from slipping, tripping and stumbling with subsequent striking against other object, initial encounter
CPT/HCPCS: 70450; 70486

== ENCOUNTER → 2021-11-23 | Outpatient (CLI) | payer MEDICARE, OTHER, MEDICAID ==
[~2021-11-23] MED LIST changes: +CYCL10TA25 PO; -CYCL10TA9 PO; -POLY17PO31 PO; +POLY17PO54 PO; -SULF1TAB35 PO; +SULF1TAB38 PO
--- NOTE | 2021-11-23 11:59 | Diagnostic Imaging Report ---
CLINICAL INDICATION: Patient with repeated falls. EXAM: MRI of the cervical spine performed without IV contrast. Sequences include sagittal T2, sagittal T1, sagittal T2 fat-sat, and axial T2. COMPARISON: CT scan of the head and cervical spine dated 06/24/2019. CT scan of the thoracic and lumbar spine dated 06/24/2019. FINDINGS: There is no acute cervical spine fracture or dislocation. There are chronic compression fracture deformities of different degrees of severity involving the C3-T3 levels. There has been non-segmentation anomaly involving the T5 and T6 vertebra. There is also the appearance of excessive kyphosis of the thoracic spine posture which is better seen on comparison CT scan of the thoracic and lumbar spine dated 06/24/2019. There are degenerative spurs and facet arthropathy involving the cervical spine. There is no significant paraspinal soft tissue abnormality. The cervical spinal cord is normal cord caliber with no abnormal signal. C1-C2: There are degenerative spurs involving the atlantoodontoid interval. There is no significant central canal narrowing. C2-C3: There is mild bilateral facet arthropathy. There is mild to moderate right neural foramen narrowing and no significant left neural foramen narrowing. There is mild central canal stenosis. C3-C4: There is moderate bilateral facet arthropathy. There is no significant central canal stenosis. There is mild left neural foramen narrowing and moderate right neural foramen narrowing. C4-C5: There is moderate bilateral facet arthropathy and ligamentum flavum buckling. There is mild central canal stenosis. There is mild right neural foramen narrowing and moderate left neural foramen narrowing. C5-C6: There is mild ligamentum flavum buckling. There is mild bilateral facet arthropathy. There is mild to moderate bilateral neural foramen narrowing. C6-C7: There is mild bilateral facet arthropathy and ligamentum flavum buckling. There is moderate right neural foramen narrowing and mild left neural foramen narrowing. There is moderate to severe central canal stenosis. There is a small posterior disk bulge. C7-T1: There is no significant central canal or neural foramen narrowing. IMPRESSION: 1: There is multilevel cervical spine degenerative disease with no acute fracture dislocation. 2: There is multiple chronic compression deformities involving the visualized cervical and thoracic vertebra. 3: There is non-segmentation deformity involving the T5-T6 vertebra. Dictated by: Dictated on workstation # [id number]
== END ==
LOC: RAD 10:15
PROVIDERS: ATTEND Pain Medicine Interventional Pain Medicine
DX: M47.812 Spondylosis without myelopathy or radiculopathy, cervical region (principal); M43.8X2 Other specified deforming dorsopathies, cervical region; M43.8X4 Other specified deforming dorsopathies, thoracic region
CPT/HCPCS: 72141

== ENCOUNTER → 2022-03-23 | Outpatient (CLI) | payer MEDICARE, OTHER, MEDICAID ==
--- NOTE | 2022-03-23 17:09 | Diagnostic Imaging Report ---
INDICATION: Postmenopausal screening COMPARISON: Baseline FINDINGS: AP Spine L1-L4: [BMD (g/cm2): 0.782] [T-Score: -3.5] [Z-Score: -1.3] [BMD Previous: na] [BMD % Change: na] LT Hip Neck: [BMD (g/cm2): 0.545] [T-Score: -3.5] [Z-Score: -1.2] LT Hip Total: [BMD (g/cm2):0.560] [T-Score:-3.6] [Z-Score: -1.4] [BMD Previous: na] [BMD % Change: na] RT Hip Neck: [BMD (g/cm2):0.542] [T-Score:-3.6] [Z-Score:-1.3] RT Hip Total: [BMD (g/cm2):0.497] [T-score:-4.1] [Z-Score:-1.9] [BMD Previous:na] [BMD % Change:na] *Indicates significant change from prior examination based on 95% confidence level. World Health Organization criteria for BMD interpretation classify patients as Normal (T-score at or above -1.0), Osteopenic (T-score between -1.0 and -2.5) or Osteoporotic (T-score at or below -2.5). LIMITATIONS AND MODIFICATION: None. FRACTURE RISK (FRAX SCORE): The ten year probability of (%): Major Osteoporotic Fracture: [na] Hip Fracture: [na] IMPRESSION: 1. Osteoporosis. 2. Baseline examination. 3. See below National Osteoporosis Foundation guidelines on when to potentially initiate pharmacologic therapy. Based on the National Osteoporosis Foundation Guidelines, pharmacologic treatment should be initiated in any of the following, unless clinical conditions suggest otherwise: * Any patient with prior fragility fracture of the hip or vertebrae. A spine fracture indicates 5X risk for subsequent spine fracture and 2X risk for subsequent hip fracture. * Osteoporosis (T-score <-2.5). * Postmenopausal women and men age 50 and older with low bone mass/osteopenia (T-score between -1.0 and -2.5) by DXA and 10-year major osteoporotic fracture greater than 20% or a 10-year probability of hip fracture greater than 3%. These fracture risks are supplied above in the FRAX score, if applicable. * Clinician judgement and/or patient preferences may indicate treatment for people with 10-year fracture probabilities above or below these levels. Dictated by: Dictated on workstation # [id number]
== END ==
LOC: RAD 14:30
PROVIDERS: ATTEND Internal Medicine
DX: Z13.820 Encounter for screening for osteoporosis (principal); M81.0 Age-related osteoporosis without current pathological fracture; R29.890 Loss of height
CPT/HCPCS: 77080

== ENCOUNTER → 2022-06-04 | Outpatient (CLI) | payer MEDICARE, OTHER, MEDICAID ==
--- NOTE | 2022-06-04 14:58 | Diagnostic Imaging Report ---
PROCEDURE: MRI lumbar spine. TECHNIQUE: Multiplanar, multisequence MRI of the lumbar spine was performed without contrast. DATE: June 04, 2022. COMPARISON: CT lumbar spine October 01, 2019. INDICATION: 77-year-old female, history of multiple falls. Low back pain. FINDINGS: There is a lumbar levocurvature. There is no evidence of a diffuse marrow infiltrating or replacing process. There is a superior endplate concavity of L2. There is no identified compression deformity or fracture. The visualized cord and conus medullaris is unremarkable and terminates at the L1 level. There is moderate disc height loss at L3-L4. There is moderate to severe disc height loss at L4-L5. There are mild endplate degenerative related changes of the lumbar spine. L1-L2: There is no disc bulge. The facet joints and ligamentum flavum are unremarkable. There is no foraminal narrowing. There is no spinal canal stenosis. L2-L3: There is diffuse disc bulge. There is mild to moderate narrowing of the bilateral lateral recesses. There are mild bilateral facet degenerative changes with ligamentum flavum hypertrophy. There is severe right and moderate left foraminal narrowing. There is mild to moderate spinal canal stenosis. L3-L4: There is diffuse disc bulge. There is moderate narrowing of bilateral lateral recesses. There are mild bilateral facet degenerative changes with ligamentum flavum hypertrophy. There is moderate to severe bilateral foraminal narrowing. There is moderate spinal canal stenosis. L4-L5: There is diffuse disc bulge. There is mild narrowing of bilateral lateral recesses. There are mild to moderate bilateral facet degenerative changes. There is a trace right facet joint effusion. There is mild ligamentum flavum hypertrophy. There is severe bilateral foraminal narrowing. There is mild to moderate spinal canal stenosis. L5-S1: There is mild diffuse disc bulge. There are advanced left and mild right facet degenerative changes. There is moderate left foraminal narrowing. There is no spinal canal stenosis. IMPRESSION: 1. Multilevel disc and facet degenerative changes of the lumbar spine as described in detail level by level above. 2. No identified acute compression deformity or fracture. Dictated by: Dictated on workstation # [id number]
--- NOTE | 2022-06-04 16:40 | Diagnostic Imaging Report ---
Clinical indication: Patient with history of multiple falls. Patient has chronic spine pain. Exam: MRI of the thoracic spine performed without IV contrast. Sequences include sagittal T1, sagittal T2, sagittal stir, and axial T2. Comparison: CT scan of the thoracic and lumbar spine without contrast dated 06/24/2019. Findings: There is no acute thoracic spine fracture. There are multiple chronic compression deformities involving the C7, T1, T2, T3, T5 and T6. There is excessive kyphosis of the thoracic spine posture with apex at the T6 level. There is no marrow edema. There are hypertrophic spurs involving the thoracic spine most pronounced in the midportion. There is bony bridging/fusion at the T5-T6 vertebra. Thoracic spinal cord has normal cord caliber with no abnormal signal. There is no significant paraspinal soft tissue abnormality. 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 There is severe bilateral T10-T11 neural foramen narrowing from facet arthropathy and bony hypertrophic changes. There is severe bony neural foramen narrowing seen at the T3-T5 levels. There is no significant central canal stenosis. Impression: 1: There is no acute thoracic spine fracture or dislocation. 2: There are multiple chronic compression deformities involving the upper to mid thoracic spine. There is associated excessive kyphosis of the thoracic spine posture. 3: Thoracic spine degenerative disease. Dictated by: Dictated on workstation # [id number]
== END ==
LOC: RAD 13:15
PROVIDERS: ATTEND Internal Medicine
DX: M47.814 Spondylosis without myelopathy or radiculopathy, thoracic region (principal); S22.050S Wedge compression fracture of T5-T6 vertebra, sequela; X58.XXXS Exposure to other specified factors, sequela
CPT/HCPCS: 72146; 72148

== ENCOUNTER 2022-06-29 13:03 | Emergency (ER) | payer MEDICARE, OTHER, MEDICAID ==
[~2022-06-29] VITALS: Ht 155 cm; Wt 51.0 kg
[2022-06-29 13:24] LABS: BASOPHILS % (AUTO) 0 % (0-10); EOSINOPHILS # (AUTO) 0.1 10^3/uL (0.0-0.3); EOSINOPHILS % (AUTO) 2 % (0-10); HEMATOCRIT 41 % (35-52); HEMOGLOBIN 13.3 g/dL (11.5-16.0); LYMPHOCYTES # (AUTO) 1.8 10^3/uL (1.0-4.0); LYMPHOCYTES % (AUTO) 32 % (12-44); MEAN CORPUSCULAR HEMOGLOBIN 31 pg (25-34); MEAN CORPUSCULAR HGB CONC 33 g/dL (32-36); MEAN CORPUSCULAR VOLUME 95 fL (80-99); MEAN PLATELET VOLUME 10.5 fL (9.0-12.2); MONOCYTES # (AUTO) 0.6 10^3/uL (0.0-1.0); MONOCYTES % (AUTO) 10 % (0-12); NEUTROPHILS # (AUTO) 3.2 10^3/uL (1.8-7.8); NEUTROPHILS % (AUTO) 56 % (42-75); PLATELET COUNT 191 10^3/uL (130-400); WHITE BLOOD COUNT 5.7 10^3/uL (4.3-11.0)
[2022-06-29 13:41] LABS: POTASSIUM 4.2 MMOL/L (3.6-5.0)
[2022-06-29 13:42] LABS: CALCIUM 9.3 MG/DL (8.5-10.1)
[2022-06-29 13:44] LABS: TOTAL PROTEIN 6.6 GM/DL (6.4-8.2)
[2022-06-29 13:45] LABS: BILIRUBIN,TOTAL 0.4 MG/DL (0.1-1.0)
[2022-06-29 13:47] LABS: CREATININE SERUM 0.72 MG/DL (0.60-1.30)
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
[2022-06-29 15:03] LABS: BILIRUBIN,URINE NEGATIVE (NEGATIVE); CLARITY,URINE CLEAR; COLOR,URINE YELLOW; GLUCOSE, URINE (UA) NEGATIVE (NEGATIVE); KETONES,URINE NEGATIVE (NEGATIVE); LEUKOCYTE ESTERASE ,URINE 3+ (NEGATIVE); NITRITE,URINE NEGATIVE (NEGATIVE); PROTEIN,URINE NEGATIVE (NEGATIVE)
--- NOTE | 2022-06-29 15:10 | Diagnostic Imaging Report ---
PROCEDURE: CT head and CT cervical spine without contrast. TECHNIQUE: Multiple contiguous axial images were obtained through the brain and cervical spine without the use of intravenous contrast. Sagittal and coronal reformations through the cervical spine were then performed. Auto Exposure Controls were utilized during the CT exam to meet ALARA standards for radiation dose reduction. INDICATION: Hypertension, falls. COMPARISON: 10/22/2020. FINDINGS: CT HEAD: There is no hemorrhage, hydrocephalus, cerebral edema, mass, mass effect, nor evidence for elevated intracerebral pressures. Basal cisterns are patent. No sulcal effacement. There is resolution of previous right maxillary hemo-sinus. No acute fracture identified. CT CERVICAL SPINE: There are degenerative changes to the discs, endplates, and facets, chronic. Upper cervical bridging anterior osteophytes and syndesmophytes are chronic. Multiple chronic endplate stature loss and invaginations at C5, C6, C7, T1, and T2 are stable. No acute bony pathology. No facet dislocation. No splaying of the posterior elements. No paravertebral hemorrhage. No acute finding or change. IMPRESSION: CT HEAD: No intracranial hemorrhage or acute abnormality. CT CERVICAL SPINE: Stable chronic findings with no acute fracture or traumatic malalignment. Dictated by: Dictated on workstation # [id number]
[2022-06-29 15:16] LABS: BACTERIA,URINE FEW /HPF; RBC,URINE 0-2 /HPF
[2022-06-29] MEDS ORDERED: NITROFURANTOIN 100 MG (MACROBID) CAPSULE PO ONE (15:30)
[2022-06-29] MEDS ORDERED: NITR-65 PO (16:25)
[2022-06-29 16:45] VITALS: BP 143/79
== END 2022-06-29 16:45 | disposition home or self-care (01) ==
LOC: EDUNIT# 13:03 → ER 13:05
DX: N39.0 Urinary tract infection, site not specified (principal); S50.311A Abrasion of right elbow, initial encounter; R29.6 Repeated falls; Z87.820 Personal history of traumatic brain injury; W07.XXXA Fall from chair, initial encounter; Y93.01 Activity, walking, marching and hiking; Y92.89 Other specified places as the place of occurrence of the external cause
CPT/HCPCS: 36415; 70450; 72125; 80053; 81000; 85025; 87088; 93005; 93041

== ENCOUNTER 2022-07-06 08:54 | Inpatient (IN) | payer MEDICARE, OTHER, MEDICAID ==
[~2022-07-06] VITALS: Ht 147 cm; Wt 54.9 kg
[~2022-07-06 08:54] MED LIST changes: +NITR-65 PO
--- NOTE | 2022-07-06 09:57 | ED Fall/Injury ---
General Chief Complaint: Trauma-Non Activation Stated Complaint: FALLS Nursing Triage Note: SEE TRIAGE Source: patient Exam Limitations: no limitations History of Present Illness Date Seen by Provider: Jul 06, 2022 Time Seen by Provider: 09:50 Initial Comments Patient is a 77-year-old female who presents to the emergency department today with a chief complaint of increasing frequency of falls, balance and coordination issues over the last week or so. She states she has a frontal headache. She tells me that she is losing her balance which causes her to fall. She is a little nauseous. She denies chest pain or shortness of breath. It is notable that her heart rate is about 110 bpm appears systolic on telemetry. She denies palpitations. No history of atrial fibrillation that she is aware of. No recent fevers, chills, productive cough. No abdominal pain, problems with bowel or bladder. On exam she is mildly tender in the abdomen feels a little distended. Reportedly she saw her primary care physician Dr. Sanchez yesterday. He decreased her dosages of gabapentin except for the nighttime dose. She states she has never had a stroke before. She does feel generally fatigued. She states her last COVID test was about 3 months ago she believes. She reportedly fell last night and EMS states that she fell this morning but she does not believe she did. (per her [facility] record she is currently on her last day of antibiotics for a UTI today - I was told this by her nurse, Nidhi PARKINSON) All other review of systems reviewed and negative except as stated. Location Injury Occurred: [facility] Occurred: other (last evening) Severity: moderate Context: lost balance Loss of Consciousness: no loss of consciousness Associated Symptoms (Fall): Headache, Nausea/Vomiting (nausea), Trouble Walking (due to poor balance) Allergies and Home Medications Allergies Coded Allergies: cefuroxime (Verified Allergy, Unknown, Hives, 12/27/18) sulfamethoxazole (Verified Adverse Reaction, Unknown, VOMITING, JERKY MOVEMENTS. , 06/29/22) trimethoprim (Verified Adverse Reaction, Unknown, VOMITING, JERKY MOVEMENTS. , 06/29/22) Patient Home Medication List Home Medication List Reviewed: Yes Acetaminophen (Tylenol) 325 Mg Capsule, 650 MG PO Q6H PRN for PAIN-MILD (1-4), (Reported) Entered as Reported by: TUAN PELLETIER on 07/06/221608 Last Action: Reviewed Cholecalciferol (Vitamin D3) (Vitamin D3) 50 Mcg (2000 Unit) Capsule, 100 MCG PO DAILY, (Reported) Entered as Reported by: TUAN PELLETIER on 07/06/221608 Last Action: Reviewed Cyanocobalamin (Cyanocobalamin Injection) 1,000 Mcg/Ml Inj, 1,000 MCG IM MONTHLY, (Reported) Entered as Reported by: TUAN PELLETIER on 07/06/221608 Last Action: Reviewed Cyclobenzaprine HCl (Cyclobenzaprine HCl) 5 Mg Tablet, 5 MG PO HS PRN for MUSCLE SPASMS, (Reported) Entered as Reported by: TUAN PELLETIER on 07/06/221608 Last Action: Reviewed Docusate Sodium (Docusate Sodium) 100 Mg Tablet, 100 MG PO BID, (Reported) Entered as Reported by: TUAN PELLETIER on 07/06/221608 Last Action: Reviewed Duloxetine HCl (Duloxetine HCl) 60 Mg Capsule.dr, 60 MG PO DAILY, (Reported) Entered as Reported by: TUAN PELLETIER on 07/06/221608 Last Action: Reviewed Gabapentin (Gabapentin) 600 Mg Tablet, 600 MG PO HS, (Reported) Entered as Reported by: TUAN PELLETIER on 07/06/221608 Last Action: Reviewed Glucosamine/D3/Boswellia Natalie (Osteo Bi-Flex Tablet) 1,500 Mg-400 Unit-100 Mg Tablet, 1 EACH PO BID, (Reported) Entered as Reported by: TUAN PELLETIER on 07/06/221608 Last Action: Reviewed Melatonin (Melatonin) 10 Mg Tablet.er, 10 MG PO HS, (Reported) Entered as Reported by: TUAN PELLETIER on 07/06/221608 Last Action: Reviewed Meloxicam (Meloxicam) 7.5 Mg Tablet, 7.5 MG PO BID, (Reported) Entered as Reported by: TUAN PELLETIER on 07/06/221608 Last Action: Reviewed Metronidazole (Metronidazole) 0.75 % Gel.w.appl, 1 APPLIC VG TWICE WEEKLY, (Reported) Entered as Reported by: TUAN PELLETIER on 07/06/221608 Last Action: Reviewed Nitrofurantoin Monohyd/M-Cryst (Nitrofurantoin [place]-Mcr 100 mg) 100 Mg Capsule, 100 MG PO BID, (Reported) Entered as Reported by: TUAN PELLETIER on 07/06/221608 Last Action: Reviewed [place]-3/Dha/Epa/Fish Oil (Fish Oil 1,000 mg Softgel) 1,000 Mg (120 Mg-180 Mg) Capsule, 1,000 MG PO DAILY, (Reported) Entered as Reported by: TUAN PELLETIER on 07/06/221608 Last Action: Reviewed Polyethylene Glycol 3350 (Miralax) 17 Gram Powd.pack, 17 GM PO BID PRN for CONSTIPATION-2ND LINE, (Reported) Entered as Reported by: TUAN PELLETIER on 07/06/221608 Last Action: Reviewed Sennosides (Senna Laxative) 8.6 Mg Tablet, 8.6 MG PO BID, (Reported) Entered as Reported by: TUAN PELLETIER on 07/06/221608 Last Action: Reviewed Trazodone HCl (Trazodone HCl) 100 Mg Tablet, 100 MG PO HS, (Reported) Entered as Reported by: TUAN PELLETIER on 07/06/221608 Last Action: Reviewed [Lions Bogdan] , 1 EA PO DAILY, (Reported) Entered as Reported by: TUAN PELLETIER on 07/06/221608 Last Action: Reviewed [Skeletal Strength] , 2 EA PO BID, (Reported) Entered as Reported by: TUAN PELLETIER on 07/06/221608 Last Action: Reviewed Discontinued Medications Acetaminophen (Acetaminophen) 500 Mg Tablet, 500 MG PO Q6H PRN for PAIN-MILD Discontinued Reason: Duplicate Order Prescribed by: MARLO GALAVIZ on 06/07/19624 Last Action: Discontinued Bethanechol Chloride (Urecholine) 25 Mg Tablet, 25 MG PO ACHS Discontinued Reason: Duplicate Order Prescribed by: AIDAN SINGER on 10/05/19956 Last Action: Discontinued Cyclobenzaprine HCl (Cyclobenzaprine HCl) 10 Mg Tablet, 5 MG PO HS Discontinued Reason: Duplicate Order Prescribed by: MARLO GALAVIZ on 06/07/19624 Last Action: Discontinued Docusate Sodium (Docusate Sodium) 100 Mg Capsule, 100 MG PO BID Discontinued Reason: Duplicate Order Prescribed by: MARLO GALAVIZ on 06/07/19624 Last Action: Discontinued Gabapentin (Gabapentin) 300 Mg Capsule, 300 MG PO TID Discontinued Reason: Duplicate Order Prescribed by: AIDAN SINGER on 10/05/19956 Last Action: Discontinued Hydrocodone Bit/Acetaminophen (Lortab 5 Mg Tablet) 1 Tab Tab, 1 TAB PO Q6HR PRN for PAIN-MODERATE Discontinued Reason: Duplicate Order Prescribed by: AIDAN SINGER on 10/05/19956 Last Action: Discontinued Hydrocodone Bit/Acetaminophen (Lortab 5 Mg Tablet) 1 Tab Tab, 1 EACH PO Q6H PRN for PAIN-MODERATE Discontinued Reason: Duplicate Order Prescribed by: JENNIFER ARVIZU on 10/23/191705 Last Action: Discontinued Lactobacillus Acidophilus (Probiotic) 1 Each Capsule, 2 CAP PO HS, (Reported) Discontinued Reason: Duplicate Order Entered as Reported by: MEERA SMITH on 05/25/19 1439 Last Action: Discontinued Melatonin (Melatonin) 3 Mg Tablet, 6-9 MG PO HS PRN for SLEEP Discontinued Reason: Duplicate Order Prescribed by: AIDAN SINGER on 10/05/19956 Last Action: Discontinued Melatonin (Melatonin) 10 Mg Tablet, 10 MG PO HS Discontinued Reason: Duplicate Order Prescribed by: JENNIFER ARVIZU on 10/23/191705 Last Action: Discontinued Naproxen Sodium (Naproxen Sodium) 220 Mg Tablet, 220 MG PO BID PRN for PAIN- BREAKTHROUGH Discontinued Reason: Duplicate Order Prescribed by: JENNIFER ARVIZU on 10/23/191705 Last Action: Discontinued Nitrofurantoin Monohyd/M-Cryst (Macrobid 100 mg Capsule) 100 Mg Capsule, 1 TAB PO BID Discontinued Reason: Duplicate Order Prescribed by: GIUSEPPE BRIGHT on 06/29/22 1625 Last Action: Discontinued Oxyquinoline/Sod.lauryl Sulfat (Trimo-Crisostomo Jelly) 113.4 Gm Jelly.appl, 0 GM VG HS Discontinued Reason: Duplicate Order Prescribed by: MARLO GALAVIZ on 06/07/19 0625 Last Action: Discontinued Polyethylene Glycol 3350 (Polyethylene Glycol 3350) 17 Gm Powd.pack, 17 GM PO BID PRN for CONSTIPATION-1ST LINE Discontinued Reason: Duplicate Order Prescribed by: AIDAN SINGER on 10/05/19956 Last Action: Discontinued Sennosides (Senna Lax) 8.6 Mg Tablet, 8.6 MG PO BID Discontinued Reason: Duplicate Order Prescribed by: AIDAN SINGER on 10/05/19956 Last Action: Discontinued Sulfamethoxazole/Trimethoprim (Bactrim Ds Tablet) 1 Each Tablet, 1 EACH PO BID Discontinued Reason: Duplicate Order Prescribed by: JENNIFER ARVIZU on 10/23/19 1706 Last Action: Discontinued Tamsulosin HCl (Flomax) 0.4 Mg Cap, 0.4 MG PO DAILY@1800 Discontinued Reason: Duplicate Order Prescribed by: AIDAN SINGER on 10/05/19956 Last Action: Discontinued Review of Systems Review of Systems Constitutional: see HPI, malaise Eyes: No Symptoms Reported Ears, Nose, Mouth, Throat: no symptoms reported Respiratory: no symptoms reported Cardiovascular: no symptoms reported Gastrointestinal: nausea Genitourinary: no symptoms reported Musculoskeletal: no symptoms reported Skin: no symptoms reported Psychiatric/Neurological: Headache All Other Systems Reviewed Negative Unless Noted: Yes Past Zothegg-Pwjgnr-Tnipbj Hx Patient Social History Tobacco Use?: No Substance use?: No Alcohol Use?: No Pt feels they are or have been: No Immunizations Up To Date Tetanus Booster (TDap): Less than 5yrs PED Vaccines UTD: Yes Influenza Vaccine Up-to-Date: No; Not Current First/Initial COVID19 Vaccinat: 2020 Second COVID19 Vaccination Jose: 2020 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 Genitourinary: Yes (urinary retention) Bladder Infection Gastrointestinal: Yes Gastroesophageal Reflux Musculoskeletal: Yes (clavicle fx 2018 humerus 2019) Fibromyalgia, Fractures Endocrine: No HEENT: Yes (FACIAL FRACTURES FROM FALL 05/25/19--TREATED NON SURGICALLY) Cancer: No Psychosocial: No Integumentary: No Blood Disorders: No Family Medical History CHF son ( 38 YR) Cardiovascular disease 19 FATHER Colon cancer 19 FATHER ( AGE 40) Diabetes mellitus 19 MOTHER FH: CHF (congestive heart failure) FH: colon cancer Myocardial infarction 19 MOTHER Neoplasm G8 BROTHER ( AGE 68) No Pertinent Family Hx Physical Exam Vital Signs Vital Signs - First Documented 07/06/22 08:55 Temp 36.0 Pulse 102 Resp 18 B/P (MAP) 157/72 (100) Pulse Ox 96 Capillary Refill : Less Than 3 Seconds Height, Weight, BMI Height: 4'11.00" Weight: 109lbs. 0.0oz. 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, no motor/sensory deficits, alert, normal mood/affect, oriented x 3, other (normal finger to nose; + pronator drift - RIGHT) Skin: normal color, warm/dry Progress/Results/Core Measures Results/Orders Lab Results Laboratory Tests Test 07/06/22 10:25 07/06/22 10:33 07/06/22 11:41 07/06/22 12:52 Range/Units Urine Color YELLOW Urine Clarity CLEAR Urine pH 6.5 5-9 Urine Specific Clay 1.015 L 1.016-1.022 Urine Protein NEGATIVE NEGATIVE Urine Glucose (UA) NEGATIVE NEGATIVE Urine Ketones TRACE H NEGATIVE Urine Nitrite NEGATIVE NEGATIVE Urine Bilirubin NEGATIVE NEGATIVE Urine Urobilinogen 0.2 < = 1.0 MG/DL Urine Leukocyte Esterase 2+ H NEGATIVE Urine RBC (Auto) 1+ H NEGATIVE Urine RBC 2-5 H /HPF Urine WBC 10-25 H /HPF Urine Squamous Epithelial Cells 5-10 /HPF Urine Crystals NONE /LPF Urine Bacteria FEW H /HPF Urine Casts NONE /LPF Urine Mucus NEGATIVE /LPF Urine Culture Indicated YES White Blood Count 9.4 4.3-11.0 10^3/uL Red Blood Count 4.37 3.80-5.11 10^6/uL Hemoglobin 13.8 11.5-16.0 g/dL Hematocrit 42 35-52 % Mean Corpuscular Volume 95 80-99 fL Mean Corpuscular Hemoglobin 32 25-34 pg Mean Corpuscular Hemoglobin Concent 33 32-36 g/dL Red Cell Distribution Width 13.2 10.0-14.5 % Platelet Count 160 130-400 10^3/uL Mean Platelet Volume 10.5 9.0-12.2 fL Immature Granulocyte % (Auto) 1 % Neutrophils (%) (Auto) 91 H 42-75 % Lymphocytes (%) (Auto) 3 L 12-44 % Monocytes (%) (Auto) 5 0-12 % Eosinophils (%) (Auto) 1 0-10 % Basophils (%) (Auto) 0 0-10 % Neutrophils # (Auto) 8.5 H 1.8-7.8 10^3/uL Lymphocytes # (Auto) 0.3 L 1.0-4.0 10^3/uL Monocytes # (Auto) 0.5 0.0-1.0 10^3/uL Eosinophils # (Auto) 0.1 0.0-0.3 10^3/uL Basophils # (Auto) 0.0 0.0-0.1 10^3/uL Immature Granulocyte # (Auto) 0.1 0.0-0.1 10^3/uL Neutrophils % (Manual) 87 % Lymphocytes % (Manual) 2 % Monocytes % (Manual) 4 % Eosinophils % (Manual) 0 % Basophils % (Manual) 0 % Band Neutrophils 7 % Blood Morphology Comment NORMAL Prothrombin Time 14.3 12.2-14.7 SEC INR Comment 1.1 0.8-1.4 Activated Partial Thromboplast Time 28 24-35 SEC Sodium Level 130 L 135-145 MMOL/L Potassium Level 3.9 3.6-5.0 MMOL/L Chloride Level 93 L 98-107 MMOL/L Carbon Dioxide Level 25 21-32 MMOL/L Anion Gap 12 5-14 MMOL/L Blood Urea Nitrogen 10 7-18 MG/DL Creatinine 0.93 0.60-1.30 MG/DL Estimat Glomerular Filtration Rate 63 BUN/Creatinine Ratio 11 Glucose Level 148 H 70-105 MG/DL Lactic Acid Level 3.50 *H 2.86 *H 0.50-2.00 MMOL/L Calcium Level 9.3 8.5-10.1 MG/DL Corrected Calcium 9.5 8.5-10.1 MG/DL Total Bilirubin 0.5 0.1-1.0 MG/DL Aspartate Amino Transf (AST/SGOT) 28 5-34 U/L Alanine Aminotransferase (ALT/SGPT) 18 0-55 U/L Alkaline Phosphatase 72 40-136 U/L Total Protein 6.8 6.4-8.2 GM/DL Albumin 3.8 3.2-4.5 GM/DL Influenza Type A (RT-PCR) Not Detected Not Detecte Influenza Type B (RT-PCR) Not Detected Not Detecte SARS-CoV-2 RNA (RT-PCR) Not Detected Not Detecte My Orders Orders - ASHLEY WILLETT MD Cbc With Automated Diff (07/06/22 10:04) Comprehensive Metabolic Panel (07/06/22 10:04) Blood Culture (07/06/22 10:04) Sputum Culture (07/06/22 10:04) Urinalysis (07/06/22 10:04) Urine Culture (07/06/22 10:04) Protime With Inr (07/06/22 10:04) Partial Thromboplastin Time (07/06/22 10:04) Chest 1 View, Ap/Pa Only (07/06/22 10:04) Ed Iv/Invasive Line Start (07/06/22 10:04) Ed Iv/Invasive Line Start (07/06/22 10:04) O2 (07/06/22 10:04) Remove Rings In Anticipation O (07/06/22 10:04) Lactic Acid Analyzer (07/06/22 10:04) Ct Head Wo (07/06/22 10:04) Ekg Tracing (07/06/22 10:04) Manual Differential (07/06/22 10:33) Ns Iv 1000 Ml (Sodium Chloride 0.9%) (07/06/22 11:30) Covid 19 Inhouse Test (07/06/22 11:27) Influenza A And B By Pcr (07/06/22 11:27) Isolation Central Supply Req (07/06/22 11:27) Ondansetron Injection (Zofran Injectio (07/06/22 11:46) Ondansetron Injection (Zofran Injectio (07/06/22 12:45) Ns Iv 1000 Ml (Sodium Chloride 0.9%) (07/06/22 12:45) Ed Admission (Communication) (07/06/22 13:35) Medications Given in ED Current Medications Medications Dose Ordered Sig/Nehemias Route Start Time Stop Time Status Last Admin Dose Admin Ondansetron HCl 4 mg STK-MED ONCE .ROUTE 07/06/22 11:46 07/06/22 11:49 DC 07/06/22 11:51 4 MG Vital Signs/I&O 07/06/22 08:55 Temp 36.0 Pulse 102 Resp 18 B/P (MAP) 157/72 (100) Pulse Ox 96 Blood Pressure Mean: 100 Progress Progress Note : Time: 13:32 Progress Note Case discussed with Dr. Singer at 1323. He recommended discussing with Dr. Galaviz as he feels like she might be a good ARU candidate. I did discuss the case with her and inform her of all the labs, physical exam findings. She states with the continued elevated lactic acid at 2.8 she would prefer she be admitted to observation on the medical floor and then a rehab consult placed and she might be able to take her tomorrow. I talked with Dr. Singer again he is agreeable. He plans on doing que'd orders. Patient is made aware of the plan of care and is comfortable. Initial ECG Impression Date: Jul 06, 2022 Initial ECG Impression Time: 10:39 Initial ECG Rate: 98 Initial ECG Rhythm: Normal Sinus Initial ECG Intervals: Normal Initial ECG Impression: Nonspecific Changes Diagnostic Imaging Diagonstic Imaging: Xray Comments [facility], [place] NAME: YANICK CRUZ [facility] REC#: [id number] PT STATUS: REG ER : 1945 PHYSICIAN: ASHLEY WILLETT MD ADMIT DATE: 07/06/22/ER Signed Date of Exam:07/06/22 CHEST 1 VIEW, AP/PA ONLY EXAMINATION: Chest 1 view HISTORY: Fall. Weakness. COMPARISON: 06/24/2019. FINDINGS: The lung volumes are normal. No focal consolidation is seen. No large pleural effusion or pneumothorax is seen. Stable mildly prominent cardiac silhouette. There is calcified aortic atherosclerotic plaque. No acute osseous abnormality is seen. IMPRESSION: 1. Stable cardiomegaly. No overt pulmonary edema. Dictated by: Dictated on workstation # [id number] Dict: 07/06/22 1101 Trans: 07/06/22 1104 [facility] [id number] Interpreted by: SONAL VASQUEZ DO Electronically signed by: SONAL VASQUEZ DO 07/06/22 1104 Diagonstic Imaging: CT Plain Films/CT/US/NM/MRI: head Comments [facility] [place] NAME: YANICK CRUZ [facility] REC#: [id number] PT STATUS: REG ER : 1945 PHYSICIAN: ASHLEY WILLETT MD ADMIT DATE: 07/06/22/ER Draft Date of Exam:07/06/22 CT HEAD WO PROCEDURE: CT head without contrast. TECHNIQUE: Multiple contiguous axial images were obtained through the brain without the use of intravenous contrast. Auto Exposure Controls were utilized during the CT exam to meet ALARA standards for radiation dose reduction. INDICATION: Fall with balance issue COMPARISON: 06/29/2022 Ventricles and sulci remain diffusely prominent. Low-density in the cerebral white matter is stable without evidence of geographic distribution to indicate developing territorial infarct. There is no abnormal mass effect or shift of midline structures. Calvarium is intact and the visualized paranasal sinuses are clear. IMPRESSION: Stable chronic findings without acute intracranial abnormality detected. Dictated on workstation # [id number] Dict: 07/06/22 1056 Trans: 07/06/22 1102 [facility] [id number] Interpreted by: TIFFANIE HEBERT MD Electronically signed by: Focused Exam Lactate Level 07/06/22 10:33: Lactic Acid Level 3.50*H 07/06/22 12:52: Lactic Acid Level 2.86*H Lactic Acid Level Laboratory Tests Test 07/06/22 10:33 07/06/22 12:52 Lactic Acid Level 3.50 MMOL/L (0.50-2.00) *H 2.86 MMOL/L (0.50-2.00) *H Departure Impression Primary Impression: Falls frequently Additional Impression: Lactic acidosis Disposition: ADMITTED INPATIENT Condition: Stable Admissions Decision to Admit Reason: Admit from ER (General) Decision to Admit/Date: Jul 06, 2022 Time/Decision to Admit Time: 13:34 Departure-Patient Inst. Referrals: BRAULIO SANCHEZ DO (PCP/Family) Primary Care Physician ASHLEY WILLETT MD Jul 06, 2022 09:57
[2022-07-06 10:32] LABS: BILIRUBIN,URINE NEGATIVE (NEGATIVE); CLARITY,URINE CLEAR; COLOR,URINE YELLOW; GLUCOSE, URINE (UA) NEGATIVE (NEGATIVE); KETONES,URINE TRACE (NEGATIVE); LEUKOCYTE ESTERASE ,URINE 2+ (NEGATIVE); NITRITE,URINE NEGATIVE (NEGATIVE); PH,URINE 6.5 (5-9); PROTEIN,URINE NEGATIVE (NEGATIVE)
[2022-07-06 10:42] LABS: BASOPHILS % (AUTO) 0 % (0-10); EOSINOPHILS # (AUTO) 0.1 10^3/uL (0.0-0.3); EOSINOPHILS % (AUTO) 1 % (0-10); HEMATOCRIT 42 % (35-52); HEMOGLOBIN 13.8 g/dL (11.5-16.0); LYMPHOCYTES # (AUTO) 0.3 10^3/uL (1.0-4.0); LYMPHOCYTES % (AUTO) 3 % (12-44); MEAN CORPUSCULAR HEMOGLOBIN 32 pg (25-34); MEAN CORPUSCULAR HGB CONC 33 g/dL (32-36); MEAN CORPUSCULAR VOLUME 95 fL (80-99); MEAN PLATELET VOLUME 10.5 fL (9.0-12.2); MONOCYTES # (AUTO) 0.5 10^3/uL (0.0-1.0); MONOCYTES % (AUTO) 5 % (0-12); NEUTROPHILS # (AUTO) 8.5 10^3/uL (1.8-7.8); NEUTROPHILS % (AUTO) 91 % (42-75); PLATELET COUNT 160 10^3/uL (130-400); WHITE BLOOD COUNT 9.4 10^3/uL (4.3-11.0)
[2022-07-06 10:43] LABS: BACTERIA,URINE FEW /HPF
[2022-07-06 10:55] LABS: ALBUMIN 3.8 GM/DL (3.2-4.5); POTASSIUM 3.9 MMOL/L (3.6-5.0)
[2022-07-06 10:57] LABS: CALCIUM 9.3 MG/DL (8.5-10.1)
[2022-07-06 10:58] LABS: TOTAL PROTEIN 6.8 GM/DL (6.4-8.2)
[2022-07-06 11:00] LABS: BILIRUBIN,TOTAL 0.5 MG/DL (0.1-1.0)
[2022-07-06 11:01] LABS: CREATININE SERUM 0.93 MG/DL (0.60-1.30)
--- NOTE | 2022-07-06 11:02 | Diagnostic Imaging Report ---
PROCEDURE: CT head without contrast. TECHNIQUE: Multiple contiguous axial images were obtained through the brain without the use of intravenous contrast. Auto Exposure Controls were utilized during the CT exam to meet ALARA standards for radiation dose reduction. INDICATION: Fall with balance issue COMPARISON: 06/29/2022 Ventricles and sulci remain diffusely prominent. Low-density in the cerebral white matter is stable without evidence of geographic distribution to indicate developing territorial infarct. There is no abnormal mass effect or shift of midline structures. Calvarium is intact and the visualized paranasal sinuses are clear. IMPRESSION: Stable chronic findings without acute intracranial abnormality detected. Dictated by: Dictated on workstation # [id number]
--- NOTE | 2022-07-06 11:03 | Diagnostic Imaging Report ---
EXAMINATION: Chest 1 view HISTORY: Fall. Weakness. COMPARISON: 06/24/2019. FINDINGS: The lung volumes are normal. No focal consolidation is seen. No large pleural effusion or pneumothorax is seen. Stable mildly prominent cardiac silhouette. There is calcified aortic atherosclerotic plaque. No acute osseous abnormality is seen. IMPRESSION: 1. Stable cardiomegaly. No overt pulmonary edema. Dictated by: Dictated on workstation # [id number]
[2022-07-06 11:07] LABS: BAND NEUTROPHILS 7 %; BASOPHILS % (MANUAL) 0 %; EOSINOPHILS % (MANUAL) 0 %; LYMPHOCYTES % (MANUAL) 2 %; MONOCYTES % (MANUAL) 4 %; NEUTROPHILS % (MANUAL) 87 %
[2022-07-06 11:08] LABS: INR 1.1 (0.8-1.4); PROTHROMBIN TIME PATIENT 14.3 SEC (12.2-14.7); RBC MORPH NORMAL
[2022-07-06] MEDS ORDERED: NS IV 1000 ML 1,000 ML IV SCH ×2 (11:30→12:45)
[2022-07-06] MEDS ORDERED: ONDANSETRON 4 MG/2 ML (SDV) Z0FRAN ONE (11:46)
[2022-07-06] MEDS ORDERED: ONDANSETRON 4 MG/2 ML (SDV) Z0FRAN IVP ONE (12:45)
[2022-07-06 14:33] VITALS: BP 170/91
[2022-07-06] MEDS ORDERED: MILK OF MAGNESIA 400 MG/5 ML 30 ML UDC PO PRN (14:45)
[2022-07-06] MEDS ORDERED: ANTACID SUSP 30 ML UDC (MYLANTA) PO PRN (14:45)
[2022-07-06] MEDS ORDERED: ONDANSETRON 4 MG (ZOFRAN) ORAL DISSOLVE TAB PO PRN (14:45)
[2022-07-06] MEDS ORDERED: BISACODYL 10 MG SUPP (DULCOLAX) PR PRN (14:45)
[2022-07-06] MEDS ORDERED: ONDANSETRON 4 MG/2 ML (SDV) Z0FRAN IV PRN (14:45)
[2022-07-06] MEDS ORDERED: MELATONIN 3 MG TABLET PO PRN (14:45)
[2022-07-06] MEDS ORDERED: LACTULOSE SYRUP 10GM/15ML (ENULOSE) 30ML UDC PO PRN (14:45)
[2022-07-06] MEDS ORDERED: CALCIUM CARBONATE 500 MG (TUMS) TAB.CHEW PO PRN (14:45)
[2022-07-06] MEDS ORDERED: polyethylene glycoL POWDER 17 GM (MIRALAX) PACK PO PRN (14:45)
[2022-07-06] MEDS ORDERED: cefTRIAXone 1 GM PRE-MIX 50 ML IV SCH (15:00)
[2022-07-06] MEDS ORDERED: ENOXAPARIN INJECTION 30 MG/0.3 ML SYR SC SCH (15:00)
--- NOTE | 2022-07-06 15:26 | Physical Therapy Evaluation ---
PT Evaluation-General Medical Diagnosis Admission Date Jul 06, 2022 at 13:35 Medical Diagnosis: frequent falls/lactic acidosis Onset Date: Jul 06, 2022 Therapy Diagnosis Therapy Diagnosis: impaired mobility/severe weakness Height/Weight Height (Feet): 4 Height (Inches): 11.00 Weight (Pounds): 109 Weight (Ounces): 0.0 Precautions Precautions/Isolations: Fall Prevention, Standard Precautions Weight Bear Status Right Lower Extremity: Right Weight Bearing/Tolerated Left Lower Extremity: Left Weight Bearing/Tolerated Referral Physician: Jessica Reason for Referral: Evaluation/Treatment Medical History Pertinent Medical History: Dementia, GERD, 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 3-Yuwspgxvwq-eartzxx completes the activity by him/herself with no assistance from a helper. 5-Set-up or Clean-up Assistance-helper sets up or cleans up; patient completes activity. [place] assists only prior to or following the activity. 4-Supervision or Touching Assistance-helper provides verbal cues and/or touching/steadying and/or contact guard assistance as patient completes activity. Assistance may be provided throughout the activity or intermittently. 3-Partial/Moderate Assistance-helper does LESS THAN HALF the effort. [place] lifts, holds or supports trunk or limbs, but provides less than half the effort. 2-Substantial/Maximal Assistance-helper does MORE THAN HALF the effort. [place] lifts or holds trunk or limbs and provides more than half the effort. 6-Sdxivvian-hkepxv does ALL the effort. Patient does none of the effort to complete the activity. Or, the assistance of 2 or more helpers is required for the patient to complete the activity. If activity was not attempted, code reason: 7-Patient Refused. 9-Not Applicable-not attempted and the patient did not perform the activity before the current illness, exacerbation or injury. 10-Not Attempted due to Environmental Limitations-(lack of equipment, weather restraints, etc.). 88-Not Attempted due to Medical Conditions or Safety Concerns. unable to determine from patient PT Evaluation-Current Subjective Patient answers questions appropriately then will have "episodes" of not responding to questions while fully alert. Objective Patient Orientation: Confused ROM/Strength ROM Lower Extremities bilateral LE WFL Strength Lower Extremities 3/5 grossly bilateral LE (unable to formally test due to inability to follow simple direction) Integumentary/Posture Bladder Incontinence: Yes Posture slightly kyphotic Neuromuscular (Tone, Coordination, Reflexes) severely diminished coordination/severe retropulsion in sit and stand with inability to correct/resists all tactile and verbal stimuli/cues Sensory Vision: Unable to Assess Hearing: Functional Transfers Roll Left to Right (QC): 1 Sit to Lying (QC): 1 Lying to Sitting/Side of Bed(Q: 1 Sit to Stand (QC): 1 Chair/Bce-jm-Aggnf Xfer(QC): 1 Toilet Transfer (QC): 1 severely retropulsive with inability to initiate any motor skills/severely diminished motor planning with all mobility Gait Does the Patient Walk?: No and Walking Goal IS indicated Walk 10 feet (QC): 88 Walk 50 ft with 2 Turns(QC): 88 Walk 150 ft (QC): 88 Gait Assistive Device: FWW Balance Sitting Static: Poor Sitting Dynamic: Poor Standing Static: Poor Standing Dynamic: Poor Assessment/Needs Patient incontinent urine during session requiring dependent assist of 2 to cleanse and change patient. Patient dependent assist with demonstration of severe retropulsion in sit and stand with inability to correct. Patient displays increased difficulty with following simple direction with episodes of not verbally responding at all. Noted diminished coordination with all gross motor testing. Patient currently requires 1-2 dependent assist to complete all functional tasks. Rehab Potential: Guarded PT Float Builder Goals Float Builder Goals PT Float Builder Goals Time Frame: Aug 07, 2022 Roll Left & Right (QC): 3 Sit to Lying (QC): 3 Lying-Sitting on Side/Bed(QC): 3 Sit to Stand (QC): 3 Chair/Wzk-hs-Vffqz Xfer(QC): 3 Toilet Transfer (QC): 3 Walk 10 feet (QC): 3 Walk 50ft with 2 Turns (QC): 3 Walk 150 ft (QC): 3 PT Plan Problem List Problem List: Activity Tolerance, Functional Strength, Safety, Balance, Gait, Transfer, Bed Mobility Treatment/Plan Treatment Plan: Continue Plan of Care Treatment Plan: Bed Mobility, Education, Functional Activity Ayden, Functional Strength, Gait, Safety, Therapeutic Exercise, Transfers Treatment Duration: Aug 07, 2022 Frequency: 6 times per week Estimated Hrs Per Day: .25 hour per day Time Time In: 1445 Time Out: 1507 Total Billed Treatment Time: 32 Total Billed Treatment 1 visit EVMod 13 min FA 19 min CHARLENE ESPINO PT Jul 06, 2022 15:26
--- NOTE | 2022-07-06 15:28 | Occupational Therapy Eval ---
OT Evaluation-General/PLF Medical Diagnosis Admission Date Jul 06, 2022 at 13:35 Medical Diagnosis: falls Onset Date: Jul 06, 2022 Therapy Diagnosis Therapy Diagnosis: decreased ADL status, confusion Height/Weight Height (Feet): 4 Height (Inches): 11.00 Weight (Pounds): 109 Weight (Ounces): 0.0 Precautions Precautions/Isolations: Standard Precautions Referral Physician: Jessica Referral Reason: Evaluation/Treatment Medical History Pertinent Medical History: Dementia, GERD Additional Medical History GERD, dizziness, fibromyalgia, arthritis, dementia, TBI, vertigo, facial fx 2019, clavicle 2018, humerus fx 2019 Current History ED from [facility] with frequent falls, balance and coordination issues over last week. Pt just finished UTI antibiotics recently. Social History Home: Assisted Living ADL-Prior Level of Function SCALE: Activities may be completed with or without assistive devices. 8-Ybigtivgdd-serovoc completes the activity by him/herself with no assistance from a helper. 5-Set-up or Clean-up Assistance-helper sets up or cleans up; patient completes activity. [place] assists only prior to or following the activity. 4-Supervision or Touching Assistance-helper provides verbal cues and/or touching/steadying and/or contact guard assistance as patient completes activity. Assistance may be provided throughout the activity or intermittently. 3-Partial/Moderate Assistance-helper does LESS THAN HALF the effort. [place] lifts, holds or supports trunk or limbs, but provides less than half the effort. 2-Substantial/Maximal Assistance-helper does MORE THAN HALF the effort. [place] lifts or holds trunk or limbs and provides more than half the effort. 1-Uanezdiyo-vvzadz does ALL the effort. Patient does none of the effort to complete the activity. Or, the assistance of 2 or more helpers is required for the patient to complete the activity. If activity was not attempted, code reason: 7-Patient Refused. 9-Not Applicable-not attempted and the patient did not perform the activity before the current illness, exacerbation or injury. 10-Not Attempted due to Environmental Limitations-(lack of equipment, weather restraints, etc.). 88-Not Attempted due to Medical Conditions or Safety Concerns. ADL PLOF Comments Pt reports she was independent with ADLs and functional mobility using FWW at baseline, resides at [facility]. Accuracy of information unknown as pt has history of dementia. Self Care: Independent Functional Cognition: Needed Some Help OT Current Status Subjective Pt transferring rooms upon OT arrival, agreeable to OT Tx. Pt appears confused, answers some questions appropriately, but then when asked other questions she doesn't respond at all. Pt had difficulty following instructions during tx. Mental Status/Objective Patient Orientation: Person, Confused Current Upper Extremity ROM BUE shoulder flexion to approx 70 degrees with ADLs/transfers. Unable to formally assess due to confusion Upper Extremity Strength grossly 3+/5, unable to formally assess due to confusion ADL-Treatment On/Off Footwear (QC): 2 (Max A overall. Max verbal cues due to confusion and difficulty following instructions.) Toileting Hygiene (QC): 1 (Per PT report, assist x2 with task) Other Treatments Pt transferred from EOB to transport chair, then transport chair to EOB in her new room. Pt very retropulsive at EOB and in stand, requring total assist with transfers and mobility at this time. Pt required VCs for UE positioning with transfer, but unable to follow instructions to let go of the handle of chair, required hand over hand assistance to remove hand. Pt transferred supine with total assist. Max A overall and max VCs and hand over hand assist with footwear, pt did not initiate movements to doff/don socks and just held hands near feet. Post tx, pt in bed, call light in [facility] and all needs met, bed alarm activated and nurse present. At this time, pt requires total assist of 1-2 person for all functional transfers/mobility and max-total assist with all ADLS. Pt had difficulty following simple directions, and had episodes of not verbally responding at all. Education OT Patient Education: Correct positioning, Modified ADL techniques, Progress toward Goal/Update tx plan, Purpose of tx/functional activities Teaching Recipient: Patient Teaching Methods: Discussion Response to Teaching: Verbalize Understanding OT Take Away Attendant Goals Take Away Attendant Goals Time Frame: Jul 23, 2022 Eating (QC): 5 Oral Hygiene (QC): 4 Toileting Hygiene (QC): 4 Shower/Bathe Self (QC): 3 Upper Body Dressing (QC): 4 Lower Body Dressing (QC): 3 On/Off Footwear (QC): 3 Additional Goals: 1-Demonstrate ADL Tasks, 2-Verbalize Understanding, 3- ImproveStrength/Ayden 1=Demonstrate adherence to instructed precautions during ADL tasks. 2=Patient will verbalize/demonstrate understanding of assistive devices/modifications for ADL. 3=Patient will improve strength/tolerance for activity to enable patient to perform ADL's. OT Education/Plan Problem List/Assessment Assessment: Decreased Activ Tolerance, Decreased Safety Aware, Decreased UE Strength, Dependent Transfers, Impaired Bed Mobility, Impaired Cognition, Impaired Coordination, Impaired Funct Balance, Impaired I ADL's, Impaired Self- Care Skills Pt would benefit from short term skilled OT services in order to increase safety and independence with ADLs and functional mobility, and increase UE strength and activity tolerance, to maximize LOF for return to [facility]. Discharge Recommendations Plan/Recommendations: Continue POC Therapy Discharge Recommendati: Post Acute OT (SNF) Barriers to Progress Pt's history of dementia, difficulty initiating actions and difficulty following simple instructions limit pt's ability to participate in skilled OT services. Treatment Plan/Plan of Care Patient would benefit from OT for education, treatment and training to promote independence in ADL's, mobility, safety and/or upper extremity function for ADL's. Plan of Care: ADL Retraining, Functional Mobility, UE Funct Exercise/Act Treatment Duration: Jul 23, 2022 Frequency: 3 times per week (3-4 times per week) Estimated Hrs Per Day: .25 hour per day Rehab Potential: Guarded Time/GCodes Start Time: 15:05 Stop Time: 15:20 Total Time Billed (hr/min): 15 Billed Treatment Time 1, CURTIS RAGSDALE OT Jul 06, 2022 15:28
[2022-07-06] MEDS: NS IV 1000 ML 1,000 ML IV SCH ×2 (15:45→23:57)
[2022-07-06] MEDS ORDERED: NS IV 500 ML 500 ML IV PRN (15:45)
[2022-07-06 15:47] VITALS: BP_SYST 135; BP_SYST 170; BP_DIAS 62; BP_DIAS 91
[2022-07-06 15:56] VITALS: BP 163/90
[2022-07-06] MEDS ORDERED: NITR100C10 PO (16:09)
[2022-07-06] MEDS ORDERED: METR70GE5 VG (16:09)
[2022-07-06] MEDS ORDERED: MELO7.5T46 PO (16:09)
[2022-07-06] MEDS ORDERED: GLUC-219 PO (16:09)
[2022-07-06] MEDS ORDERED: POLY17PO6 PO (16:09)
[2022-07-06] MEDS ORDERED: CYCL5TAB PO (16:09)
[2022-07-06] MEDS ORDERED: DULO60CA59 PO (16:09)
[2022-07-06] MEDS ORDERED: CNC1KV IM (16:09)
[2022-07-06] MEDS ORDERED: GBPN600T PO (16:09)
[2022-07-06] MEDS ORDERED: OMEG100032 PO (16:09)
[2022-07-06] MEDS ORDERED: SENN8.6T17 PO (16:09)
[2022-07-06] MEDS ORDERED: LIONS MANE PO (16:09)
[2022-07-06] MEDS ORDERED: CHOL200074 PO (16:09)
[2022-07-06] MEDS ORDERED: TRAZ-227 PO (16:09)
[2022-07-06] MEDS ORDERED: DOCU100T2 PO (16:09)
[2022-07-06] MEDS ORDERED: MELA10TA3 PO (16:09)
[2022-07-06] MEDS ORDERED: SKELETAL STRENGTH PO (16:09)
[2022-07-06] MEDS ORDERED: ACET325C7 PO (16:09)
[2022-07-06 19:30] VITALS: BP 185/82
[2022-07-06] MEDS: SENNOSIDES 8.6 MG (SENOKOT) TAB PO SCH (20:15)
[2022-07-06] MEDS: DOCUSATE SODIUM 100 MG (COLACE) CAP PO SCH (20:15)
[2022-07-06] MEDS: ACETAMINOPHEN 325 MG TABLET PO PRN (20:15)
[2022-07-06] MEDS ORDERED: hydrALAZINE (APESOLINE) 20 MG/ML VIAL IV PRN (20:30)
[2022-07-06 23:58] VITALS: BP 148/80
[2022-07-07] MEDS ORDERED: traZODone 100 MG (DESYREL) TAB PO SCH (00:34)
[2022-07-07] MEDS ORDERED: GABAPENTIN 600 MG (NEURONTIN) TAB PO SCH (00:34)
[2022-07-07 03:42] VITALS: BP 132/76
[2022-07-07 05:30] LABS: BASOPHILS % (AUTO) 0 % (0-10); HEMOGLOBIN 11.1 g/dL (11.5-16.0); LYMPHOCYTES # (AUTO) 0.4 10^3/uL (1.0-4.0)
[2022-07-07 05:32] LABS: EOSINOPHILS # (AUTO) 0.1 10^3/uL (0.0-0.3); EOSINOPHILS % (AUTO) 2 % (0-10); HEMATOCRIT 34 % (35-52); LYMPHOCYTES % (AUTO) 6 % (12-44); MEAN CORPUSCULAR HEMOGLOBIN 31 pg (25-34); MEAN CORPUSCULAR HGB CONC 33 g/dL (32-36); MEAN CORPUSCULAR VOLUME 96 fL (80-99); MEAN PLATELET VOLUME 10.6 fL (9.0-12.2); MONOCYTES # (AUTO) 0.4 10^3/uL (0.0-1.0); MONOCYTES % (AUTO) 6 % (0-12); NEUTROPHILS % (AUTO) 85 % (42-75); PLATELET COUNT 105 10^3/uL (130-400)
[2022-07-07 05:46] LABS: CALCIUM 8.1 MG/DL (8.5-10.1); CREATININE SERUM 0.75 MG/DL (0.60-1.30); MAGNESIUM 1.7 MG/DL (1.6-2.4); POTASSIUM 3.6 MMOL/L (3.6-5.0)
[2022-07-07 05:58] LABS: SMEAR SCAN COMMENT YES
[2022-07-07] MEDS ORDERED: MAGNESIUM 1 GM/100 ML IVPB 100 ML IV SCH (06:00)
[2022-07-07] MEDS ORDERED: KCL 20 MEQ TAB (K-DUR) PO SCH (06:00)
[2022-07-07] MEDS ORDERED: POTASSIUM CL 10MEQ/50ML IVPB 50 ML IV SCH (06:00)
[2022-07-07] MEDS ORDERED: KCL 20 MEQ TAB (K-DUR) PO ONE (06:15)
[2022-07-07] MEDS: MAGNESIUM 1 GM/100 ML IVPB 100 ML IV SCH ×2 (06:22→07:36)
[2022-07-07] MEDS: NS IV 1000 ML 1,000 ML IV SCH (07:37)
[2022-07-07 07:57] VITALS: BP 137/69
[2022-07-07] MEDS: DOCUSATE SODIUM 100 MG (COLACE) CAP PO SCH (08:03)
[2022-07-07] MEDS: SENNOSIDES 8.6 MG (SENOKOT) TAB PO SCH (08:03)
[2022-07-07] MEDS: ACETAMINOPHEN 325 MG TABLET PO PRN (08:09)
--- NOTE | 2022-07-07 09:41 | Physical Therapy Daily Note ---
PT Daily Note-Current Subjective Patient in bed pre tx, agrees to PT, has no complaints of pain. Pain Section J - Health Conditions 1. Rarely or not at all 2. Occasionally 3. Frequently 4. Almost constantly 8. Unable to answer Pain Effect on Sleep: 1 Pain Interference with Therapy: 1 Pain Interference w/Day-to-Day: 1 Appearance Patient in recliner post tx with nurse call, phone, tray, all needs met. Mental Status Patient Orientation: Person, Place, Situation Attachments: IV Transfers SCALE: Activities may be completed with or without assistive devices. 2-Hwlmpsetoj-oqzjwxo completes the activity by him/herself with no assistance from a helper. 5-Set-up or Clean-up Assistance-helper sets up or cleans up; patient completes activity. [place] assists only prior to or following the activity. 4-Supervision or Touching Assistance-helper provides verbal cues and/or touching/steadying and/or contact guard assistance as patient completes activity. Assistance may be provided throughout the activity or intermittently. 3-Partial/Moderate Assistance-helper does LESS THAN HALF the effort. [place] lifts, holds or supports trunk or limbs, but provides less than half the effort. 2-Substantial/Maximal Assistance-helper does MORE THAN HALF the effort. [place] lifts or holds trunk or limbs and provides more than half the effort. 1-Uopuniyzq-wvezvh does ALL the effort. Patient does none of the effort to complete the activity. Or, the assistance of 2 or more helpers is required for the patient to complete the activity. If activity was not attempted, code reason: 7-Patient Refused. 9-Not Applicable-not attempted and the patient did not perform the activity before the current illness, exacerbation or injury. 10-Not Attempted due to Environmental Limitations-(lack of equipment, weather restraints, etc.). 88-Not Attempted due to Medical Conditions or Safety Concerns. Lying to Sitting/Side of Bed(Q: 4 Sit to Stand (QC): 4 Chair/Gna-pp-Ljtas Xfer(QC): 4 CGA Weight Bearing Right Lower Extremity: Right Weight Bearing/Tolerated Left Lower Extremity: Left Weight Bearing/Tolerated Gait Training Distance: 200' Walk 10 feet (QC): 4 Walk 50 ft with 2 Turns(QC): 4 Walk 150 ft (QC): 4 Gait Assistive Device: FWW slow but steady ambulation, CGA Exercises Seated Therapy Exercises: Ankle pumps, Long arc quads Seated Reps: 20 Treatments bed mobility and transfers, ambulation, LE ROM Assessment Current Status: Fair Progress improving confusion and general mobility PT Pump Servicer Supervisor Goals Pump Servicer Supervisor Goals PT Pump Servicer Supervisor Goals Time Frame: Aug 07, 2022 Roll Left & Right (QC): 3 Sit to Lying (QC): 3 Lying-Sitting on Side/Bed(QC): 3 Sit to Stand (QC): 3 Chair/Ynr-ep-Wnvau Xfer(QC): 3 Toilet Transfer (QC): 3 Walk 10 feet (QC): 3 Walk 50ft with 2 Turns (QC): 3 Walk 150 ft (QC): 3 PT Plan Problem List Problem List: Activity Tolerance, Functional Strength, Safety, Balance, Gait, Transfer, Bed Mobility, ROM Treatment/Plan Treatment Plan: Continue Plan of Care Treatment Plan: Bed Mobility, Education, Functional Activity Ayden, Functional Strength, Gait, Safety, Therapeutic Exercise, Transfers Treatment Duration: Aug 07, 2022 Frequency: 6 times per week Estimated Hrs Per Day: .25 hour per day Safety Risks/Education Patient Education: Gait Training, Transfer Techniques, Correct Positioning, Safety Issues Teaching Recipient: Patient Teaching Methods: Demonstration, Discussion Response to Teaching: Reinforcement Needed Time Time In: 901 Time Out: 914 Total Billed Treatment Time: 13 Total Billed Treatment 1 visit FA ARIELLA ALLEN PT Jul 07, 2022 09:41
--- NOTE | 2022-07-07 10:01 | Occupational Ther Daily Note ---
OT Current Status-Daily Note Subjective Pt laying in bed upon arrival. Pt is much more aware and cognitively with it during today's session. She agrees to therapy. Appearance Pt left sitting in recliner with all needs within reach. Mental Status/Objective Patient Orientation: Person, Place Attachments: IV ADL-Treatment Therapy Code Descriptions/Definitions Functional Harris Measure: 0=Not Assessed/NA 4=Minimal Assistance 1=Total Assistance 5=Supervision or Setup 2=Maximal Assistance 6=Modified Harris 3=Moderate Assistance 7=Complete IndependenceSCALE: Activities may be completed with or without assistive devices. 8-Ciqhdwwalt-pwlaavi completes the activity by him/herself with no assistance from a helper. 5-Set-up or Clean-up Assistance-helper sets up or cleans up; patient completes activity. [place] assists only prior to or following the activity. 4-Supervision or Touching Assistance-helper provides verbal cues and/or touching/steadying and/or contact guard assistance as patient completes activity. Assistance may be provided throughout the activity or intermittently. 3-Partial/Moderate Assistance-helper does LESS THAN HALF the effort. [place] l ifts, holds or supports trunk or limbs, but provides less than half the effort. 2-Substantial/Maximal Assistance-helper does MORE THAN HALF the effort. [place] lifts or holds trunk or limbs and provides more than half the effort. 4-Apvmebmry-utryfc does ALL the effort. Patient does none of the effort to complete the activity. Or, the assistance of 2 or more helpers is required for t he patient to complete the activity. If activity was not attempted, code reason: 7-Patient Refused. 9-Not Applicable-not attempted and the patient did not perform the activity before the current illness, exacerbation or injury. 10-Not Attempted due to Environmental Limitations-(lack of equipment, weather restraints, etc.). 88-Not Attempted due to Medical Conditions or Safety Concerns. Other Treatment Sit<>stand transfer: CGA. Pt ambulated through room and hallways with CGA for sa fety ~200 ft. Pt showed no LOB during ambulation. Pt was educated on UE exercises to do throughout the day to assist in strengthening, ROM, and endurance. Education OT Patient Education: Correct positioning, Energy conservation, Exercise program, Home exercise program, Progress toward Goal/Update tx plan, Purpose of tx/functional activities, Rehab process, Safety issues Teaching Recipient: Patient Teaching Methods: Discussion Response to Teaching: Verbalize Understanding, Return Demonstration OT Senior Care Goals Grades 1 6 Tutor Goals Time Frame: Jul 23, 2022 Eating (QC): 5 Oral Hygiene (QC): 4 Toileting Hygiene (QC): 4 Shower/Bathe Self (QC): 3 Upper Body Dressing (QC): 4 Lower Body Dressing (QC): 3 On/Off Footwear (QC): 3 Additional Goals: 1-Demonstrate ADL Tasks, 2-Verbalize Understanding, 3- ImproveStrength/Ayden 1=Demonstrate adherence to instructed precautions during ADL tasks. 2=Patient will verbalize/demonstrate understanding of assistive device s/modifications for ADL. 3=Patient will improve strength/tolerance for activity to enable patient to perform ADL's. OT Education/Plan Problem List/Assessment Assessment: Decreased Activ Tolerance, Decreased UE Strength, Impaired Cognition, Impaired Coordination, Impaired Funct Balance, Impaired I ADL's, Impaired Self-Care Skills Pt would benefit from short term skilled OT services in order to increase safety and independence with ADLs and functional mobility, and increase UE strength and activity tolerance, to maximize LOF for return to [facility]. Discharge Recommendations Plan/Recommendations: Continue POC Treatment Plan/Plan of Care Treatment,Training & Education: Yes Patient would benefit from OT for education, treatment and training to promote independence in ADL's, mobility, safety and/or upper extremity function for ADL's. Plan of Care: ADL Retraining, Functional Mobility, UE Funct Exercise/Act Treatment Duration: Jul 23, 2022 Frequency: 3 times per week (3-4 times per week) Estimated Hrs Per Day: .25 hour per day Rehab Potential: Guarded Time/GCodes Start Time: 09:03 Stop Time: 09:17 Total Time Billed (hr/min): 14 Billed Treatment Time 1 visit EX CURTIS DIEHL OT Jul 07, 2022 10:01
[2022-07-07 13:42] VITALS: BP 137/69
[2022-07-07] MEDS ORDERED: ENOXAPARIN 40 MG/0.4 ML (LOVENOX) SYR SC SCH (15:00)
--- NOTE | 2022-07-07 16:18 | Short Stay Summary-Hospitalist ---
History of Present Illness HPI/Chief Complaint Kasia Vasquez is a 77 year old female with PMH fibromyalgia, arthritis, GERD, depression, who presented with weakness. She has had several falls at home recently. She reports malaise. She denies fevers and chills. She denies shortness of breath and cough. She denies chest pain. She denies abdominal pain, nausea, vomiting and diarrhea. She denies dysuria. She has not had much of an appetite lately. She was recently treated for a UTI with Macrobid. Source: patient Exam Limitations: no limitations Date Seen 07/07/22 Time Seen by a Provider: 10:00 Attending Physician Lenny Sanchez DO PCP Admitting Physician: Aidan Singer MD Attending Physician: Aidan Singer MD Referring Physician Date of Admission Jul 06, 2022 at 20:30 Home Medications & Allergies Home Medications Reviewed patient Home Medication Reconciliation performed by pharmacy medication reconciliations claims technician and/or nursing. Patients Allergies have been reviewed. Allergies Allergies Coded Allergies cefuroxime (Verified Allergy, Unknown, Hives, 12/27/18) sulfamethoxazole (Verified Adverse Reaction, Unknown, VOMITING, JERKY MOVEMENTS. , 06/29/22) trimethoprim (Verified Adverse Reaction, Unknown, VOMITING, JERKY MOVEMENTS. , 06/29/22) Past Rqhxmsq-Xnngqc-Nxxfpb Hx Patient Social History Tobacco Use?: No Use of E-Cig and/or Vaping dev: No Substance use?: No Alcohol Use?: No Pt feels they are or have been: No Immunizations Up To Date First/Initial COVID19 Vaccinat: 2020 Second COVID19 Vaccination Jose: 2020 Tetanus Booster (TDap): Unknown PED Vaccines UTD: Yes Seasonal Allergies Seasonal Allergies: No Current Status status: No status: No Advance Directives: Yes Communicates: Verbally Primary Language: Jamaican Preferred Spoken Language: Jamaican Is interpretation needed?: No Sensory deficits: Vision impairment Implanted or Applied Medical D: None Past Medical History Dementia, Traumatic Brain Injury, Vertigo 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 History: Menopausal Bladder Infection Gastroesophageal Reflux Fibromyalgia, Fractures Blood Disorders: No Family Medical History CHF son ( 38 YR) Cardiovascular disease 19 FATHER Colon cancer 19 FATHER ( AGE 40) Diabetes mellitus 19 MOTHER FH: CHF (congestive heart failure) FH: colon cancer Myocardial infarction 19 MOTHER Neoplasm G8 BROTHER ( AGE 68) No Pertinent Family Hx Review of Systems Constitutional: malaise, weakness EENTM: no symptoms reported Respiratory: no symptoms reported Cardiovascular: no symptoms reported Gastrointestinal: no symptoms reported Genitourinary: no symptoms reported Physical Exam Physical Exam Vital Signs Vital Signs - First Documented 07/06/22 07/06/22 08:55 13:45 Temp 36.0 Pulse 102 Resp 18 B/P (MAP) 157/72 (100) Pulse Ox 96 O2 Delivery Room Air Capillary Refill : Less Than 3 Seconds Height, Weight, BMI Height: 4'11.00" Weight: 109lbs. 0.0oz. 49.973387mb; 25.40 BMI Method:Stated General Appearance: No Apparent Distress, WD/WN HEENT: PERRL/EOMI, Pharynx Normal Neck: Normal Inspection, Supple Respiratory: Lungs Clear, No Respiratory Distress Cardiovascular: Regular Rate, Rhythm, No Murmur Gastrointestinal: Normal Bowel Sounds, Non Tender, Soft Extremity: Normal Inspection, No Pedal Edema Neurologic/Psychiatric: Alert, Normal Mood/Affect Skin: Normal Color, Warm/Dry Results Results/Procedures Labs Laboratory Tests 07/06/22 10:33 07/07/22 05:06 Patient resulted labs reviewed. Imaging: Reviewed Imaging Report Short Stay Diagnosis Discharge Diagnosis-Short Stay Admission Diagnosis Severe sepsis due to UTI Final Discharge Diagnosis Severe sepsis due to UTI Conclusion Plan Severe sepsis due to UTI Lactic acidosis Ground level fall Debility UA consistent with UTI Rocephin IV fluids PT/OT Transfer to IRU for ongoing therapy Diagnosis/Problems Diagnosis/Problems (1) Severe sepsis Status: Acute (2) Sepsis due to urinary tract infection Status: Acute (3) Lactic acidosis Status: Acute (4) Fall from ground level Status: Acute AIDAN SINGER MD Jul 07, 2022 16:18
== END 2022-07-07 13:00 | DRG 872 ==
LOC: EDUNIT# 08:54 → ER 08:56 → 4TH 13:35 → UNDOADMOB 13:35 → 4TH 14:35 → OBSVTOIN 20:30 → INTOOBSV 20:30 → UNDODISIN 07-07 13:00
PROVIDERS: ADMIT Internal Medicine; ATTEND Internal Medicine
DX: A41.9 Sepsis, unspecified organism (principal); N39.0 Urinary tract infection, site not specified; E87.20 Acidosis, unspecified; R65.20 Severe sepsis without septic shock; F03.90 Unspecified dementia, unspecified severity, without behavioral disturbance, psychotic disturbance, mood disturbance, and anxiety; H54.7 Unspecified visual loss; Z91.81 History of falling; Z87.820 Personal history of traumatic brain injury; Z66 Do not resuscitate; Z20.822 Contact with and (suspected) exposure to COVID-19; R53.81 Other malaise; K21.9 Gastro-esophageal reflux disease without esophagitis; M79.7 Fibromyalgia; M19.90 Unspecified osteoarthritis, unspecified site; F32.A Depression, unspecified
CPT/HCPCS: 36415; 70450; 71045; 80048; 80053; 81000; 83605; 83735; 85007; 85025; 85027; 85610; 85730; 87040; 87088; 87636; 93005; G0378

== ENCOUNTER 2022-07-07 11:30 | Inpatient (IN) | payer MEDICARE, OTHER, MEDICAID ==
[~2022-07-07] VITALS: Ht 147 cm; Wt 54.9 kg
[~2022-07-07 11:30] MED LIST changes: +ACET325C7 PO; +CHOL200074 PO; +CNC1KV IM; +CYCL5TAB PO; +DOCU100T2 PO; +DULO60CA59 PO; +GBPN600T PO; +GLUC-219 PO; +LIONS MANE PO; +MELA10TA3 PO; +MELO7.5T46 PO; +METR70GE5 VG; +NITR100C10 PO; +OMEG100032 PO; +POLY17PO6 PO; +SENN8.6T17 PO; +SKELETAL STRENGTH PO; +TRAZ-227 PO
--- NOTE | 2022-07-07 12:27 | PM&R Post Admission Assessment ---
PM&R HP Date of Visit: Jul 07, 2022 Time of Visit: 14:00 History of Present Illness CC: Debility HPI: Ms. Yanick Cruz, 77 F, admitted to ARU for debility and frequent falls. Pt presented to our ED yesterday from assisted living for weakness, frequent falls, and balance issues. States she has had balance issues for years, however it has progressively worsened over last x 1 week. States she saw her PCP, Dr. Sanchez yesterday and he decreased her 12:00 dose of gabapentin, but kept nighttime dose the same. Per ED report she just finished her last dose of abx yesterday for UTI. In ED she was found to have elevated lactic acid (2.8), UTI, and mild tachycardia prompting admission to med-surgical floor. She was started on ceftriaxone and hydralazine (10mg PRN). States she occasionally has a frontal headache, SOB, intermittent cough, and nausea. She denies fever, chills, chest pain, V/D, abdominal pain, numbness, tingling or urinary sx. Her last BM was this morning. States she has a decreased appetite over last x 2 days, but o jaguar is feeling well today. Denies hx of blood clots, Afib, heart disease, HTN, DM, and kidney or liver problems. 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, vertigo, GERD, fibromyalgia, OA of back, DDD, and osteoporosis PSH: none Allergies: cefuroxime (hives), sulfamethoxazole and trimethoprim (vomiting and jerky movements) Meds: Cholecalciferol (Vitamin D3) (Vitamin D3), 100 MCG PO DAILY, (Reported) Cyanocobalamin (Cyanocobalamin Injection), 1,000 MCG IM MONTHLY, (Reported) Docusate Sodium (Docusate Sodium), 100 MG PO BID, (Reported) Duloxetine HCl (Duloxetine HCl), 60 MG PO DAILY, (Reported) Gabapentin (Gabapentin), 600 MG PO HS, (Reported) Glucosamine/D3/Boswellia Natalie (Osteo Bi-Flex Tablet), 1 EACH PO BID, (Reported) Melatonin (Melatonin), 10 MG PO HS, (Reported) Meloxicam (Meloxicam), 7.5 MG PO BID, (Reported) Metronidazole (Metronidazole), 1 APPLIC VG TWICE WEEKLY, (Reported) Fargo-3/Dha/Epa/Fish Oil (Fish Oil 1,000 mg Softgel), 1,000 MG PO DAILY, (Reported) Sennosides (Senna Laxative), 8.6 MG PO BID, (Reported) Trazodone HCl (Trazodone HCl), 100 MG PO HS, (Reported) [Lions Bogdan], 1 EA PO DAILY, (Reported) [Skeletal Strength], 2 EA PO BID, (Reported) PRN Acetaminophen (Tylenol), 650 MG PO Q6H PRN for PAIN-MILD (1-4), (Reported) Cyclobenzaprine HCl (Cyclobenzaprine HCl), 5 MG PO HS PRN for MUSCLE SPASMS, (Reported) Polyethylene Glycol 3350 (Miralax), 17 GM PO BID PRN for CONSTIPATION-2ND LINE, (Reported) SH: Denies tobacco, ETOH, and recreational drug use FH: Father - CV disease, colon cancer ( 40YO), Mother - DM, NC, Son - CHF ( 38YO) Objective: VS: 36.2, 70, 14, 161/88, RA Heart: RRR, no murmurs or rubs. Lungs: CTAB Abd: soft, non tender, normal bowel sounds Extremities: no LE swelling, +2/3 posterior tibial pulses bilat, +2/3 radial bilat Skin: Petchial rash to left lateral breast, no significant redness or warmth. No other rashes noted Neuro: She is alert and oriented x 3. Answers all questions appropriately Imaging Findings from 07/06/22 1. CXR: [facility] [place], [place] NAME: YANICK CRUZ [facility] REC#: [id number] PT STATUS: REG ER : 1945 PHYSICIAN: ASHLEY WILLETT MD ADMIT DATE: 07/06/22/ER Signed Date of Exam:07/06/22 CHEST 1 VIEW, AP/PA ONLY EXAMINATION: Chest 1 view HISTORY: Fall. Weakness. COMPARISON: 06/24/2019. FINDINGS: The lung volumes are normal. No focal consolidation is seen. No large pleural effusion or pneumothorax is seen. Stable mildly prominent cardiac silhouette. There is calcified aortic atherosclerotic plaque. No acute osseous abnormality is seen. IMPRESSION: 1. Stable cardiomegaly. No overt pulmonary edema. Dictated by: Dictated on workstation # [id number] Dict: 07/06/22 1101 Trans: 07/06/22 110 [facility] [id number] Interpreted by: SONAL VASQUEZ DO Electronically signed by: SONAL VASQUEZ DO 07/06/[address] Head/Neck [facility] [place] NAME: YANICK CRUZ [facility] REC#: [id number] PT STATUS: ADM IN : 1945 PHYSICIAN: ASHLEY WILLETT MD ADMIT DATE: 07/06/22 Signed Date of Exam:07/06/22 CT HEAD WO PROCEDURE: CT head without contrast. TECHNIQUE: Multiple contiguous axial images were obtained through the brain without the use of intravenous contrast. Auto Exposure Controls were utilized during the CT exam to meet ALARA standards for radiation dose reduction. INDICATION: Fall with balance issue COMPARISON: 06/29/2022 Ventricles and sulci remain diffusely prominent. Low-density in the cerebral white matter is stable without evidence of geographic distribution to indicate developing territorial infarct. There is no abnormal mass effect or shift of midline structures. Calvarium is intact and the visualized paranasal sinuses are clear. IMPRESSION: Stable chronic findings without acute intracranial abnormality detected. Dictated by: Dictated on workstation # [id number] Dict: 07/06/22 1056 Trans: 07/07/22 1145 [facility] [id number] Interpreted by: TIFFANIE HEBERT MD Electronically signed by: TIFFANIE HEBERT MD 07/07/22 1145 Assessment: Debilitated Frequent falls Lactic Acidosis - now improved Assisted living resident Dementia UTI Hx of TBI due to asphyxiation Plan: Ceftriaxone (50ml@ 100ml/hr q24H) Lovenox injections (40 mg) Hydralazine (10mg) as needed PT/OT to work on balance and improve strength Past Sjmjwja-Nkijkr-Twryaj Hx Past Med/Social Hx: Reviewed Nursing Past Med/Soc Hx, Reviewed and Corrections made Patient Social History Marrital Status: single Employed/Student: unemployed Smoking Status: Never a Smoker 2nd Hand Smoke Exposure: No Recent Hopitalizations: No Immunizations Up To Date Tetanus Booster (TDap): Less than 5yrs Pediatric: Yes Seasonal Allergies Seasonal Allergies: No Past Medical History Cardiac: High Cholesterol, Hypertension Neurological: Dementia, Traumatic Brain Injury, Vertigo Menopausal Genitourinary: Bladder Infection Gastrointestinal: Gastroesophageal Reflux Musculoskeletal: Fibromyalgia, Fractures History of Blood Disorders: No Family History CHF son ( 38 YR) Cardiovascular disease 19 FATHER Colon cancer 19 FATHER ( AGE 40) Diabetes mellitus 19 MOTHER FH: CHF (congestive heart failure) FH: colon cancer Myocardial infarction 19 MOTHER Neoplasm G8 BROTHER ( AGE 68) No Pertinent Family Hx Occupation: retired PM&R Allergy/Meds/Data Review Allergies Coded Allergies: cefuroxime (Verified Allergy, Unknown, Hives, 12/27/18) sulfamethoxazole (Verified Adverse Reaction, Unknown, VOMITING, JERKY MOVEMENTS. , 06/29/22) trimethoprim (Verified Adverse Reaction, Unknown, VOMITING, JERKY MOVEMENTS. , 06/29/22) Home Medications Scheduled Cholecalciferol (Vitamin D3) (Vitamin D3), 100 MCG PO DAILY, (Reported) Cyanocobalamin (Cyanocobalamin Injection), 1,000 MCG IM MONTHLY, (Reported) Docusate Sodium (Docusate Sodium), 100 MG PO BID, (Reported) Duloxetine HCl (Duloxetine HCl), 60 MG PO DAILY, (Reported) Gabapentin (Gabapentin), 600 MG PO HS, (Reported) Glucosamine/D3/Boswellia Natalie (Osteo Bi-Flex Tablet), 1 EACH PO BID, (Reported) Melatonin (Melatonin), 10 MG PO HS, (Reported) Meloxicam (Meloxicam), 7.5 MG PO BID, (Reported) Metronidazole (Metronidazole), 1 APPLIC VG TWICE WEEKLY, (Reported) Fargo-3/Dha/Epa/Fish Oil (Fish Oil 1,000 mg Softgel), 1,000 MG PO DAILY, (Reported) Sennosides (Senna Laxative), 8.6 MG PO BID, (Reported) Trazodone HCl (Trazodone HCl), 100 MG PO HS, (Reported) [Lions Bogdan], 1 EA PO DAILY, (Reported) [Skeletal Strength], 2 EA PO BID, (Reported) Scheduled PRN Acetaminophen (Tylenol), 650 MG PO Q6H PRN for PAIN-MILD (1-4), (Reported) Cyclobenzaprine HCl (Cyclobenzaprine HCl), 5 MG PO HS PRN for MUSCLE SPASMS, (Reported) Polyethylene Glycol 3350 (Miralax), 17 GM PO BID PRN for CONSTIPATION-2ND LINE, (Reported) Discontinued Medications Acetaminophen (Acetaminophen), 500 MG PO Q6H PRN for PAIN-MILD Discontinued Reason: Duplicate Order Bethanechol Chloride (Urecholine), 25 MG PO ACHS Discontinued Reason: Duplicate Order Cyclobenzaprine HCl (Cyclobenzaprine HCl), 5 MG PO HS Discontinued Reason: Duplicate Order Docusate Sodium (Docusate Sodium), 100 MG PO BID Discontinued Reason: Duplicate Order Gabapentin (Gabapentin), 300 MG PO TID Discontinued Reason: Duplicate Order Hydrocodone Bit/Acetaminophen (Lortab 5 Mg Tablet), 1 TAB PO Q6HR PRN for PAIN- MODERATE Discontinued Reason: Duplicate Order Hydrocodone Bit/Acetaminophen (Lortab 5 Mg Tablet), 1 EACH PO Q6H PRN for PAIN- MODERATE Discontinued Reason: Duplicate Order Lactobacillus Acidophilus (Probiotic), 2 CAP PO HS, (Reported) Discontinued Reason: Duplicate Order Melatonin (Melatonin), 6-9 MG PO HS PRN for SLEEP Discontinued Reason: Duplicate Order Melatonin (Melatonin), 10 MG PO HS Discontinued Reason: Duplicate Order Naproxen Sodium (Naproxen Sodium), 220 MG PO BID PRN for PAIN-BREAKTHROUGH Discontinued Reason: Duplicate Order Nitrofurantoin Monohyd/M-Cryst (Macrobid 100 mg Capsule), 1 TAB PO BID Discontinued Reason: Duplicate Order Nitrofurantoin Monohyd/M-Cryst (Nitrofurantoin Alfalfa-Mcr 100 mg), 100 MG PO BID, (Reported) Oxyquinoline/Sod.lauryl Sulfat (Trimo-Crisostomo Jelly), 0 GM VG HS Discontinued Reason: Duplicate Order Polyethylene Glycol 3350 (Polyethylene Glycol 3350), 17 GM PO BID PRN for CONSTIPATION-1ST LINE Discontinued Reason: Duplicate Order Sennosides (Senna Lax), 8.6 MG PO BID Discontinued Reason: Duplicate Order Sulfamethoxazole/Trimethoprim (Bactrim Ds Tablet), 1 EACH PO BID Discontinued Reason: Duplicate Order Tamsulosin HCl (Flomax), 0.4 MG PO DAILY@1800 Discontinued Reason: Duplicate Order Current Medications Current Medications Reviewed Review of Systems Constitutional: see HPI, dizziness, malaise, weakness EENTM: no symptoms reported Respiratory: no symptoms reported Cardiovascular: no symptoms reported Gastrointestinal: nausea Genitourinary: incontinence Musculoskeletal: back pain, joint pain Skin: no symptoms reported Psychiatric/Neurological: Other (confusion) Physical Exam Physical Exam Vital Signs Capillary Refill : Height, Weight, BMI Height: 4'11.00" Weight: 109lbs. 0.0oz. [id number]; 25.40 BMI Method:Stated General Appearance: No Apparent Distress, WD/WN, Chronically ill Eyes: Bilateral Eye Normal Inspection, Bilateral Eye PERRL HEENT: PERRL/EOMI, Normal ENT Inspection, Pharynx Normal Neck: Full Range of Motion, Normal Inspection, Non Tender, Supple, Carotid Bruit Respiratory: Chest Non Tender, Lungs Clear, Normal Breath Sounds, No Accessory Muscle Use, No Respiratory Distress Cardiovascular: Regular Rate, Rhythm, No Edema, No Gallop, No JVD, No Murmur, Normal Peripheral Pulses Gastrointestinal: Normal Bowel Sounds, No Organomegaly, No Pulsatile Mass, Non Tender, Soft Back: Normal Inspection, No CVA Tenderness, No Vertebral Tenderness Extremity: Normal Capillary Refill, Normal Inspection, Normal Range of Motion, Non Tender, No Calf Tenderness, No Pedal Edema Neurologic/Psychiatric: Alert, Normal Mood/Affect, academic interventionist II-XII Norm as Tested, Abnormal Gait, Depressed Affect, Disoriented, Motor Weakness Skin: Normal Color, Warm/Dry Lymphatic: No Adenopathy PM&R Medical Assessment & Plan REHAB/MEDICAL ASSESSMENT AND PLAN: REHAB IMPAIRMENT GROUP: Debility ETIOLOGIC DIAGNOSIS: Debility The comorbidities that impact the patients function and/or functional outcome by: advanced age, dementia, falls, current UTI REHAB PLAN: The patient is being admitted to our comprehensive inpatient rehabilitation facility and can tolerate the intensity of service consisting of at least: 180 minutes of therapy a day, 5 out of 7 days a week Rehab treatment will consist of: PT OT will focus on regaining function with use of AD and ST will help improve cognition and regain independence The patient/family has a good understanding of our discharge process and will benefit from an interdisciplinary inpatient rehabilitation program. The patient has potential to make improvement and is in need of at least two of the following multidisciplinary therapies including but not limited to physical, occupational, speech, and prosthetics and orthotics. Additionally the patient will need services from respiratory, nutritional services, wound care, psychology, etc. (Customize this to each patient). Given the patients complex condition and risk of further medical complications, rehabilitation services cannot be safely or effectively provided at a lower level of care such as a detention facility. BARRIERS TO DISCHARGE: Advanced age with dementia ESTIMATED LOS: 7 days DISPOSITION: [place] RELEVANT CHANGES SINCE PREADMISSION SCREENING: I have compared the patients medical and functional status at the time of the preadmission screening and there are: no changes PROGNOSIS: Fair REHABILITATION GOALS: 1. PT OT will focus on regaining function with use of AD and ST will help improve cognition and regain independence All the above goals were reviewed with the patient and he/she is in agreement. By signing this document, I acknowledge that I have personally performed a full physical examination on this patient within 24 hours of admission to this inpatient rehabilitation facility and have determined the patient to be able to tolerate the above course of treatment at an intensive level for a reasonable period of time. I will be completing a detailed individualized Plan of Care for this patient by day #4 of the patients stay based upon the Preadmission Screen, the Post-Admission Evaluation, and the therapy evaluations. Admission Dx/Comorbidities: (1) Fall from ground level Status: Acute ICD Codes: W18.30XA - Fall on same level, unspecified, initial encounter (2) Sepsis due to urinary tract infection Status: Acute ICD Codes: A41.9 - Sepsis, unspecified organism; N39.0 - Urinary tract infection, site not specified (3) UTI (urinary tract infection) ICD Codes: N39.0 - Urinary tract infection, site not specified (4) Falls frequently Status: Chronic ICD Codes: R29.6 - Repeated falls (5) History of anoxic brain injury Status: Acute ICD Codes: Z86.69 - Personal history of other diseases of the nervous system and sense organs Assessment/Plan Assessment and Plan Assess & Plan/Chief Complaint Assessment: Falls Sepsis UTI 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
[2022-07-07] MEDS ORDERED: ONDANSETRON 4 MG (ZOFRAN) ORAL DISSOLVE TAB PO PRN ×2 (12:30→13:30)
[2022-07-07] MEDS ORDERED: DOCUSATE SODIUM 100 MG (COLACE) CAP PO PRN (12:30)
[2022-07-07] MEDS ORDERED: MELATONIN 3 MG TABLET PO PRN ×2 (12:30→13:30)
[2022-07-07] MEDS ORDERED: ACETAMINOPHEN 325 MG TABLET PO PRN ×2 (12:30→13:30)
[2022-07-07] MEDS ORDERED: FLEET ENEMA ADULT 1 EA BTL PR PRN (12:30)
[2022-07-07] MEDS ORDERED: LACTULOSE SYRUP 10GM/15ML (ENULOSE) 30ML UDC PO PRN ×2 (12:30→13:30)
[2022-07-07] MEDS ORDERED: LOPERAMIDE 2 MG (IMODIUM) TABLET PO PRN (12:30)
[2022-07-07] MEDS ORDERED: BISACODYL 10 MG SUPP (DULCOLAX) PR PRN ×2 (12:30→13:30)
[2022-07-07] MEDS ORDERED: CALCIUM CARBONATE 500 MG (TUMS) TAB.CHEW PO PRN ×2 (12:30→13:30)
[2022-07-07] MEDS ORDERED: ALPRAZolam 0.25 MG (XANAX) TAB PO PRN (12:30)
[2022-07-07] MEDS ORDERED: guaiFENesin/CODEINE (ROBITUSSIN AC) 10ML UDC PO PRN (12:30)
--- NOTE | 2022-07-07 13:22 | Occupational Therapy Eval ---
OT Evaluation-General/PLF Medical Diagnosis Admission Date Jul 07, 2022 at 13:00 Medical Diagnosis: debility Onset Date: Jul 06, 2022 Therapy Diagnosis Therapy Diagnosis: Reduced ADL status Height/Weight Height (Feet): 4 Height (Inches): 11.00 Weight (Pounds): 109 Weight (Ounces): 0.0 Referral Physician: Claudio Fischer Reason: Evaluation/Treatment Medical History Pertinent Medical History: Dementia, GERD, TBI Additional Medical History GERD, dizziness, fibromyalgia, arthritis, dementia, TBI, vertigo, facial fx 2019, clavicle 2018, humerus fx 2019 Current History ED from [facility] with frequent falls, balance and coordination issues over last week. Pt just finished UTI antibiotics recently. Reviewed History: Yes Social History Home: Assisted Living Entry Into Home: Level Entry ADL-Prior Level of Function SCALE: Activities may be completed with or without assistive devices. 4-Sabslstwwr-ouvtffo completes the activity by him/herself with no assistance from a helper. 5-Set-up or Clean-up Assistance-helper sets up or cleans up; patient completes activity. [place] assists only prior to or following the activity. 4-Supervision or Touching Assistance-helper provides verbal cues and/or touching/steadying and/or contact guard assistance as patient completes activity. Assistance may be provided throughout the activity or intermittently. 3-Partial/Moderate Assistance-helper does LESS THAN HALF the effort. [place] lifts, holds or supports trunk or limbs, but provides less than half the effort. 2-Substantial/Maximal Assistance-helper does MORE THAN HALF the effort. [place] lifts or holds trunk or limbs and provides more than half the effort. 9-Ykbhutbso-drdajs does ALL the effort. Patient does none of the effort to complete the activity. Or, the assistance of 2 or more helpers is required for the patient to complete the activity. If activity was not attempted, code reason: 7-Patient Refused. 9-Not Applicable-not attempted and the patient did not perform the activity before the current illness, exacerbation or injury. 10-Not Attempted due to Environmental Limitations-(lack of equipment, weather restraints, etc.). 88-Not Attempted due to Medical Conditions or Safety Concerns. ADL PLOF Comments Pt reports she was independent with ADLs and functional mobility using FWW at baseline, resides at [facility] Self Care: Independent Functional Cognition: Independent DME/Equipment: Bath Chair, Shower OT Current Status Subjective Pt laying in bed upon arrival. Pt agrees to therapy eval/treatment. Appearance Pt left sitting in recliner with food tray set up for her. All needs within reach. Mental Status/Objective Patient Orientation: Person, Place, Time, Situation Attachments: IV Current Glasses/Contacts: Yes Hearing Aids: No Dentures/Partials: Yes Hand Dominance: Right Upper Extremity ROM ~160 degrees at shoulders Upper Extremity Coordination intact Upper Extremity Strength 3-/5 at shoulders director of radio services strength: minimally impaired ADL-Treatment Eating (QC): 6 Oral Hygiene (QC): 6 Shower/Bathe Self (QC): 4 (SBA for safety when standing) Upper Body Dressing (QC): 5 Lower Body Dressing (QC): 4 (SBA: only for safety when standing) On/Off Footwear (QC): 5 Toileting Hygiene (QC): 4 (SBA for safety in standing) Sit<>stand: SBA. Ambulation: assist with IV pole and SBA. Pt able to doff/don footwear with set up. She completed showering 75% in sitting, only standing for anmita-care. She needs cues for safety. Pt is slightly impulsive with transfers and movements, but overall has good balance with all ambulation, standing and transfers. Pt able to don upper body clothing with set up and lower body with SBA only for safety when standing to pull pants over hips. Pt stood at sink to perform oral hygiene with independence. Other Treatments OT/PT cotreat due to skill of 2 clinicians required that a rehab therapist could not perform in order to coordinate UE/LEs, decrease fall risk, focus on higher level balance tasks and due to pt's limitations in strength, activity tolerance, mobility/transfers, and balance deficits.OT focused on ADLs, UE placement, and sequencing and safety, PT focused on balance, mobility/transfers, and gross overall movements. Pt completed functional mobility and transfers around [facility] common area/therapy gym using FWW, including car transfer, uneven surface, step, bed mobility. Pt participated in standing balloon batting activity with PT there to assist in balance and coordination, OT focused on UE placement, pt able to reach in all planes throughout task . Pt completed functional activity x3 to address balance, endurance, strengthening, and coordination. She was able to tolerate ~3-5 min for each trial of functional activity. Education OT Patient Education: Correct positioning, Energy conservation, Modified ADL techniques, Progress toward Goal/Update tx plan, Purpose of tx/functional activities, Reviewed precautions, Rehab process, Safety issues, Transfer techniques, W/C management Teaching Recipient: Patient Teaching Methods: Demonstration, Discussion Response to Teaching: Verbalize Understanding, Return Demonstration BIMS CAM BIMS Expression of Ideas and Wants: Without Difficulty Understanding Verbal Content: Understands Brief Interview/Mental Status: Yes IRF ANGEL BIMS: IRF ANGEL BIMS Response (Comments) Value Repitition of Three Words Three 3 Recalls Socks Yes, No Cue Required 2 Recalls Blue Yes, No Cue Required 2 Recalls Bed Yes, No Cue Required 2 Year Correct 3 Month Accurate Within 5 Days 2 Day Correct 1 Total 15 Should Staff Asses. Mental [address] No CAM Mental Status Change/Baseline: 0 Inattention: 0 Disorganized thinkin Altered level of consciousness: 0 OT Short Term Goals Short Term Goals Time Frame: Jul 14, 2022 Toileting hygiene: 5 Shower/bathe self: 5 Lower body dressin OT Rfp Writer Goals Penitentiary Goals Time Frame: Jul 30, 2022 Acute change in mental status: 0 Inattention: 0 Disorganized thinkin Altered level of consciousness: 0 Eating (QC): 6 Oral Hygiene (QC): 6 Toileting Hygiene (QC): 6 Shower/Bathe Self (QC): 6 Upper Body Dressing (QC): 6 Lower Body Dressing (QC): 6 On/Off Footwear (QC): 6 Additional Goals: 1-Demonstrate ADL Tasks, 2-Verbalize Understanding, 3- ImproveStrength/Ayden 1=Demonstrate adherence to instructed precautions during ADL tasks. 2=Patient will verbalize/demonstrate understanding of assistive devices/modifications for ADL. 3=Patient will improve strength/tolerance for activity to enable patient to perform ADL's. OT Education/Plan Problem List/Assessment Assessment: Decreased Activ Tolerance, Decreased Safety Aware, Decreased UE Strength, Impaired Coordination, Impaired Funct Balance, Impaired I ADL's, Impaired Self-Care Skills Discharge Recommendations Plan/Recommendations: Continue POC Therapy Discharge Recommendati: Assisted Living Treatment Plan/Plan of Care Treatment,Training & Education: Yes Patient would benefit from OT for education, treatment and training to promote independence in ADL's, mobility, safety and/or upper extremity function for ADL's. Plan of Care: ADL Retraining, Functional Mobility, Group Exercise/Act as Ind, UE Funct Exercise/Act Treatment Duration: Jul 30, 2022 Frequency: At least 5 of 7 days/Wk (IRF) Estimated Hrs Per Day: 1.5 hours per day Agreement: Yes Rehab Potential: Good Time/GCodes Start Time: 13:10 Stop Time: 14:40 Total Time Billed (hr/min): 90 Billed Treatment Time OT eval [id number], Cotreat [id number] 1, EVM (10'), ADL x3 (50'), FA x2 (30') CURTIS DIEHL OT Jul 07, 2022 13:22
[2022-07-07] MEDS ORDERED: polyethylene glycoL POWDER 17 GM (MIRALAX) PACK PO PRN (13:30)
[2022-07-07] MEDS ORDERED: ONDANSETRON 4 MG/2 ML (SDV) Z0FRAN IV PRN (13:30)
[2022-07-07] MEDS ORDERED: hydrALAZINE (APESOLINE) 20 MG/ML VIAL IV PRN (13:30)
[2022-07-07] MEDS ORDERED: ANTACID SUSP 30 ML UDC (MYLANTA) PO PRN (13:30)
[2022-07-07] MEDS ORDERED: MILK OF MAGNESIA 400 MG/5 ML 30 ML UDC PO PRN (13:30)
[2022-07-07] MEDS ORDERED: cefTRIAXone 1 GM PRE-MIX 50 ML IV SCH (14:00)
[2022-07-07 14:11] VITALS: BP 161/88
--- NOTE | 2022-07-07 14:31 | Physical Therapy Evaluation ---
PT Evaluation-General Medical Diagnosis Admission Date Jul 07, 2022 at 13:00 Medical Diagnosis: debility Onset Date: Jul 06, 2022 Therapy Diagnosis Therapy Diagnosis: Impaired Mobility Height/Weight Height (Feet): 4 Height (Inches): 11.00 Weight (Pounds): 109 Weight (Ounces): 0.0 Precautions Precautions/Isolations: Fall Prevention, Standard Precautions Weight Bear Status Right Lower Extremity: Right Full Weight Bearing Left Lower Extremity: Left Full Weight Bearing Referral Physician: Karena Snyder DO Reason for Referral: Evaluation/Treatment Medical History Pertinent Medical History: Dementia, GERD, TBI Current History EMS from NH/AL secondary to falls, LOB, dizziness, diminished balance and coordination issues Reviewed History: Yes Social History Home: Assisted Living Current Living Status: Alone Entry Into Home: Level Entry Prior Prior Level of Function SCALE: Activities may be completed with or without assistive devices. 3-Flkxqlqtwm-hwfsoei completes the activity by him/herself with no assistance from a helper. 5-Set-up or Clean-up Assistance-helper sets up or cleans up; patient completes activity. [place] assists only prior to or following the activity. 4-Supervision or Touching Assistance-helper provides verbal cues and/or touching/steadying and/or contact guard assistance as patient completes activity. Assistance may be provided throughout the activity or intermittently. 3-Partial/Moderate Assistance-helper does LESS THAN HALF the effort. [place] lifts, holds or supports trunk or limbs, but provides less than half the effort. 2-Substantial/Maximal Assistance-helper does MORE THAN HALF the effort. [place] lifts or holds trunk or limbs and provides more than half the effort. 1-Zganckahw-dqakcp does ALL the effort. Patient does none of the effort to complete the activity. Or, the assistance of 2 or more helpers is required for the patient to complete the activity. If activity was not attempted, code reason: 7-Patient Refused. 9-Not Applicable-not attempted and the patient did not perform the activity before the current illness, exacerbation or injury. 10-Not Attempted due to Environmental Limitations-(lack of equipment, weather restraints, etc.). 88-Not Attempted due to Medical Conditions or Safety Concerns. Bed Mobility: 6 Transfers (B,C,W/C): 6 Gait: 6 Indoor Mobility (Ambulation): Independent Stairs: Not Applicalbe Prior Device Use: 4-wheeled walker PT Evaluation-Current Subjective Patient in bed on med floor and brought down to rehab floor pre-tx, reports no pain, agrees to PT. Will be co-treating with OT for part of tx due to poor patient mobility, strength, endurance, severe debility, coordinate UE and LE during activity, safety and reduce risk of falls. Pain Section J - Health Conditions 1. Rarely or not at all 2. Occasionally 3. Frequently 4. Almost constantly 8. Unable to answer Pain Effect on Sleep: 1 Pain Interference with Therapy: 1 Pain Interference w/Day-to-Day: 1 Pt/Family Goals Patient would like to become more independent and steady in bed mobility, transfers, ambulation, and balance in order to go about her day back home safely . Objective Patient Orientation: Person, Place, Situation Attachments: IV ROM/Strength ROM Lower Extremities BLE ROM WFL. Strength Lower Extremities LLE grossly 5/5, RLE (knee flexion 5/5, extension 4-/5, DF 5/5) Neuromuscular (Tone, Coordination, Reflexes) Slightly diminished coordination and needs repetitive verbal cueing to direct patient where to walk. Sensory Hearing: Functional Sensation Right Lower Extremit: Intact Sensation Left Lower Extremity: Intact Transfers Roll Left & Right (QC): 4 Sit to Lying (QC): 4 (SBA) Lying to Sitting/Side of Bed(Q: 4 (SBA) Sit to Stand (QC): 4 Chair/Bvz-bc-Qpdlw Xfer(QC): 4 Toilet Transfer (QC): 4 Car Transfer (QC): 4 CGA for all except SBA from lying <-> sit, patient requires some cues for direction and safety Gait Does the Patient Walk?: Yes Mode of Locomotion: Walk Anticipated Mode of Locomotion: Walk Walk 10 feet (QC): 4 Walk 50 ft with 2 Turns(QC): 4 Walk 150 ft (QC): 88 Walking 10ft/uneven surface-QC: 4 Distance: 70', 120', 120', 120 Gait Assistive Device: FWW Comments/Gait Description Patient needs verbal cueing to direct where to go when walking, overall good step length, foot clearance, and gait speed. Patient has slight forward posture when standing/walking. CGA for ambulation Wheelchair Training Does the Pt Use a Wheelchair?: No Wheel 50 ft with 2 turns (QC): 9 Wheel 150 ft (QC): 9 Stairs #of Steps: 1 1 Step (curb) (QC): 4 4 Steps (QC): 88 12 Steps (QC): 88 Walking Assistive Device: Walker CGA, a little unsteady taking a step up. Balance Sitting Static: Normal Sitting Dynamic: Normal Standing Static: Fair Standing Dynamic: Fair Picking up an Object (QC): 4 (CGA using a grabber arm to pickle maker an object on the ground.) Special Test Comments Tinetti Treatment Ambulation, Static Balance dual-task while hitting a balloon back and forth with OT. Assessment/Needs Patient has diminished balance, unsteadiness when turn and stepping over an object, diminished strength on RLE, and difficulty following verbal cueing directions. Rehab Potential: Good Equipment Needs FFW PT Short Term Goals Short Term Goals Time Frame: Jul 14, 2022 Roll Left & Right: 6 Sit to lyin Lying to sitting on side of be: 6 Sit to stand: 4 (SBA) Chair/pea-ea-douzo transfer: 4 (SBA) Walk 10 feet: 4 (SBA) Walk 50 feet with two turns: 4 (SBA) Walk 150 feet: 4 (SBA) PT Halfway Goals Halfway Goals PT Halfway Goals Time Frame: Jul 28, 2022 Roll Left to Right (QC): 6 Sit to Lying (QC): 6 Lying-Sitting on Side/Bed(QC): 6 Sit to Stand (QC): 6 Chair/Oce-pt-Ogmwr Xfer(QC): 6 Toilet/Commode Transfer (QC): 6 Car Transfer (QC): 6 Does the Patient Walk: Yes Walk 10 feet (QC): 6 Walk 10ft-Uneven Surface(QC): 6 Walk 50ft with 2 Turns (QC): 6 Walk 150 ft (QC): 6 Does the Pt use WC or Scooter?: No Wheel 50 feet with 2 turns (QC: 9 Wheel 150 feet: 9 1 Step (curb) (QC): 4 (SBA) 4 Steps (QC): 4 (SBA) 12 Steps (QC): 88 Picking up an Object (QC): 6 Using a FFW for the standing activities. PT Plan Problem List Problem List: Activity Tolerance, Functional Strength, Safety, Balance, Gait, Transfer, Bed Mobility, ROM Treatment/Plan Treatment Plan: Continue Plan of Care Treatment Plan: Bed Mobility, Education, Functional Activity Ayden, Functional Strength, Gait, Safety, Therapeutic Exercise, Transfers Treatment Duration: Jul 28, 2022 Frequency: At least 5 of 7 days/Wk (IRF) Estimated Hrs Per Day: 1.5 hours per day Patient and/or Family Agrees t: Yes Safety Risks/Education Patient Education: Gait Training, Transfer Techniques, Steps, Reviewed Precautions, Correct Positioning, Safety Issues Teaching Recipient: Patient Teaching Methods: Demonstration, Discussion Response to Teaching: Reinforcement Needed Discharge Recommendations Plan Patient will perform bed mobility and transfer training, endurance and balance training, functional strengthening and gait training, to improve functional mobility and independence at home. Therapy Discharge Recommendati: Home & Family, Post Acute PT Time Time In: 1300 Time Out: 1440 Total Billed Treatment Time: 90 Total Billed Treatment 1 visit EVM 10' EX 15' FA 65' PT eval from [id number], OT eval [id number], co-treat from [id number] PT performed bed mobility and transfers, ambulation, stair training, positioning and safety during bathing and toileting and dressing, balance during balloon activity, OT performed bathing, dressing, toileting, balloon activity, UE positioning and safety during activity ARIELLA CROCKER PT Jul 07, 2022 14:31
[2022-07-07] MEDS: NS IV 1000 ML 1,000 ML IV SCH ×2 (14:46→19:57)
[2022-07-07] MEDS: ENOXAPARIN 40 MG/0.4 ML (LOVENOX) SYR SC SCH (14:47)
--- NOTE | 2022-07-07 15:11 | Progress Note ---
SHAWNA ELIZABETH 07/07/22 1511: Progress Note CC: Debility HPI: Ms. Yanick Cruz, 77 F, admitted to ARU for debility and frequent falls. Pt presented to our ED yesterday from assisted living for weakness, frequent falls, and balance issues. States she has had balance issues for years, however it has progressively worsened over last x 1 week. States she saw her PCP, Dr. Sanchez yesterday and he decreased her 12:00 dose of gabapentin, but kept nighttime dose the same. Per ED report she just finished her last dose of abx yesterday for UTI. In ED she was found to have elevated lactic acid (2.8), UTI, and mild tachycardia prompting admission to med-surgical floor. She was started on ceftriaxone and hydralazine (10mg PRN). States she occasionally has a frontal headache, SOB, intermittent cough, and nausea. She denies fever, chills, chest pain, V/D, abdominal pain, numbness, tingling or urinary sx. Her last BM was this morning. States she has a decreased appetite over last x 2 days, but otherwise is feeling well today. Denies hx of blood clots, Afib, heart disease, HTN, DM, and kidney or liver problems. 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, vertigo, GERD, fibromyalgia, OA of back, DDD, and osteoporosis PSH: none Allergies: cefuroxime (hives), sulfamethoxazole and trimethoprim (vomiting and jerky movements) Meds: Cholecalciferol (Vitamin D3) (Vitamin D3), 100 MCG PO DAILY, (Reported) Cyanocobalamin (Cyanocobalamin Injection), 1,000 MCG IM MONTHLY, (Reported) Docusate Sodium (Docusate Sodium), 100 MG PO BID, (Reported) Duloxetine HCl (Duloxetine HCl), 60 MG PO DAILY, (Reported) Gabapentin (Gabapentin), 600 MG PO HS, (Reported) Glucosamine/D3/Boswellia Natalie (Osteo Bi-Flex Tablet), 1 EACH PO BID, (Reported) Melatonin (Melatonin), 10 MG PO HS, (Reported) Meloxicam (Meloxicam), 7.5 MG PO BID, (Reported) Metronidazole (Metronidazole), 1 APPLIC VG TWICE WEEKLY, (Reported) [place]-3/Dha/Epa/Fish Oil (Fish Oil 1,000 mg Softgel), 1,000 MG PO DAILY, (Reported) Sennosides (Senna Laxative), 8.6 MG PO BID, (Reported) Trazodone HCl (Trazodone HCl), 100 MG PO HS, (Reported) [Lions Bogdan], 1 EA PO DAILY, (Reported) [Skeletal Strength], 2 EA PO BID, (Reported) PRN Acetaminophen (Tylenol), 650 MG PO Q6H PRN for PAIN-MILD (1-4), (Reported) Cyclobenzaprine HCl (Cyclobenzaprine HCl), 5 MG PO HS PRN for MUSCLE SPASMS, (Reported) Polyethylene Glycol 3350 (Miralax), 17 GM PO BID PRN for CONSTIPATION-2ND LINE, (Reported) SH: Denies tobacco, ETOH, and recreational drug use FH: Father - CV disease, colon cancer ( 40YO), Mother - DM, VT, Son - CHF ( 38YO) Objective: VS: 36.2, 70, 14, 161/88, RA Heart: RRR, no murmurs or rubs. Lungs: CTAB Abd: soft, non tender, normal bowel sounds Extremities: no LE swelling, +2/3 posterior tibial pulses bilat, +2/3 radial bilat Skin: Petchial rash to left lateral breast, no significant redness or warmth. No other rashes noted Neuro: She is alert and oriented x 3. Answers all questions appropriately Imaging Findings from 07/06/22 1. CXR: [facility], [place] NAME: YANICK CRUZ [facility] REC#: [id number] PT STATUS: REG ER : 1945 PHYSICIAN: ASHLEY WILLETT MD ADMIT DATE: 07/06/22/ER Signed Date of Exam:07/06/22 CHEST 1 VIEW, AP/PA ONLY EXAMINATION: Chest 1 view HISTORY: Fall. Weakness. COMPARISON: 06/24/2019. FINDINGS: The lung volumes are normal. No focal consolidation is seen. No large pleural effusion or pneumothorax is seen. Stable mildly prominent cardiac silhouette. There is calcified aortic atherosclerotic plaque. No acute osseous abnormality is seen. IMPRESSION: 1. Stable cardiomegaly. No overt pulmonary edema. Dictated by: Dictated on workstation # [id number] Dict: 07/06/22 1101 Trans: 07/06/22 110 [facility] [id number] Interpreted by: SONAL VASQUEZ DO Electronically signed by: SONAL VASQUEZ DO 07/06/[address] Head/Neck [facility], [place] NAME: YANICK CRUZ [facility] REC#: [id number] PT STATUS: ADM IN : 1945 PHYSICIAN: ASHLEY WILLETT MD ADMIT DATE: 07/06/22 Signed Date of Exam:07/06/22 CT HEAD WO PROCEDURE: CT head without contrast. TECHNIQUE: Multiple contiguous axial images were obtained through the brain without the use of intravenous contrast. Auto Exposure Controls were utilized during the CT exam to meet ALARA standards for radiation dose reduction. INDICATION: Fall with balance issue COMPARISON: 06/29/2022 Ventricles and sulci remain diffusely prominent. Low-density in the cerebral white matter is stable without evidence of geographic distribution to indicate developing territorial infarct. There is no abnormal mass effect or shift of midline structures. Calvarium is intact and the visualized paranasal sinuses are clear. IMPRESSION: Stable chronic findings without acute intracranial abnormality detected. Dictated by: Dictated on workstation # [id number] Dict: 07/06/22 1056 Trans: 07/07/22 1145 [facility]OHANN[facility] [id number] Interpreted by: TIFFANIE HEBERT MD Electronically signed by: TIFFANIE HEBERT MD 07/07/22 1145 Assessment: Debilitated Frequent falls Lactic Acidosis - now improved Assisted living resident Dementia UTI Hx of TBI due to asphyxiation Plan: Ceftriaxone (50ml@ 100ml/hr q24H) Lovenox injections (40 mg) Hydralazine (10mg) as needed PT/OT to work on balance and improve strength KARENA GALAVIZ DO 07/07/222028: Supervisory-Addendum Brief Verification & Attestation Participated in pt care: history, MDM, physical Personally performed: exam, history, MDM, supervision of care Care discussed with: Medical Student Procedures: n/a Results interpretation: Verified all documentation Verification and Attestation of Medical Student E/M Service A medical student performed and documented this service in my presence. I reviewed and verified all information documented by the medical student and made modifications to such information, when appropriate. I personally performed the physical exam and medical decision making. Karena Galaviz, Jul 07, 2022,20:29 SHAWNA ELIZABETH Jul 07, 2022 15:11 KARENA GALAVIZ DO Jul 07, 2022 20:29
[2022-07-07 19:55] VITALS: BP 178/105
[2022-07-07] MEDS: GABAPENTIN 600 MG (NEURONTIN) TAB PO SCH (19:58)
[2022-07-07] MEDS: traZODone 100 MG (DESYREL) TAB PO SCH (19:58)
[2022-07-07 21:00] VITALS: BP 150/85
[2022-07-07] MEDS ORDERED: SENNA W/DOCUSATE (SENOKOT S) TABLET PO SCH (21:00)
[2022-07-07] MEDS ORDERED: DOCUSATE SODIUM 100 MG (COLACE) CAP PO SCH (21:00)
[2022-07-07] MEDS: DOCUSATE SODIUM 100 MG (COLACE) CAP PO SCH (21:06)
[2022-07-07] MEDS: polyethylene glycoL POWDER 17 GM (MIRALAX) PACK PO SCH (21:06)
[2022-07-07] MEDS: SENNOSIDES 8.6 MG (SENOKOT) TAB PO SCH (21:06)
[2022-07-08] VITALS (10 sets, daily range): BP systolic 147–195; BP diastolic 68–104
[2022-07-08] MEDS: NS IV 1000 ML 1,000 ML IV SCH (04:00)
[2022-07-08 06:00] LABS: ALBUMIN 2.9 GM/DL (3.2-4.5); POTASSIUM 3.3 MMOL/L (3.6-5.0)
[2022-07-08 06:01] LABS: CALCIUM 8.2 MG/DL (8.5-10.1)
--- NOTE | 2022-07-08 06:01 | PM&R Progress Note ---
Subjective HPI/CC On Admission Date Seen by Provider: Jul 08, 2022 Time Seen by Provider: 11:00 Subjective/Events-last exam 07/08/2022: Patient doing well No pain No falls Confusion is baseline No major issues Rash noted with Rocephin and patient near completion so DC Review of Systems General: Fatigue, Malaise Objective Exam Vital Signs Vital Signs Date Time Temp Pulse Resp B/P (MAP) Pulse Ox O2 Delivery O2 Flow Rate FiO2 07/08/22 13:30 85 147/68 (94) 07/08/22 09:17 94 07/08/22 09:15 Room Air 07/08/22 08:00 37.4 18 Capillary Refill : General Appearance: No Apparent Distress, WD/WN, Chronically ill HEENT: PERRL/EOMI, Normal ENT Inspection, Pharynx Normal Neck: Full Range of Motion, Normal Inspection, Non Tender, Supple, Carotid Bruit Respiratory: Chest Non Tender, Lungs Clear, Normal Breath Sounds, No Accessory Muscle Use, No Respiratory Distress Cardiovascular: Regular Rate, Rhythm, No Edema, No Gallop, No JVD, No Murmur, Normal Peripheral Pulses Gastrointestinal: Normal Bowel Sounds, No Organomegaly, No Pulsatile Mass, Non Tender, Soft Back: Normal Inspection, No CVA Tenderness, No Vertebral Tenderness Extremity: Normal Capillary Refill, Normal Inspection, Normal Range of Motion, Non Tender, No Calf Tenderness, No Pedal Edema Neurologic/Psychiatric: Alert, Normal Mood/Affect, library cataloging technician II-XII Norm as Tested, Abnormal Gait, Depressed Affect, Disoriented, Motor Weakness Skin: Normal Color, Warm/Dry Lymphatic: No Adenopathy Results/Procedures Lab Laboratory Tests 07/08/22 05:17 Patient resulted labs reviewed. FIM Transfers Therapy Code Descriptions/Definitions Functional [place] Measure: 0=Not Assessed/NA 4=Minimal Assistance 1=Total Assistance 5=Supervision or Setup 2=Maximal Assistance 6=Modified [place] 3=Moderate Assistance 7=Complete IndependenceSCALE: Activities may be completed with or without assistive devices. 6-Fzsqsegiap-xymghhh completes the activity by him/herself with no assistance from a helper. 5-Set-up or Clean-up Assistance-helper sets up or cleans up; patient completes activity. [place] assists only prior to or following the activity. 4-Supervision or Touching Assistance-helper provides verbal cues and/or touching/steadying and/or contact guard assistance as patient completes activity. Assistance may be provided throughout the activity or intermittently. 3-Partial/Moderate Assistance-helper does LESS THAN HALF the effort. [place] lifts, holds or supports trunk or limbs, but provides less than half the effort. 2-Substantial/Maximal Assistance-helper does MORE THAN HALF the effort. [place] lifts or holds trunk or limbs and provides more than half the effort. 5-Ftnpnxeza-ywvwtk does ALL the effort. Patient does none of the effort to complete the activity. Or, the assistance of 2 or more helpers is required for the patient to complete the activity. If activity was not attempted, code reason: 7-Patient Refused. 9-Not Applicable-not attempted and the patient did not perform the activity before the current illness, exacerbation or injury. 10-Not Attempted due to Environmental Limitations-(lack of equipment, weather restraints, etc.). 88-Not Attempted due to Medical Conditions or Safety Concerns. Roll Left to Right (QC): 4 Sit to Lying (QC): 4 (SBA) Sit to Stand (QC): 4 Chair/Eny-gk-Sowpr Xfer(QC): 4 Car Transfer (QC): 4 Gait Training Does the Patient Walk?: Yes Walk 10 feet (QC): 4 Walk 50 ft with 2 Turns(QC): 4 Walk 150 ft (QC): 88 Walking 10ft/uneven surface-QC: 4 Gait Assistive Device: FWW Wheelchair Training Does the Pt Use a Wheelchair?: No Wheel 50 ft with 2 turns (QC): 9 Wheel 150 ft (QC): 9 Stair Training #of Steps: 1 1 Step (curb) (QC): 4 4 Steps (QC): 88 12 Steps (QC): 88 Balance Picking up an Object (QC): 4 (CGA using a grabber arm to machinist set up an object on the ground.) ADL-Treatment Eating (QC): 6 Oral Hygiene (QC): 6 Shower/Bathe Self (QC): 4 (SBA for safety when standing) Upper Body Dressing (QC): 5 Lower Body Dressing (QC): 4 (SBA: only for safety when standing) On/Off Footwear (QC): 5 Toileting Hygiene (QC): 4 (SBA for safety in standing) Assessment/Plan Assessment and Plan Assess & Plan/Chief Complaint Assessment: Falls Sepsis UTI 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
--- NOTE | 2022-07-08 06:01 | Individualized Plan of Care ---
Individualized Plan of Care Rehab Nursing IPOC Order Admission Date Jul 07, 2022 at 13:00 Current Orders Orders Admission Order(Inpt,Obs,Sdc) (07/07/22 12:25) Vital Signs: Per Unit Policy ( 08,16,00 (07/07/22 12:25) Baltazar Servin , (07/07/22 12:25) Sequential Compression Device (07/07/22 12:25) Electrical Engineering Teacher-Inpt Rehab Con (07/07/22 12:25) Rehab Nursing Orders-Ipoc (07/07/22 12:25) Physical Therapy Rehab Orders (07/07/22 12:25) Occupational Therapy Rehab Ord (07/07/22 12:25) Speech Therapy Rehab Orders (07/07/22 12:25) Cbc With Automated Diff (07/08/22 06:00) Comprehensive Metabolic Panel (07/08/22 06:00) Precautions (Aru) (07/07/22 12:25) Weekly Weight WEEK (07/07/22 12:25) Rehab-Intensity Of Therapy (07/07/22 12:25) Initiate Admission Nursing Pro .admission (07/07/22 12:25) Alprazolam Tablet (Xanax Tablet) (07/07/22 12:30) Calcium Carbonate Chew Tablet (Antacid C (07/07/22 12:30) Diphenhydramine Tablet (Benadryl Tablet) (07/07/22 12:30) Docusate Sodium Capsule (Colace Capsule) (07/07/22 21:00) Docusate Sodium Capsule (Colace Capsule) (07/07/22 12:30) Bisacodyl Suppository (Dulcolax Supposit (07/07/22 12:30) Lactulose Oral Solution (Enulose Oral So (07/07/22 12:30) Na Phos/Na Biphos Enema (Fleet Enema Eagle (07/07/22 12:30) Guaifenesin/Codeine Syrup (Robitussin Ac (07/07/22 12:30) Loperamide Tablet (Imodium Tablet) (07/07/22 12:30) Melatonin Tablet (Melatonin Tablet) (07/07/22 12:30) Polyethylene Glycol Powder Pkt (Miralax (07/07/22 21:00) Ondansetron Oral Dissolve Tab (Zofran (07/07/22 12:30) Senna S Tablet (Senokot S Tablet) (07/07/22 21:00) Acetaminophen Tablet/Caplet (Tylenol T (07/07/22 12:30) Initiate Admission Nursing Pro .admission (07/07/22 12:25) Admission Arrival Bed Request (07/07/22 13:12) Sodium 2g (2000 Mg) (07/07/22 Lunch) Docusate Sodium Capsule (Colace Capsule) (07/07/22 21:00) Bisacodyl Suppository (Dulcolax Supposit (07/07/22 13:30) Enoxaparin Injection (Lovenox Injection) (07/07/22 15:00) Lactulose Oral Solution (Enulose Oral So (07/07/22 13:30) Gabapentin Capsule/Tablet (Neurontin Cap (07/07/22 21:00) Melatonin Tablet (Melatonin Tablet) (07/07/22 13:30) Magnesium Hydroxide Oral Susp (Mom Oral (07/07/22 13:30) Polyethylene Glycol Powder Pkt (Miralax (07/07/22 13:30) Antacid Suspension (Mylanta Suspension (07/07/22 13:30) Ceftriaxone 1 Gm Pre-Mix (Rocephin 1 Gm (07/07/22 14:00) Sennosides Tablet (Senokot Tablet) (07/07/22 21:00) Calcium Carbonate Chew Tablet (Antacid C (07/07/22 13:30) Acetaminophen Tablet/Caplet (Tylenol T (07/07/22 13:30) Ondansetron Injection (Zofran Injectio (07/07/22 13:30) Ondansetron Oral Dissolve Tab (Zofran (07/07/22 13:30) Hydralazine Injection (Apresoline Inject (07/07/22 13:30) Trazodone Tablet (Desyrel Tablet) (07/07/22 21:00) Code/Resuscitation (07/07/22 13:22) Ns Iv 1000 Ml (Sodium Chloride 0.9%) (07/07/22 13:30) Patient Visit (07/07/22 ) Pt Eval Moderate Complexity (07/07/22 ) Exercise Therap, Ea 15 Min (07/07/22 ) Functional Activities, Ea 15 (07/07/22 ) Amlodipine Tablet (Norvasc Tablet) (07/08/22 11:00) Amlodipine Tablet (Norvasc Tablet) (07/09/22 09:00) Potassium Chloride (Tablet) (K Dur Table (07/09/22 07:00) Hydralazine Tablet (Apresoline Tablet) (07/08/22 10:45) Potassium Chloride (Tablet) (K Dur Table (07/08/22 11:00) Cyanocobalamin Injection (Vitamin B-12 I (07/08/22 11:00) Gabapentin Capsule/Tablet (Neurontin Cap (07/08/22 21:00) Meloxicam Tablet (Mobic Tablet) (07/08/22 21:00) [place] 3 Capsule (Fish Oil Capsule) (07/09/22 09:00) Polyethylene Glycol Powder Pkt (Miralax (07/08/22 11:00) Sennosides Tablet (Senokot Tablet) (07/08/22 21:00) Trazodone Tablet (Desyrel Tablet) (07/08/22 21:00) (Nf) Acetaminophen (Tylenol) (07/08/22 11:00) Cholecalciferol Capsule/Tablet (Vitamin (07/09/22 09:00) Cyclobenzaprine Tablet (Flexeril Tablet) (07/08/22 11:15) (Nf) Docusate Sodium (07/08/22 21:00) Duloxetine Capsule (Cymbalta Capsule) (07/09/22 09:00) (Nf) Glucosamine/D3/Boswellia Natalie (Ost (07/08/22 21:00) Melatonin Tablet (Melatonin Tablet) (07/08/22 21:00) (Nf) Metronidazole (07/08/22 11:00) Ensure Plus Chocolate DAILY (07/08/22 12:04) Patient Visit (07/08/22 ) Exercise Therap, Ea 15 Min (07/08/22 ) Functional Activities, Ea 15 (07/08/22 ) Gait Training, Ea 15 Min (07/08/22 ) Rehab Nursing Orders: Ongoing Assess. of Cognitive Status, Ongoing Assess. of Function Status, Bladder Management, Bladder Scan, Bladder Training, Bowel Management, Bowel Training, Disease Management & Educaiton, DVT Prophylaxis, Fall Prevention, Fluid/Electrolyte/Nutrition Mgmt, Infection Prevention, Med ication Management & Education, Management of Risks & Complications, Management of Skin Intergrity, Nutrition Management, Pain Management, Patient/Family Support Intensity of Therapy to be met Patient to be seen: Min.3h per day/5 of 7d PT IPOC Problem List: Activity Tolerance, Functional Strength, Safety, Balance, Gait, Transfer, Bed Mobility, ROM Treatment Plan: Continue Plan of Care Bed Mobility, Education, Functional Activity Ayden, Functional Strength, Gait, Safety, Therapeutic Exercise, Transfers Treatment Duration: Jul 28, 2022 Frequency: At least 5 of 7 days/Wk (IRF) Estimated Hrs Per Day: 1.5 hours per day OT IPOC Problems: Decreased Activ Tolerance, Decreased Safety Aware, Decreased UE St rength, Impaired Coordination, Impaired Funct Balance, Impaired I ADL's, Impaired Self-Care Skills OT Treatment, Training and Edu: Yes Plan of Care: ADL Retraining, Functional Mobility, Group Exercise/Act as Ind, UE Funct Exercise/Act Treatment Duration: Jul 30, 2022 Frequency: At least 5 of 7 days/Wk (IRF) Estimated Hrs Per Day: 1.[address] IPOC Speech Therapy Treatment Plan: Modify Plan, See Comments Treatment Duration: Jul 08, 2022 Frequency: Modified Program (IRF) Estimated Hrs Per Day: .5 hour per day Electrical Engineering Teacher/Case Mgmt Electrical Engineering Teacher/Case Managemen: Discharge Planning Dietitian/Rag Collector Dietitian/Rag Collector to monitor nutritional status and make changes and/or recommendations as needed and work with speech pathology on dietary upgrades as the occur. Physician IPOC Medical Issues being managed closely and that require the 24 hour availability of a physician: Recent sepsis from UTI with history of anoxic brain injury with confusion will require close monitoring for decompensation during ARU status Medical Issues: Bowel/Bladder Function, DVT Prophylaxis, Falls Precautions, Fluid/Electrolyte/Nutrition Balance, Infection Protection, Pain Management, Wound Care Brief Synthesis of Preadmission Screen, Post-Admission Evaluation, and Therapy Evaluations: PT OT ST will all focus on regaining function in order to return back to independent living at [facility] and work on fall prevention Medical Prognosis: Fair Anticipated Length of Stay: 7 days MARLO GALAVIZ DO Jul 08, 2022 06:01
[2022-07-08 06:03] LABS: HEMOGLOBIN 11.8 g/dL (11.5-16.0); TOTAL PROTEIN 5.5 GM/DL (6.4-8.2)
[2022-07-08 06:04] LABS: BILIRUBIN,TOTAL 0.4 MG/DL (0.1-1.0)
[2022-07-08 06:05] LABS: BASOPHILS % (AUTO) 0 % (0-10); EOSINOPHILS # (AUTO) 0.1 10^3/uL (0.0-0.3); EOSINOPHILS % (AUTO) 2 % (0-10); HEMATOCRIT 36 % (35-52); LYMPHOCYTES # (AUTO) 0.8 10^3/uL (1.0-4.0); LYMPHOCYTES % (AUTO) 11 % (12-44); MEAN CORPUSCULAR HEMOGLOBIN 31 pg (25-34); MEAN CORPUSCULAR HGB CONC 33 g/dL (32-36); MEAN CORPUSCULAR VOLUME 94 fL (80-99); MONOCYTES # (AUTO) 0.5 10^3/uL (0.0-1.0); MONOCYTES % (AUTO) 6 % (0-12); NEUTROPHILS # (AUTO) 6.4 10^3/uL (1.8-7.8); NEUTROPHILS % (AUTO) 81 % (42-75); PLATELET COUNT 115 10^3/uL (130-400); WHITE BLOOD COUNT 7.9 10^3/uL (4.3-11.0)
[2022-07-08 06:06] LABS: CREATININE SERUM 0.63 MG/DL (0.60-1.30)
--- NOTE | 2022-07-08 09:06 | Physical Therapy Daily Note ---
PT Daily Note-Current Subjective Pt. agrees to bakari B[facility] living at [facility] Pain Location: No Pain Reported Section J - Health Conditions 1. Rarely or not at all 2. Occasionally 3. Frequently 4. Almost constantly 8. Unable to answer Pain Effect on Sleep: 1 Pain Interference with Therapy: 1 Pain Interference w/Day-to-Day: 1 Mental Status Patient Orientation: Normal For Age Attachments: IV Transfers SCALE: Activities may be completed with or without assistive devices. 5-Iuqneuwmzc-ufzelsm completes the activity by him/herself with no assistance from a helper. 5-Set-up or Clean-up Assistance-helper sets up or cleans up; patient completes activity. [place] assists only prior to or following the activity. 4-Supervision or Touching Assistance-helper provides verbal cues and/or touching/steadying and/or contact guard assistance as patient completes activity. Assistance may be provided throughout the activity or intermittently. 3-Partial/Moderate Assistance-helper does LESS THAN HALF the effort. [place] lifts, holds or supports trunk or limbs, but provides less than half the effort. 2-Substantial/Maximal Assistance-helper does MORE THAN HALF the effort. [place] lifts or holds trunk or limbs and provides more than half the effort. 6-Ooiwhntto-valqmq does ALL the effort. Patient does none of the effort to complete the activity. Or, the assistance of 2 or more helpers is required for the patient to complete the activity. If activity was not attempted, code reason: 7-Patient Refused. 9-Not Applicable-not attempted and the patient did not perform the activity before the current illness, exacerbation or injury. 10-Not Attempted due to Environmental Limitations-(lack of equipment, weather restraints, etc.). 88-Not Attempted due to Medical Conditions or Safety Concerns. Roll Left & Right (QC): 6 Sit to Lying (QC): 6 Lying to Sitting/Side of Bed(Q: 6 Sit to Stand (QC): 6 Chair/Lbl-in-Nenps Xfer(QC): 4 Toilet Transfer (QC): 6 Weight Bearing Right Lower Extremity: Right Full Weight Bearing Left Lower Extremity: Left Full Weight Bearing Gait Training Does the Patient Walk?: Yes Walk 10 feet (QC): 4 Walk 50 ft with 2 Turns(QC): 4 Walk 150 ft (QC): 4 Gait Persons Needed: 1 Gait Assistive Device: FWW slow, flexed at trunk, no LOB, even step length Exercises Supine Ex: Bridging, Ankle pumps, Quad Set, Rolling, Glut sets, Lower trunk rotation, Heel Slides, Short Arc Quads, Scooting, Straight leg raise, Hip abd/add (sidelying) Supine Reps: 20 Seated Therapy Exercises: Ankle pumps, Sit to stand, Long arc quads, Hip fle xion, Hip abd/add Seated Reps: 20 Treatments toileted x 2, all indep with clothing and hand washing as well as changing brief and doffing donning pants. TRFs, gait, ex Assessment Current Status: Good Progress PT Short Term Goals Short Term Goals Time Frame: Jul 14, 2022 Roll Left & Right: 6 Sit to lyin Lying to sitting on side of be: 6 Sit to stand: 4 (SBA) Chair/rcu-ht-mxsur transfer: 4 (SBA) Walk 10 feet: 4 (SBA) Walk 50 feet with two turns: 4 (SBA) Walk 150 feet: 4 (SBA) PT Custodial Goals Orthotist Goals PT Custodial Goals Time Frame: Jul 28, 2022 Roll Left & Right (QC): 6 Sit to Lying (QC): 6 Lying-Sitting on Side/Bed(QC): 6 Sit to Stand (QC): 6 Chair/Nxt-ux-[place] Xfer(QC): 6 Toilet Transfer (QC): 6 Car Transfer (QC): 6 Does the Patient Walk: Yes Walk 10 feet (QC): 6 Walk 50ft with 2 Turns (QC): 6 Walk 150 ft (QC): 6 Walking 10ft on Uneven Surface: 6 1 Step (curb) (QC): 4 (SBA) 4 Steps (QC): 4 (SBA) 12 Steps (QC): 88 Picking up an Object (QC): 6 Does the Pt use WC or Scooter?: No Wheel 50 feet with 2 turns (QC: 9 Wheel 150 feet: 9 PT Plan Treatment/Plan Treatment Plan: Continue Plan of Care Treatment Plan: Bed Mobility, Education, Functional Activity Ayden, Functional Strength, Gait, Safety, Therapeutic Exercise, Transfers Treatment Duration: Jul 28, 2022 Frequency: At least 5 of 7 days/Wk (IRF) Estimated Hrs Per Day: 1.5 hours per day Patient and/or Family Agrees t: Yes Safety Risks/Education Patient Education: Gait Training, Transfer Techniques, Correct Positioning, Disease Process, Safety Issues Teaching Recipient: Patient Teaching Methods: Demonstration, Discussion Response to Teaching: Verbalize Understanding, Return Demonstration, Reinforcement Needed Time Time In: 745 Time Out: 900 Total Billed Treatment Time: 75 Total Billed Treatment 1,EX30m,GT20m,FA25m KORTNEY COLMENARES PTA Jul 08, 2022 09:06
[2022-07-08] MEDS: SENNOSIDES 8.6 MG (SENOKOT) TAB PO SCH ×2 (09:10→20:00)
[2022-07-08] MEDS: polyethylene glycoL POWDER 17 GM (MIRALAX) PACK PO SCH ×2 (09:10→20:00)
[2022-07-08] MEDS: DOCUSATE SODIUM 100 MG (COLACE) CAP PO SCH ×2 (09:10→20:00)
--- NOTE | 2022-07-08 10:26 | ST Cognitive Linguistic Eval ---
Speech Evaluation-General Medical Diagnosis Debility Onset Date: Jul 06, 2022 Therapy Diagnosis Therapy Diagnosis: Intact/Baseline Cognition Precautions Precautions: Fall Precautions/Isolations: Fall Prevention, Standard Precautions Referral Referring Physician: Dr. Snyder Reason for Referral: Evaluation/Treatment Medical History Pertinent Medical History: Dementia, GERD, TBI Reviewed History: Yes Social History Current Living Status: Alone Speech PLF-Current Status Prior Level of Function The patient reports she is currently functioning at baseline cognitive abilities. Per patient, she was "a little messed up" when she initially arrived at the hospital. Following a chart review, it does appear confusion was present. The patient reports the confusion has cleared and she feels she is "back to normal." Subjective The patient was seated upright in her chair, awake and alert, upon entrance to the room by the clinician. The patient greeted the clinician appropriately and was agreeable to participation in the cognitive linguistic assessment. Language Eval: Auditory Comprehends Simple Yes/No Ques: Functional Indent/Objects Multiple Gomes: Functional Follows 1-Step Commands: Functional Follows General Conversations: Functional Language Eval: Verbal Language Completes Spontaneous Greeting: Functional Produces Auto, Serial Info: Functional Imitates Simple Words/Phrases: Functional Word Finding: Functional Requests Basic Needs: Functional States Basic Personal Info: Functional Language Evaluation: Reading Follows Simple Written Direct: Functional Language Evaluation: Writing Writes to Simple Dictation: Functional Cognitive Patient Orientation The patient was independently oriented to self, location, month, day of the we ek, date and year. Objective Cognitive Domain Attention: WNL Memory: WNL Problem Solving: Functional Clock Drawing Severity Rating: WNL Objective Formal/Standardized Tests [facility] Mental Status Examination ([facility]) Results The patient demonstrated a result of +28/20 on the SLUMS correlating to cognitive skills within normal limits. Oral Motor/Speech Production The patient does not display dysarthria or apraxia of speech. The patient is 100% intelligible in known and unknown contexts. Impression The patient displayed baseline cognitive function. Per chart review, the patient displayed confusion upon initial admission. If confusion continues or the patient displays difficulty following tasks and requests of therapy staff, consider re-evaluation of cognitive status. Speech Patient Assess Expression of Ideas/Wants: Expression (4) Understanding Verbal Content: Understands (4) Brief Interview-Mental Status: Yes Repetition of Three Words: Three (3) Temporal Orientation: Year: Correct (3) Temporal Orientation: Month: Accurate within 5 days(2) Temporal Orientation: Day: Correct (1) Recall : Wear to say "Sock": Yes, no cue required (2) Recall : Color: Yes, no cue required (2) Recall : Bed: Yes, no cue required (2) Memory/Recall Ability: Current season, Location of own room, Staff names and faces, That he or she is in a hsp/hsp unit Speech-Plan Treatment Plan Speech Therapy Treatment Plan: Continue Plan of Care Treatment Duration: Jul 08, 2022 Frequency: 1 time per week Estimated Hrs Per Day: .5 hour per day Rehab Potential: Good Safety Risks/Education Teaching Recipient: Patient Teaching Methods: Discussion Response to Teaching: Verbalize Understanding Education Topics Provided: Results, Plan of Care, Recommendations Time Speech Therapy Time In: 09:30 Speech Therapy Time Out: 10:00 Total Billed Time: 30 Billed Treatment Time 1, TINA HAAS ELIZABETH ST Jul 08, 2022 10:26
[2022-07-08] MEDS ORDERED: NON-FORMULARY MEDICATION 1 EA EA (Acetaminophen (Tylenol) 650 MG) PO PRN (11:00)
[2022-07-08] MEDS ORDERED: polyethylene glycoL POWDER 17 GM (MIRALAX) PACK PO PRN (11:00)
[2022-07-08] MEDS ORDERED: amLODIPine 5 MG (NORVASC) TAB PO NR (11:00)
[2022-07-08] MEDS ORDERED: KCL 20 MEQ TAB (K-DUR) PO NR (11:00)
[2022-07-08] MEDS ORDERED: NON-FORMULARY MEDICATION 1 EA EA (Metronidazole 1 APPLIC) VG SCH (11:00)
[2022-07-08] MEDS ORDERED: CYCLOBENZAPRINE 10 MG (FLEXERIL) TAB PO PRN (11:15)
[2022-07-08] MEDS: hydrALAZINE (APRESOLINE) 25 MG TAB PO SCH ×3 (11:54→20:03)
[2022-07-08] MEDS: diphenhydrAMINE 25 MG TAB (BENADRYL) PO PRN ×2 (12:06→20:03)
--- NOTE | 2022-07-08 12:21 | Occupational Ther Daily Note ---
OT Current Status-Daily Note Subjective Pt seen in room, up in bed, agreeable to OT. No pain mentioned Appearance Pleasant, cooperative Mental Status/Objective Patient Orientation: Person, Place, Time, Situation Attachments: IV, Saline Lock ADL-Treatment Pt was able to doff and don slip on shoes without assistance. At end of tx, completed toilet transfer with SBA, BSC over toilet, grab bar, and toileted with SBA while managing clothing. Transferred back into bed and able to scoot up into bed without help. Nursing to put bed alarm on. Therapy Code Descriptions/Definitions Functional [place] Measure: 0=Not Assessed/NA 4=Minimal Assistance 1=Total Assistance 5=Supervision or Setup 2=Maximal Assistance 6=Modified [place] 3=Moderate Assistance 7=Complete IndependenceSCALE: Activities may be completed with or without assistive devices. 1-Gxzvcwoqrf-cevroaz completes the activity by him/herself with no assistance from a helper. 5-Set-up or Clean-up Assistance-helper sets up or cleans up; patient completes activity. [place] assists only prior to or following the activity. 4-Supervision or Touching Assistance-helper provides verbal cues and/or touchin g/steadying and/or contact guard assistance as patient completes activity. Assistance may be provided throughout the activity or intermittently. 3-Partial/Moderate Assistance-helper does LESS THAN HALF the effort. [place] lifts, holds or supports trunk or limbs, but provides less than half the effort. 2-Substantial/Maximal Assistance-helper does MORE THAN HALF the effort. [place] lifts or holds trunk or limbs and provides more than half the effort. 4-Lbgldsrxa-kpwydc does ALL the effort. Patient does none of the effort to complete the activity. Or, the assistance of 2 or more helpers is required for the patient to complete the activity. If activity was not attempted, code reason: 7-Patient Refused. 9-Not Applicable-not attempted and the patient did not perform the activity before the current illness, exacerbation or injury. 10-Not Attempted due to Environmental Limitations-(lack of equipment, weather restraints, etc.). 88-Not Attempted due to Medical Conditions or Safety Concerns. Toileting Hygiene (QC): 4 (SBA for clothing management) Toilet Transfer (QC): 4 (SBA) Other Treatment Pt got up out of bed with verbal cue for hand placement. Walked CGA with FWW to gym, maneuvering between chairs in commons area (OT managing IV pole). Pt transferred to chair with arms with SBA. Completed 10 minutes bilat UE exercise with arm bike set at 15W resistance, with one brief recovery period at midpoint. Also completed bilat UE strengthening activity with 1# weight on each arm, using 1" pegs with 1/4" stems. Did bilat UE exercise but only able to do 5 reps R shoulder flex with 1# weight. Tolerated 10 reps L shoulder and 10 reps bilat elbow flex with weights. Additional AROM without additional resistance for forearms and wrists. Completed additional shoulder and elbow ex using 1# ex bar and bilat hands, 10 reps. All to strengthen UEs for safety, ADLs and fall prevention. Pt walked back to room with CGA, FWW, OT with IV pole. Pt toileted (see above) Education OT Patient Education: Exercise program, Progress toward Goal/Update tx plan, Purpose of tx/functional activities, Transfer techniques Teaching Recipient: Patient Teaching Methods: Demonstration, Discussion Response to Teaching: Verbalize Understanding, Return Demonstration, Heri nforcement Needed OT Short Term Goals Short Term Goals Time Frame: Jul 14, 2022 Toileting hygiene: 5 Shower/bathe self: 5 Lower body dressin OT Library Circulation Department Chief Goals Library Circulation Department Chief Goals Time Frame: Jul 30, 2022 Acute change in mental status: 0 Inattention: 0 Disorganized thinkin Altered level of consciousness: 0 Eating (QC): 6 Oral Hygiene (QC): 6 Toileting Hygiene (QC): 6 Shower/Bathe Self (QC): 6 Upper Body Dressing (QC): 6 Lower Body Dressing (QC): 6 On/Off Footwear (QC): 6 Additional Goals: 1-Demonstrate ADL Tasks, 2-Verbalize Understanding, 3- ImproveStrength/Ayden 1=Demonstrate adherence to instructed precautions during ADL tasks. 2=Patient will verbalize/demonstrate understanding of assistive devices/modifications for ADL. 3=Patient will improve strength/tolerance for activity to enable patient to perform ADL's. OT Education/Plan Discharge Recommendations Plan/Recommendations: Continue POC Treatment Plan/Plan of Care Patient would benefit from OT for education, treatment and training to promote independence in ADL's, mobility, safety and/or upper extremity function for ADL's. Plan of Care: ADL Retraining, Functional Mobility, Group Exercise/Act as Ind, UE Funct Exercise/Act Treatment Duration: Jul 30, 2022 Frequency: At least 5 of 7 days/Wk (IRF) Estimated Hrs Per Day: 1.5 hours per day Agreement: Yes Rehab Potential: Good Time/GCodes Start Time: 10:30 Stop Time: 11:45 Total Time Billed (hr/min): 75 Billed Treatment Time visit, 15 minutes ADL, 60 minutes exercise AP QUINN OT Jul 08, 2022 12:21
[2022-07-08] MEDS: ENOXAPARIN 40 MG/0.4 ML (LOVENOX) SYR SC SCH (15:43)
[2022-07-08] MEDS: MELATONIN 10 MG TABLET PO SCH (20:03)
[2022-07-08] MEDS: traZODone 100 MG (DESYREL) TAB PO SCH ×2 (20:03)
[2022-07-08] MEDS: MELOXICAM 7.5 MG (MOBIC) TABLET PO SCH (20:03)
[2022-07-08] MEDS: GABAPENTIN 600 MG (NEURONTIN) TAB PO SCH ×2 (20:04)
[2022-07-08] MEDS ORDERED: NON-FORMULARY MEDICATION 1 EA EA (Docusate Sodium 100 MG) PO SCH (21:00)
[2022-07-08] MEDS ORDERED: SENNOSIDES 8.6 MG (SENOKOT) TAB PO SCH (21:00)
[2022-07-09] MEDS: KCL 20 MEQ TAB (K-DUR) PO SCH (05:55)
[2022-07-09] MEDS: DULoxetine 30 MG (CYMBALTA) CAP PO SCH (07:44)
[2022-07-09] MEDS: VITAMIN D3 25 MCG (1,000 UNITS) TABLET PO SCH (07:44)
[2022-07-09] MEDS: OMEGA 3 (FISH OIL) 1000 MG CAP PO SCH (07:44)
[2022-07-09] MEDS: MELOXICAM 7.5 MG (MOBIC) TABLET PO SCH ×2 (07:44→20:37)
[2022-07-09] MEDS: hydrALAZINE (APRESOLINE) 25 MG TAB PO SCH ×3 (07:45→20:37)
[2022-07-09] MEDS: amLODIPine 5 MG (NORVASC) TAB PO SCH (07:45)
[2022-07-09 08:27] VITALS: BP 160/94
--- NOTE | 2022-07-09 08:27 | Physical Therapy Daily Note ---
PT Daily Note-Current Subjective Pt. in bed, finished breakfast, looking forward to a shower with OT but agrees to Rx with PT. No pain or c/o Pain Location: No Pain Reported Section J - Health Conditions 1. Rarely or not at all 2. Occasionally 3. Frequently 4. Almost constantly 8. Unable to answer Pain Effect on Sleep: 1 Pain Interference with Therapy: 1 Pain Interference w/Day-to-Day: 1 Mental Status Patient Orientation: Normal For Age Transfers SCALE: Activities may be completed with or without assistive devices. 2-Sijzgsumat-izzsrqi completes the activity by him/herself with no assistance from a helper. 5-Set-up or Clean-up Assistance-helper sets up or cleans up; patient completes activity. [place] assists only prior to or following the activity. 4-Supervision or Touching Assistance-helper provides verbal cues and/or touching/steadying and/or contact guard assistance as patient completes activity. Assistance may be provided throughout the activity or intermittently. 3-Partial/Moderate Assistance-helper does LESS THAN HALF the effort. [place] lifts, holds or supports trunk or limbs, but provides less than half the effort. 2-Substantial/Maximal Assistance-helper does MORE THAN HALF the effort. [place] lifts or holds trunk or limbs and provides more than half the effort. 6-[place]-lblwcc does ALL the effort. Patient does none of the effort to complete the activity. Or, the assistance of 2 or more helpers is required for the patient to complete the activity. If activity was not attempted, code reason: 7-Patient Refused. 9-Not Applicable-not attempted and the patient did not perform the activity before the current illness, exacerbation or injury. 10-Not Attempted due to Environmental Limitations-(lack of equipment, weather restraints, etc.). 88-Not Attempted due to Medical Conditions or Safety Concerns. Roll Left & Right (QC): 6 Sit to Lying (QC): 6 Lying to Sitting/Side of Bed(Q: 6 Sit to Stand (QC): 6 Chair/Cft-lq-Zzulx Xfer(QC): 6 Toilet Transfer (QC): 6 education in appraoching a chair safely to turn and sit as pt. approaches and backs about 6 feet . instructed in coming close to chair and turn safely in 360 deg fashion Weight Bearing Right Lower Extremity: Right Full Weight Bearing Left Lower Extremity: Left Full Weight Bearing Gait Training Does the Patient Walk?: Yes Walk 10 feet (QC): 6 Walk 50 ft with 2 Turns(QC): 6 Walk 150 ft (QC): 6 Gait Persons Needed: 1 Gait Assistive Device: FWW 375ft x 2 FWW slow, short step length, flexed posture. cued to stop to look up as pt seems to have increased balance issues if she looks up while moving Stair Training Stair Training: Handrails/: 2 handrails #of Steps: 8 1 Step (curb) (QC): 4 4 Steps (QC): 4 12 Steps (QC): 4 Stairs: Pattern: Reciprocal Exercises Supine Ex: Bridging, Ankle pumps, Rolling, Lower trunk rotation, Heel Slides, Straight leg raise, Hip abd/add Supine Reps: 12 Seated Therapy Exercises: Ankle pumps, Sit to stand, Long arc quads, Hip flexion Seated Reps: 15 Standing: Hip Abduction, Hamstring curls, Heel/toe raises, Marching Standing Reps: 12 Neuromuscular balance challenges derived from REY at lower level, no LOB Assessment Current Status: Good Progress PT Short Term Goals Short Term Goals Time Frame: Jul 14, 2022 Roll Left & Right: 6 Sit to lyin Lying to sitting on side of be: 6 Sit to stand: 4 (SBA) Chair/mto-wg-gejrq transfer: 4 (SBA) Walk 10 feet: 4 (SBA) Walk 50 feet with two turns: 4 (SBA) Walk 150 feet: 4 (SBA) PT Half-Way Goals Half-Way Goals PT Community Health Nurse Goals Time Frame: Jul 28, 2022 Roll Left & Right (QC): 6 Sit to Lying (QC): 6 Lying-Sitting on Side/Bed(QC): 6 Sit to Stand (QC): 6 Chair/Rma-fo-Qelvj Xfer(QC): 6 Toilet Transfer (QC): 6 Car Transfer (QC): 6 Does the Patient Walk: Yes Walk 10 feet (QC): 6 Walk 50ft with 2 Turns (QC): 6 Walk 150 ft (QC): 6 Walking 10ft on Uneven Surface: 6 1 Step (curb) (QC): 4 (SBA) 4 Steps (QC): 4 (SBA) 12 Steps (QC): 88 Picking up an Object (QC): 6 Does the Pt use WC or Scooter?: No Wheel 50 feet with 2 turns (QC: 9 Wheel 150 feet: 9 PT Plan Treatment/Plan Treatment Plan: Continue Plan of Care Treatment Plan: Bed Mobility, Education, Functional Activity Ayden, Functional Strength, Gait, Safety, Therapeutic Exercise, Transfers Treatment Duration: Jul 28, 2022 Frequency: At least 5 of 7 days/Wk (IRF) Estimated Hrs Per Day: 1.5 hours per day Patient and/or Family Agrees t: Yes Safety Risks/Education Patient Education: Gait Training, Transfer Techniques, Steps, Correct Positioning, Safety Issues Teaching Recipient: Patient Teaching Methods: Demonstration, Discussion Response to Teaching: Verbalize Understanding, Return Demonstration, Reinforcement Needed Time Time In: 730 Time Out: 830 Total Billed Treatment Time: 60 Total Billed Treatment 1,FA15m,GT20m,EX25m KORTNEY COLMENARES LEASING ASSOCIATE Jul 09, 2022 08:27
--- NOTE | 2022-07-09 09:11 | Occupational Ther Daily Note ---
OT Current Status-Daily Note Subjective Pt sitting in recliner upon arrival. Nursing present. Pt wants to take a shower. Appearance Pt left laying in bed with all needs within reach. Mental Status/Objective Patient Orientation: Person, Place, Time, Situation Attachments: IV ADL-Treatment Therapy Code Descriptions/Definitions Functional [place] Measure: 0=Not Assessed/NA 4=Minimal Assistance 1=Total Assistance 5=Supervision or Setup 2=Maximal Assistance 6=Modified [place] 3=Moderate Assistance 7=Complete IndependenceSCALE: Activities may be completed with or without assistive devices. 4-Uwuobmrqhs-knojyln completes the activity by him/herself with no assistance from a helper. 5-Set-up or Clean-up Assistance-helper sets up or cleans up; patient completes activity. [place] assists only prior to or following the activity. 4-Supervision or Touching Assistance-helper provides verbal cues and/or touching/steadying and/or contact guard assistance as patient completes activity. Assistance may be provided throughout the activity or intermittently. 3-Partial/Moderate Assistance-helper does LESS THAN HALF the effort. [place] lifts, holds or supports trunk or limbs, but provides less than half the effort. 2-Substantial/Maximal Assistance-helper does MORE THAN HALF the effort. [place] l ifts or holds trunk or limbs and provides more than half the effort. 1-Tryyvywsz-rvjtrt does ALL the effort. Patient does none of the effort to complete the activity. Or, the assistance of 2 or more helpers is required for the patient to complete the activity. If activity was not attempted, code reason: 7-Patient Refused. 9-Not Applicable-not attempted and the patient did not perform the activity before the current illness, exacerbation or injury. 10-Not Attempted due to Environmental Limitations-(lack of equipment, weather restraints, etc.). 88-Not Attempted due to Medical Conditions or Safety Concerns. Eating (QC): 6 Oral Hygiene (QC): 6 Shower/Bathe Self (QC): 6 Upper Body Dressing (QC): 6 Lower Body Dressing (QC): 6 On/Off Footwear: 6 Toileting Hygiene (QC): 6 (per clinical judgment) 15+ Sit<>stand: independent. Ambulation: independent. Pt is independent with doffing/donning all clothing. Pt completed shower 50% in standing and sitting. Pt shows good safety and no LOB during any ADL task. Pt stood at sink to perform oral hygiene with independence. Pt was able to complete most sit<>stands without pushing off or holding onto anything. Other Treatment Pt ambulated ~300 ft in one bout with 1 standing rest break. Pt completed UE exercises 1x10 with pvc pipe and 1 lb weight. More weight was added, but pt was experiencing significant pain in R upper arm, so weight was decreased. Pt tolerated exercises well but fatigued quickly. Education OT Patient Education: Correct positioning, Energy conservation, Exercise program, Progress toward Goal/Update tx plan, Purpose of tx/functional activities, Reviewed precautions, Rehab process Teaching Recipient: Patient Teaching Methods: Demonstration, Discussion Response to Teaching: Verbalize Understanding, Return Demonstration OT Short Term Goals Short Term Goals Time Frame: Jul 14, 2022 Toileting hygiene: 5 Shower/bathe self: 5 Lower body dressin OT Senior Living Goals Senior Living Goals Time Frame: Jul 30, 2022 Acute change in mental status: 0 Inattention: 0 Disorganized thinkin Altered level of consciousness: 0 Eating (QC): 6 (met) Oral Hygiene (QC): 6 (met) Toileting Hygiene (QC): 6 (met) Shower/Bathe Self (QC): 6 (met) Upper Body Dressing (QC): 6 (met) Lower Body Dressing (QC): 6 (met) On/Off Footwear (QC): 6 (met) Additional Goals: 1-Demonstrate ADL Tasks, 2-Verbalize Understanding, 3-Im proveStrength/Ayden 1=Demonstrate adherence to instructed precautions during ADL tasks. 2=Patient will verbalize/demonstrate understanding of assistive devices/modifications for ADL. 3=Patient will improve strength/tolerance for activity to enable patient to perform ADL's. OT Education/Plan Problem List/Assessment Assessment: Decreased Activ Tolerance, Decreased UE Strength, Impaired I ADL's Pt is progressing very well with therapy, and has met all adl goals. Pt states that she is much more tired than her baseline and that she wants her legs and arms stronger. Discharge Recommendations Plan/Recommendations: Continue POC Treatment Plan/Plan of Care Treatment,Training & Education: Yes Patient would benefit from OT for education, treatment and training to promote independence in ADL's, mobility, safety and/or upper extremity function for ADL's. Plan of Care: ADL Retraining, Functional Mobility, Group Exercise/Act as Ind, UE Funct Exercise/Act Treatment Duration: Jul 30, 2022 Frequency: At least 5 of 7 days/Wk (IRF) Estimated Hrs Per Day: 1.5 hours per day Agreement: Yes Rehab Potential: Good Time/GCodes Start Time: 08:30 Stop Time: 10:00 Total Time Billed (hr/min): 90 Billed Treatment Time 1 visit ADL x4 (60 min) EX x2 (30 min) Rosie Hill OT Jul 09, 2022 09:11
--- NOTE | 2022-07-09 09:46 | PM&R Progress Note ---
Subjective HPI/CC On Admission Date Seen by Provider: Jul 09, 2022 Time Seen by Provider: 12:00 Subjective/Events-last exam 07/09/2022: Patient doing well Eating well Ambulating well Rash with Rocephin is gone 07/08/2022: Patient doing well No pain No falls Confusion is baseline No major issues Rash noted with Rocephin and patient near completion so DC Review of Systems General: Fatigue, Malaise Neurological: Confusion Objective Exam Vital Signs Vital Signs Date Time Temp Pulse Resp B/P (MAP) Pulse Ox O2 Delivery O2 Flow Rate FiO2 07/09/22 21:10 94 Room Air 07/09/22 20:05 37.1 94 20 165/82 (109) Capillary Refill : General Appearance: No Apparent Distress, WD/WN, Chronically ill HEENT: PERRL/EOMI, Normal ENT Inspection, Pharynx Normal Neck: Full Range of Motion, Normal Inspection, Non Tender, Supple, Carotid Bruit Respiratory: Chest Non Tender, Lungs Clear, Normal Breath Sounds, No Accessory Muscle Use, No Respiratory Distress Cardiovascular: Regular Rate, Rhythm, No Edema, No Gallop, No JVD, No Murmur, Normal Peripheral Pulses Gastrointestinal: Normal Bowel Sounds, No Organomegaly, No Pulsatile Mass, Non Tender, Soft Back: Normal Inspection, No CVA Tenderness, No Vertebral Tenderness Extremity: Normal Capillary Refill, Normal Inspection, Normal Range of Motion, Non Tender, No Calf Tenderness, No Pedal Edema Neurologic/Psychiatric: Alert, Normal Mood/Affect, compliance consultant II-XII Norm as Tested, Abnormal Gait, Depressed Affect, Disoriented, Motor Weakness Skin: Normal Color, Warm/Dry Lymphatic: No Adenopathy Results/Procedures Lab Patient resulted labs reviewed. FIM Transfers Therapy Code Descriptions/Definitions Functional [place] Measure: 0=Not Assessed/NA 4=Minimal Assistance 1=Total Assistance 5=Supervision or Setup 2=Maximal Assistance 6=Modified [place] 3=Moderate Assistance 7=Complete IndependenceSCALE: Activities may be completed with or without assistive devices. 2-Dxpfazjwnk-mrcehsu completes the activity by him/herself with no assistance from a helper. 5-Set-up or Clean-up Assistance-helper sets up or cleans up; patient completes activity. [place] assists only prior to or following the activity. 4-Supervision or Touching Assistance-helper provides verbal cues and/or touching/steadying and/or contact guard assistance as patient completes activity. Assistance may be provided throughout the activity or intermittently. 3-Partial/Moderate Assistance-helper does LESS THAN HALF the effort. [place] lifts, holds or supports trunk or limbs, but provides less than half the effort. 2-Substantial/Maximal Assistance-helper does MORE THAN HALF the effort. [place] lifts or holds trunk or limbs and provides more than half the effort. 9-Qhwhshhxh-rtkmdy does ALL the effort. Patient does none of the effort to complete the activity. Or, the assistance of 2 or more helpers is required for the patient to complete the activity. If activity was not attempted, code reason: 7-Patient Refused. 9-Not Applicable-not attempted and the patient did not perform the activity before the current illness, exacerbation or injury. 10-Not Attempted due to Environmental Limitations-(lack of equipment, weather restraints, etc.). 88-Not Attempted due to Medical Conditions or Safety Concerns. Roll Left to Right (QC): 6 Sit to Lying (QC): 6 Sit to Stand (QC): 6 Chair/Fui-mo-Pgxhg Xfer(QC): 6 Car Transfer (QC): 4 Gait Training Does the Patient Walk?: Yes Walk 10 feet (QC): 6 Walk 50 ft with 2 Turns(QC): 6 Walk 150 ft (QC): 6 Walking 10ft/uneven surface-QC: 4 Gait Persons Needed: 1 Gait Assistive Device: FWW Wheelchair Training Does the Pt Use a Wheelchair?: No Wheel 50 ft with 2 turns (QC): 9 Wheel 150 ft (QC): 9 Stair Training Stair Training: Handrails/: 2 handrails #of Steps: 8 1 Step (curb) (QC): 4 4 Steps (QC): 4 12 Steps (QC): 4 Stairs: Pattern: Reciprocal Balance Picking up an Object (QC): 4 (CGA using a grabber arm to fern picker an object on the ground.) ADL-Treatment Eating (QC): 6 Oral Hygiene (QC): 6 Shower/Bathe Self (QC): 5 Upper Body Dressing (QC): 6 Lower Body Dressing (QC): 6 On/Off Footwear (QC): 6 Toileting Hygiene (QC): 4 (SBA for clothing management) Toilet Transfer (QC): 4 (SBA) Assessment/Plan Assessment and Plan Assess & Plan/Chief Complaint Assessment: Falls Sepsis UTI 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
[2022-07-09] MEDS: DOCUSATE SODIUM 100 MG (COLACE) CAP PO SCH ×2 (09:53→20:36)
[2022-07-09] MEDS: SENNOSIDES 8.6 MG (SENOKOT) TAB PO SCH ×2 (09:53→20:37)
[2022-07-09] MEDS: polyethylene glycoL POWDER 17 GM (MIRALAX) PACK PO SCH ×2 (09:54→20:35)
--- NOTE | 2022-07-09 10:51 | Physical Therapy Daily Note ---
PT Daily Note-Current Subjective Agrees to supine ex and gait in room Pain Location: No Pain Reported Section J - Health Conditions 1. Rarely or not at all 2. Occasionally 3. Frequently 4. Almost constantly 8. Unable to answer Pain Effect on Sleep: 1 Pain Interference with Therapy: 1 Pain Interference w/Day-to-Day: 1 Mental Status Patient Orientation: Normal For Age Transfers SCALE: Activities may be completed with or without assistive devices. 8-Msbohiitbj-mccfbuj completes the activity by him/herself with no assistance from a helper. 5-Set-up or Clean-up Assistance-helper sets up or cleans up; patient completes activity. [place] assists only prior to or following the activity. 4-Supervision or Touching Assistance-helper provides verbal cues and/or touching/steadying and/or contact guard assistance as patient completes activity. Assistance may be provided throughout the activity or intermittently. 3-Partial/Moderate Assistance-helper does LESS THAN HALF the effort. [place] lifts, holds or supports trunk or limbs, but provides less than half the effort. 2-Substantial/Maximal Assistance-helper does MORE THAN HALF the effort. [place] lifts or holds trunk or limbs and provides more than half the effort. 0-Iwbuqwmcz-vdqqjx does ALL the effort. Patient does none of the effort to complete the activity. Or, the assistance of 2 or more helpers is required for the patient to complete the activity. If activity was not attempted, code reason: 7-Patient Refused. 9-Not Applicable-not attempted and the patient did not perform the activity before the current illness, exacerbation or injury. 10-Not Attempted due to Environmental Limitations-(lack of equipment, weather restraints, etc.). 88-Not Attempted due to Medical Conditions or Safety Concerns. all TRFs Mod I to SBA Weight Bearing Right Lower Extremity: Right Full Weight Bearing Left Lower Extremity: Left Full Weight Bearing Gait Training Gait Assistive Device: FWW 15 ft n rm bthrm to bed SBA FWW Exercises Supine Ex: Bridging, Ankle pumps, Rolling, Lower trunk rotation, Heel Slides, Scooting, Hip abd/add Supine Reps: 15 Assessment Current Status: Good Progress PT Short Term Goals Short Term Goals Time Frame: Jul 14, 2022 Roll Left & Right: 6 Sit to lyin Lying to sitting on side of be: 6 Sit to stand: 4 (SBA) Chair/ekp-ju-ivxpz transfer: 4 (SBA) Walk 10 feet: 4 (SBA) Walk 50 feet with two turns: 4 (SBA) Walk 150 feet: 4 (SBA) PT Usp Goals Director Payer Goals PT Director Payer Goals Time Frame: Jul 28, 2022 Roll Left & Right (QC): 6 Sit to Lying (QC): 6 Lying-Sitting on Side/Bed(QC): 6 Sit to Stand (QC): 6 Chair/Udn-wq-Aiuzc Xfer(QC): 6 Toilet Transfer (QC): 6 Car Transfer (QC): 6 Does the Patient Walk: Yes Walk 10 feet (QC): 6 Walk 50ft with 2 Turns (QC): 6 Walk 150 ft (QC): 6 Walking 10ft on Uneven Surface: 6 1 Step (curb) (QC): 4 (SBA) 4 Steps (QC): 4 (SBA) 12 Steps (QC): 88 Picking up an Object (QC): 6 Does the Pt use WC or Scooter?: No Wheel 50 feet with 2 turns (QC: 9 Wheel 150 feet: 9 PT Plan Treatment/Plan Treatment Plan: Continue Plan of Care Treatment Plan: Bed Mobility, Education, Functional Activity Ayden, Functional Strength, Gait, Safety, Therapeutic Exercise, Transfers Treatment Duration: Jul 28, 2022 Frequency: At least 5 of 7 days/Wk (IRF) Estimated Hrs Per Day: 1.5 hours per day Patient and/or Family Agrees t: Yes Safety Risks/Education Patient Education: Transfer Techniques Time Time In: 1000 Time Out: 1030 Total Billed Treatment Time: 30 Total Billed Treatment 1,FA10m,EX20m KORTNEY COLMENARES TICKET PULLER Jul 09, 2022 10:51
[2022-07-09 13:00] VITALS: BP 144/64
[2022-07-09] MEDS: ENOXAPARIN 40 MG/0.4 ML (LOVENOX) SYR SC SCH (14:30)
[2022-07-09 20:05] VITALS: BP 165/82
[2022-07-09] MEDS: MELATONIN 10 MG TABLET PO SCH (20:36)
[2022-07-09] MEDS: traZODone 100 MG (DESYREL) TAB PO SCH ×2 (20:37)
[2022-07-09] MEDS: GABAPENTIN 600 MG (NEURONTIN) TAB PO SCH ×2 (20:37)
[2022-07-10] MEDS: KCL 20 MEQ TAB (K-DUR) PO SCH (06:30)
[2022-07-10 07:50] VITALS: BP 148/80
[2022-07-10] MEDS: VITAMIN D3 25 MCG (1,000 UNITS) TABLET PO SCH (07:56)
[2022-07-10] MEDS: SENNOSIDES 8.6 MG (SENOKOT) TAB PO SCH ×2 (07:56→20:56)
[2022-07-10] MEDS: MELOXICAM 7.5 MG (MOBIC) TABLET PO SCH ×2 (07:56→20:56)
[2022-07-10] MEDS: polyethylene glycoL POWDER 17 GM (MIRALAX) PACK PO SCH ×2 (07:56→20:55)
[2022-07-10] MEDS: DULoxetine 30 MG (CYMBALTA) CAP PO SCH (07:56)
[2022-07-10] MEDS: OMEGA 3 (FISH OIL) 1000 MG CAP PO SCH (07:56)
[2022-07-10] MEDS: DOCUSATE SODIUM 100 MG (COLACE) CAP PO SCH ×2 (07:56→20:55)
[2022-07-10] MEDS: hydrALAZINE (APRESOLINE) 25 MG TAB PO SCH ×3 (07:56→20:56)
--- NOTE | 2022-07-10 08:13 | PM&R Progress Note ---
Subjective HPI/CC On Admission Date Seen by Provider: Jul 10, 2022 Time Seen by Provider: 12:30 Subjective/Events-last exam 07/10/2022: Patient doing well No major concerns Patient will go to assisted living at discharge 07/09/2022: Patient doing well Eating well Ambulating well Rash with Rocephin is gone 07/08/2022: Patient doing well No pain No falls Confusion is baseline No major issues Rash noted with Rocephin and patient near completion so DC Review of Systems General: Fatigue, Malaise Objective Exam Vital Signs Vital Signs Date Time Temp Pulse Resp B/P (MAP) Pulse Ox O2 Delivery O2 Flow Rate FiO2 07/10/22 13:10 107 150/99 (116) 07/10/22 07:50 36.8 18 93 Room Air Capillary Refill : General Appearance: No Apparent Distress, WD/WN, Chronically ill HEENT: PERRL/EOMI, Normal ENT Inspection, Pharynx Normal Neck: Full Range of Motion, Normal Inspection, Non Tender, Supple, Carotid Bruit Respiratory: Chest Non Tender, Lungs Clear, Normal Breath Sounds, No Accessory Muscle Use, No Respiratory Distress Cardiovascular: Regular Rate, Rhythm, No Edema, No Gallop, No JVD, No Murmur, Normal Peripheral Pulses Gastrointestinal: Normal Bowel Sounds, No Organomegaly, No Pulsatile Mass, Non Tender, Soft Back: Normal Inspection, No CVA Tenderness, No Vertebral Tenderness Extremity: Normal Capillary Refill, Normal Inspection, Normal Range of Motion, Non Tender, No Calf Tenderness, No Pedal Edema Neurologic/Psychiatric: Alert, Normal Mood/Affect, case coordinator II-XII Norm as Tested, Abnormal Gait, Depressed Affect, Disoriented, Motor Weakness Skin: Normal Color, Warm/Dry Lymphatic: No Adenopathy Results/Procedures Lab Patient resulted labs reviewed. FIM Transfers Therapy Code Descriptions/Definitions Functional [place] Measure: 0=Not Assessed/NA 4=Minimal Assistance 1=Total Assistance 5=Supervision or Setup 2=Maximal Assistance 6=Modified [place] 3=Moderate Assistance 7=Complete IndependenceSCALE: Activities may be completed with or without assistive devices. 4-Dclaaqdonn-ijwzvko completes the activity by him/herself with no assistance from a helper. 5-Set-up or Clean-up Assistance-helper sets up or cleans up; patient completes activity. [place] assists only prior to or following the activity. 4-Supervision or Touching Assistance-helper provides verbal cues and/or touching/steadying and/or contact guard assistance as patient completes activity. Assistance may be provided throughout the activity or intermittently. 3-Partial/Moderate Assistance-helper does LESS THAN HALF the effort. [place] lifts, holds or supports trunk or limbs, but provides less than half the effort. 2-Substantial/Maximal Assistance-helper does MORE THAN HALF the effort. [place] lifts or holds trunk or limbs and provides more than half the effort. 1-Feiikqaki-ymshrv does ALL the effort. Patient does none of the effort to complete the activity. Or, the assistance of 2 or more helpers is required for the patient to complete the activity. If activity was not attempted, code reason: 7-Patient Refused. 9-Not Applicable-not attempted and the patient did not perform the activity before the current illness, exacerbation or injury. 10-Not Attempted due to Environmental Limitations-(lack of equipment, weather restraints, etc.). 88-Not Attempted due to Medical Conditions or Safety Concerns. Roll Left to Right (QC): 6 Sit to Lying (QC): 6 Sit to Stand (QC): 6 Chair/Yxs-qm-Tkssb Xfer(QC): 6 Car Transfer (QC): 4 Gait Training Does the Patient Walk?: Yes Walk 10 feet (QC): 6 Walk 50 ft with 2 Turns(QC): 6 Walk 150 ft (QC): 6 Walking 10ft/uneven surface-QC: 4 Gait Persons Needed: 1 Gait Assistive Device: FWW Wheelchair Training Does the Pt Use a Wheelchair?: No Wheel 50 ft with 2 turns (QC): 9 Wheel 150 ft (QC): 9 Stair Training Stair Training: Handrails/: 2 handrails #of Steps: 8 1 Step (curb) (QC): 4 4 Steps (QC): 4 12 Steps (QC): 4 Stairs: Pattern: Reciprocal Balance Picking up an Object (QC): 4 (CGA using a grabber arm to brick picker an object on the ground.) ADL-Treatment Eating (QC): 6 Oral Hygiene (QC): 6 Shower/Bathe Self (QC): 6 Upper Body Dressing (QC): 6 Lower Body Dressing (QC): 6 On/Off Footwear (QC): 6 Toileting Hygiene (QC): 6 (per clinical judgment) Toilet Transfer (QC): 4 (SBA) Assessment/Plan Assessment and Plan Assess & Plan/Chief Complaint Assessment: Falls Sepsis UTI 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
[2022-07-10] MEDS: amLODIPine 5 MG (NORVASC) TAB PO SCH (09:13)
--- NOTE | 2022-07-10 10:21 | Physical Therapy Daily Note ---
PT Daily Note-Current Subjective Pt. agrees to Rx, wants to shower, wash hair, curl it and get dressed. This WATER TREATMENT PLANT SUPERVISOR explains that this is PT not OT but will help her prep for the shower and get in and nursing will assist after. No c/o pain , feeling well Pain Location: No Pain Reported Section J - Health Conditions 1. Rarely or not at all 2. Occasionally 3. Frequently 4. Almost constantly 8. Unable to answer Pain Effect on Sleep: 1 Pain Interference with Therapy: 1 Pain Interference w/Day-to-Day: 1 Mental Status Patient Orientation: Normal For Age Transfers SCALE: Activities may be completed with or without assistive devices. 9-Fwencohnvy-ltdlwth completes the activity by him/herself with no assistance from a helper. 5-Set-up or Clean-up Assistance-helper sets up or cleans up; patient completes activity. [place] assists only prior to or following the activity. 4-Supervision or Touching Assistance-helper provides verbal cues and/or touching/steadying and/or contact guard assistance as patient completes activity. Assistance may be provided throughout the activity or intermittently. 3-Partial/Moderate Assistance-helper does LESS THAN HALF the effort. [place] lifts, holds or supports trunk or limbs, but provides less than half the effort. 2-Substantial/Maximal Assistance-helper does MORE THAN HALF the effort. [place] lifts or holds trunk or limbs and provides more than half the effort. 7-Jxnhakpjy-mgxknv does ALL the effort. Patient does none of the effort to complete the activity. Or, the assistance of 2 or more helpers is required for the patient to complete the activity. If activity was not attempted, code reason: 7-Patient Refused. 9-Not Applicable-not attempted and the patient did not perform the activity before the current illness, exacerbation or injury. 10-Not Attempted due to Environmental Limitations-(lack of equipment, weather restraints, etc.). 88-Not Attempted due to Medical Conditions or Safety Concerns. Roll Left & Right (QC): 6 Sit to Lying (QC): 6 Lying to Sitting/Side of Bed(Q: 6 Sit to Stand (QC): 6 Chair/Hsp-yd-Yufts Xfer(QC): 6 Toilet Transfer (QC): 6 Weight Bearing Right Lower Extremity: Right Full Weight Bearing Left Lower Extremity: Left Full Weight Bearing Gait Training Does the Patient Walk?: Yes Walk 10 feet (QC): 6 Walk 50 ft with 2 Turns(QC): 6 Walk 150 ft (QC): 6 Gait Persons Needed: 1 Gait Assistive Device: FWW needs instruction and guidance to gym and back , no LOB, good use of AD, improved gait and safety Exercises Seated Therapy Exercises: Ankle pumps, Sit to stand, Long arc quads, Hip flexion, Hip abd/add Seated Reps: 15 NuStep Minutes: 12 NuStep Workload: 3 Treatments TRFs, gait, toileting, therex, pt gathered items of clothing etc to prep for shower with CGA, assisted in to shower with all items in chair right outside shower, call simons at hand, this WATER TREATMENT PLANT SUPERVISOR communicated with nurse regarding pts task and shower for assist after Assessment Current Status: Good Progress PT Short Term Goals Short Term Goals Time Frame: Jul 14, 2022 Roll Left & Right: 6 Sit to lyin Lying to sitting on side of be: 6 Sit to stand: 4 (SBA) Chair/ino-tb-dsamh transfer: 4 (SBA) Walk 10 feet: 4 (SBA) Walk 50 feet with two turns: 4 (SBA) Walk 150 feet: 4 (SBA) PT Security Installation Technician Goals Security Installation Technician Goals PT Care Home Goals Time Frame: Jul 28, 2022 Roll Left & Right (QC): 6 Sit to Lying (QC): 6 Lying-Sitting on Side/Bed(QC): 6 Sit to Stand (QC): 6 Chair/Wbf-er-Jmkoi Xfer(QC): 6 Toilet Transfer (QC): 6 Car Transfer (QC): 6 Does the Patient Walk: Yes Walk 10 feet (QC): 6 Walk 50ft with 2 Turns (QC): 6 Walk 150 ft (QC): 6 Walking 10ft on Uneven Surface: 6 1 Step (curb) (QC): 4 (SBA) 4 Steps (QC): 4 (SBA) 12 Steps (QC): 88 Picking up an Object (QC): 6 Does the Pt use WC or Scooter?: No Wheel 50 feet with 2 turns (QC: 9 Wheel 150 feet: 9 PT Plan Treatment/Plan Treatment Plan: Continue Plan of Care Treatment Plan: Bed Mobility, Education, Functional Activity Ayden, Functional Strength, Gait, Safety, Therapeutic Exercise, Transfers Treatment Duration: Jul 28, 2022 Frequency: At least 5 of 7 days/Wk (IRF) Estimated Hrs Per Day: 1.5 hours per day Patient and/or Family Agrees t: Yes Safety Risks/Education Patient Education: Gait Training, Transfer Techniques, Correct Positioning, Disease Process, Safety Issues Teaching Recipient: Patient Teaching Methods: Demonstration, Discussion Response to Teaching: Verbalize Understanding, Return Demonstration, Reinforcement Needed Time Time In: 930 Time Out: 1010 Total Billed Treatment Time: 40 Total Billed Treatment 1,GT15m,FA10m,EX15m KORTNEY COLMENARES WATER TREATMENT PLANT SUPERVISOR Jul 10, 2022 10:21
[2022-07-10 13:10] VITALS: BP 150/99
[2022-07-10] MEDS: ENOXAPARIN 40 MG/0.4 ML (LOVENOX) SYR SC SCH (14:43)
[2022-07-10 20:00] VITALS: BP 166/82
[2022-07-10] MEDS: MELATONIN 10 MG TABLET PO SCH (20:55)
[2022-07-10] MEDS: GABAPENTIN 600 MG (NEURONTIN) TAB PO SCH ×2 (20:56→21:00)
[2022-07-10] MEDS: traZODone 100 MG (DESYREL) TAB PO SCH ×2 (20:56→21:00)
--- NOTE | 2022-07-11 06:32 | PM&R Progress Note ---
Subjective HPI/CC On Admission Date Seen by Provider: Jul 11, 2022 Time Seen by Provider: 13:00 Subjective/Events-last exam 07/11/2022: Patient doing well today No major concerns Checked meds and labs No falls Encephalopathy is clearing 07/10/2022: Patient doing well No major concerns Patient will go to assisted living at discharge 07/09/2022: Patient doing well Eating well Ambulating well Rash with Rocephin is gone 07/08/2022: Patient doing well No pain No falls Confusion is baseline No major issues Rash noted with Rocephin and patient near completion so DC Review of Systems General: Fatigue, Malaise Objective Exam Vital Signs Vital Signs Date Time Temp Pulse Resp B/P (MAP) Pulse Ox O2 Delivery O2 Flow Rate FiO2 07/11/22 12:18 99 175/82 (113) 07/11/22 09:46 Room Air 07/11/22 08:11 37.0 18 95 Capillary Refill : General Appearance: No Apparent Distress, WD/WN, Chronically ill HEENT: PERRL/EOMI, Normal ENT Inspection, Pharynx Normal Neck: Full Range of Motion, Normal Inspection, Non Tender, Supple, Carotid Bruit Respiratory: Chest Non Tender, Lungs Clear, Normal Breath Sounds, No Accessory Muscle Use, No Respiratory Distress Cardiovascular: Regular Rate, Rhythm, No Edema, No Gallop, No JVD, No Murmur, Normal Peripheral Pulses Gastrointestinal: Normal Bowel Sounds, No Organomegaly, No Pulsatile Mass, Non Tender, Soft Back: Normal Inspection, No CVA Tenderness, No Vertebral Tenderness Extremity: Normal Capillary Refill, Normal Inspection, Normal Range of Motion, Non Tender, No Calf Tenderness, No Pedal Edema Neurologic/Psychiatric: Alert, Normal Mood/Affect, fiberglass technician II-XII Norm as Tested, Abnormal Gait, Depressed Affect, Disoriented, Motor Weakness Skin: Normal Color, Warm/Dry Lymphatic: No Adenopathy Results/Procedures Lab Patient resulted labs reviewed. FIM Transfers Therapy Code Descriptions/Definitions Functional [place] Measure: 0=Not Assessed/NA 4=Minimal Assistance 1=Total Assistance 5=Supervision or Setup 2=Maximal Assistance 6=Modified [place] 3=Moderate Assistance 7=Complete IndependenceSCALE: Activities may be completed with or without assistive devices. 6-Yxwwmpoajk-pcrwzie completes the activity by him/herself with no assistance from a helper. 5-Set-up or Clean-up Assistance-helper sets up or cleans up; patient completes activity. [place] assists only prior to or following the activity. 4-Supervision or Touching Assistance-helper provides verbal cues and/or touching/steadying and/or contact guard assistance as patient completes activity. Assistance may be provided throughout the activity or intermittently. 3-Partial/Moderate Assistance-helper does LESS THAN HALF the effort. [place] lifts, holds or supports trunk or limbs, but provides less than half the effort. 2-Substantial/Maximal Assistance-helper does MORE THAN HALF the effort. [place] lifts or holds trunk or limbs and provides more than half the effort. 4-Pwqnrccgy-zqotak does ALL the effort. Patient does none of the effort to complete the activity. Or, the assistance of 2 or more helpers is required for the patient to complete the activity. If activity was not attempted, code reason: 7-Patient Refused. 9-Not Applicable-not attempted and the patient did not perform the activity b efore the current illness, exacerbation or injury. 10-Not Attempted due to Environmental Limitations-(lack of equipment, weather restraints, etc.). 88-Not Attempted due to Medical Conditions or Safety Concerns. Roll Left to Right (QC): 6 Sit to Lying (QC): 6 Sit to Stand (QC): 6 Chair/Vbb-oq-Hzmcz Xfer(QC): 6 Car Transfer (QC): 4 Gait Training Does the Patient Walk?: Yes Walk 10 feet (QC): 6 Walk 50 ft with 2 Turns(QC): 6 Walk 150 ft (QC): 6 Walking 10ft/uneven surface-QC: 4 Gait Persons Needed: 1 Gait Assistive Device: FWW Wheelchair Training Does the Pt Use a Wheelchair?: No Wheel 50 ft with 2 turns (QC): 9 Wheel 150 ft (QC): 9 Stair Training Stair Training: Handrails/: 2 handrails #of Steps: 8 1 Step (curb) (QC): 4 4 Steps (QC): 4 12 Steps (QC): 4 Stairs: Pattern: Reciprocal Balance Picking up an Object (QC): 4 (CGA using a grabber arm to pickler helper an object on the ground.) ADL-Treatment Eating (QC): 6 Oral Hygiene (QC): 6 Shower/Bathe Self (QC): 6 Upper Body Dressing (QC): 6 Lower Body Dressing (QC): 6 On/Off Footwear (QC): 6 Toileting Hygiene (QC): 6 (per clinical judgment) Toilet Transfer (QC): 4 (SBA) Assessment/Plan Assessment and Plan Assess & Plan/Chief Complaint Assessment: Falls Sepsis UTI 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
[2022-07-11] MEDS: KCL 20 MEQ TAB (K-DUR) PO SCH (06:40)
[2022-07-11] MEDS: DOCUSATE SODIUM 100 MG (COLACE) CAP PO SCH ×2 (08:07→19:50)
[2022-07-11] MEDS: VITAMIN D3 25 MCG (1,000 UNITS) TABLET PO SCH (08:07)
[2022-07-11] MEDS: hydrALAZINE (APRESOLINE) 25 MG TAB PO SCH ×4 (08:07→19:52)
[2022-07-11] MEDS: OMEGA 3 (FISH OIL) 1000 MG CAP PO SCH (08:08)
[2022-07-11] MEDS: MELOXICAM 7.5 MG (MOBIC) TABLET PO SCH ×2 (08:08→19:52)
[2022-07-11] MEDS: polyethylene glycoL POWDER 17 GM (MIRALAX) PACK PO SCH ×2 (08:08→19:50)
[2022-07-11] MEDS: amLODIPine 5 MG (NORVASC) TAB PO SCH (08:08)
[2022-07-11] MEDS: SENNOSIDES 8.6 MG (SENOKOT) TAB PO SCH ×2 (08:08→19:50)
[2022-07-11] MEDS: DULoxetine 30 MG (CYMBALTA) CAP PO SCH (08:08)
[2022-07-11 08:11] VITALS: BP 163/78
[2022-07-11 12:18] VITALS: BP 175/82
[2022-07-11] MEDS: ENOXAPARIN 40 MG/0.4 ML (LOVENOX) SYR SC SCH (14:45)
[2022-07-11] MEDS: traZODone 100 MG (DESYREL) TAB PO SCH ×2 (19:50→19:53)
[2022-07-11] MEDS: GABAPENTIN 600 MG (NEURONTIN) TAB PO SCH ×2 (19:50→19:53)
[2022-07-11] MEDS: MELATONIN 10 MG TABLET PO SCH (19:52)
[2022-07-11 20:00] VITALS: BP 163/75
[2022-07-12 05:29] LABS: BASOPHILS % (AUTO) 0 % (0-10); EOSINOPHILS # (AUTO) 0.5 10^3/uL (0.0-0.3); EOSINOPHILS % (AUTO) 8 % (0-10); HEMATOCRIT 35 % (35-52); LYMPHOCYTES # (AUTO) 1.9 10^3/uL (1.0-4.0); LYMPHOCYTES % (AUTO) 28 % (12-44); MEAN CORPUSCULAR HEMOGLOBIN 31 pg (25-34); MEAN CORPUSCULAR HGB CONC 34 g/dL (32-36); MEAN CORPUSCULAR VOLUME 92 fL (80-99); MEAN PLATELET VOLUME 10.7 fL (9.0-12.2); MONOCYTES # (AUTO) 0.9 10^3/uL (0.0-1.0); MONOCYTES % (AUTO) 13 % (0-12); NEUTROPHILS # (AUTO) 3.5 10^3/uL (1.8-7.8); NEUTROPHILS % (AUTO) 51 % (42-75); PLATELET COUNT 240 10^3/uL (130-400)
[2022-07-12 05:47] LABS: ALBUMIN 3.1 GM/DL (3.2-4.5); BILIRUBIN,TOTAL 0.5 MG/DL (0.1-1.0); CREATININE SERUM 0.69 MG/DL (0.60-1.30)
[2022-07-12 05:55] LABS: TOTAL PROTEIN 5.7 GM/DL (6.4-8.2)
--- NOTE | 2022-07-12 05:55 | PM&R Progress Note ---
Subjective HPI/CC On Admission Date Seen by Provider: Jul 12, 2022 Time Seen by Provider: 10:30 Subjective/Events-last exam 07/12/2022: Pt is doing pretty well Rash is noted but it doesn't itch Anusol cream will be given 07/11/2022: Patient doing well today No major concerns Checked meds and labs No falls Encephalopathy is clearing 07/10/2022: Patient doing well No major concerns Patient will go to assisted living at discharge 07/09/2022: Patient doing well Eating well Ambulating well Rash with Rocephin is gone 07/08/2022: Patient doing well No pain No falls Confusion is baseline No major issues Rash noted with Rocephin and patient near completion so DC Review of Systems General: Fatigue, Malaise Neurological: Confusion Objective Exam Vital Signs Vital Signs Date Time Temp Pulse Resp B/P (MAP) Pulse Ox O2 Delivery O2 Flow Rate FiO2 07/12/22 20:30 Room Air 07/12/22 19:41 36.5 88 16 151/78 (102) 96 Capillary Refill : General Appearance: No Apparent Distress, WD/WN, Chronically ill HEENT: PERRL/EOMI, Normal ENT Inspection, Pharynx Normal Neck: Full Range of Motion, Normal Inspection, Non Tender, Supple, Carotid Bruit Respiratory: Chest Non Tender, Lungs Clear, Normal Breath Sounds, No Accessory Muscle Use, No Respiratory Distress Cardiovascular: Regular Rate, Rhythm, No Edema, No Gallop, No JVD, No Murmur, Normal Peripheral Pulses Gastrointestinal: Normal Bowel Sounds, No Organomegaly, No Pulsatile Mass, Non Tender, Soft Back: Normal Inspection, No CVA Tenderness, No Vertebral Tenderness Extremity: Normal Capillary Refill, Normal Inspection, Normal Range of Motion, Non Tender, No Calf Tenderness, No Pedal Edema Neurologic/Psychiatric: Alert, Normal Mood/Affect, director of enterprise strategy II-XII Norm as Tested, Abnormal Gait, Depressed Affect, Disoriented, Motor Weakness Skin: Normal Color, Warm/Dry Lymphatic: No Adenopathy Results/Procedures Lab Patient resulted labs reviewed. FIM Transfers Therapy Code Descriptions/Definitions Functional [place] Measure: 0=Not Assessed/NA 4=Minimal Assistance 1=Total Assistance 5=Supervision or Setup 2=Maximal Assistance 6=Modified [place] 3=Moderate Assistance 7=Complete IndependenceSCALE: Activities may be completed with or without assistive devices. 6-Tlkzmkypzg-ieiwjmc completes the activity by him/herself with no assistance from a helper. 5-Set-up or Clean-up Assistance-helper sets up or cleans up; patient completes activity. [place] assists only prior to or following the activity. 4-Supervision or Touching Assistance-helper provides verbal cues and/or touching/steadying and/or contact guard assistance as patient completes activity. Assistance may be provided throughout the activity or intermittently. 3-Partial/Moderate Assistance-helper does LESS THAN HALF the effort. [place] lifts, holds or supports trunk or limbs, but provides less than half the effort. 2-Substantial/Maximal Assistance-helper does MORE THAN HALF the effort. [place] lifts or holds trunk or limbs and provides more than half the effort. 7-Nmsputmlu-lhqchs does ALL the effort. Patient does none of the effort to complete the activity. Or, the assistance of 2 or more helpers is required for the patient to complete the activity. If activity was not attempted, code reason: 7-Patient Refused. 9-Not Applicable-not attempted and the patient did not perform the activity before the current illness, exacerbation or injury. 10-Not Attempted due to Environmental Limitations-(lack of equipment, weather restraints, etc.). 88-Not Attempted due to Medical Conditions or Safety Concerns. Roll Left to Right (QC): 6 Sit to Lying (QC): 6 Sit to Stand (QC): 6 Chair/Fde-lg-Phtjm Xfer(QC): 6 Car Transfer (QC): 4 Gait Training Does the Patient Walk?: Yes Walk 10 feet (QC): 6 Walk 50 ft with 2 Turns(QC): 6 Walk 150 ft (QC): 6 Walking 10ft/uneven surface-QC: 4 Gait Persons Needed: 1 Gait Assistive Device: FWW Wheelchair Training Does the Pt Use a Wheelchair?: No Wheel 50 ft with 2 turns (QC): 9 Wheel 150 ft (QC): 9 Stair Training Stair Training: Handrails/: 2 handrails #of Steps: 8 1 Step (curb) (QC): 4 4 Steps (QC): 4 12 Steps (QC): 4 Stairs: Pattern: Reciprocal Balance Picking up an Object (QC): 4 (CGA using a grabber arm to slat pickler an object on the ground.) ADL-Treatment Eating (QC): 6 Oral Hygiene (QC): 6 Shower/Bathe Self (QC): 6 Upper Body Dressing (QC): 6 Lower Body Dressing (QC): 6 On/Off Footwear (QC): 6 Toileting Hygiene (QC): 6 (per clinical judgment) Toilet Transfer (QC): 4 (SBA) Assessment/Plan Assessment and Plan Assess & Plan/Chief Complaint Assessment: Falls Sepsis UTI 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 Chronic falls Vitamin B 12 deficiency per patient History of vitamin D toxicity no longer takes supplement Fibromyalgia Dementia Plan: Supportive care Rehabilitation protocol BM regimen Back to [place] at [place] 07/08/2022: [place] Rocephin 07/09/2022: Monitor closely 07/10/2022: Supportive care 07/11/2022: Improved status 07/12/2022: Supportive care Discharge tomorrow (1) Fall from ground level Status: Acute (2) Sepsis due to urinary tract infection Status: Acute (3) UTI (urinary tract infection) (4) Falls frequently Status: Chronic (5) History of anoxic brain injury Status: Acute MARLO GALAVIZ DO Jul 12, 2022 05:55
[2022-07-12] MEDS: KCL 20 MEQ TAB (K-DUR) PO SCH (06:31)
[2022-07-12] MEDS: MELOXICAM 7.5 MG (MOBIC) TABLET PO SCH ×2 (07:35→20:04)
[2022-07-12] MEDS: VITAMIN D3 25 MCG (1,000 UNITS) TABLET PO SCH (07:35)
[2022-07-12] MEDS: OMEGA 3 (FISH OIL) 1000 MG CAP PO SCH (07:35)
[2022-07-12] MEDS: hydrALAZINE (APRESOLINE) 25 MG TAB PO SCH ×3 (07:36→20:04)
[2022-07-12] MEDS: amLODIPine 5 MG (NORVASC) TAB PO SCH (07:36)
[2022-07-12] MEDS: DULoxetine 30 MG (CYMBALTA) CAP PO SCH (07:36)
[2022-07-12] MEDS: DOCUSATE SODIUM 100 MG (COLACE) CAP PO SCH ×2 (07:37→20:06)
[2022-07-12 07:45] VITALS: BP 181/91
[2022-07-12] MEDS: polyethylene glycoL POWDER 17 GM (MIRALAX) PACK PO SCH ×2 (08:07→20:06)
[2022-07-12] MEDS: SENNOSIDES 8.6 MG (SENOKOT) TAB PO SCH ×2 (08:07→20:06)
--- NOTE | 2022-07-12 08:59 | Occupational Ther Daily Note ---
OT Current Status-Daily Note Subjective Pt sitting in recliner upon arrival. She wanted to take a shower. Appearance Pt was left sitting in recliner with all needs met. Mental Status/Objective Patient Orientation: Person, Place, Time, Situation ADL-Treatment Therapy Code Descriptions/Definitions Functional [place] Measure: 0=Not Assessed/NA 4=Minimal Assistance 1=Total Assistance 5=Supervision or Setup 2=Maximal Assistance 6=Modified [place] 3=Moderate Assistance 7=Complete IndependenceSCALE: Activities may be completed with or without assistive devices. 0-Watqllzvvp-qiklrkb completes the activity by him/herself with no assistance from a helper. 5-Set-up or Clean-up Assistance-helper sets up or cleans up; patient completes activity. [place] assists only prior to or following the activity. 4-Supervision or Touching Assistance-helper provides verbal cues and/or touching/steadying and/or contact guard assistance as patient completes activity. Assistance may be provided throughout the activity or intermittently. 3-Partial/Moderate Assistance-helper does LESS THAN HALF the effort. [place] lifts, holds or supports trunk or limbs, but provides less than half the effort. 2-Substantial/Maximal Assistance-helper does MORE THAN HALF the effort. [place] lifts or holds trunk or limbs and provides more than half the effort. 1-Hctuzlnif-eaokja does ALL the effort. Patient does none of the effort to complete the activity. Or, the assistance of 2 or more helpers is required for the patient to complete the activity. If activity was not attempted, code reason: 7-Patient Refused. 9-Not Applicable-not attempted and the patient did not perform the activity before the current illness, exacerbation or injury. 10-Not Attempted due to Environmental Limitations-(lack of equipment, weather restraints, etc.). 88-Not Attempted due to Medical Conditions or Safety Concerns. Eating (QC): 6 Oral Hygiene (QC): 6 Shower/Bathe Self (QC): 6 Upper Body Dressing (QC): 6 Lower Body Dressing (QC): 6 On/Off Footwear: 6 Toileting Hygiene (QC): 6 Toilet Transfer (QC): 6 Pt was independent with all ADLs today. She retrieved all clothing, hung them over walker and completed shower 50% in standing, and 50% in sitting. She was able to get dressed and performed grooming tasks at sink. To save energy, to be able to walk downstairs and go outside, pt requested to sit at sink for grooming tasks. This showed appropriate energy conservation strategies. Sit<>stand: independent. Other Treatment Pt ambulated from room on 2nd floor down to 1st floor commons area. She was able to pace herself while walking and initiated sitting in a chair after ambulating >500 feet. She shows good awareness of rest breaks. Pt ambulated outside over multiple uneven surfaces with her FWW with CGA for safety. For community integration pt took lead on following signs to get back up to her room. She required 1 verbal cue to find her room after coming off the elevator. She was able to correct her mistake and find her way back to her room. She had 1 LOB from stubbing her toe/tripping on her feet, that she was able to self-correct. Education OT Patient Education: Correct positioning, Energy conservation, Progress toward Goal/Update tx plan, Purpose of tx/functional activities, Reviewed precautions, Rehab process, Safety issues Teaching Recipient: Patient Teaching Methods: Demonstration, Discussion Response to Teaching: Verbalize Understanding, Return Demonstration OT Short Term Goals Short Term Goals Time Frame: Jul 14, 2022 Toileting hygiene: 5 Shower/bathe self: 5 Lower body dressin OT [facility] Goals Embedded Software Architect Goals Time Frame: Jul 30, 2022 Acute change in mental status: 0 Inattention: 0 Disorganized thinkin Altered level of consciousness: 0 Eating (QC): 6 (met) Oral Hygiene (QC): 6 (met) Toileting Hygiene (QC): 6 (met) Shower/Bathe Self (QC): 6 (met) Upper Body Dressing (QC): 6 (met) Lower Body Dressing (QC): 6 (met) On/Off Footwear (QC): 6 (met) Additional Goals: 1-Demonstrate ADL Tasks, 2-Verbalize Understanding, 3- ImproveStrength/Ay[place] 1=Demonstrate adherence to instructed precautions during ADL tasks. 2=Patient will verbalize/demonstrate understanding of assistive devices/modifications for ADL. 3=Patient will improve strength/tolerance for activity to enable patient to perform ADL's. OT Education/Plan Problem List/Assessment Assessment: Decreased Activ Tolerance, Impaired Funct Balance, Impaired I ADL's Pt is progressing very well with therapy, and has met all adl goals. Pt states that she is much more tired than her baseline and that she wants her legs and arms stronger. Discharge Recommendations Plan/Recommendations: Continue POC Treatment Plan/Plan of Care Treatment,Training & Education: Yes Patient would benefit from OT for education, treatment and training to promote independence in ADL's, mobility, safety and/or upper extremity function for ADL's. Plan of Care: ADL Retraining, Functional Mobility, Group Exercise/Act as Ind, UE Funct Exercise/Act Treatment Duration: Jul 30, 2022 Frequency: At least 5 of 7 days/Wk (IRF) Estimated Hrs Per Day: 1.5 hours per day Agreement: Yes Rehab Potential: Good Time/GCodes Start Time: 07:30 Stop Time: 09:00 Total Time Billed (hr/min): 90 Billed Treatment Time 1 visit ADL x4 (60 min) FA x2 (30 min) Rosie Hill OT Jul 12, 2022 08:59
--- NOTE | 2022-07-12 10:59 | Physical Therapy Daily Note ---
PT Daily Note-Current Subjective Pt sitting in recliner upon arrival. Pt agrees to PT. Pain Location: No Pain Reported Section J - Health Conditions 1. Rarely or not at all 2. Occasionally 3. Frequently 4. Almost constantly 8. Unable to answer Pain Effect on Sleep: 1 Pain Interference with Therapy: 1 Pain Interference w/Day-to-Day: 1 Mental Status Patient Orientation: Person, Place, Situation Transfers SCALE: Activities may be completed with or without assistive devices. 9-Hdgknsvqyw-pprpeab completes the activity by him/herself with no assistance from a helper. 5-Set-up or Clean-up Assistance-helper sets up or cleans up; patient completes activity. [place] assists only prior to or following the activity. 4-Supervision or Touching Assistance-helper provides verbal cues and/or touching/steadying and/or contact guard assistance as patient completes activity. Assistance may be provided throughout the activity or intermittently. 3-Partial/Moderate Assistance-helper does LESS THAN HALF the effort. [place] lifts, holds or supports trunk or limbs, but provides less than half the effort. 2-Substantial/Maximal Assistance-helper does MORE THAN HALF the effort. [place] lifts or holds trunk or limbs and provides more than half the effort. 4-Zxhdjiemb-asmefy does ALL the effort. Patient does none of the effort to complete the activity. Or, the assistance of 2 or more helpers is required for the patient to complete the activity. If activity was not attempted, code reason: 7-Patient Refused. 9-Not Applicable-not attempted and the patient did not perform the activity before the current illness, exacerbation or injury. 10-Not Attempted due to Environmental Limitations-(lack of equipment, weather restraints, etc.). 88-Not Attempted due to Medical Conditions or Safety Concerns. Roll Left & Right (QC): 6 Sit to Lying (QC): 6 Lying to Sitting/Side of Bed(Q: 6 Sit to Stand (QC): 6 Chair/Nbc-iw-Yewkp Xfer(QC): 6 Toilet Transfer (QC): 6 Car Transfer (QC): 6 Weight Bearing Right Lower Extremity: Right Full Weight Bearing Left Lower Extremity: Left Full Weight Bearing Gait Training Does the Patient Walk?: Yes Distance: 250' x2 Walk 10 feet (QC): 6 Walk 50 ft with 2 Turns(QC): 6 Walk 150 ft (QC): 6 Walking 10ft/uneven surface-QC: 6 Gait Assistive Device: FWW Wheelchair Training Does the Pt Use a Wheelchair?: No Stair Training Stair Training: Handrails/: 2 handrails #of Steps: 10 1 Step (curb) (QC): 6 4 Steps (QC): 6 12 Steps (QC): 5 Stairs: Pattern: Reciprocal Balance Picking up an Object (QC): 6 Exercises NuStep Minutes: 15 NuStep Workload: 4 Treatments Pt completes QC scoring items listed above as well as uses NuStep and BR x2 Indep. Pt returns to room to rest at end of tx. All needs met, call light in hand. Assessment Current Status: Good Progress Pt has gained strength, activity tolerance and independence of tasks. PT Short Term Goals Short Term Goals Time Frame: Jul 14, 2022 Roll Left & Right: 6 Sit to lyin Lying to sitting on side of be: 6 Sit to stand: 4 (SBA) Chair/izn-mx-rioim transfer: 4 (SBA) Walk 10 feet: 4 (SBA) Walk 50 feet with two turns: 4 (SBA) Walk 150 feet: 4 (SBA) PT Snf Goals Community Board Member Goals PT Community Board Member Goals Time Frame: Jul 28, 2022 Roll Left & Right (QC): 6 Sit to Lying (QC): 6 Lying-Sitting on Side/Bed(QC): 6 Sit to Stand (QC): 6 Chair/Fgb-ft-Izakf Xfer(QC): 6 Toilet Transfer (QC): 6 Car Transfer (QC): 6 Does the Patient Walk: Yes Walk 10 feet (QC): 6 Walk 50ft with 2 Turns (QC): 6 Walk 150 ft (QC): 6 Walking 10ft on Uneven Surface: 6 1 Step (curb) (QC): 4 (SBA) 4 Steps (QC): 4 (SBA) 12 Steps (QC): 88 Picking up an Object (QC): 6 Does the Pt use WC or Scooter?: No Wheel 50 feet with 2 turns (QC: 9 Wheel 150 feet: 9 PT Plan Treatment/Plan Treatment Plan: Continue Plan of Care Treatment Plan: Bed Mobility, Education, Functional Activity Ayden, Functional Strength, Gait, Safety, Therapeutic Exercise, Transfers Treatment Duration: Jul 28, 2022 Frequency: At least 5 of 7 days/Wk (IRF) Estimated Hrs Per Day: 1.5 hours per day Patient and/or Family Agrees t: Yes Safety Risks/Education Patient Education: Steps, Correct Positioning Teaching Recipient: Patient Teaching Methods: Discussion Response to Teaching: Verbalize Understanding Time Time In: 930 Time Out: 1100 Total Billed Treatment Time: 90 Total Billed Treatment 1, GT x2 (30m) & FA x3 (45m) & Ex (15m) WALKER CALDERON SUBSTANCE ABUSE TECHNICIAN Jul 12, 2022 10:59
[2022-07-12 12:57] VITALS: BP 141/66
[2022-07-12] MEDS: ENOXAPARIN 40 MG/0.4 ML (LOVENOX) SYR SC SCH (13:02)
[2022-07-12 19:41] VITALS: BP 151/78
[2022-07-12] MEDS: GABAPENTIN 600 MG (NEURONTIN) TAB PO SCH ×2 (20:04)
[2022-07-12] MEDS: traZODone 100 MG (DESYREL) TAB PO SCH ×2 (20:04)
[2022-07-12] MEDS: MELATONIN 10 MG TABLET PO SCH (20:05)
[2022-07-12] MEDS: HYDROCORTISONE 2.5% CREAM (ANUSOL-HC) 30 GM TOP SCH (20:07)
[2022-07-13] MEDS ORDERED: AMLO-250 PO (05:51)
[2022-07-13] MEDS ORDERED: HYDR-3923 PO (05:51)
--- NOTE | 2022-07-13 05:51 | Discharge Summary ---
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 Chronic falls Vitamin B 12 deficiency per patient History of vitamin D toxicity no longer takes supplement Fibromyalgia Dementia Plan: Supportive care Rehabilitation protocol BM regimen Back to AL at DC 07/08/2022: DC Rocephin 07/09/2022: Monitor closely 07/10/2022: Supportive care 07/11/2022: Improved status 07/12/2022: Supportive care Discharge tomorrow (1) Fall from ground level Status: Acute (2) Sepsis due to urinary tract infection Status: Acute (3) UTI (urinary tract infection) (4) Falls frequently Status: Chronic (5) History of anoxic brain injury Status: Acute Discharge Summary Discharge Physical Examination Allergies: Coded Allergies: ceftriaxone (Verified Allergy, Mild, Rash, 07/08/22) cefuroxime (Verified Allergy, Unknown, Hives, 12/27/18) sulfamethoxazole (Verified Adverse Reaction, Unknown, VOMITING, JERKY MOVEMENTS. , 06/29/22) trimethoprim (Verified Adverse Reaction, Unknown, VOMITING, JERKY MOVEMENTS. , 06/29/22) Vitals & I&Os Vital Signs Date Time Temp Pulse Resp B/P (MAP) Pulse Ox O2 Delivery O2 Flow Rate FiO2 07/13/22 12:37 36.8 95 18 155/93 94 Room Air General Appearance: Alert, Oriented X3, Cooperative Respiratory: Clear to Auscultation Cardiovascular: Regular Rate Neuro: Normal Gait, Normal Speech, Strength at 5/5 X4 Ext Psych/Mental Status: Mental Status NL Hospital Course Was the Problem List Reviewed?: Yes Pt had an uneventful hospital course for 7 days after she was admitted for sepsis from UTI. She completed her antibiotics. Overall she did very well. She is back to her baseline activity. She will be set for discharge in improved condition to assisted living. Labs (last 24 hrs) Laboratory Tests 07/08/22 05:17: White Blood Count 7.9, Red Blood Count 3.77L, Hemoglobin 11.8, Hematocrit 36, Mean Corpuscular Volume 94, Mean Corpuscular Hemoglobin 31, Mean Corpuscular Hemoglobin Concent 33, Red Cell Distribution Width 13.2, Platelet Count 115L, Mean Platelet Volume 12.0, Immature Granulocyte % (Auto) 0, Neutrophils (%) (Auto) 81H, Lymphocytes (%) (Auto) 11L, Monocytes (%) (Auto) 6, Eosinophils (%) (Auto) 2, Basophils (%) (Auto) 0, Neutrophils # (Auto) 6.4, Lymphocytes # (Auto) 0.8L, Monocytes # (Auto) 0.5, Eosinophils # (Auto) 0.1, Basophils # (Auto) 0.0, Immature Granulocyte # (Auto) 0.0, Percent Immature Platelet Fraction 5.8, Sodium Level 131L, Potassium Level 3.3L, Chloride Level 103, Carbon Dioxide Level 20L, Anion Gap 8, Blood Urea Nitrogen 9, Creatinine 0.63, Estimat Glomerular Filtration Rate 91, BUN/Creatinine Ratio 14, Glucose Level 126H, Calcium Level 8.2L, Corrected Calcium 9.1, Total Bilirubin 0.4, Aspartate Amino Transf (AST/SGOT) 43H, Alanine Aminotransferase (ALT/SGPT) 42, Alkaline Phosphatase 70, Total Protein 5.5L, Albumin 2.9L 07/12/22 05:15: White Blood Count 7.0, Red Blood Count 3.87, Hemoglobin 12.0, Hematocrit 35, Mean Corpuscular Volume 92, Mean Corpuscular Hemoglobin 31, Mean Corpuscular Hemoglobin Concent 34, Red Cell Distribution Width 13.2, Platelet Count 240, Mean Platelet Volume 10.7, Immature Granulocyte % (Auto) 1, Neutrophils (%) (Auto) 51, Lymphocytes (%) (Auto) 28, Monocytes (%) (Auto) 13H, Eosinophils (%) (Auto) 8, Basophils (%) (Auto) 0, Neutrophils # (Auto) 3.5, Lymphocytes # (Auto) 1.9, Monocytes # (Auto) 0.9, Eosinophils # (Auto) 0.5H, Basophils # (Auto) 0.0, Immature Granulocyte # (Auto) 0.0, Sodium Level 134L, Potassium Level 4.0, Chloride Level 101, Carbon Dioxide Level 23, Anion Gap 10, Blood Urea Nitrogen 14, Creatinine 0.69, Estimat Glomerular Filtration Rate 89, BUN/Creatinine Ratio 20, Glucose Level 101, Calcium Level 9.0, Corrected Calcium 9.7, Total Bilirubin 0.5, Aspartate Amino Transf (AST/SGOT) 51H, Alanine Aminotransferase (ALT/SGPT) 57H, Alkaline Phosphatase 71, Total Protein 5.7L, Albumin 3.1L Pending Labs Laboratory Tests 07/08/22 05:17: White Blood Count 7.9, Red Blood Count 3.77, Hemoglobin 11.8, Hematocrit 36, Mean Corpuscular Volume 94, Mean Corpuscular Hemoglobin 31, Mean Corpuscular Hemoglobin Concent 33, Red Cell Distribution Width 13.2, Platelet Count 115, Mean Platelet Volume 12.0, Immature Granulocyte % (Auto) 0, Neutrophils (%) (Auto) 81, Lymphocytes (%) (Auto) 11, Monocytes (%) (Auto) 6, Eosinophils (%) (Auto) 2, Basophils (%) (Auto) 0, Neutrophils # (Auto) 6.4, Lymphocytes # (Auto) 0.8, Monocytes # (Auto) 0.5, Eosinophils # (Auto) 0.1, Basophils # (Auto) 0.0, Immature Granulocyte # (Auto) 0.0, Percent Immature Platelet Fraction 5.8, Sodium Level 131, Potassium Level 3.3, Chloride Level 103, Carbon Dioxide Level 20, Anion Gap 8, Blood Urea Nitrogen 9, Creatinine 0.63, Estimat Glomerular Filtration Rate 91, BUN/Creatinine Ratio 14, Glucose Level 126, Calcium Level 8.2, Corrected Calcium 9.1, Total Bilirubin 0.4, Aspartate Amino Transf (AST/SGOT) 43, Alanine Aminotransferase (ALT/SGPT) 42, Alkaline Phosphatase 70, Total Protein 5.5, Albumin 2.9 07/12/22 05:15: White Blood Count 7.0, Red Blood Count 3.87, Hemoglobin 12.0, Hematocrit 35, Mean Corpuscular Volume 92, Mean Corpuscular Hemoglobin 31, Mean Corpuscular Hemoglobin Concent 34, Red Cell Distribution Width 13.2, Platelet Count 240, Mean Platelet Volume 10.7, Immature Granulocyte % (Auto) 1, Neutrophils (%) (Auto) 51, Lymphocytes (%) (Auto) 28, Monocytes (%) (Auto) 13, Eosinophils (%) (Auto) 8, Basophils (%) (Auto) 0, Neutrophils # (Auto) 3.5, Lymphocytes # (Auto) 1.9, Monocytes # (Auto) 0.9, Eosinophils # (Auto) 0.5, Basophils # (Auto) 0.0, Immature Granulocyte # (Auto) 0.0, Sodium Level 134, Potassium Level 4.0, Chloride Level 101, Carbon Dioxide Level 23, Anion Gap 10, Blood Urea Nitrogen 14, Creatinine 0.69, Estimat Glomerular Filtration Rate 89, BUN/Creatinine Ratio 20, Glucose Level 101, Calcium Level 9.0, Corrected Calcium 9.7, Total Bilirubin 0.5, Aspartate Amino Transf (AST/SGOT) 51, Alanine Aminotransferase (ALT/SGPT) 57, Alkaline Phosphatase 71, Total Protein 5.7, Albumin 3.1 Discharge Home Medications: Active Scripts Active Amlodipine Besylate 5 Mg Tablet 5 Mg PO DAILY Hydralazine HCl 25 Mg Tablet 50 Mg PO TID Reported Miralax (Polyethylene Glycol 3350) 17 Gram Powd.pack 17 Gm PO BID PRN Trazodone HCl 100 Mg Tablet 100 Mg PO HS Melatonin 10 Mg Tablet.er 10 Mg PO HS Docusate Sodium 100 Mg Tablet 100 Mg PO BID Senna Laxative (Sennosides) 8.6 Mg Tablet 8.6 Mg PO BID Cyclobenzaprine HCl 5 Mg Tablet 5 Mg PO HS PRN Fish Oil 1,000 mg Softgel ([place]-3/Dha/Epa/Fish Oil) 1,000 Mg (120 Mg-180 Mg) C apsule 1,000 Mg PO DAILY Vitamin D3 (Cholecalciferol (Vitamin D3)) 50 Mcg (2000 Unit) Capsule 100 Mcg PO DAILY Duloxetine HCl 60 Mg Capsule.dr 60 Mg PO DAILY Osteo Bi-Flex Tablet (Glucosamine/D3/Boswellia Natalie) 1,500 Mg-400 Unit-100 Mg Tablet 1 Each PO BID Metronidazole 0.75 % Gel.w.appl 1 Applic VG MON,FRI Cyanocobalamin Injection (Cyanocobalamin) 1,000 Mcg/Ml Inj 1,000 Mcg IM MONTHLY Gabapentin 600 Mg Tablet 600 Mg PO HS [Lions Bogdan] 1 Ea PO DAILY [Skeletal Strength] 2 Ea PO BID Meloxicam 7.5 Mg Tablet 7.5 Mg PO BID Tylenol (Acetaminophen) 325 Mg Capsule 650 Mg PO Q6H PRN Instructions to patient/family Please see electronic discharge instructions given to patient. Diagnosis/Problems Diagnosis/Problems (1) Fall from ground level Status: Acute (2) Sepsis due to urinary tract infection Status: Acute (3) UTI (urinary tract infection) (4) Falls frequently Status: Chronic (5) History of anoxic brain injury Status: Acute GALAVIZ,MARLO DO Jul 13, 2022 05:51
[2022-07-13] MEDS: KCL 20 MEQ TAB (K-DUR) PO SCH (06:38)
[2022-07-13 07:26] VITALS: BP 155/93
--- NOTE | 2022-07-13 08:16 | Therapy Team Discharge Summary ---
Therapy Discharge Summary Discharge Recommendations Date of Discharge Physical Therapy Patient came to rehab with debility. Upon evaluation patient performed rolling and supine <-> sit with SBA, sit <-> stand and transfers CGA, car transfer CGA, ambulated 120' with a rolling walker with CGA (including 50' with at least 2 turns of 90 degrees and 10' over an uneven surface), went up and down 1 step using a rolling walker with CGA, and picked up an object from the floor using a fumigator and sterilizer with CGA. Patient has been performing bed mobility and transfer training, balance and endurance training, functional strengthening, stair training, gait training, and education. Patient has made good progress and has met all of her nursing home goals. Now, patient performs rolling and supine <-> sit with independence, sit <-> stand and transfers independent, car transfer independent, ambualates 250' with a rolling walker with independence (including 50' with at least 2 turns of 90 degrees and 10' over an uneven surface, can go up and down 12 steps using 2 handrails with SBA, and can pickle sorter an object from the floor with independence. Patient is being discharged from this facility today and will be discharged from PT at this time. Roll Left to Right (QC): 6 Sit to Lying (QC): 6 Lying to Sitting/Side of Bed(Q: 6 Sit to Stand (QC): 6 Chair/Lny-ds-Pxwdo Xfer(QC): 6 Toilet Transfer (QC): 5 Car Transfer (QC): 6 Does the Patient Walk: Yes Mode of Locomotion: Walk Anticipated Mode of Locomotion: Walk Walk 10 feet (QC): 6 Walk 50 ft with 2 Turns(QC): 6 Walk 150 ft (QC): 6 Walking 10ft on uneven surface: 6 Distance: 70', 120', 120', 120 Gait Assistive Device: FWW Does the Pt Use a Wheelchair: No Wheel 50 ft with 2 turns (QC): 9 Wheel 150 ft (QC): 9 #of Steps: 10 1 Step (curb) (QC): 6 4 Steps (QC): 6 12 Steps (QC): 5 Walking Assistive Device: Walker Balance Sitting Static: Normal Balance Sitting Dynamic: Normal Balance-Standing Static: Fair Picking up an Object (QC): 6 Occupational Therapy Decreased Activ Tolerance, Impaired Funct Balance, Impaired I ADL's Eating (QC): 6 Oral Hygiene (QC): 6 Shower/Bathe Self (QC): 6 Upper Body Dressing (QC): 6 Lower Body Dressing (QC): 6 On/Off Footwear (QC): 6 Toileting Hygiene (QC): 6 PT Retirement Goals Estimate Clerk Goals PT Retirement Goals Time Frame: Jul 28, 2022 Roll Left to Right (QC): 6 Sit to Lying (QC): 6 Lying-Sitting on Side/Bed(QC): 6 Sit to Stand (QC): 6 Chair/Gug-yv-Zuhpv Xfer(QC): 6 Toilet/Commode Transfer (QC): 6 Car Transfer (QC): 6 Does the Patient Walk: Yes Walk 10 feet (QC): 6 Walk 10ft-Uneven Surface(QC): 6 Walk 50ft with 2 Turns (QC): 6 Walk 150 ft (QC): 6 Does the Pt use WC or Scooter?: No Wheel 50 feet with 2 turns (QC: 9 Wheel 150 feet: 9 1 Step (curb) (QC): 4 (SBA) 4 Steps (QC): 4 (SBA) 12 Steps (QC): 88 Picking up an Object (QC): 6 OT Estimate Clerk Goals Estimate Clerk Goals Time Frame: Jul 30, 2022 Acute change in mental status: 0 Inattention: 0 Disorganized thinkin Altered level of consciousness: 0 Eating (QC): 6 (met) Oral Hygiene (QC): 6 (met) Toileting Hygiene (QC): 6 (met) Shower/Bathe Self (QC): 6 (met) Upper Body Dressing (QC): 6 (met) Lower Body Dressing (QC): 6 (met) On/Off Footwear (QC): 6 (met) Additional Goals: 1-Demonstrate ADL Tasks, 2-Verbalize Understanding, 3- ImproveStrength/Adyen 1=Demonstrate adherence to instructed precautions during ADL tasks. 2=Patient will verbalize/demonstrate understanding of assistive devices/modifications for ADL. 3=Patient will improve strength/tolerance for activity to enable patient to perform ADL's. ARIELLA CROCKER PT Jul 13, 2022 08:16
[2022-07-13] MEDS: DOCUSATE SODIUM 100 MG (COLACE) CAP PO SCH (08:35)
[2022-07-13] MEDS: polyethylene glycoL POWDER 17 GM (MIRALAX) PACK PO SCH (08:35)
[2022-07-13] MEDS: SENNOSIDES 8.6 MG (SENOKOT) TAB PO SCH (08:36)
[2022-07-13] MEDS: DULoxetine 30 MG (CYMBALTA) CAP PO SCH (09:06)
[2022-07-13] MEDS: VITAMIN D3 25 MCG (1,000 UNITS) TABLET PO SCH (09:06)
[2022-07-13] MEDS: hydrALAZINE (APRESOLINE) 25 MG TAB PO SCH (09:07)
[2022-07-13] MEDS: MELOXICAM 7.5 MG (MOBIC) TABLET PO SCH (09:07)
[2022-07-13] MEDS: amLODIPine 5 MG (NORVASC) TAB PO SCH (09:07)
[2022-07-13] MEDS: OMEGA 3 (FISH OIL) 1000 MG CAP PO SCH (09:07)
[2022-07-13] MEDS: HYDROCORTISONE 2.5% CREAM (ANUSOL-HC) 30 GM TOP SCH (09:08)
--- NOTE | 2022-07-13 10:20 | Therapy Team Discharge Summary ---
Therapy Discharge Summary Discharge Recommendations Date of Discharge Therapy D/C Recommendations: Assisted Living (return to assisted living ), Homemaker Support Physical Therapy Roll Left to Right (QC): 6 Sit to Lying (QC): 6 Lying to Sitting/Side of Bed(Q: 6 Sit to Stand (QC): 6 Chair/Qvx-pf-Sdlld Xfer(QC): 6 Toilet Transfer (QC): 5 Car Transfer (QC): 6 Does the Patient Walk: Yes Mode of Locomotion: Walk Anticipated Mode of Locomotion: Walk Walk 10 feet (QC): 6 Walk 50 ft with 2 Turns(QC): 6 Walk 150 ft (QC): 6 Walking 10ft on uneven surface: 6 Distance: 70', 120', 120', 120 Gait Assistive Device: FWW Does the Pt Use a Wheelchair: No Wheel 50 ft with 2 turns (QC): 9 Wheel 150 ft (QC): 9 #of Steps: 10 1 Step (curb) (QC): 6 4 Steps (QC): 6 12 Steps (QC): 5 Walking Assistive Device: Walker Balance Sitting Static: Normal Balance Sitting Dynamic: Normal Balance-Standing Static: Fair Picking up an Object (QC): 6 Occupational Therapy Pt admitted to ARU with diagnosis of debility. At time of evaluation, she was SBA for toileting, lower body dressing, and bathing, set up for upper body dressing and footwear, and independent for eating and oral care. During her rehab stay, OT focused on endurance, strengthening, higher level balance, community integration, and safety in order to improve independence and performance in adls and functional transfers. Pt made good progress and met all of her rn long term care goals. Pt is currently independent with all adls. She will be discharging from this facility today and will be discharged from OT at this time. Decreased Activ Tolerance, Impaired Funct Balance, Impaired I ADL's Eating (QC): 6 Oral Hygiene (QC): 6 Shower/Bathe Self (QC): 6 Upper Body Dressing (QC): 6 Lower Body Dressing (QC): 6 On/Off Footwear (QC): 6 Toileting Hygiene (QC): 6 BIMS CAM BIMS Expression of Ideas and Wants: Without Difficulty Understanding Verbal Content: Understands Brief Interview/Mental Status: Yes IRF ANGEL BIMS: IRF ANGEL BIMS Response (Comments) Value Repitition of Three Words Three 3 Recalls Socks Yes, No Cue Required 2 Recalls Blue Yes, No Cue Required 2 Recalls Bed Yes, No Cue Required 2 Year Correct 3 Month Accurate Within 5 Days 2 Day Correct 1 Total 15 Notes: CAM Mental Status Change/Baseline: 0 Inattention: 0 Disorganized thinkin Altered level of consciousness: 0 PT Quarter Supervisor Goals Quarter Supervisor Goals PT Senior Care Goals Time Frame: Jul 28, 2022 Roll Left to Right (QC): 6 Sit to Lying (QC): 6 Lying-Sitting on Side/Bed(QC): 6 Sit to Stand (QC): 6 Chair/Inn-hi-Owwis Xfer(QC): 6 Toilet/Commode Transfer (QC): 6 Car Transfer (QC): 6 Does the Patient Walk: Yes Walk 10 feet (QC): 6 Walk 10ft-Uneven Surface(QC): 6 Walk 50ft with 2 Turns (QC): 6 Walk 150 ft (QC): 6 Does the Pt use WC or Scooter?: No Wheel 50 feet with 2 turns (QC: 9 Wheel 150 feet: 9 1 Step (curb) (QC): 4 (SBA) 4 Steps (QC): 4 (SBA) 12 Steps (QC): 88 Picking up an Object (QC): 6 OT Senior Care Goals Quarter Supervisor Goals Time Frame: Jul 30, 2022 Acute change in mental status: 0 Inattention: 0 Disorganized thinkin Altered level of consciousness: 0 Eating (QC): 6 (met) Oral Hygiene (QC): 6 (met) Toileting Hygiene (QC): 6 (met) Shower/Bathe Self (QC): 6 (met) Upper Body Dressing (QC): 6 (met) Lower Body Dressing (QC): 6 (met) On/Off Footwear (QC): 6 (met) Additional Goals: 1-Demonstrate ADL Tasks, 2-Verbalize Understanding, 3- ImproveStrength/[place] 1=Demonstrate adherence to instructed precautions during ADL tasks. 2=Patient will verbalize/demonstrate understanding of assistive devices/modifications for ADL. 3=Patient will improve strength/tolerance for activity to enable patient to perform ADL's. Rosie Hill OT Jul 13, 2022 10:20
[2022-07-13 12:37] VITALS: BP 155/93
--- NOTE | 2022-07-15 07:47 | Physician Query Clarification ---
PQ-Further Specificity Admission/Discharge Admission Date: Jul 07, 2022 at 13:00 Discharge Date: Jul 13, 2022 at 12:41 Dr. Snyder, The medical record reflects the following clinical scenario: History/Risk Factors: Sepsis w/UTI, Dementia, hx anoxic brain injury Clinical Findings: confusion is baseline, disorientation, 10/30 PN encephalopathy is clearing Treatment: IV Ceftriaxone Question: Can you further specify encephalopathy per the clinical indicators above? Please document a response in the Progress Notes or Discharge Summary. 1. metabolic/septic encephalopathy 2. acute encephalopathy not further specified 3. Other, with explanation of the clinical findings. 4. Clinically undetermined, no explanation for the clinical findings. PHYSICIAN RESPONSE Can you specify per above: 1 In responding to this query, please exercise your independent professional judgment. The purpose of this communication is to more accurately reflect the complexity of your patients condition. The fact that a question is asked does not imply that any particular answer is desired or expected. Thank you for your timely response to this clarification. Requestors name: Amelia THIS PHYSICIAN QUERY FORM IS A PERMANENT PART OF THE MEDICAL RECORD AMELIA PONCE Jul 15, 2022 07:47 MARLO SNYDER DO Jul 15, 2022 11:51
[2022-07-22] MEDS ORDERED: CYANOCOBALAMIN INJ 1000 MCG/ML IM SCH (09:00)
== END 2022-07-13 12:41 | DRG 871 ==
PROVIDERS: ADMIT Internal Medicine; ATTEND Internal Medicine
DX: A41.9 Sepsis, unspecified organism (principal); G93.41 Metabolic encephalopathy; N39.0 Urinary tract infection, site not specified; R53.1 Weakness; Z91.81 History of falling; F03.90 Unspecified dementia, unspecified severity, without behavioral disturbance, psychotic disturbance, mood disturbance, and anxiety; K21.9 Gastro-esophageal reflux disease without esophagitis; M79.7 Fibromyalgia; Z66 Do not resuscitate; M81.0 Age-related osteoporosis without current pathological fracture; E78.00 Pure hypercholesterolemia, unspecified; I10 Essential (primary) hypertension; E53.8 Deficiency of other specified B group vitamins; L27.0 Generalized skin eruption due to drugs and medicaments taken internally; T36.1X5A Adverse effect of cephalosporins and other beta-lactam antibiotics, initial encounter
CPT/HCPCS: 36415; 80053; 85025

== ENCOUNTER → 2022-12-14 | Outpatient (CLI) | payer MEDICARE, OTHER, MEDICAID ==
[~2022-12-14] VITALS: Ht 149.9 cm; Wt 51.8 kg
[~2022-12-14] MED LIST changes: +AMLO-250 PO; +DENOSUMAB 60 MG/1 ML (PROLIA) SQ SCH; +HYDR-3923 PO
[2022-12-14 11:04] VITALS: BP 144/79
== END ==
LOC: SDC 10:29
PROVIDERS: ATTEND Internal Medicine
DX: M81.0 Age-related osteoporosis without current pathological fracture (principal)
CPT/HCPCS: 96372

== ENCOUNTER → 2023-06-16 | Outpatient (CLI) | payer MEDICARE, OTHER, MEDICAID ==
[~2023-06-16] VITALS: Ht 149.9 cm; Wt 54.0 kg
[~2023-06-16] MED LIST changes: +DENOSUMAB 60 MG/1 ML (PROLIA) SQ ONE; -DENOSUMAB 60 MG/1 ML (PROLIA) SQ SCH; +SENN-341 PO; -SNN187T PO
[2023-06-16 12:20] VITALS: BP 141/74
== END ==
LOC: SDC 11:55
PROVIDERS: ATTEND Internal Medicine
DX: M81.0 Age-related osteoporosis without current pathological fracture (principal)
CPT/HCPCS: 96372

== ENCOUNTER 2023-06-22 16:50 | Emergency (ER) | payer MEDICARE, OTHER, MEDICAID ==
[~2023-06-22] VITALS: Ht 149 cm; Wt 54.0 kg
[~2023-06-22 16:50] MED LIST changes: -DENOSUMAB 60 MG/1 ML (PROLIA) SQ ONE
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
[2023-06-22 17:53] LABS: BASOPHILS % (AUTO) 0 % (0-10); EOSINOPHILS # (AUTO) 0.2 10^3/uL (0.0-0.3); EOSINOPHILS % (AUTO) 2 % (0-10); HEMATOCRIT 40 % (35-52); HEMOGLOBIN 13.1 g/dL (11.5-16.0); LYMPHOCYTES # (AUTO) 1.7 10^3/uL (1.0-4.0); LYMPHOCYTES % (AUTO) 18 % (12-44); MEAN CORPUSCULAR HEMOGLOBIN 32 pg (25-34); MEAN CORPUSCULAR HGB CONC 33 g/dL (32-36); MEAN CORPUSCULAR VOLUME 97 fL (80-99); MEAN PLATELET VOLUME 9.9 fL (9.0-12.2); MONOCYTES # (AUTO) 1.1 10^3/uL (0.0-1.0); MONOCYTES % (AUTO) 12 % (0-12); NEUTROPHILS # (AUTO) 6.1 10^3/uL (1.8-7.8); NEUTROPHILS % (AUTO) 67 % (42-75); PLATELET COUNT 229 10^3/uL (130-400)
--- NOTE | 2023-06-22 17:54 | Diagnostic Imaging Report ---
EXAMINATION: CT chest without contrast. TECHNIQUE: Multiple contiguous axial images were obtained through the chest without the use of intravenous contrast. All CT scans use one or more of the following dose optimizing techniques: automated exposure control, MA and/or KvP adjustment based on patient size and exam type or iterative reconstruction. HISTORY: Chest injury COMPARISON: None available. FINDINGS: There is no edema or pneumonia. No pleural effusion. No pneumothorax. No suspicious nodules. There is bibasilar atelectasis. There is no axillary or supraclavicular lymphadenopathy. There is no mediastinal lymphadenopathy. Heart size is normal. There are mild coronary artery calcifications. No pericardial effusion. Aorta is normal in caliber. Limited views of the upper abdomen show a small hiatal hernia. There are no suspicious osseus lesions. There are old right-sided rib fractures. There are old left-sided rib fractures. No acute fracture is seen. There is a chronic upper thoracic compression fracture. There is chronic L2 compression fracture. There is a hemangioma in the lower thoracic spine. 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 IMPRESSION: 1. Old bilateral rib fractures. No acute traumatic injury is seen. Dictated by: Dictated on workstation # [id number]
[2023-06-22 18:03] LABS: ALBUMIN 4.2 GM/DL (3.2-4.5)
[2023-06-22 18:04] LABS: POTASSIUM 4.5 MMOL/L (3.6-5.0)
[2023-06-22 18:05] LABS: CALCIUM 9.5 MG/DL (8.5-10.1)
[2023-06-22 18:06] LABS: TOTAL PROTEIN 7.5 GM/DL (6.4-8.2)
[2023-06-22 18:08] LABS: BILIRUBIN,TOTAL 0.6 MG/DL (0.1-1.0)
[2023-06-22 18:10] LABS: CREATININE SERUM 0.8 MG/DL (0.60-1.30)
[2023-06-22 18:13] LABS: MAGNESIUM 2.4 MG/DL (1.6-2.4)
[2023-06-22 19:04] VITALS: BP 118/67
== END 2023-06-22 19:04 | disposition home or self-care (01) ==
LOC: EDUNIT# 16:50 → ER 16:50
DX: S00.83XA Contusion of other part of head, initial encounter (principal); E87.1 Hypo-osmolality and hyponatremia; I10 Essential (primary) hypertension; R07.89 Other chest pain; W01.0XXA Fall on same level from slipping, tripping and stumbling without subsequent striking against object, initial encounter; Y93.01 Activity, walking, marching and hiking; Y92.129 Unspecified place in nursing home as the place of occurrence of the external cause
CPT/HCPCS: 36415; 70450; 70486; 71250; 72125; 80053; 83735; 85025

== ENCOUNTER 2023-08-05 22:27 | Emergency (ER) | payer MEDICARE, OTHER, MEDICAID ==
[~2023-08-05] VITALS: Ht 149 cm; Wt 54.0 kg
--- NOTE | 2023-08-05 22:38 | ED Fall/Injury ---
General Chief Complaint: Trauma-Non Activation Stated Complaint: FALL Source: patient Exam Limitations: no limitations History of Present Illness Date Seen by Provider: Aug 05, 2023 Time Seen by Provider: 22:28 Initial Comments 78-year-old female presents emergency department today from local nursing facility after a fall. She reportedly has frequent falls. She tells me she simply lost her balance while she was trying to get rag wet. She hit her head on the door stop. She denies loss of consciousness. She is not on blood thinning medications. She has a small laceration to the crown of her head but complains of no other injuries or pain. Last tetanus shot per record review was 2019. All other systems reviewed and negative except documented per HPI. Voice recognition software was used to help create this chart Allergies and Home Medications Allergies Coded Allergies: ceftriaxone (Verified Allergy, Mild, Rash, 07/08/22) cefuroxime (Verified Allergy, Unknown, Hives, 12/27/18) sulfamethoxazole (Verified Adverse Reaction, Unknown, VOMITING, JERKY MOVEMENTS. , 06/29/22) trimethoprim (Verified Adverse Reaction, Unknown, VOMITING, JERKY MOVEMENTS. , 06/29/22) Patient Home Medication List Home Medication List Reviewed: Yes Acetaminophen (Tylenol) 325 Mg Capsule, 650 MG PO Q6H PRN for PAIN-MILD (1-4), (Reported) Entered as Reported by: TUAN PELLETIER on 07/06/221608 Amlodipine Besylate (Amlodipine Besylate) 5 Mg Tablet, 5 MG PO DAILY Prescribed by: MARLO GALAVIZ on 07/13/22 0551 Cholecalciferol (Vitamin D3) (Vitamin D3) 50 Mcg (2000 Unit) Capsule, 100 MCG PO DAILY, (Reported) Entered as Reported by: TUAN PELLETIER on 07/06/221608 Cyanocobalamin (Cyanocobalamin Injection) 1,000 Mcg/Ml Inj, 1,000 MCG IM MONTHLY, (Reported) Entered as Reported by: TUAN PELLETIER on 07/06/221608 Cyclobenzaprine HCl (Cyclobenzaprine HCl) 5 Mg Tablet, 5 MG PO HS PRN for MUSCLE SPASMS, (Reported) Entered as Reported by: TUAN PELLETIER on 07/06/221608 Docusate Sodium (Docusate Sodium) 100 Mg Tablet, 100 MG PO BID, (Reported) Entered as Reported by: TUAN PELLETIER on 07/06/221608 Duloxetine HCl (Duloxetine HCl) 60 Mg Capsule.dr, 60 MG PO DAILY, (Reported) Entered as Reported by: TUAN PELLETIER on 07/06/221608 Gabapentin (Gabapentin) 600 Mg Tablet, 600 MG PO HS, (Reported) Entered as Reported by: TUAN PELLETIER on 07/06/221608 Glucosamine/D3/Boswellia Natalie (Osteo Bi-Flex Tablet) 1,500 Mg-400 Unit-100 Mg Tablet, 1 EACH PO BID, (Reported) Entered as Reported by: TUAN PELLETIER on 07/06/221608 Hydralazine HCl (Hydralazine HCl) 25 Mg Tablet, 50 MG PO TID Prescribed by: MARLO GALAVIZ on 07/13/22 0551 Melatonin (Melatonin) 10 Mg Tablet.er, 10 MG PO HS, (Reported) Entered as Reported by: TUAN PELLETIER on 07/06/221608 Meloxicam (Meloxicam) 7.5 Mg Tablet, 7.5 MG PO BID, (Reported) Entered as Reported by: TUAN PELLETIER on 07/06/221608 Metronidazole (Metronidazole) 0.75 % Gel.w.appl, 1 APPLIC VG TUE,TUE, (Reported) Entered as Reported by: TUAN PELLETIER on 07/06/221608 [place]-3/Dha/Epa/Fish Oil (Fish Oil 1,000 mg Softgel) 1,000 Mg (120 Mg-180 Mg) Capsule, 1,000 MG PO DAILY, (Reported) Entered as Reported by: TUAN PELLETIER on 07/06/221608 Polyethylene Glycol 3350 (Miralax) 17 Gram Powd.pack, 17 GM PO BID PRN for CONSTIPATION-2ND LINE, (Reported) Entered as Reported by: TUAN PELLETIER on 07/06/221608 Sennosides (Senna Laxative) 8.6 Mg Tablet, 8.6 MG PO BID, (Reported) Entered as Reported by: TUAN PELLETIER on 07/06/221608 Trazodone HCl (Trazodone HCl) 100 Mg Tablet, 100 MG PO HS, (Reported) Entered as Reported by: TUAN PELLETIER on 10/25/22 1609 [Lions Bogdan] , 1 EA PO DAILY, (Reported) Entered as Reported by: TUAN PELLETIER on 07/06/22 160 [Skeletal Strength] , 2 EA PO BID, (Reported) Entered as Reported by: TUAN PELLETIER on 07/06/221608 Review of Systems Review of Systems Constitutional: see HPI Past Jypecdx-Medybk-Lqymzf Hx Patient Social History Tobacco Use?: No Use of E-Cig and/or Vaping dev: No Substance use?: No Alcohol Use?: No Immunizations Up To Date Tetanus Booster (TDap): Less than 5yrs PED Vaccines UTD: Yes First/Initial COVID19 Vaccinat: 2020 Second COVID19 Vaccination Jose: 2020 Third COVID19 Vaccination Date: 2020 Seasonal Allergies Seasonal Allergies: No Past Medical History Surgery/Hospitalization HX: GERD, DIZZINESS, FIBROMYALGIA, ATHRITIS, DEPRESSION, neuropathy, urinary retention, frequent falls Surgeries: No Respiratory: No Cardiac: Yes High Cholesterol, Hypertension Neurological: Yes (CHRONIC VERTIGO--REPORTEDLY FROM AN ASPHYXIATION ATTEMPT 50 YEARS AGO. 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 History: Menopausal Genitourinary: Yes (urinary retention) Bladder Infection Gastrointestinal: Yes Gastroesophageal Reflux Musculoskeletal: Yes (clavicle fx 2018 humerus 2018) Fibromyalgia, Fractures Endocrine: No HEENT: Yes (FACIAL FRACTURES FROM FALL 05/25/19--TREATED NON SURGICALLY) Cancer: No Psychosocial: No Integumentary: No Blood Disorders: No Family Medical History CHF son ( 38 YR) Cardiovascular disease 19 FATHER Colon cancer 19 FATHER ( AGE 40) Diabetes mellitus 19 MOTHER FH: CHF (congestive heart failure) FH: colon cancer Myocardial infarction 19 MOTHER Neoplasm G8 BROTHER ( AGE 68) No Pertinent Family Hx Physical Exam Vital Signs Vital Signs - First Documented 08/05/23 22:30 Temp 36.6 Pulse 64 Resp 16 B/P (MAP) 120/102 (108) Pulse Ox 96 O2 Delivery Room Air Capillary Refill : Height, Weight, BMI Height: 4'11.00" Weight: 109lbs. 0.0oz. 49.867689qn; 24.00 BMI Method:Stated General Appearance: WD/WN, no apparent distress HEENT: PERRL/EOMI, normal ENT inspection, TMs normal, pharynx normal Neck: non-tender, supple Cardiovascular: regular rate, rhythm, no murmur Respiratory: chest non-tender, lungs clear, normal breath sounds, no respiratory distress, no accessory muscle use Gastrointestinal: normal bowel sounds, non tender, soft, no organomegaly Back: normal inspection, no vertebral tenderness Extremities: normal range of motion, non-tender, normal inspection, no pedal edema, no calf tenderness, normal capillary refill Neurologic/Psychiatric: surgery technician II-XII nml as tested, no motor/sensory deficits, alert, normal mood/affect, oriented x 3 Skin: normal color, other (2 cm laceration on the crown of the head. Hemostatic currently. Galea is intact) Procedures/Interventions Wound Location: Scalp Wound Length (cm): 2.0 Wound's Depth, Shape: sub Q Wound Explored: clean Irrigated w/ Saline (ccs): 500 Anesthesia: 1% Lidocaine Volume Anesthetic (ccs): 5 Staple Repair: Stapler 35W Number of Sutures: 4 Progress/Results/Core Measures Results/Orders My Orders Orders - LESLIE ORTEGA DO Ct Head Wo (08/05/23 22:34) Dipht/Pertuss(Acell)/Tet Adult (Dipht/Pe (08/05/23 22:45) Ondansetron Oral Dissolve Tab (Ondanset (08/05/23 23:08) Vital Signs/I&O 08/05/23 08/05/23 22:30 23:20 Temp 36.6 36.6 Pulse 64 64 Resp 16 16 B/P (MAP) 120/102 (108) 142/71 Pulse Ox 96 96 O2 Delivery Room Air Room Air Departure Communication (Admissions) Patient is hemodynamically stable, neurovascular sensory intact GCS of 15. CT scan is negative for any acute intracranial abnormality. Wound cleansed, an esthetized and stapled. No other injuries. Discharged in stable condition. Impression Primary Impression: Status post fall Additional Impressions: Closed head injury without loss of consciousness Qualified Codes: S09.90XA - Unspecified injury of head, initial encounter Scalp laceration Qualified Codes: S01.01XA - Laceration without foreign body of scalp, initial encounter Disposition: HOME, SELF-CARE Condition: Stable Departure-Patient Inst. Referrals: BRAULIO PUGH DO (PCP/Family) Primary Care Physician Patient Instructions: Preventing Falls ED, Laceration Repair With [facility] ED Add. Discharge Instructions: Use walking aids as necessary. Continue to improve surrounding self-care prevent falls. Return to the emergency department for any severe concerns. Guajardo ve your christopher removed in 7 to 10 days. All discharge instructions reviewed with patient and/or family. Voiced understanding. LESLIE ORTEGA DO Aug 05, 2023 22:38
[2023-08-05] MEDS ORDERED: Tetanus/Diphtheria/Pertussis (Acell) ADULT Vaccine 0.5 ML IM ONE (22:45)
[2023-08-05] MEDS ORDERED: ONDANSETRON 4 MG ORAL DISSOLVE TABLET PO STA (23:08)
[2023-08-05 23:20] VITALS: BP 142/71
--- NOTE | 2023-08-06 05:58 | Diagnostic Imaging Report ---
PROCEDURE: CT head without contrast. TECHNIQUE: Multiple contiguous axial images were obtained through the brain without the use of intravenous contrast. Auto Exposure Controls were utilized during the CT exam to meet ALARA standards for radiation dose reduction. INDICATION: Fall with head injury and pain. COMPARISON: 06/22/2023. DISCUSSION: No adverse change. White matter hypoattenuation is nonspecific though not greater than expected for age related chronic small vessel ischemic disease, stable. The ventricles and sulci are normal size and configuration for age. The orbits, sinuses, mastoid air cells, and calvarium are unremarkable. No acute intracranial hemorrhage, mass, midline shift, or hydrocephalus. IMPRESSION: 1. Stable senescent changes as described. No acute intracranial abnormality identified. 2. Agree with preliminary report. Dictated by: Dictated on workstation # [id number]
== END 2023-08-05 23:35 | disposition home or self-care (01) ==
LOC: EDUNIT# 22:27 → ER 22:28
DX: S09.90XA Unspecified injury of head, initial encounter (principal); S01.01XA Laceration without foreign body of scalp, initial encounter; W01.198A Fall on same level from slipping, tripping and stumbling with subsequent striking against other object, initial encounter
CPT/HCPCS: 12001; 70450